=== PATIENT | female | born 1940 | race Hispanic/Latino ===

== ENCOUNTER 2016-05-17 12:03 | Observation (INO) | payer MEDICARE ==
[2016-05-17 12:05] VITALS: BMI 17.9
--- NOTE | 2016-05-17 12:40 | ED PDOC ---
Arrival/HPI - General Chief Complaint: Syncope Time Seen by Provider: 05/17/16 12:05 Historian: Patient - History of Present Illness Narrative History of Present Illness (Text): 05/17/16 12:05 A 75 year old female, whose past medical history includes emphysema, hypertension, hyperlipidemia, hypothyroidism, and atrial fibrillation (on Warfarin), presents to the emergency room, accompanied by , for evaluation after a syncopal episode. 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 She states the lightheadedness is worse when standing up but is still present while sitting. Patient reports her co-workers told her she passed out. Patient does not recall passing out. She says her co-worker was able to catch her fall and therefore did not sustain any injuries. Currently that patient feels lightheaded but denies any fever, pain, or any other complaints at this time. PMD: Dr. Ayon Time/Duration: Prior to Arrival Symptom Onset: Sudden Symptom Course: Other Quality: Other Activities at Onset: Rest Context: Work Past Medical History - Provider Review Nursing Documentation Reviewed: Yes - Infectious Disease Hx of Infectious Diseases: None - Cardiac Hx Cardiac Disorders: Yes Hx Hypertension: Yes - Pulmonary Hx Respiratory Disorders: Yes Hx Asthma: Yes - Neurological Hx Neurological Disorder: Yes HX Cerebrovascular Accident: Yes - HEENT Hx HEENT Disorder: Yes (reading glasses) - Renal Hx Renal Disorder: No - Endocrine/Metabolic Hx Endocrine Disorders: No - Hematological/Oncological Hx Blood Disorders: No - Integumentary Hx Dermatological Disorder: No - Musculoskeletal/Rheumatological Hx Falls: No - Gastrointestinal Hx Gastrointestinal Disorders: Yes - Genitourinary/Gynecological Hx Genitourinary Disorders: No - Psychiatric Hx Psychophysiologic Disorder: No Hx Substance Use: No - Surgical History Hx Musculoskeletal Surgery: Yes (right wrist fracture) - Anesthesia Hx Anesthesia: Yes Hx Anesthesia Reactions: No Hx Malignant Hyperthermia: No Family/Social History - Physician Review Nursing Documentation Reviewed: Yes Family/Social History: Unknown Family HX Smoking Status: Never Smoked Hx Alcohol Use: No Hx Substance Use: No Allergies/Home Meds Allergies/Adverse Reactions: Allergies No Known Allergies Allergy (Verified 05/17/16 12:04) Home Medications: Home Meds Medication Instructions Recorded Confirmed Lisinopril [Zestril] 40 mg PO DAILY 08/18/15 05/17/16 Norvasc 5 mg PO DAILY 08/29/15 05/17/16 Synthroid 50 mcg PO DAILY 08/29/15 05/17/16 Warfarin [Coumadin] 3 mg PO .Saturday02/19/16 05/17/16 Dicyclomine HCl [Dicyclomine HCl] 10 mg PO BID 05/17/16 05/17/16 Omeprazole [Omeprazole] 40 mg PO DAILY 05/17/16 05/17/16 Warfarin [Coumadin] 2 mg PO .DAILY EXCEPT SUN 05/17/16 05/17/16 Review of Systems - Physician Review All systems were reviewed & negative as marked: Yes - Review of Systems Constitutional: absent: Fevers Cardiovascular: Syncope. absent: Chest Pain Gastrointestinal: absent: Abdominal Pain Musculoskeletal: absent: Back Pain, Neck Pain Neurological: Other (lightheaded) Physical Exam Vital Signs Reviewed: Yes Vital Signs Temp Pulse Resp BP Pulse Ox 05/17/16 13:38 87 16 119/54 L 96 05/17/16 12:15 97.9 F 79 18 112/78 97 Temperature: Afebrile Blood Pressure: Normal Pulse: Regular Respiratory Rate: Normal Appearance: Positive for: Well-Appearing, Non-Toxic, Comfortable Pain Distress: None Mental Status: Positive for: Alert and Oriented X 3 Finger Stick Blood Glucose: 103 - Systems Exam Head: Present: Atraumatic, Normocephalic Pupils: Present: PERRL Extroacular Muscles: Present: EOMI Conjunctiva: Present: Normal Mouth: Present: Moist Mucous Membranes Neck: Present: Normal Range of Motion Respiratory/Chest: Present: Clear to Auscultation, Good Air Exchange. No: Respiratory Distress, Accessory Muscle Use Cardiovascular: Present: Regular Rate and Rhythm, Normal S1, S2. No: Murmurs Abdomen: Present: Normal Bowel Sounds. No: Tenderness, Distention, Peritoneal Signs Back: Present: Normal Inspection Upper Extremity: Present: Normal Inspection. No: Cyanosis, Edema Lower Extremity: Present: Edema (trace edema bilaterally), Normal ROM. No: CALF TENDERNESS Neurological: Present: GCS=15, CN II-XII Intact, Speech Normal Skin: Present: Warm, Dry, Normal Color. No: Rashes Psychiatric: Present: Alert, Oriented x 3, Normal Insight, Normal Concentration Medical Decision Making ED Course and Treatment: 05/17/16 12:05 Impression: A 75 year old female after a syncopal episodes. Differential Diagnosis include but are not limited to: vasovagal syncope vs. electrolyte imbalance vs. ACS vs. intracranial abnormalities Plan: -- EKG -- Head CT -- Chest X-ray -- Labs -- Urinalysis -- Reassess and disposition Prior Visits: Notes and results from previous visits were reviewed. The patient last presented to the emergency department on 02/14/16 for evaluation of a near syncopal episode. Progress Notes: EKG: Ordered, reviewed, and independently interpreted the EKG. Rate : 79 BPM Rhythm : NSR Interpretation : T wave inversion in leads V1 and V2 Comparison : No change from previous EKG on 02/16/16, but EKG on 02/14/16 shows atrial fibrillation. 05/17/16 13:[address]: Creator : Dick Johnson MD COMPARISON: None available. FINDINGS: Examination is somewhat limited due to patient motion artifact HEMORRHAGE: No intracranial hemorrhage. BRAIN: No mass effect or edema. Moderate diffuse age-appropriate cerebral atrophy. Moderate chronic periventricular and deep white matter ischemic change. Incidentally noted coarse calcification of the left caudate nucleus head , unchanged compared to prior examinations. No evidence of acute infarct. VENTRICLES: Unremarkable. No hydrocephalus. CALVARIUM: Unremarkable. PARANASAL SINUSES: Unremarkable as visualized. No significant inflammatory changes. MASTOID AIR CELLS: Unremarkable as visualized. No inflammatory changes. OTHER FINDINGS: None. IMPRESSION: No intracranial mass, hemorrhage or evidence of acute infarct. Age- appropriate involutional changes. No interval change from 02/15/2016. 05/17/16 13:39 Chest X-ray: As read by me, no acute findings. 05/17/16 14:55 Case was discussed with Dr. Major who agrees to place patient under her service. She will place consults in. - Lab Interpretations Lab Results: 05/17/16 13:30 05/17/16 13:30 Lab Results 05/17/16 13:30: WBC 6.7 D, RBC 4.63, Hgb 10.4 L, Hct 30.7 L, MCV 66.3 L, MCH 22.5 L, MCHC 33.9, RDW 15.9 H, Plt Count 207, Gran % 78.3 H, Lymph % (Auto) 11.2 L, Graves % (Auto) 8.7 H, Eos % (Auto) 0.9 L, Baso % (Auto) 0.9, Gran # 5.22 , Lymph # 0.8 L, Graves # 0.6, Eos # 0.1, Baso # 0.06, PT 32.0 H*, INR 2.96 H, APTT 34.1 H, Sodium 142, Potassium 3.4 L, Chloride 107, Carbon Dioxide 24, Anion Gap 14, BUN 24 H, Creatinine 0.6, Est GFR ( Amer) > 60, Est GFR ( Non-Af Amer) > 60, Random Glucose 149 H, Calcium 9.1, Magnesium 2.1, Total Bilirubin 1.1, AST 33, ALT 42, Alkaline Phosphatase 63, Lactate Dehydrogenase 533, Total Creatine Kinase 59, Troponin I < 0.01 D, NT-Pro-B Natriuret Pep 270 , Total Protein 6.6, Albumin 3.5, Globulin 3.1, Albumin/Globulin Ratio 1.1 05/17/16 12:06: POC Glucose (mg/dL) 103 I have reviewed the lab results: Yes - RAD Interpretation Radiology Orders: 05/17/16 12:13 HEAD W/O CONTRAST [CT] Stat CHEST PORTABLE [RAD] Stat - Medication Orders Current Medication Orders: Discontinued Medications Potassium Chloride (K-Dur 20 Meq Er Tab) 40 meq PO STAT STA Stop: 05/17/16 14:02 Last Admin: 05/17/16 14:33 Dose: 40 MEQ - Scribe Statement The provider has reviewed the documentation as recorded by the Anne Hoyos Provider Scribe Attestation: All medical record entries made by the Anne were at my direction and personally dictated by me. I have reviewed the chart and agree that the record accurately reflects my personal performance of the history, physical exam, medical decision making, and the department course for this patient. I have also personally directed, reviewed, and agree with the discharge instructions and disposition. Disposition/Present on Arrival - Present on Arrival Any Indicators Present on Arrival: No History of DVT/PE: No History of Uncontrolled Diabetes: No Urinary Catheter: No History of Decub. Ulcer: No History Surgical Site Infection Following: None - Disposition Have Diagnosis and Disposition been Completed?: Yes Diagnosis: Syncope Disposition: HOSPITALIZED Disposition Time: 14:56 Patient Plan: Observation Condition: FAIR
--- NOTE | 2016-05-17 13:16 | CT ---
PROCEDURE: CT HEAD WITHOUT CONTRAST. HISTORY: syncope r/o ICH COMPARISON: None available. TECHNIQUE: Axial computed tomography images were obtained through the head/brain without intravenous contrast. Radiation dose: Total exam DLP = 1258.13 mGy-cm. This CT exam was performed using one or more of the following dose reduction techniques: Automated exposure control, adjustment of the mA and/or kV according to patient size, and/or use of iterative reconstruction technique. FINDINGS: Examination is somewhat limited due to patient motion artifact HEMORRHAGE: No intracranial hemorrhage. BRAIN: No mass effect or edema. Moderate diffuse age-appropriate cerebral atrophy. Moderate chronic periventricular and deep white matter ischemic change. Incidentally noted coarse calcification of the left caudate nucleus head, unchanged compared to prior examinations. No evidence of acute infarct. VENTRICLES: Unremarkable. No hydrocephalus. CALVARIUM: Unremarkable. PARANASAL SINUSES: Unremarkable as visualized. No significant inflammatory changes. MASTOID AIR CELLS: Unremarkable as visualized. No inflammatory changes. OTHER FINDINGS: None. IMPRESSION: No intracranial mass, hemorrhage or evidence of acute infarct. Age-appropriate involutional changes. No interval change from 02/15/2016.
[2016-05-17 13:40] LABS: ADD MANUAL DIFF? NO
[2016-05-17 13:51] LABS: BASO # 0.06 K/mm3 (0.0-2.0); BASO % 0.9 % (0.0-3.0); EOS # 0.1 (0.0-0.7); EOS % 0.9 % (1.5-5.0); GRAN # 5.22 (1.4-6.5); GRAN % 78.3 % (50.0-68.0); HEMATOCRIT 30.7 % (36.0-48.0); LYMPH # 0.8 (1.2-3.4); LYMPH % 11.2 % (22.0-35.0); MEAN CELL VOLUME 66.3 fL (80.0-105.0); MEAN CORPUSCULAR HEMOGLOBIN 22.5 pg (25.0-35.0); MEAN CORPUSCULAR HGB CONC 33.9 g/dl (31.0-37.0); MONO # 0.6 (0.1-0.6); MONO % 8.7 % (1.0-6.0); PLATELET COUNT 207 10^3/uL (120.0-450.0); RED CELL DISTRIBUTION WIDTH 15.9 % (11.5-14.5); WHITE BLOOD COUNT 6.7 10^3/ul (4.5-11.0)
[2016-05-17 13:54] LABS: ALB/GLOB RATIO 1.1 (1.1-1.8); ALKALINE PHOSPHATASE 63 U/L (38-133); ALT/SGPT 42 U/L (7-56); AST/SGOT 33 U/L (15-39); BILIRUBIN,TOTAL 1.1 mg/dL (0.2-1.3); BLOOD UREA NITROGEN 24 mg/dL (7-21); CALCIUM 9.1 mg/dL (8.4-10.5); CARBON DIOXIDE 24 mmol/L (21-33); CHLORIDE 107 mmol/L (98-107); GFR AFRICAN-AMERICAN > 60; GLUCOSE,RANDOM 149 mg/dL (70-110); MAGNESIUM 2.1 mg/dL (1.7-2.2); POTASSIUM 3.4 mmol/L (3.6-5.0); SODIUM 142 mmol/L (132-148); TOTAL PROTEIN 6.6 g/dL (5.8-8.3)
[2016-05-17 14:01] LABS: INR 2.96 (0.93-1.08); PARTIAL THROMBOPLASTIN TIME 34.1 Seconds (23.7-30.8)
[2016-05-17] MEDS ORDERED: Potassium Chloride 20 mEq ER Tab PO STA (14:01)
[2016-05-17 14:07] LABS: TROPONIN I < 0.01 ng/mL
--- NOTE | 2016-05-17 14:17 | RAD ---
HISTORY: syncope COMPARISON: 08/27/2015 FINDINGS: LUNGS: No active pulmonary disease. PLEURA: No significant pleural effusion identified, no pneumothorax apparent. CARDIOVASCULAR: Mild cardiomegaly. OSSEOUS STRUCTURES: No significant abnormalities. VISUALIZED UPPER ABDOMEN: Normal. OTHER FINDINGS: None. IMPRESSION: No active disease.
--- NOTE | 2016-05-17 17:46 | CARD ---
APPROVED REPORT EKG Measurement Heart [id number] <Conclusion> Normal sinus rhythm Possible Left atrial enlargement Septal infarct, age undetermined Abnormal ECG
--- NOTE | 2016-05-17 18:30 | HP ---
HISTORY OF PRESENT ILLNESS: The patient is 75 years old, known to me from previous admission, came t o Emergency Room while at work. 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 She felt very lightheaded, became diaphoretic and she almo st passed out but she was caught. She was made to . was called who brought her to the Emergency Room. Denies any fever or chills. No nausea or vomiting, no diarrhea, no cough, no conges tion. Upon arrival in the Emergency Room, she felt lightheaded. No complaint of nausea. PAST MEDICAL HISTORY: Significant for: 1. Hypertension. 2. COPD. 3. Hyperlipidemia. 4. Hypothyroidism. 5. Atrial fibrillation, currently on anticoagulant. 6. Chronic constipation. ALLERGIES: She is not allergic to any medications. MEDICATIONS AT HOME: 1. She is on Coumadin 2 mg daily. 2. Norvasc 5 mg daily. 3. Lisinopril 40 mg daily. 4. Bentyl as needed. 5. Synthroid 50 mcg daily. 6. Omeprazole 40 mg daily. SOCIAL HISTORY: She used to be a heavy smoker. She is and lives with her . REVIEW OF SYSTEMS: Significant for feeling weak and lightheaded, otherwise doing well. PHYSICAL EXAMINATION: GENERAL: She is awake and alert, communicative. VITAL SIGNS: She is afebrile, pulse 90, respirations 18, blood pressure 151/101. LUNGS: Bilateral fair airflow, no rhonchi or crackle. HEART: S1, S2 audible. Irregular rate control. ABDOMEN: Soft, nontender, no rebound, no guarding. NEUROLOGIC: She is awake, alert, communicative. LABORATORY DATA: WBC 6.7, hemoglobin 10.4, hematocrit 30.7, platelets 207. PT 32.0, INR 2.96. Chem istry: Sodium 142, potassium 3.4, chloride 107, CO2 24, BUN 24, creatinine 0.6, blood sugar 149. LF Ts are within normal limits. Troponin is negative. CT scan of the head is unremarkable. ASSESSMENT AND PLAN: 1. Near syncope, probably secondary to dehydration or rapid atrial fibrillation. 2. Hypertension. 3. Hypothyroidism. 4. Hyperlipidemia. 5. History of chronic obstructive pulmonary disease. An echocardiogram that was done in 02/[address] Nicholson shows left ventricle normal in size, mild to moderate chronic left ventricular hypert rophy, mild mitral regurgitation. IMAGING DATA: CT scan of the chest was done that showed small bilateral pleural effusions, right gre ater than the left. Lungs are clear. PLAN: The patient will be placed in observation for cardiac monitoring. Her carotid Doppler done in 7 seems to be unremarkable. We will monitor cardiac enzymes, start her on aspirin, continue her Cou madin, her potassium will be supplemented. Currently, she is on amlodipine, levothyroxine, and lisin opril, and we will continue that. has been requested for consult and we will observe patient o vernight and if she remains stable, she will be discharged in a.m. Oly Major MD cc: [id number] TT: 05/17/2016 18:29:31 laura
[2016-05-17] MEDS ORDERED: Pneumococcal 23-Valent Vaccine IM ONE (18:48)
[2016-05-17 19:08] LABS: TROPONIN I 0.02 ng/mL
[2016-05-18 06:45] VITALS: RESP 20; O2SAT 95
[2016-05-18] MEDS ORDERED: Levothyroxine 50 MCG TAB PO SCH (07:30)
[2016-05-18 08:18] LABS: ALKALINE PHOSPHATASE 64 U/L (38-133); ALT/SGPT 32 U/L (7-56); AST/SGOT 36 U/L (15-39); BILIRUBIN,TOTAL 0.9 mg/dL (0.2-1.3); BLOOD UREA NITROGEN 19 mg/dL (7-21); CARBON DIOXIDE 28 mmol/L (21-33); CHLORIDE 110 mmol/L (98-107); GFR AFRICAN-AMERICAN > 60; GLUCOSE,RANDOM 82 mg/dL (70-110); MAGNESIUM 1.9 mg/dL (1.7-2.2); PHOSPHOROUS 3.5 mg/dL (2.5-4.5); POTASSIUM 3.9 mmol/L (3.6-5.0); SODIUM 142 mmol/L (132-148); TOTAL PROTEIN 6.2 g/dL (5.8-8.3)
[2016-05-18 08:29] LABS: THYROID STIMULATING HORMONE 2.06 mIU/mL (0.46-4.68)
[2016-05-18 09:47] LABS: FREE T4 1.07 ng/dL (0.78-2.19)
[2016-05-18 10:35] LABS: INR 3.61 (0.93-1.08)
--- NOTE | 2016-05-18 11:31 | CON ---
DATE: 05/18/2016 INDICATIONS: Syncope, paroxysmal atrial fibrillation. 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 Prior to passing out, she felt lightheaded and unwell, but no chest pain, palpitations or shortness of breath was noted. She also denies orthopnea, PND, edema, fever, chills, cough, sputum production, hemoptysis, abdominal pain, nausea, vomiting, diarrhea, constipation, melena. PAST MEDICAL HISTORY: Notable for prior syncope. She was hospitalized in February with a syncopal episode associated with atrial fibrillation and rapid ventricular response. She has had syncopal episodes prior to that as well. Additional past medical history includes hypertension, COPD. She is a former smoker. She has osteoporosis and compression fractures. There is no history of rheumatic fever, myocardial infarction, angina, congestive heart failure, diabetes, stroke, TIA, or gout. MEDICATIONS: At the time of admission include warfarin, dicyclomine, Norvasc, omeprazole, Synthroid, and Zestril. ALLERGIES: There are no known medication allergies. SOCIAL HISTORY: She lives at home. 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 She is a former smoker. She does not drink alcohol. She is ambulatory. FAMILY HISTORY: Notable for heart disease. REVIEW OF SYSTEMS: A 10-point review of systems is otherwise unremarkable except as noted above. PHYSICAL EXAMINATION: GENERAL: She is a well-developed woman lying in bed on telemetry in no acute distress. VITAL SIGNS: Notable for sinus rhythm at 78 beats per minute. She is afebrile. Blood pressure 133/88, respirations 18-20, O2 sat 95-97% on room air. HEENT: Reveals no neck vein distention, thyromegaly, or carotid bruits. Mucous membranes are moist. Conjunctivae are pink. NECK: Supple. CHEST: Lung montano clear. HEART: Revealed a regular rhythm. Normal first and second heart sounds. There is a soft systolic murmur along the left sternal border. The PMI is not displaced. ABDOMEN: Soft. Bowel sounds are present. No mass, organomegaly, tenderness, rebound, or guarding. No CVA tenderness. No palpable abdominal aortic aneurysm. EXTREMITIES: Revealed no cyanosis, clubbing, or edema. NEUROLOGIC: Awake, alert and oriented. PSYCHIATRIC: Normal as to mood and affect. SKIN: Warm and dry. No rash or cellulitis. LABORATORY AND IMAGING: An echocardiogram done in 02/2016 revealed normal left ventricular size and function with mild to moderate concentric LVH. Mitral regurgitation is mild. There was a very small circumferential pericardial effusion noted on that study. Her portable chest x-ray revealed no active disease. A CT scan of the head revealed no intracranial mass, hemorrhage, or evidence of acute infarct. There were age-appropriate involutional changes noted and no change from the prior CT scan. EKG demonstrated regular sinus rhythm, possible septal AL. No change from prior EKG. White count is normal, hemoglobin 10.4, hematocrit 30.7, platelet count 207,000. PT 32, INR 2.96, PTT 34.1. Electrolytes normal except for initial potassium of 3.4, repeat 3.9. BUN , creatinine, blood sugar unremarkable. LFTs unremarkable. Magnesium normal. CK normal. Two troponins normal. Total cholesterol 122, LDL 57, triglycerides 32, HDL 45. TSH is normal. IMPRESSION: The patient is a 75-year-old woman who has had recurrent syncope. She experienced syncope in 02/2016 at which time she was hospitalized with evidence of atrial fibrillation with rapid ventricular response at that time. So far, during this admission, there has been no evidence of atrial fibrillation. The etiology of her recurrent syncope is obscure. She is on telemetry which I would continue. She will get warfarin based on INRs. She is getting Norvasc and lisinopril. I would check postural vital signs. She can be out of bed. Check stool for occult blood, review old records. Consider for tilt table testing and EP evaluation as an outpatient. Consider neurologic evaluation. I will follow along with you. I will make additional recommendations based on her clinical course. Arsalan Nicholson MD cc: [id number] TT: 05/18/2016 11:30:05 Confirmation # [id number] Dictation # [id number] linda MCKNIGHT
[2016-05-18 13:26] VITALS: BP 134/89; PULSE 75; TEMP 97.6
--- NOTE | 2016-05-18 16:16 | DS ---
The patient is a 75-year-old who was admitted after she felt very dizzy, almost passed. She was rece ntly admitted in February and neuro workup was done and was unremarkable. The patient was seen and ex amined today, doing well, wants to go home. PHYSICAL EXAMINATION: VITAL SIGNS: She is afebrile, pulse 75, respirations 20, blood pressure 134/89. LUNGS: Bilateral fair airflow, no rhonchi or crackle. HEART: S1, S2 audible. ABDOMEN: Soft, nontender, no rebound, no guarding. NEUROLOGIC: She is awake and alert, communicative, ambulatory. LABORATORY EXAM: WBC 6.7, hemoglobin 10.4, hematocrit 30.7, platelet 207. PT 39.0, INR 3.61. Chemi stry: Sodium 142, potassium 3.9, chloride 110, CO2 29, BUN 19, creatinine 0.5, blood sugar of 82, tr iglyceride is 32. Total cholesterol is 122. ASSESSMENT: 1. Near syncope, probably slight dehydration. 2. Chronic abdominal pain and bloating, etiology unknown. According to patient's who is by the bedside, she had endoscopy, colonoscopy done by Dr. Tena and was found to be unremarkable. She h ad CT scan done in February. It showed mild right and left pleural effusion, small pericardial effusi on, small ascites and diffuse anasarca. 3. Probably dehydration. 4. Chronic atrial fibrillation. 5. Chronic obstructive pulmonary disease. 6. Hypertension. 7. Hyperlipidemia. 8. Hypothyroidism. 9. Chronic constipation. 10. Significant weight loss. PLAN: I discussed with Dr. Montanez who is going to see the patient for further workup. We will skip h er Coumadin for today and she will be discharged. She will follow up with her PMD, Dr. Ayon, as outp atient. Oly Major MD cc: [id number] TT: 05/18/2016 16:16:04 tn
== END 2016-05-18 16:15 | disposition home or self-care (01) ==
LOC: ED 12:03 → ERH 14:02 → 2RNO 15:42
PROVIDERS: ADMIT Internal Medicine; ATTEND Internal Medicine
DX: R55 Syncope and collapse (principal); I48.2 Chronic atrial fibrillation; Z79.01 Long term (current) use of anticoagulants; E78.5 Hyperlipidemia, unspecified; I10 Essential (primary) hypertension; E03.9 Hypothyroidism, unspecified; J44.9 Chronic obstructive pulmonary disease, unspecified; K59.09 Other constipation; I34.0 Nonrheumatic mitral (valve) insufficiency; M81.0 Age-related osteoporosis without current pathological fracture; G89.29 Other chronic pain; R10.9 Unspecified abdominal pain; R14.0 Abdominal distension (gaseous); R63.4 Abnormal weight loss; Z87.891 Personal history of nicotine dependence
CPT/HCPCS: 36415; 70450; 71010; 80053; 80061; 82550; 82948; 83615; 83735; 83880; 84100; 84439; 84443; 84484; 85025; 85610; 85730; 93005; 99285; G0378

== ENCOUNTER 2016-06-12 12:03 | Inpatient (IN) | payer MEDICARE ==
[2016-06-12 12:04] VITALS: BMI 17.9
[2016-06-12] MEDS ORDERED: Sodium Chloride 0.9% 500 ML IV STA (12:14)
--- NOTE | 2016-06-12 12:18 | ED PDOC ---
Arrival/HPI - General Time Seen by Provider: 06/12/16 12:11 Historian: Patient - History of Present Illness Narrative History of Present Illness (Text): 06/12/16 12:13 A 75 year old female, whose past medical history includes hypertension, COPD, A- fib, hyperlipidemia and hypothyroidism, present to the emergency department complaining of dizziness and feeling very tremulous since this morning. Patient reports feeling off balance and having a sensation she is about to fall but not pass out. She went to see Dr. Montanez who referred her to the emergency room for low blood pressure. Per Dr. Montanez, BP was 80 systolic in her office. Patient also notes abdominal pain which she had had for several months, but no new changes today. Patient denies any fever, chills, nausea, vomiting, diarrhea, urinary symptoms, chest pain, shortness of breath, headache, focal weakness or any other complaints. PMD: Dr. Ayon Mechanical Manufacturing Technician: Dr. Long Time/Duration: Other (This morning) Symptom Course: Unchanged Quality: Other Context: Home Past Medical History - Provider Review Nursing Documentation Reviewed: Yes - Infectious Disease Hx of Infectious Diseases: None - Cardiac Hx Cardiac Disorders: Yes Hx Cardiac Arrhythmia: Yes (AFIB 13-17) Hx Hypertension: Yes - Pulmonary Hx Respiratory Disorders: Yes (SMOKED CIGARETTES 3-5 CIG.QUIT 11 YRS AGO.) Hx Asthma: Yes - Neurological Hx Neurological Disorder: Yes (SYNCOPE 17 NEAR SYNCOPE 16) HX Cerebrovascular Accident: Yes - HEENT Hx HEENT Disorder: Yes (reading glasses) - Renal Hx Renal Disorder: No - Endocrine/Metabolic Hx Endocrine Disorders: No - Hematological/Oncological Hx Blood Disorders: No - Integumentary Hx Dermatological Disorder: Yes (VARICOSE VEINS) - Musculoskeletal/Rheumatological Hx Musculoskeletal Disorders: Yes Hx Back Pain: Yes Hx Falls: No Hx Fractures: Yes (COMPRESSION FX L2,RIGHT WRIST FX) Hx Osteoporosis: Yes - Gastrointestinal Hx Gastrointestinal Disorders: Yes (CONSTIPATION) Hx Gastroesophageal Reflux: Yes - Genitourinary/Gynecological Hx Genitourinary Disorders: No - Psychiatric Hx Psychophysiologic Disorder: No Hx Substance Use: No - Surgical History Hx Musculoskeletal Surgery: Yes (right wrist fracture) - Anesthesia Hx Anesthesia: Yes Hx Anesthesia Reactions: No Hx Malignant Hyperthermia: No Family/Social History - Physician Review Nursing Documentation Reviewed: Yes Family/Social History: No Known Family HX Smoking Status: Former Smoker Hx Alcohol Use: Yes (WINE SOCIALLY) Hx Substance Use: No Allergies/Home Meds Allergies/Adverse Reactions: Allergies No Known Allergies Allergy (Verified 06/12/16 12:22) Home Medications: Home Meds Medication Instructions Recorded Confirmed Lisinopril [Zestril] 40 mg PO DAILY 08/18/15 06/12/16 Warfarin [Coumadin] 3 mg PO .Saturday02/19/16 06/12/16 Dicyclomine HCl 10 mg PO BID 05/17/16 06/12/16 Levothyroxine [Synthroid] 50 mcg PO DAILY 05/17/16 06/12/16 Omeprazole 40 mg PO DAILY 05/17/16 06/12/16 Warfarin [Coumadin] 2 mg PO .DAILY EXCEPT SUN 05/17/16 06/12/16 amLODIPine [Norvasc] 5 mg PO DAILY 05/17/16 06/12/16 Review of Systems - Physician Review All systems were reviewed & negative as marked: Yes - Review of Systems Constitutional: Weight Change (weight loss), Other (Body shakes). absent: Fevers, Night Sweats Eyes: Normal ENT: Normal Respiratory: absent: SOB Cardiovascular: absent: Chest Pain Gastrointestinal: Abdominal Pain, Diarrhea. absent: Nausea, Vomiting Genitourinary Female: absent: Dysuria, Frequency, Hematuria, Urine Output Changes Neurological: Dizziness. absent: Headache, Focal Weakness Endocrine: absent: Polyuria Hemo/Lymphatic: absent: Easy Bleeding Physical Exam Vital Signs Temp Pulse Resp BP Pulse Ox 06/12/16 12:16 98.4 F 82 18 114/80 99 06/12/16 12:04 98.4 F 82 18 114/80 99 Temperature: Afebrile Blood Pressure: Normal Pulse: Regular Respiratory Rate: Normal Appearance: Positive for: Well-Appearing, Non-Toxic, Comfortable Pain Distress: None Mental Status: Positive for: Alert and Oriented X 3 - Systems Exam Head: Present: Atraumatic, Normocephalic Pupils: Present: PERRL Extroacular Muscles: Present: EOMI Conjunctiva: Present: Normal Mouth: Present: Moist Mucous Membranes Pharnyx: Present: Normal. No: ERYTHEMA, EXUDATE Respiratory/Chest: Present: Good Air Exchange, Other (Mild left lower base crackles). No: Respiratory Distress, Accessory Muscle Use Cardiovascular: Present: Regular Rate and Rhythm, Normal S1, S2. No: Murmurs Abdomen: Present: Normal Bowel Sounds. No: Tenderness, Distention, Peritoneal Signs Back: Present: Normal Inspection Upper Extremity: Present: Normal Inspection. No: Cyanosis, Edema Lower Extremity: Present: Normal Inspection. No: Edema Neurological: Present: GCS=15, CN II-XII Intact, Speech Normal, Motor Func Grossly Intact, Other (no dysmetria) Skin: Present: Warm, Dry, Normal Color. No: Rashes Psychiatric: Present: Alert, Oriented x 3, Normal Insight, Normal Concentration Medical Decision Making ED Course and Treatment: 06/12/16 12:13 Impression: A 75 year old female with dizziness and body shakes and hypotension in the field. Patient notes abdominal pain for which she is getting workup. Plan: -- Chest xray -- EKG -- Labs -- Blood culture -- Urinalysis -- IV fluids -- Reassess and disposition Prior Visits: Notes and results from previous visits were reviewed. Patient last seen in the ED on 05/17/16 and hospitalized for syncope. Progress Notes: EKG shows NSR at 85 BPM with normal intervals, normal axis, no ST changes. Interpreted by me. Report Date : 06/12/2016 13:27:18 Procedure: Chest xray Dictator : Estevan Nolasco MD IMPRESSION: No active disease. 06/12/16 14:05 Patient with low BP in the field, feeling generalized weakness and tremulous. Exam is unremarkable here in the ED, but given history - will need inpatient evaluation as she became hypotense and has been having the weight loss and abd pain - will need GI and heme/onc eval, as discussed with Dr. Montanez. Case was discussed with Dr. Major for admission to her service. As discussed with Dr. Montanez, will obtain CT c/a/p with PO and IV contrast. - Lab Interpretations Lab Results: 06/12/16 12:15 06/12/16 12:15 Lab Results 06/12/16 13:00: Urine Color Yellow, Urine Appearance Clear, Urine pH 6.5, Ur Specific [place] 1.010, Urine Protein Trace H, Urine Glucose (UA) Negative, Urine Ketones Negative, Urine Blood Negative, Urine Nitrate Negative, Urine Bilirubin Negative, Urine Urobilinogen 2.0 H, Ur Leukocyte Esterase Negative, Urine RBC Negative, Urine WBC Negative 06/12/16 12:15: Sodium 145, Chloride 109 H, Potassium 3.4 L, Carbon Dioxide 24, Anion Gap 15, BUN 20, Creatinine 0.7, Est GFR ( Amer) > 60, Est GFR (Non- Af Amer) > 60, Random Glucose 116 H, Calcium 9.1, Magnesium 2.1, Total Bilirubin 1.4 H, AST 24, ALT 31, Alkaline Phosphatase 49, Lactate Dehydrogenase 523, Total Creatine Kinase 38, Troponin I < 0.01 D, NT-Pro-B Natriuret Pep 172 , Total Protein 6.7, Albumin 3.4, Globulin 3.3, Albumin/Globulin Ratio 1.0 L, Lipase 60 06/12/16 12:15: pO2 31, VBG pH 7.33, VBG pCO2 50.0, VBG HCO3 26.4, VBG Total CO2 27.9, VBG O2 Sat (Calc) 65.4 H, VBG Base Excess -0.2 L, VBG Potassium 3.5 L , Sodium 145.0, Chloride 117.0 H, Glucose 118 H, Lactate 3.0 H, FiO2 21.0, Venous Blood Potassium 3.5 L 06/12/16 12:15: WBC 5.7, RBC 4.83, Hgb 10.8 L, Hct 32.3 L, MCV 66.9 L, MCH 22.4 L, MCHC 33.4, RDW 16.7 H, Plt Count 238, Gran % 62.2, Lymph % (Auto) 26.4, [place] % (Auto) 8.6 H, Eos % (Auto) 2.1, Baso % (Auto) 0.7, Gran # 3.56, Lymph # 1.5, [place] # 0.5, Eos # 0.1, Baso # 0.04 06/12/16 12:15: PT 27.4 H, INR 2.54 H, APTT 34.1 H - RAD Interpretation Radiology Orders: 06/12/16 12:14 CHEST PORTABLE [RAD] Stat 06/12/16 13:39 Brain [HEAD W/O CONTRAST] [CT] Stat 06/12/16 13:42 CHEST,ABD,PEL W/IV&PO CONTRAST [CT] Stat - Medication Orders Current Medication Orders: Discontinued Medications Sodium Chloride (Sodium Chloride 0.9%) 500 mls @ 999 mls/hr IV .Q31M STA Stop: 06/12/16 12:44 Last Admin: 06/12/16 12:37 Dose: 999 mls/hr Iohexol (Omnipaque 240 (50 Ml)) Confirm Administered Dose 50 ml .ROUTE .STK-MED ONE Stop: 06/12/16 13:49 Potassium Chloride (K-Dur 20 Meq Er Tab) 40 meq PO STAT STA Stop: 06/12/16 13:04 Last Admin: 06/12/16 13:50 Dose: 40 meq - Scribe Statement The provider has reviewed the documentation as recorded by the Anne Werner Provider Scribe Attestation: All medical record entries made by the Scribe were at my direction and personally dictated by me. I have reviewed the chart and agree that the record accurately reflects my personal performance of the history, physical exam, medical decision making, and the department course for this patient. I have also personally directed, reviewed, and agree with the discharge instructions and disposition. Disposition/Present on Arrival - Present on Arrival Any Indicators Present on Arrival: No History of DVT/PE: No History of Uncontrolled Diabetes: No Urinary Catheter: No History Surgical Site Infection Following: None - Disposition Have Diagnosis and Disposition been Completed?: Yes Diagnosis: Hypotension, Generalized weakness Disposition: HOSPITALIZED Disposition Time: 13:42 Patient Plan: Admission Condition: FAIR Discharge Instructions (ExitCare): Weakness (ED) Referrals: Estefani Ayon DO [Primary Care Provider] - Follow up with primary
[2016-06-12 12:39] LABS: ADD MANUAL DIFF? NO
[2016-06-12 12:44] LABS: VENOUS BLOOD GAS BASE EXCESS -0.2 mmol/L (0.0-2.0); VENOUS BLOOD PH 7.33 (7.32-7.43)
[2016-06-12 12:57] LABS: ALKALINE PHOSPHATASE 49 U/L (38-133); ALT/SGPT 31 U/L (7-56); AST/SGOT 24 U/L (15-39); BILIRUBIN,TOTAL 1.4 mg/dL (0.2-1.3); BLOOD UREA NITROGEN 20 mg/dL (7-21); CALCIUM 9.1 mg/dL (8.4-10.5); CARBON DIOXIDE 24 mmol/L (21-33); CHLORIDE 109 mmol/L (98-107); GFR AFRICAN-AMERICAN > 60; GLUCOSE,RANDOM 116 mg/dL (70-110); LIPASE 60 U/L (23-300); MAGNESIUM 2.1 mg/dL (1.7-2.2); POTASSIUM 3.4 mmol/L (3.6-5.0); SODIUM 145 mmol/L (132-148); TOTAL PROTEIN 6.7 g/dL (5.8-8.3)
[2016-06-12] MEDS ORDERED: Potassium Chloride 20 mEq ER Tab PO STA (13:03)
[2016-06-12 13:04] LABS: BASO # 0.04 K/mm3 (0.0-2.0); BASO % 0.7 % (0.0-3.0); EOS # 0.1 (0.0-0.7); EOS % 2.1 % (1.5-5.0); GRAN # 3.56 (1.4-6.5); GRAN % 62.2 % (50.0-68.0); HEMATOCRIT 32.3 % (36.0-48.0); LYMPH # 1.5 (1.2-3.4); LYMPH % 26.4 % (22.0-35.0); MEAN CELL VOLUME 66.9 fL (80.0-105.0); MEAN CORPUSCULAR HEMOGLOBIN 22.4 pg (25.0-35.0); MEAN CORPUSCULAR HGB CONC 33.4 g/dl (31.0-37.0); MONO # 0.5 (0.1-0.6); MONO % 8.6 % (1.0-6.0); PLATELET COUNT 238 10^3/uL (120.0-450.0); RED CELL DISTRIBUTION WIDTH 16.7 % (11.5-14.5); WHITE BLOOD COUNT 5.7 10^3/ul (4.5-11.0)
[2016-06-12 13:05] LABS: PH,URINE 6.5 (4.7-8.0); URINE BILIRUBIN NEGATIVE (NEGATIVE); URINE BLOOD NEGATIVE (NEGATIVE); URINE GLUCOSE (UA) NEGATIVE (NEGATIVE); URINE KETONE NEGATIVE (NEGATIVE); URINE LEUKOCYTE ESTERASE NEGATIVE Leu/uL (NEGATIVE); URINE PROTEIN TRACE mg/dL (<30 mg/dL)
[2016-06-12 13:06] LABS: URINE COLOR YELLOW (YELLOW)
[2016-06-12 13:07] LABS: URINE APPEARANCE CLEAR (CLEAR)
[2016-06-12 13:09] LABS: TROPONIN I < 0.01 ng/mL
[2016-06-12 13:10] LABS: INR 2.54 (0.93-1.08); PARTIAL THROMBOPLASTIN TIME 34.1 Seconds (23.7-30.8)
[2016-06-12 13:18] LABS: URINE RBC NEGATIVE /hpf (0-2); URINE WBC NEGATIVE /hpf (0-6)
--- NOTE | 2016-06-12 13:28 | RAD ---
HISTORY: generalized weakness COMPARISON: 06/16/2016 FINDINGS: LUNGS: No active pulmonary disease. PLEURA: No significant pleural effusion identified, no pneumothorax apparent. CARDIOVASCULAR: Mild cardiomegaly and moderate aortic tortuosity OSSEOUS STRUCTURES: No significant abnormalities. VISUALIZED UPPER ABDOMEN: Normal. OTHER FINDINGS: None. IMPRESSION: No active disease.
[2016-06-12] MEDS ORDERED: Iohexol 240 (50 ml) ONE (13:48)
[2016-06-12] MEDS ORDERED: Iohexol 350 MG/100 ML VIAL ONE (14:03)
[2016-06-12 16:21] LABS: VENOUS BLOOD GAS BASE EXCESS -0.2 mmol/L (0.0-2.0); VENOUS BLOOD PH 7.42 (7.32-7.43)
--- NOTE | 2016-06-12 17:08 | CT ---
PROCEDURE: CT HEAD WITHOUT CONTRAST. HISTORY: unsteadiness COMPARISON: Comparison is made to the previous study dated 05/17/2016 TECHNIQUE: Axial computed tomography images were obtained through the head/brain without intravenous contrast. Radiation dose: Total exam DLP = 774.23 mGy-cm. This CT exam was performed using one or more of the following dose reduction techniques: Automated exposure control, adjustment of the mA and/or kV according to patient size, and/or use of iterative reconstruction technique. FINDINGS: HEMORRHAGE: No intracranial hemorrhage. BRAIN: No mass effect or edema. Moderate atrophy is again noted. Moderate to extensive white matter changes are also again seen is suggestive of chronic microvascular ischemic disease. VENTRICLES: Unremarkable. No hydrocephalus. CALVARIUM: Unremarkable. PARANASAL SINUSES: Unremarkable as visualized. No significant inflammatory changes. MASTOID AIR CELLS: Unremarkable as visualized. No inflammatory changes. OTHER FINDINGS: None. IMPRESSION: No evidence of acute intracranial hemorrhage. No evidence of significant interval change compared to the previous exam.
--- NOTE | 2016-06-12 17:27 | CT ---
PROCEDURE: CT Chest, Abdomen and Pelvis with intravenous contrast HISTORY: weight loss, abd pain COMPARISON: Comparison is made to the previous CT of the abdomen and pelvis dated 02/16/[address] of the chest dated 02/17/2016 TECHNIQUE: Axial and reformatted coronal and sagittal CT images of the abdomen and pelvis were obtained after IV and oral contrast administration. IV dose administered: 100 mL Omnipaque 350 Radiation dose: Total exam DLP = 293.55 mGy-cm. This CT exam was performed using one or more of the following dose reduction techniques: Automated exposure control, adjustment of the mA and/or kV according to patient size, and/or use of iterative reconstruction technique. FINDINGS: CT CHEST WITH CONTRAST: LUNGS: No evidence of acute pathology in the lungs. No evidence of new mass or infiltrate. MEDIASTINUM: The thoracic aorta is ectatic and tortuous. The main pulmonary artery is mildly enlarged. The heart is moderately enlarged. Diffuse thickening of the esophagus is noted. LYMPH NODES: Unremarkable. PLEURA: No evidence of significant pleural effusion or pneumothorax. BONES: Again seen are compression deformity at the mid and lower thoracic spine. OTHER FINDINGS: None. CT ABDOMEN AND PELVIS: LIVER: No significant of interval change in the liver since the previous exam noted. Dilated hepatic veins are again seen. GALLBLADDER AND BILE DUCTS: No evidence of cholecystitis. PANCREAS: Small size pancreas is again noted. The main pancreatic duct is not dilated. SPLEEN: Unremarkable. ADRENALS: Unremarkable. No mass. KIDNEYS AND URETERS: The kidneys enhance symmetrically. Mildly dilated collecting system of both kidneys is noted right slightly more than left. VASCULATURE: Unremarkable. No aortic aneurysm. BOWEL: Unremarkable. No obstruction. No gross mural thickening. Mild constipation is noted. MK moderate constipation in the rectum is also noted. APPENDIX: No evidence of appendicitis. PERITONEUM: Unremarkable. No free fluid. No free air. LYMPH NODES: Unremarkable. No enlarged lymph nodes. BLADDER: Unremarkable. REPRODUCTIVE: The uterus is mildly enlarged for the patient's age. BONES: Diffuse osteopenia is again noted. OTHER FINDINGS: None. IMPRESSION: No evidence of acute pathology or suspicious mass in the lungs. Interval resolving of the previously seen bilateral pleural effusions. Moderate cardiomegaly. No CT evidence of acute pathology in the abdomen and pelvis. No evidence of significant interval change since the previous exam. Diffuse osteopenia. Multiple compression deformities in the spine.
--- NOTE | 2016-06-12 19:49 | HP ---
HISTORY OF PRESENT ILLNESS: The patient is a 75-year-old white female [place] me [place] [facility] [facility] [place], had been complaining of feeling dizzy, shaking, and this morning, she was feeling li ghtheaded, off balance as if she was going to pass out. She went to see Dr. Montanez. Dr. Montanez examin ed the patient. She was found to be hypotensive with blood pressure of 80, so she was brought to [facility] Room for further evaluation, complained of abdominal pain that seems to be chronic. Denies an y fever or chills. No nausea, no vomiting, but does have decreased appetite and significant weight l oss over a couple of months. PAST MEDICAL HISTORY: She has significant past medical history of: 1. Hypertension. 2. Chronic atrial fibrillation. 3. Chronic obstructive pulmonary disease. 4. Hypertension. 5. Hyperlipidemia. 6. History of chronic constipation. ALLERGIES: She is not allergic to any medications. MEDICATIONS AT HOME: She is on omeprazole 40 mg daily, Synthroid 50 mcg daily, Bentyl q. 6 p.r .n., lisinopril 40 mg daily, Norvasc 5 mg daily, Coumadin 2 mg daily except Saturday she takes 3 mg emre ly. SOCIAL HISTORY: She used to be a heavy smoker but does not smoke anymore. She is , lives wit h her . REVIEW OF SYSTEMS: Significant for feeling of generalized weakness and getting dizzy. PHYSICAL EXAMINATION: GENERAL: The patient is awake and alert, communicative. VITAL SIGNS: She is afebrile, pulse 82, respirations 18, blood pressure . LUNGS: Bilateral good airflow, no rhonchi or crackle. HEART: S1, S2 audible. ABDOMEN: Soft, nontender, no rebound, no guarding. NEUROLOGIC: She is awake and alert, communicative. LABORATORY DATA: WBC 5.7, hemoglobin 10.8, hematocrit 32.3, platelets of 238. PT 27.4, INR 2.54. C hemistry: Sodium 145, potassium 3.4, chloride 109, CO2 of 24, BUN 20, creatinine 0.7, blood sugar 11 4. Total bilirubin 1.4. LFTs are within normal limits. CT scan of the abdomen and pelvis done that is pending. CT scan of the head is unremarkable. X-ray of chest is negative. ASSESSMENT: 1. Generalized weakness. 2. Near syncope. 3. History of atrial fibrillation. 4. Hypertension. 5. Hypothyroidism. 6. History of weight loss. 7. Chronic obstructive pulmonary disease. PLAN: We will start her on IV fluids. Consult Dr. Long. We will continue her on Coumadin. Mon itor her blood pressure closely. Follow up CBC, CMP and in a.m. Oly Major MD cc: [phone] TT: 06/12/2016 19:48:54 mn
[2016-06-12 19:59] LABS: CHOLESTEROL 129 mg/dL (130-200)
--- NOTE | 2016-06-12 20:55 | CARD ---
APPROVED REPORT EKG Measurement Heart [id number] <Conclusion> Normal sinus rhythm Possible Left atrial enlargement Cannot rule out Anterior infarct, age undetermined Abnormal ECG
--- NOTE | 2016-06-13 00:46 | CP.PCM.CON ---
History of Present Illness - History of Present Illness History of Present Illness: Pt. is a 75 year old female with history of abnormal weight loss for past 14 months. She had EGD, colonoscopy in Dec 2015, unremarkable. CT chest abdomen done in Feb 2016 was unremarkable. She has no apatite. She continue to loose weight. Tumor markers done in office- CEA, CA125, CA19.9 not increased. She was dizzy and had unsteady gait since morning. BP was low in office 80 systolic. She was referred to ED for further evaluation and treatment. CT chest abdomen, pelvis done today did not show any mass lesion. NO ascites. Review of Systems - Constitutional Constitutional: Anorexia, Fatigue, Malaise, Weakness - EENT Eyes: absent: As Per HPI, Blind Spots, Blurred Vision, Change in Vision, Decreased Night Vision, Diplopia, Discharge, Dry Eye, Exophthalmos, Floaters, Irritation, Itchy Eyes, Loss of Peripheral Vision, Pain, Photophobia, Requires Corrective Lenses, Sees Flashes, Spots in Vision, Tunnel Vision, Other Visual Disturbances, Loss of Vision, Other Ears: absent: As Per HPI, Decreased Hearing, Ear Discharge, Ear Pain, Tinnitus, Abnormal Hearing, Disequilibrium, Dizziness, Other Nose/Mouth/Throat: absent: As Per HPI, Epistaxis, Nasal Congestion, Nasal Discharge, Nasal Obstruction, Nasal Trauma, Nose Pain, Post Nasal Drip, Sinus Pain, Sinus Pressure, Bleeding Gums, Change in Voice, Dental Pain, Dry Mouth, Dysphagia, Halitosis, Hoarsness, Lip Swelling, Mouth Lesions, Mouth Pain, Odynophagia, Sore Throat, Throat Swelling, Tongue Swelling, Facial Pain, Neck Pain, Neck Mass, Other - Cardiovascular Cardiovascular: Irregular Heart Rhythm, Syncope - Respiratory Respiratory: absent: As Per HPI, Cough, Dyspnea, Hemoptysis, Dyspnea on Exertion , Wheezing, Snoring, Stridor, Pain on Inspiration, Chest Congestion, Excessive Mucous Production, Change in Mucous Color, Pain with Coughing, Other - Gastrointestinal Gastrointestinal: absent: As Per HPI, Abdominal Pain, Belching, Bloating, Change in Bowel Habits, Change in Stool Character, Coffee Ground Emesis, Constipation, Cramping, Diarrhea, Dyspepsia, Dysphagia, Early Satiety, Excessive Flatus, Fecal Incontinence, Heartburn, Hematemesis, Hematochezia, Loose Stools, Melena, Nausea, Odynophagia, Temesmus, Vomiting, Other - Genitourinary Genitourinary: absent: As Per HPI, Change in Urinary Stream, Difficulty Urinating, Dysuria, Flank Pain, Hematuria, Pyuria, Nocturia, Urinary Incontinence, Urinary Frequency, Urinary Hesitance, Urinary Urgency, Voiding Freq/Small Amts, Freq UTI, Hx Renal/Bladder Calculi, Hx /Renal Surgery, Bladder Distension, Other - Menstruation Menstruation: absent: As Per HPI, Amenorrhea, Amenorrhea/ Control, Currently Menstual, Cycle <21 Days, Cycle >35 Days, Cycle Variable, Menses 1-7 Days, Menses >/= 8 Days, Menses Variable, Cycle > 4 Weeks Between, No Menses for 6 Months, Heavy Menses, Light Menses, Normal Menses, Spotting Between Cycles , S/P Hysterectomy, Menopausal, Post Menopausal, Premenarche, Abnormal Vaginal Bleeding, Dysmenorrhea, Other - Musculoskeletal Musculoskeletal: Abnormal Gait, Muscle Weakness - Neurological Neurological: Frequent Falls, Syncope, Vertigo, Weakness - Psychiatric Psychiatric: absent: As Per HPI, Abnormal Sleep Pattern, Anhedonia, Anxiety, Auditory Hallucinations, Behavioral Changes, Change in Appetite, Change in Libido, Confusion, Depression, Difficulty Concentrating, Hallucinations, Homicidal Ideation, Hopelessness, Irritability, Memory Loss, Mood Swings, Panic Attacks, Paranoia, Suicidal Ideation, Visual Hallucinations, Tactile Hallucinations, Other - Endocrine Endocrine: absent: As Per HPI, Change in Body Appearance, Change in Libido, Cold Intolorance, Deepening of Voice, Excessive Sweating, Fatigue, Flushing, Heat Intolorance, Increase in Ring/Shoe/Hat Size, Palpitations, Polydipsia, Polyphagia, Polyuria, Other - Hematologic/Lymphatic Hematologic: As Per HPI Past Patient History - Infectious Disease Hx of Infectious Diseases: None - Past Medical History & Family History Past Medical History?: Yes Past Family History: Reviewed and not pertinent - Past Social History Smoking Status: Former Smoker - CARDIAC Hx Cardiac Disorders: Yes Hx Hypertension: Yes Other/Comment: A-Fib - PULMONARY Hx Respiratory Disorders: Yes Hx Asthma: Yes - NEUROLOGICAL Hx Neurological Disorder: Yes HX Cerebrovascular Accident: Yes Hx Dizziness: Yes - HEENT Hx HEENT Problems: No - RENAL Hx Chronic Kidney Disease: No - ENDOCRINE/METABOLIC Hx Endocrine Disorders: No - HEMATOLOGICAL/ONCOLOGICAL Hx Blood Disorders: No - INTEGUMENTARY Hx Dermatological Problems: No - MUSCULOSKELETAL/RHEUMATOLOGICAL Hx Musculoskeletal Disorders: Yes Hx Falls: No Hx Fractures: Yes Hx Unsteady Gait: Yes - GASTROINTESTINAL Hx Gastrointestinal Disorders: Yes Hx Gastroesophageal Reflux: Yes - GENITOURINARY/GYNECOLOGICAL Hx Genitourinary Disorders: No - PSYCHIATRIC Hx Psychophysiologic Disorder: No - SURGICAL HISTORY Hx Surgeries: Yes - ANESTHESIA Hx Anesthesia: Yes Hx Anesthesia Reactions: No Hx Malignant Hyperthermia: No Meds Allergies/Adverse Reactions: Allergies Allergy/AdvReac Type Severity Reaction Status Date / Time No Known Allergies Allergy Verified 06/12/16 12:22 - Medications Medications: Current Medications Amlodipine Besylate (Norvasc) 5 mg PO DAILY SANJANA Levothyroxine Sodium (Synthroid) 50 mcg PO DAILY SANJANA Pantoprazole Sodium (Protonix Inj) 40 mg IVP DAILY SANJANA Warfarin Sodium (Coumadin) 2 mg PO .DAILY EXCEPT SUN SANJANA PRN Reason: Protocol Physical Exam - Constitutional Appears: Cachectic, Chronically Ill - Head Exam Head Exam: ATRAUMATIC, NORMAL INSPECTION, NORMOCEPHALIC - Eye Exam Eye Exam: Normal appearance Pupil Exam: NORMAL ACCOMODATION - ENT Exam ENT Exam: Mucous Membranes Moist, Normal Exam - Neck Exam Neck exam: Negative for: Full Rom, Lymphadenopathy, Meningismus, Normal Inspection, Tenderness, Thyromegaly - Respiratory Exam Respiratory Exam: Clear to Auscultation Bilateral, NORMAL BREATHING PATTERN - Cardiovascular Exam Cardiovascular Exam: Irregular Rhythm, +S1, +S2 - GI/Abdominal Exam GI & Abdominal Exam: Normal Bowel Sounds, Soft - Extremities Exam Extremities exam: Positive for: normal inspection - Back Exam Back exam: NORMAL INSPECTION - Skin Skin Exam: Dry, Intact, Normal Color, Warm Results - Vital Signs Recent Vital Signs: Last Vital Signs Temp 98.4 F 06/12/16 12:16 Pulse 79 06/12/16 19:59 Resp 18 06/12/16 23:06 BP 148/82 06/12/16 19:59 Pulse Ox 99 06/12/16 19:59 - Labs Result Diagrams: 06/12/16 12:15 06/12/16 12:15 Labs: Laboratory Results - last 24 hr 06/12/16 15:55 pO2 70 H VBG pH 7.42 VBG pCO2 37.0 L VBG HCO3 24.0 VBG Total CO2 25.1 VBG O2 Sat (Calc) 96.3 H VBG Base Excess -0.2 L VBG Potassium 3.5 L Sodium 144.0 Chloride 115.0 H Glucose 86 Lactate 1.3 FiO2 21.0 Venous Blood Potassium 3.5 L Assessment & Plan - Assessment and Plan (Free Text) Assessment: 1. cachexia 2. A-Fib 3. Syncope 4. Unsteady gait 5. Multiple compression fracture vertebrae Plan: CT chest abdomen pelvis reviewed, did not show any mass lesion suspicious for malignancy. Diffuse thickening of esophagus. Tumor markers not elevated. GI consult requested. EGD, colonoscopy suggested for further evaluation. Multiple compression fracture - SPEP, IF, light chain assay ordered to rule out multiple myeloma. CBC showed microcytosis. iron level are normal. B12, folate normal. On anticoagualtion for a-fib. INR therapeutic. Thank you Dr. Major for allowing us to participate in her care. - Date & Time Date: 06/13/16 Time: 01:00
[2016-06-13 07:14] LABS: BASO # 0.05 K/mm3 (0.0-2.0); BASO % 0.9 % (0.0-3.0); EOS # 0.2 (0.0-0.7); EOS % 3.6 % (1.5-5.0); GRAN # 3.12 (1.4-6.5); GRAN % 56.8 % (50.0-68.0); HEMATOCRIT 31.6 % (36.0-48.0); INR 2.43 (0.93-1.08); LYMPH # 1.8 (1.2-3.4); LYMPH % 32.5 % (22.0-35.0); MEAN CELL VOLUME 66.4 fL (80.0-105.0); MEAN CORPUSCULAR HEMOGLOBIN 22.1 pg (25.0-35.0); MEAN CORPUSCULAR HGB CONC 33.2 g/dl (31.0-37.0); MONO # 0.3 (0.1-0.6); MONO % 6.2 % (1.0-6.0); PLATELET COUNT 233 10^3/uL (120.0-450.0); RED CELL DISTRIBUTION WIDTH 16.7 % (11.5-14.5); WHITE BLOOD COUNT 5.5 10^3/ul (4.5-11.0)
[2016-06-13 07:19] LABS: RETIC% 2.38 % (0.5-1.5)
[2016-06-13 07:22] LABS: ALKALINE PHOSPHATASE 55 U/L (38-133); ALT/SGPT 37 U/L (7-56); AST/SGOT 27 U/L (15-39); BILIRUBIN,TOTAL 1.3 mg/dL (0.2-1.3); BLOOD UREA NITROGEN 15 mg/dL (7-21); CALCIUM 9.1 mg/dL (8.4-10.5); CARBON DIOXIDE 24 mmol/L (21-33); CHLORIDE 111 mmol/L (98-107); GFR AFRICAN-AMERICAN > 60; GLUCOSE,RANDOM 81 mg/dL (70-110); MAGNESIUM 2.1 mg/dL (1.7-2.2); PHOSPHOROUS 3.6 mg/dL (2.5-4.5); POTASSIUM 3.9 mmol/L (3.6-5.0); SODIUM 143 mmol/L (132-148); TOTAL PROTEIN 6.4 g/dL (5.8-8.3)
[2016-06-13 07:23] LABS: IRON 84 ug/dL (45-180)
[2016-06-13 07:33] LABS: FREE T4 0.95 ng/dL (0.78-2.19)
[2016-06-13 07:43] LABS: ADD MANUAL DIFF? NO
[2016-06-13 07:47] LABS: THYROID STIMULATING HORMONE 2.96 mIU/mL (0.46-4.68)
[2016-06-13] MEDS: Levothyroxine 50 MCG TAB PO SCH (10:40)
--- NOTE | 2016-06-13 19:10 | PN ---
DATE: 06/13/2016 SUBJECTIVE: The patient was seen and examined at the bedside earlier today. The patient complains o f abdominal bloating. No nausea, vomiting. Denies any fever or chills. No reports of any overt GI bleed. VITAL SIGNS: Temperature is 98.8, blood pressure is 150/107, pulse rate 78, respirations 20, 96 on r oom air. LABORATORY DATA: WBC is 5.5, H and H is 10.5 and 31.6, platelets of 233. Retic count is 2.38. PT i s 26.2, INR 2.43. Sodium is 143, K is 3.9, BUN 15, creatinine is 0.5. Magnesium 2.1, iron is 84, TI BC is 257%, saturation is 33. Ferritin, folate and B12 are pending. LFTs are within normal limits. PHYSICAL EXAMINATION: HEENT: Sclerae are anicteric. NECK: Supple. CARDIAC: S1, S2. LUNGS: Sounds are clear. ABDOMEN: With bowel sounds, soft. It is distended. No tenderness appreciated on palpation. No johanna ound, guarding, or organomegaly. EXTREMITIES: No edema noted. NEUROLOGIC: Awake, alert, and oriented. ASSESSMENT: The patient with complaints of abdominal pain and weight loss as well as abdominal bloat ing. The patient is status post CT scan of chest, abdomen and pelvis. Negative for any mass lesions or any acute findings. Shows diffuse thickening of the esophagus. The patient with history of atri al fibrillation on anticoagulation, history of chronic constipation, hypertension, and generalized we akness. PLAN: Request for an MRI of the abdomen, MRI, MRCP with oral and IV contrast. The patient's renal f unctions were reviewed, which are optimal, although patient did have CT scan of abdomen and pelvis wi th IV contrast yesterday. We are concerned with the patient's renal function. We will plan for aubrey rrow. Continue GI prophylaxis. The patient is on Coumadin. Follow up ferritin, folate and B12 stud ies. Discussed with the and the patient at the bedside. Stated they had MRI with Dr. Ayon. They are not sure of the type of MRI, but we will request these records. We will also request stool for fat. The patient also followed by hematology. The patient was seen and case discussed with Dr. Long. Isi GLASS cc: [id number] TT: 06/13/2016 19:10:05 Confirmation # [id number] Dictation # [id number] rn
--- NOTE | 2016-06-13 19:25 | PN ---
DATE: 06/13/2016 The patient is a 75-year-old, seen and examined, lying in bed. She states she feels a lot better. N o more weakness or numbness. No nausea or vomiting. Eating and tolerating. PHYSICAL EXAMINATION: VITAL SIGNS: She is afebrile, pulse 70, respirations 20, blood pressure 150/107. LUNGS: Bilateral good airflow, no rhonchi or crackle. HEART: S1, S2 audible. ABDOMEN: Soft, nontender, no rebound, no guarding. NEUROLOGIC: The patient is awake and alert, communicative, ambulatory. LABORATORY EXAMINATION: WBCs 5.5, hemoglobin 10.5, hematocrit 31.6, platelet of 233. PT 26.2, INR 2 .43. Chemistry: Sodium 143, potassium 3.9, chloride 111, CO2 24, BUN 15, creatinine 0.5, blood suga r of 81. TIBC 257. Her urinalysis is unremarkable. Blood cultures are negative. CT scan of the abdomen and pelvis reviewed with Dr. Dick Chamorro. According to his impression, there is no tappable fluid as pleural effusion or ascites. ASSESSMENT AND PLAN: 1. Weight loss. Differential could be occult malignancy versus pancreatic insufficiency. 2. Chronic atrial fibrillation. I will continue on Coumadin. I tried to give 1 dose of vitamin K 2 .5 early this morning, but Dr. Dick Chamorro does not think patient has any fluid that can be tapped. 3. The patient had extensive workup done as outpatient including CEA, CA-125 and CA 19-9, all is neg ative. 4. Osteoporosis. 5. Unstable gait. 6. Multiple compression fractures of the vertebrae in the past. I also discussed with Dr. Long. He will do workup for pancreatic insufficiency. The patient rec ently had magnetic resonance cholangiopancreatography done. We will retrieve those tests and possibl e discharge in a.m. Oly Major MD cc: [id number] TT: 06/13/2016 19:25:13 Confirmation # [id number] Dictation # [id number] en
[2016-06-13 22:35] LABS: FOLATE 13.8 ng/mL
[2016-06-14 06:10] LABS: TOTAL PROTEIN, SERUM 5.7 g/dL (6.1-8.1)
[2016-06-14] MEDS ORDERED: Pantoprazole 40 mg EC Tab PO SCH (07:30)
[2016-06-14] MEDS: Levothyroxine 50 MCG TAB PO SCH (09:24)
[2016-06-14 10:19] LABS: IGG,SERUM 907 mg/dL (694-1618); IGM,SERUM 147 mg/dL (48-271)
[2016-06-14 11:25] LABS: ADD MANUAL DIFF? NO
[2016-06-14 11:27] LABS: BASO # 0.05 K/mm3 (0.0-2.0); BASO % 0.7 % (0.0-3.0); EOS # 0.2 (0.0-0.7); EOS % 2.8 % (1.5-5.0); GRAN # 4.14 (1.4-6.5); GRAN % 57.1 % (50.0-68.0); HEMATOCRIT 33.6 % (36.0-48.0); LYMPH # 2.2 (1.2-3.4); LYMPH % 30.4 % (22.0-35.0); MEAN CELL VOLUME 67.2 fL (80.0-105.0); MEAN CORPUSCULAR HGB CONC 32.7 g/dl (31.0-37.0); MONO # 0.7 (0.1-0.6); PLATELET COUNT 241 10^3/uL (120.0-450.0); RED CELL DISTRIBUTION WIDTH 16.7 % (11.5-14.5); WHITE BLOOD COUNT 7.2 10^3/ul (4.5-11.0)
[2016-06-14 11:37] LABS: ALB/GLOB RATIO 1.1 (1.1-1.8); ALKALINE PHOSPHATASE 53 U/L (38-133); ALT/SGPT 33 U/L (7-56); AST/SGOT 26 U/L (15-39); BILIRUBIN,TOTAL 1.3 mg/dL (0.2-1.3); BLOOD UREA NITROGEN 16 mg/dL (7-21); CALCIUM 9.5 mg/dL (8.4-10.5); CARBON DIOXIDE 30 mmol/L (21-33); CHLORIDE 107 mmol/L (98-107); GFR AFRICAN-AMERICAN > 60; GLUCOSE,RANDOM 55 mg/dL (70-110); SODIUM 140 mmol/L (132-148); TOTAL PROTEIN 6.8 g/dL (5.8-8.3)
[2016-06-14 11:37] LABS: INR 1.5 (0.93-1.08); PARTIAL THROMBOPLASTIN TIME 28.2 Seconds (23.7-30.8)
[2016-06-14 11:37] LABS: BETA 1 GLOBULIN 0.3 g/dL (0.4-0.6); BETA 2 GLOBULIN 0.3 g/dL (0.2-0.5); GAMMA GLOBULIN 0.9 g/dL (0.8-1.7)
--- NOTE | 2016-06-14 13:33 | DS ---
The patient is a 75-year-old, seen and examined, lying in bed, comfortable, eating and tolerating. O ccasional abdominal pain, but states she has protuberant abdomen that she did not have before. PHYSICAL EXAMINATION: VITAL SIGNS: She is afebrile, pulse 88, respirations 17, blood pressure 150/95. LUNGS: Bilateral good airflow, no rhonchi or crackle. HEART: S1, S2 audible. ABDOMEN: Soft, nontender, no rebound, no guarding. NEUROLOGIC: The patient is awake and alert, communicative. LABORATORY EXAMINATION: WBCs 7.2, hemoglobin 11, hematocrit 33.6, platelet 241. PT 16.2, INR 1.5. Chemistry: Sodium 140, potassium 5.0, chloride 107, CO2 30, BUN 16, creatinine 0.6, blood sugar of 5 5. Blood cultures are negative. CT scan of the abdomen and pelvis is unremarkable. ASSESSMENT: 1. History of significant weight loss, etiology still undetermined. Workup is in progress. 2. Chronic obstructive pulmonary disease. 3. Chronic atrial fibrillation. 4. History of osteoporosis. 5. Multiple compression fractures in the past. PLAN: Discussed with Isi Duque, who is human resources executive assistant of Dr. Long. The patient will get MRCP done today and after that, she can be discharged and she will have push enteroscopy done by Dr. Long a s outpatient. Oly Major MD cc: 413 TT: 06/14/2016 13:32:43 en
--- NOTE | 2016-06-14 16:31 | PN ---
DATE: 06/14/2016 Seen and examined at the bedside earlier today. The patient tolerating oral intake. No reports of acute overnight events. VITAL SIGNS: Temperature 97.8, blood pressure 150/95, pulse 88, respirations 17 , 96 on room air. LABORATORY DATA: WBC 7.2, H and H is 11.0 and 33.6, platelets are 241. PT is 16.2, INR is 1.50, PTT is 28.2. Sodium 140, K of 5.0, BUN is 16, creatinine 0.6. Her LFTs are within normal limits. PHYSICAL EXAMINATION: HEENT: Sclera is anicteric. NECK: Supple. CARDIAC: S1, S2. LUNGS: Sounds are clear. ABDOMEN: With bowel sounds, soft, distended, nontender on palpation. NEUROLOGIC: Awake, alert, and oriented. ASSESSMENT: The patient with weight loss, unknown etiology; history of chronic atrial fibrillation, on Coumadin; chronic obstructive pulmonary disease. The patient did have a CAT scan of the chest, abdomen and pelvis which was negative for any mass lesions or acute findings. It did show some diffuse thickening in the esophagus. PLAN: The patient is going for an MRI of the abdomen with MRCP with oral and IV contrast. Her renal functions were reviewed and this was okay. Spoke with Dr. Major. The patient is scheduled for the MRI to be done today. Dr. Long spoke with Dr. Calderon, the patient's outpatient PCP and apparently the patient did have an MRI back in 12/2015, but it was not a clear study. Discussed with the patient and the at the bedside. The patient agrees to go for the MRCP. We also discussed with Dr. Major and the patient will be discharged home and can have elective outpatient upper endoscopy workup. Stool for fat was sent and the results are pending. The patient can follow up in our outpatient office. The patient was seen and case discussed with Dr. Long. Isi Hanes QUAN cc: 451 TT: 06/14/2016 16:30:52 Confirmation # [id number] Dictation # [id number] [facility]
[2016-06-14] MEDS ORDERED: Gadodiamide 287 MG/ML VIAL (15ML) IV ONE (16:53)
[2016-06-14 17:21] VITALS: BP 153/105; PULSE 92; RESP 18; TEMP 98.2; O2SAT 94
--- NOTE | 2016-06-15 10:41 | CON ---
DATE: 06/14/2016 Addendum to the GI progress note of HELEN Meeks. This patient was seen and evaluated at 9:00 a.m. The patient's was at bedside. I did discuss with Dr. Ayon about the patient's previous workup, the MRI findings and also the previous MRI findings are noted. Procedure is limited also to the motion artifact area. The family is concerned about the significant weight loss. The patient's INR is still elevated. INR is still elevated at 1.5. The procedure could not be done because of the elevated INR. The reasonable thing is to consider push enteroscopy to further evaluate the small bowel. We will also follow up the MRI report. Thank you very much for allowing us to participate in the care of the patient. Wilton Long MD cc: [id number] TT: 06/15/2016 10:40:52 Confirmation # [id number] Dictation # [id number] linda MCKNIGHT
--- NOTE | 2016-06-15 11:15 | MRI ---
PROCEDURE: Magnetic Resonance Cholangiopancreatography abdomen with and without contrast HISTORY: COMPARISON: None available. TECHNIQUE: Multiplanar, multisequence MR images of the abdomen were obtained, including heavily T2 weighted MRCP images of the biliary system. Rotating maximum intensity projection images of the biliary system were generated. 15 cc of Omniscan. FINDINGS: MRCP: The common bile duct is of a normal caliber. No evidence of choledocholithiasis. No intrahepatic biliary ductal dilatation. LIVER: Unremarkable. GALLBLADDER: Unremarkable. SPLEEN: Unremarkable. PANCREAS: No evidence of pancreatic mass. ADRENALS: Unremarkable. KIDNEYS: Multiple cysts are seen in both kidneys AORTA: No aneurysm. ASCITES: None. OTHER FINDINGS: None. IMPRESSION: Negative study
[2016-06-16 05:32] LABS: KAPPA/LAMBDA FREE RATIO 1.95 (0.26-1.65)
== END 2016-06-14 20:16 | disposition home or self-care (01) | DRG 315 ==
LOC: ED 12:03 → ERH 13:43 → 3RSO 19:58
PROVIDERS: ADMIT Internal Medicine; ATTEND Internal Medicine
DX: I95.9 Hypotension, unspecified (principal); R63.4 Abnormal weight loss; R53.1 Weakness; R10.9 Unspecified abdominal pain; R64 Cachexia; I48.2 Chronic atrial fibrillation; J44.9 Chronic obstructive pulmonary disease, unspecified; K59.09 Other constipation; I10 Essential (primary) hypertension; E03.9 Hypothyroidism, unspecified; E78.5 Hyperlipidemia, unspecified; R42 Dizziness and giddiness; R26.81 Unsteadiness on feet; M81.0 Age-related osteoporosis without current pathological fracture; M48.50XD Collapsed vertebra, not elsewhere classified, site unspecified, subsequent encounter for fracture with routine healing; Z79.01 Long term (current) use of anticoagulants; Z87.891 Personal history of nicotine dependence

== ENCOUNTER 2016-06-22 12:17 | Inpatient (IN) | payer MEDICARE ==
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
[2016-06-22 12:32] VITALS: BMI 17.6
--- NOTE | 2016-06-22 13:03 | RAD ---
HISTORY: cough COMPARISON: 06/12/2016 FINDINGS: LUNGS: No active pulmonary disease. PLEURA: No significant pleural effusion identified, no pneumothorax apparent. CARDIOVASCULAR: Normal. OSSEOUS STRUCTURES: No significant abnormalities. VISUALIZED UPPER ABDOMEN: Normal. OTHER FINDINGS: None. IMPRESSION: No active disease.
[2016-06-22 13:05] LABS: ADD MANUAL DIFF? NO
[2016-06-22 13:10] LABS: BASO # 0.08 K/mm3 (0.0-2.0); BASO % 1.4 % (0.0-3.0); EOS # 0.2 (0.0-0.7); EOS % 3.4 % (1.5-5.0); GRAN # 3.92 (1.4-6.5); HEMATOCRIT 29.5 % (36.0-48.0); LYMPH # 1.2 (1.2-3.4); LYMPH % 20.2 % (22.0-35.0); MEAN CELL VOLUME 67.8 fL (80.0-105.0); MEAN CORPUSCULAR HEMOGLOBIN 22.8 pg (25.0-35.0); MEAN CORPUSCULAR HGB CONC 33.6 g/dl (31.0-37.0); MONO # 0.5 (0.1-0.6); PLATELET COUNT 223 10^3/uL (120.0-450.0); WHITE BLOOD COUNT 5.9 10^3/ul (4.5-11.0)
[2016-06-22 13:20] LABS: ALB/GLOB RATIO 1.2 (1.1-1.8); ALKALINE PHOSPHATASE 50 U/L (38-133); ALT/SGPT 33 U/L (7-56); AST/SGOT 31 U/L (15-39); BILIRUBIN,TOTAL 1.4 mg/dL (0.2-1.3); BLOOD UREA NITROGEN 24 mg/dL (7-21); CALCIUM 8.9 mg/dL (8.4-10.5); CARBON DIOXIDE 27 mmol/L (21-33); CHLORIDE 108 mmol/L (98-107); GFR AFRICAN-AMERICAN > 60; GLUCOSE,RANDOM 128 mg/dL (70-110); POTASSIUM 3.7 mmol/L (3.6-5.0); SODIUM 142 mmol/L (132-148); TOTAL PROTEIN 6.2 g/dL (5.8-8.3)
[2016-06-22 13:24] LABS: INR 1.91 (0.93-1.08)
--- NOTE | 2016-06-22 13:29 | CT ---
PROCEDURE: CT HEAD WITHOUT CONTRAST. HISTORY: FELICIANO x2 weeks COMPARISON: 06/12/2016 TECHNIQUE: Axial computed tomography images were obtained through the head/brain without intravenous contrast. Radiation dose: Total exam DLP = 677 mGy-cm. This CT exam was performed using one or more of the following dose reduction techniques: Automated exposure control, adjustment of the mA and/or kV according to patient size, and/or use of iterative reconstruction technique. FINDINGS: HEMORRHAGE: No intracranial hemorrhage. BRAIN: No mass effect or edema. Severe chronic microvascular changes are seen in the periventricular white matter. No change in intracranial calcifications. VENTRICLES: Unremarkable. No hydrocephalus. CALVARIUM: Unremarkable. PARANASAL SINUSES: Unremarkable as visualized. No significant inflammatory changes. MASTOID AIR CELLS: Unremarkable as visualized. No inflammatory changes. OTHER FINDINGS: None. IMPRESSION: No acute findings
[2016-06-22 13:34] LABS: TROPONIN I < 0.01 ng/mL
[2016-06-22] MEDS: Levalbuterol 1.25 MG/3 ML Inhal Soln UD IH SCH (19:37)
[2016-06-22] MEDS ORDERED: Pneumococcal 23-Valent Vaccine IM ONE (21:33)
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
[2016-06-23] MEDS: Levalbuterol 1.25 MG/3 ML Inhal Soln UD IH SCH ×4 (01:02→19:37)
--- NOTE | 2016-06-23 09:12 | CON ---
DATE: 06/22/2016 HISTORY OF PRESENT ILLNESS: This patient was seen and evaluated earlier. This 75-year-old patient w as recently in the hospital, discharged a week ago, was readmitted now after a syncopal episode. The patient was feeling weak. No history of vomiting blood or melena or bright red blood per rectum. N o complaints of any abdominal pain. This patient has a significant history of weight loss. The vince ent also has mild ascites, extensive workup done in the past. The patient was seen by 3 different il stroenterologists before I was involved with this present consultation. The patient has a history of significant weight loss, had an endoscopy and colonoscopy as an outpatient recently and CT was done with p.o. and IV contrast, initially suspected occult malignancy, but no obvious lesions could be trace ntified. Other differential diagnosis considered in her case was malabsorption. The patient did hav e an MRI of the abdomen done to evaluate the pancreas, shows normal, it was okay. The patient was sc heduled to have upper GI endoscopy as an outpatient on Saturday. In the endoscopy unit, the patient was found to have a very high blood pressure of over 200 and diastolic over 120. Prior to that, the patient was feeling weak and low blood pressure. The patient was advised by the primary physician t o hold the blood pressure medication. She was seen in the primary physician's office 2 days before e ndoscopy, pressure was okay at that time and at that time the recommendation was to hold off the bloo d pressure medications. On Saturday the patient's endoscopy was canceled as her INR was also elevat ed to be 2.34 in spite of patient being off the anticoagulation for more than 4 days. The procedure was canceled and recommended at that time to follow up with the primary and optimize the anticoagulat ion status and also control the blood pressure. Rescheduling it. I have discussed with the primary physician, Dr. Duarte, earlier today and recommendation at that time in view of the patient having el evated INR in spite of being off the Coumadin for more than 4 days, will recommend a hematology evalu ation and also follow up with cardiology. The patient has a history of afib and also history of TIA as of the past. Meanwhile the patient was brought to the ER because of syncopal episode. PAST MEDICAL HISTORY: Significant as above, history of chronic atrial fibrillation, hypertension, dy slipidemia, chronic obstructive pulmonary disease, hypertension. The patient has a history of weight loss, ascites. ALLERGIES: Not allergic to any medications. SOCIAL HISTORY: She is an ex-smoker. Drinks alcohol. REVIEW OF SYSTEMS: Positive as above. Other systems reviewed and negative. FAMILY HISTORY: Noncontributory. PHYSICAL EXAMINATION, GENERAL: The patient is comfortable, alert, oriented. Moves all the extremities. VITAL SIGNS: Pulse 92, respirations 18, blood pressure 125/86. HEENT: Atraumatic, anicteric. NECK: Supple. HEART: S1, S2 heard. LUNGS: Bilateral air entry present. ABDOMEN: Soft, no mass, no tenderness. EXTREMITIES: No edema. No cyanosis. NEUROLOGIC: Alert, oriented. Moves all the extremities. LABORATORY DATA: Hemoglobin 9.9, a week ago it was 11, a significant drop. Hematocrit 29.5, WBC 5.9 , platelets 223. Chemistry is essentially unremarkable except for total bilirubin is 1.4. IMPRESSION: This 75-year-old patient admitted following a syncopal episode. The patient has a signi ficant history of weight loss, has mild ascites. The patient was seen by Dr. Dick Chamorro. The ascit es was too small to tap at that time. Coagulopathy, atrial fibrillation with history of cerebrovascu lar accident. The patient on anticoagulation, last dose she took was yesterday, INR was 1.9. The evon quinn has a history of chronic obstructive pulmonary disease. RECOMMENDATIONS: Would hold off the anticoagulation. May consider heparin if needed. The patient w ould benefit from push endoscopy to further evaluate once the patient is optimized. The etiology of syncope is unclear at this time. We will continue to closely follow up her care and suggest further management based on the clinical course. We would also request for stool for fat qualitative assay. Wilton Long MD cc: [id number] TT: 06/23/2016 09:11:48 Confirmation # [id number] Dictation # [id number] kirby
--- NOTE | 2016-06-23 09:42 | CARD ---
APPROVED REPORT EKG Measurement Heart [id number] NH [id number] [id number] <Conclusion> Sinus tachycardia Wandering baseline Probably unchanged c/w ECG 06/12/16
[2016-06-23] MEDS ORDERED: Levothyroxine 50 MCG TAB PO SCH (10:00)
[2016-06-23] MEDS: POLYETHYLENE GLYCOL 3350 17 GM/Dose PACKET PO SCH (10:38)
[2016-06-23] MEDS: Levothyroxine 50 MCG TAB PO SCH (10:43)
--- NOTE | 2016-06-23 12:07 | PN ---
DATE: 06/23/2016 SUBJECTIVE: The patient is a 75-year-old, seen and examined. She was doing shopping in the store, s he passed out, did not hit her head. States she feels better. She wants to go home for Mother's Day . PHYSICAL EXAMINATION: VITAL SIGNS: She is afebrile, pulse 70, respirations 20, blood pressure 158/98. LUNGS: Bilateral good air flow. No rhonchi or crackle. HEART: S1, S2 audible. Irregular rate control. ABDOMEN: Soft, nontender, no rebound, no guarding. NEUROLOGIC: She is awake and alert, communicative. LABORATORY EXAMINATION: WBC is 5.9, hemoglobin 9.9, hematocrit 29.5, platelets of 223. PT is 20.6, INR 1.91. Chemistry: Sodium 142, potassium 3.7, chloride 108, CO2 27, BUN 24, creatinine 0.7, blood sugar 128, total bilirubin was 1.4. Her EKG shows sinus tachycardia, wandering baseline. ASSESSMENT: 1. Syncope, etiology unclear, multifactorial. 2. History of significant weight loss. PLAN: She was in the process of getting push enteroscopy as outpatient, but because of her other mul tiple comorbidities, since she is on Coumadin, she has to be on bridged Lovenox to avoid stroke in th is elderly patient with multiple other comorbidities including COPD, pulmonary hypertension. It was hard to monitor her anticoagulation, so she is going to be kept for enteroscopy for tomorrow. We melba l hold her Coumadin and start her on Lovenox and continue her usual medication. The patient will be evaluated by Dr. Worthington and Dr. Montanez and Dr. Long. She might need one month of Holter monitor to rule out heart block for possible reason of passing out. I will also request Dr. Steinberg for eval uation. Start her on Lovenox. Dr. Montanez will evaluate the patient. Oly Major MD cc: [id number] TT: 06/23/2016 12:06:53 Confirmation # [id number] Dictation # [id number] naseem
--- NOTE | 2016-06-23 13:01 | CON ---
DATE: 06/23/2016 CHIEF COMPLAINT: Syncope. HISTORY OF PRESENT ILLNESS: This is a 75-year-old woman with past medical history of chronic A-fib o n Coumadin, hypertension, dyslipidemia, COPD, history of weight loss and ascites who apparently was d ischarged a week ago, and readmitted for a syncopal episode. The patient was feeling generally weak. No palpitations or shortness of breath. The patient also has mild ascites. Extensive workup was d one in the past. The patient has a history of significant weight loss and now screening colonoscopy as an outpatient, recently CT done with p.o. contrast and ____ occult malignancy, but no obvious lesi on could be found. She comes in with syncopal episode while she was at [place] where suddenly, she had passed out. On her labs, she is slightly dehydrated, but ____, she moving all extremities. No p ronator drift seen. She is following all commands. Hemoglobin is 9.9. She is following all command s without any difficulty. Denies any change in sense of vision, taste or smell. PAST MEDICAL HISTORY: Significant for chronic A-fib, hypertension, dyslipidemia, COPD, has history o f weight loss and ascites. ALLERGIES: No known drug allergies. MEDICATIONS: Reviewed via nurse's reconciliation sheet.. SOCIAL HISTORY: Ex-smoker, drinks alcohol. REVIEW OF SYSTEMS: A 14-point review of systems negative except for the HPI. FAMILY HISTORY: Noncontributory. PHYSICAL EXAMINATION: VITAL SIGNS: Temperature 98.9, pulse rate of 89, blood pressure 123/77, respiratory rate 20, oxygen saturation 97% via room air. GENERAL: The patient is sitting up in bed in no acute distress. HEENT: Atraumatic, normocephalic. PERRLA. Extraocular muscles intact. NECK: Supple, no JVD, no adenopathy noted. LUNGS: Clear to auscultation. No adventitious sounds. HEART: S1, S2, normal rate and rhythm. No murmurs, rubs, or gallops. ABDOMEN: Soft, nontender, nondistended. Bowel sounds are present. EXTREMITIES: No clubbing, no cyanosis. Peripheral pulses 2+ felt bilaterally. NEUROLOGIC: The patient is alert, oriented to person, place, month and year. Speech is fluent witho ut any errors. Attention span and thought process mildly slow. Cranial nerves II-XII are intact. MOTOR: Moves all extremities equally. Toes downgoing bilaterally. SENSORY: Light touch, pinprick, proprioception, vibration is intact. DTRs are 2+ throughout and 1 a t the ankles. COORDINATION: Hjiqrr-ej-fggi intact. GAIT: Deferred for now. LABORATORY DATA: Hemoglobin is 9.9 where it was a week ago 11, significant drop. Hematocrit 29.5. Chemistries are essentially unremarkable except for total bilirubin was 1.4. ASSESSMENT AND PLAN: This is a 75-year-old woman with a history of chronic obstructive pulmonary dis ease, hypertension, chronic atrial fibrillation, dyslipidemia, recent weight loss and ascites and ane ko, with CT head showed no acute intracranial abnormality, who presents with a syncopal episode. Pool boswell has a hemoglobin 9.9. Currently, her Coumadin was put on hold. Likely, her syncopal episode is li yasmeen unclear at this time, but could be possibly secondary to anemia superimposed on underlying possi ble vasovagal episode. At this time, continue with a syncopal workup. We will get carotid Doppler a nd monitor her hemoglobin and hematocrit and get orthostatic vital signs. Once again, get a physical therapy evaluation. Thank you for this consult. Remi Steinberg MD cc: [id number] TT: 06/23/2016 12:59:49 Confirmation # [id number] Dictation # [id number] wy
--- NOTE | 2016-06-24 00:28 | PN ---
DATE: 06/23/2016 SUBJECTIVE: This patient was seen and evaluated earlier today. The patient is comfortable. PHYSICAL EXAMINATION: VITAL SIGNS: Temperature is 98.1, pulse 87, blood pressure 134/82, respirations 18. HEENT: Atraumatic, anicteric. NECK: Supple. HEART: S1, S2 heard. LUNGS: Bilateral air entry present, slightly reduced in the base. ABDOMEN: Soft. There is no mass palpable. No tenderness. EXTREMITIES: No edema, no cyanosis. NEUROLOGIC: Alert, oriented. Moves all the extremities. LABORATORY DATA: Hemoglobin 9.9, hematocrit 29.5, platelets , INR is 1.9. IMPRESSION: 1. History of syncopal episode, etiology is unclear, multifactorial etiology. 2. History of significant weight loss. 3. Paroxysmal atrial fibrillation and a history of cerebrovascular accident. The patient on Coumadi n, which has been on hold. The patient is on Lovenox now. 4. Other comorbidities include chronic obstructive pulmonary disease, pulmonary hypertension. The p atient does have a history of weight loss, had an impressive workup done in the past. PLAN: The plan is to rule out malabsorption etiology. The patient was originally scheduled for push enteroscopy, which was canceled because of the uncontrolled blood pressure and also coagulopathy. T he patient will be scheduled for a push enteroscopy on Saturday provided the INR improves. The patient would also request for stool for fat. If steatorrhea is present, we will consider test. We w ill request for stool for fat. Thank you very much for allowing us to participate in the care of the patient. Wilton Long MD cc: [id number] TT: 06/24/2016 00:28:01 Confirmation # [id number] Dictation # [id number] mn
[2016-06-24] MEDS: Levalbuterol 1.25 MG/3 ML Inhal Soln UD IH SCH ×4 (01:09→20:45)
[2016-06-24 07:46] LABS: BASO # 0.07 K/mm3 (0.0-2.0); BASO % 1.6 % (0.0-3.0); EOS # 0.2 (0.0-0.7); EOS % 4.2 % (1.5-5.0); GRAN # 2.28 (1.4-6.5); GRAN % 53.7 % (50.0-68.0); LYMPH # 1.4 (1.2-3.4); LYMPH % 32.5 % (22.0-35.0); MEAN CELL VOLUME 67.3 fL (80.0-105.0); MEAN CORPUSCULAR HEMOGLOBIN 22.4 pg (25.0-35.0); MEAN CORPUSCULAR HGB CONC 33.3 g/dl (31.0-37.0); MONO # 0.3 (0.1-0.6); PLATELET COUNT 203 10^3/uL (120.0-450.0); RED CELL DISTRIBUTION WIDTH 16.9 % (11.5-14.5); WHITE BLOOD COUNT 4.3 10^3/ul (4.5-11.0)
[2016-06-24 07:55] LABS: INR 1.7 (0.93-1.08)
[2016-06-24] MEDS: Levothyroxine 50 MCG TAB PO SCH (08:02)
[2016-06-24 08:03] LABS: ALB/GLOB RATIO 1.1 (1.1-1.8); ALKALINE PHOSPHATASE 49 U/L (38-133); ALT/SGPT 34 U/L (7-56); AST/SGOT 29 U/L (15-39); BILIRUBIN,TOTAL 1.4 mg/dL (0.2-1.3); BLOOD UREA NITROGEN 11 mg/dL (7-21); CALCIUM 8.9 mg/dL (8.4-10.5); CARBON DIOXIDE 26 mmol/L (21-33); CHLORIDE 110 mmol/L (98-107); GFR AFRICAN-AMERICAN > 60; GLUCOSE,RANDOM 70 mg/dL (70-110); POTASSIUM 3.4 mmol/L (3.6-5.0); SODIUM 143 mmol/L (132-148)
[2016-06-24] MEDS ORDERED: Potassium Chloride 20 mEq ER Tab PO ONE (09:00)
[2016-06-24] MEDS: POLYETHYLENE GLYCOL 3350 17 GM/Dose PACKET PO SCH (09:18)
[2016-06-24] MEDS ORDERED: Phytonadione 5 MG in Sodium Chloride 0.9% 50 ML IV ONE (09:40)
[2016-06-24] MEDS ORDERED: Enoxaparin 60 mg Syringe SC SCH (10:00)
--- NOTE | 2016-06-24 10:21 | CON ---
DATE: 06/23/2016 DATE OF EVALUATION: 06/23/2016 REASON FOR CONSULTATION: Failure to thrive, abnormal weight loss, ascites, anemia HISTORY OF PRESENT ILLNESS: The patient is a 75-year-old female admitted to the hospital when she passed out at a grocery store. She has had recurrent similar episodes in the past. She was evaluated in the office for abnormal weight loss. Her current weight is 95 pounds only. Her appetite is good. It has not changed for the past 1 year, but she keeps losing weight. She is also on Coumadin for atrial fibrillation. She had CAT scan of the chest, abdomen, and pelvis done recently, which did not show any mass lesion, minimal ascites. She had endoscopy and colonoscopy in 12/2015 that were unremarkable. Tumor markers, CEA, CA-125, CA 19.9 done in the office were unremarkable. During this admission in the Emergency Room, her blood pressures were also high at 200/120. She is scheduled for a push enteroscopy on Saturday. Coumadin is on hold now. She is currently on Lovenox 60 mg subQ daily. INR elevated at 1.7 PAST MEDICAL HISTORY: Atrial fibrillation, abnormal weight loss, hypertension, hyperlipidemia, COPD. ALLERGIES: No known drug allergies. HOME MEDICATIONS: Omeprazole 40 daily, Coumadin 2 mg daily, Norvasc 5 mg daily , lisinopril 40 mg daily, Synthroid 50 mcg daily. Xopenex 0.125 mg inhalation t.i.d., MiraLax 17 grams p.o. daily, K-Dur 20 mEq p.o. b.i.d. PERSONAL HISTORY: Ex-smoker. No history of alcohol abuse. SOCIAL HISTORY: Lives with at home. FAMILY HISTORY: No positive history in mother and father. REVIEW OF SYSTEMS: As per HPI. The rest of the 12-point review of systems is reviewed and negative. PHYSICAL EXAMINATION: GENERAL: Comfortable in bed, in no acute distress. VITAL SIGNS: Afebrile, temperature 98.7, heart rate 82 per minute, respiratory rate 18 per minute, blood pressure 125/90. HEENT: Pallor positive. NECK: No lymphadenopathy. CHEST: Air entry present, equal bilaterally. No added sound. CARDIOVASCULAR: S1, S2 normal. No murmur, no gallop. ABDOMEN: Soft, nontender, nondistended. No rebound tenderness. EXTREMITIES: No edema, bilaterally. SKIN: No petechia, no rash. LYMPHADENOPATHY: None. CENTRAL NERVOUS SYSTEM: Alert, oriented x 3. No focal sensory or motor deficit. PSYCH: Mood - affect normal. LABORATORY DATA: White count 5.9, hemoglobin 9.9, hematocrit 29.5, MCV 67.8, platelet count 223, lymphocytes 20%, monocytes 8%, granulocytes 67%. Sodium 142 , potassium 3.7, BUN 11, creatinine 0.7, calcium 8.9, bilirubin 1.4, AST 31, ALT 33, alkaline phosphatase 50. Iron studies have been within normal limits. IMAGING: As per HPI. ASSESSMENT: 1. Abnormal weight loss. 2. Anemia. 3. Atrial fibrillation. 4. Chronic obstructive pulmonary disease. 5. Hypertension. 6. Syncope. PLAN: 1. CAT scan of the head is negative. She had similar episodes of syncope in the past. Neurology consultation with Dr. Steinberg appreciated - note reviewed. 2. She has anemia, normocytic normochromic. Iron studies have been within normal limits. B12, folic acid levels were normal, done recently. She might have myelodysplasia, which does not lead to profound weight loss. There is a possibility of anemia of chronic disease. Her hemoglobin has been around 11, until recently it dropped to 9.9. There is no evidence of bleeding. No evidence of hemolysis. LDH has been normal. Bilirubin is mildly elevated at 1.4. There is a possibility of cirrhosis of liver. She is scheduled for a push enteroscopy on Saturday. 3. We will hold the Coumadin. Change the Lovenox to 30 mg subQ b.i.d. Continue to monitor PT/INR. 4. Hypertension: Blood pressure is better controlled now during this admission. 5. COPD: No issues right now. 6. She is currently on levothyroxine 50 mcg p.o. daily. I would recommend decreasing the dose of levothyroxine because of profound weight loss to 25 mcgm daily. . Thank you, Dr. Major, for allowing us to participate in the patient's care. Betsey Montanez MD cc: [id number] TT: 06/24/2016 10:20:00 Confirmation # [id number] Dictation # [id number] jn JUAN LUIS
[2016-06-24 10:29] LABS: ADD MANUAL DIFF? NO
--- NOTE | 2016-06-24 10:33 | PN ---
DATE: 06/24/2016 SUBJECTIVE: She is currently feeling well. She was admitted with episode of syncope. She is not dizzy. She is able to walk up to the bathroom without being short of breath, no dizziness noted. Appetite is good. She is able to eat everything. No difficulty in swallowing. She has atrial fibrillation, currently on Lovenox. Coumadin is on hold. INR is still elevated at 1.7. She is scheduled for push enteroscopy tomorrow. Denies any headache. No abdominal pain, no diarrhea, no nausea, vomiting. Stools have been normal. Denies any shortness of breath, no chest pain. ALLERGIES: No known drug allergies. MEDICATIONS: Norvasc 5 mg daily, Xopenex 1.25 mg daily, Synthroid 50 mcg daily , lisinopril 40 mg daily, MiraLax 17 grams daily, potassium 20 mEq p.o. b.i.d. REVIEW OF SYSTEMS: As per HPI. PHYSICAL EXAMINATION: GENERAL: Comfortable in bed, in no acute distress, cachexia present. VITAL SIGNS: Stable. Temperature 98.2, heart rate 91 per minute, blood pressure 143/92, respiratory rate 20 per minute, oxygen saturation 96% room air. HEENT: Normal. Pallor positive. NECK: Supple. CHEST: Air entry present, equal bilateral. No added sound. CARDIOVASCULAR: S1, S2 normal. No murmur, no gallop. ABDOMEN: Soft, nontender, no hepatosplenomegaly. EXTREMITIES: No edema. NEUROLOGIC: Alert, oriented x 3. No focal, sensory or motor deficit. SKIN: No petechia, no rash. LYMPHADENOPATHY: None. SPINE: Nontender. GAIT: Normal. LABORATORIES: White count 4.3, hemoglobin 9, hematocrit 27, MCV 67, platelet count 203. Sodium 143, potassium 3.4, chloride 110, creatinine 0.5, bilirubin 1.4, AST 29, ALT 34, alkaline phosphatase 45, glucose 133. PT is 18.4, INR 1.7. ASSESSMENT: 1. Syncope. 2. Abnormal weight loss. 3. Failure to thrive. 4. Atrial fibrillation. 5. Hypertension, uncontrolled. PLAN: She is currently off Coumadin. INR is still elevated at 1.7. I will give vitamin K 5 mg subQ today. She will undergo gastrointestinal biopsies. INR needs to be less than 1. I will hold Lovenox today. She got 60 mg subQ Lovenox yesterday. Hemoglobin has declined to 9. It is microcytic anemia. Iron studies are within normal limits. Thalassemia trait needs to be ruled out. She has [place] ancestry, thalasemia is common in [place]. Will send hemoglobin electrophoresis as outpatient. She also has leukopenia now. White count is 4.3. We will continue to monitor hemoglobin and hematocrit. She has low potassium of 3.4, currently being replaced. Bilirubin is elevated at 1.4, likely due to cirrhosis. She is undergoing workup for that. There is minimal ascites. Fluid cannot be tapped because of small amount of fluid. Tumor markers have been negative, no evidence of malignancy. Discussed all of the above with the patient, with the staff nurse. I will also decrease the dose of Synthroid to 25 mcg daily, which might help with the weight loss also. Thank you, Dr. Major, for allowing us to participate in the patient's care. Betsey Montanez MD cc: [id number] TT: 06/24/2016 10:33:20 Confirmation # [id number] Dictation # [id number] en MTDD
--- NOTE | 2016-06-24 13:24 | CON ---
DATE: 06/24/2016 INDICATIONS: Syncope. This is a 75-year-old woman who is admitted on the with a syncopal episode , which was witnessed. She felt briefly short of breath and passed out. She was helped to the floor and did not suffer injury or trauma. She was brought to the Emergency Room. She is admitted to telemetry. She has had no further syncope. She has a long history of syncope including recent syncopes which have been so far unexplained. She is also in the midst of a GI evaluation for underlying occult GI malignancy or malabsorption given weight loss and ascites. There is no chest pain, orthopnea, PND, palpitation, edema, claudication, fever , chills, cough, sputum production, hemoptysis, abdominal pain, nausea, vomiting , diarrhea, constipation, melena. PAST MEDICAL HISTORY: Notable for atrial fibrillation. She is on Coumadin. There is a history of hypertension, hyperlipidemia, COPD. She is a former smoker. There is weight loss, which is unexplained, osteoporosis, compression fracture, hypothyroidism. She was hospitalized in May. At that time, an echocardiogram demonstrated normal LV function and mild mitral regurgitation. At that time, she was considered for an outpatient EP evaluation given recurrent syncope. There is no history of rheumatic fever, myocardial infarction, angina, congestive heart failure, stroke, TIA, diabetes or gout. MEDICATIONS: At the time of admission include omeprazole, Synthroid, lisinopril , Norvasc, Coumadin. ALLERGIES: There are no medication allergies reported. She is a former smoker. She does not drink alcohol. She lives at home. She works for Dr. [employer]. FAMILY HISTORY: Notable for heart disease. REVIEW OF SYSTEMS: A 10-point is otherwise unremarkable except as noted above. PHYSICAL EXAMINATION: GENERAL: She is a well-developed woman, lying in bed on telemetry, no acute distress. VITAL SIGNS: Unremarkable. She is in sinus rhythm at 87 beats per minute, she is afebrile, blood pressure 151/96, respirations 20, O2 sat 96%-97% on room air. HEENT: Reveals no neck vein distention, thyromegaly, or carotid bruits. Mucous membranes moist. Conjunctivae pink. NECK: Supple. LUNG GONZALEZ: Clear. HEART: Revealed normal first and second heart sounds. No murmur, gallop, rub or click. PMI not palpable. ABDOMEN: Soft, bowel sounds present. No mass, organomegaly, tenderness, rebound, guarding, CVA tenderness or palpable abdominal aortic aneurysm. EXTREMITIES: Revealed no cyanosis, clubbing, or edema. NEUROLOGIC: She was awake, alert and oriented. SKIN: Warm and dry. No rash or cellulitis. PSYCHIATRIC: Normal as to mood and affect. LABORATORY AND IMAGING: A CT scan of the head revealed no acute findings. A portable chest x-ray revealed no active disease. EKG demonstrates regular sinus rhythm, probably unchanged from a previous EKG. Hemoglobin 9, hematocrit 27, white count 4300, platelet count normal. PT 18.4, INR 1.7, PTT 31. Electrolytes unremarkable. Potassium this morning 3.4. Liver function tests unremarkable except for total bilirubin of 1.4. CK 46, troponin less than 0.01. IMPRESSION: The patient is a 75-year-old woman with recurrent syncope, also weight loss, undergoing an active gastrointestinal evaluation for possible malabsorption, possible occult gastrointestinal malignancy. At this time, she is admitted to telemetry. Warfarin is being held. She is being bridged with Lovenox. There is a plan for a push enteroscopy tomorrow. Her stool will be checked for fat. I suggest vitamin levels as well. We will check postural vital signs. We will replace potassium. I will review her old records and echocardiogram. She should be considered for a formal EP evaluation including tilt table study and implantable loop recorder given her history of recurrent unexplained syncope. She is undergoing a neurologic evaluation. She is being seen by Dr. Long. She is on amlodipine, Synthroid , lisinopril. I will follow along with you. I will make additional recommendations based on her clinical course. Arsalan Nicholson MD cc: [id number] TT: 06/24/2016 13:24:11 Confirmation # [id number] Dictation # [id number] en MTDD
[2016-06-24] MEDS: Potassium Chloride 20 mEq ER Tab PO SCH (17:37)
--- NOTE | 2016-06-24 19:08 | PN ---
DATE: 06/24/2016 SUBJECTIVE: This patient was seen and evaluated earlier today. The patient's was at bedside. The patient was comfortable. PHYSICAL EXAMINATION: VITAL SIGNS: Her temperature 97.6, pulse 101, blood pressure is 131/83. HEENT: Atraumatic, anicteric. NECK: Supple. HEART: S1, S2 heard. LUNGS: Bilateral air entry present, slightly reduced at the base. ABDOMEN: Soft. There is no tenderness. EXTREMITIES: No edema. No cyanosis. LABORATORY DATA: Hemoglobin 9.0, hematocrit 27, WBC 4.3, platelets 203, BUN 11 , creatinine 0.5, potassium 3.4. Her INR is 1.70. IMPRESSION: This 75-year-old patient is now admitted for syncopal episode. The patient has a history of significant weight loss. Workup for the was negative. The patient had a small amount of ascites. The patient with a CT, rule out CT was reviewed by Dr. Dick Chamorro; it was too small to do an aspiration. The patient had an MRI which was negative and a plan to have the small bowel biopsies, push enteroscopy. This could not be done earlier, because of the coagulopathy and also uncontrolled blood pressure. INR today is 1.7. The patient is scheduled for push enteroscopy tomorrow. We will keep the patient on clear liquids for breakfast then the patient will be scheduled for the procedure tomorrow based on her INR status. History of atrial fibrillation on warfarin. Presently on Lovenox, hypothyroidism, hypertension. The patient also requested for stool for fat qualitative assay. We will consider test if there is steatorrhea. Thank you very much for allowing us to participate in the care of the patient. We will continue to closely follow up her care and suggest further management based on the clinical course. Wilton Long MD cc: [phone] TT: 06/24/2016 19:07:36 Confirmation # [id number] Dictation # [id number] melisa MCKNIGHT
[2016-06-25] MEDS: Levalbuterol 1.25 MG/3 ML Inhal Soln UD IH SCH ×4 (02:10→19:48)
[2016-06-25 06:55] LABS: INR 1.24 (0.93-1.08)
[2016-06-25] MEDS ORDERED: Levothyroxine 25 MCG TAB PO SCH (07:30)
[2016-06-25] MEDS: Potassium Chloride 20 mEq ER Tab PO SCH ×2 (08:18→18:00)
--- NOTE | 2016-06-25 10:17 | CP.PCM.PN ---
Subjective - Date & Time of Evaluation Date of Evaluation: 06/25/16 Time of Evaluation: 07:00 - Subjective Subjective: Stable on 2R. No syncope, CP or SOB. V/S noted. RSR PE: Lungs: clear Cor.: S1S2 Abd.: soft Ext.: no edema Neuro.: alert I/O= 1800/800 Labs noted: INR= 1.24, K+= 3.4 Stool neg for OB Objective - Vital Signs/Intake and Output Vital Signs (last 24 hours): Temp Pulse Resp BP Pulse Ox 98.7 F 83 18 150/89 95 06/25/16 05:11 06/25/16 09:41 06/25/16 08:51 06/25/16 08:51 06/25/16 08:51 Intake and Output: 06/25/16 06/25/16 06:59 18:59 Intake Total 480 Balance 480 - Medications Medications: Current Medications Amlodipine Besylate (Norvasc) 5 mg PO DAILY [facility] Last Admin: 06/25/16 08:18 Dose: 5 mg Levalbuterol HCl (Xopenex) 1.25 mg IH [id number] [facility] Last Admin: 06/25/16 08:05 Dose: 1.25 mg Lisinopril (Zestril) 40 mg PO DAILY [facility] Last Admin: 06/25/16 08:19 Dose: 40 mg Polyethylene Glycol (Miralax) 17 gm PO DAILY [facility] Last Admin: 06/24/16 09:18 Dose: 17 gm Potassium Chloride (K-Dur 20 Meq Er Tab) 20 meq PO BID [facility] Last Admin: 06/25/16 08:18 Dose: 20 meq - Labs Labs: 06/24/16 07:00 06/24/16 07:00 PT 13.4 Seconds (9.9-11.8) H 06/25/16 06:30 INR 1.24 (0.93-1.08) H 06/25/16 06:30 APTT 31.0 Seconds (23.7-30.8) H 06/22/16 12:50 Assessment and Plan - Assessment and Plan (Free Text) Plan: Assessment: Recur. Syncope PAF Weight loss HBP HLD COPD Osteoporosis Compression fx. Hypothyroidism Former Smoker Plan: GI eval: push enteroscpoy today Check postural V/S Replace K+ Check Mg.++ level EP Eval. to be arranged.
[2016-06-25] MEDS ORDERED: Enoxaparin 60 mg Syringe SC SCH (12:30)
[2016-06-25] MEDS ORDERED: Lactated Ringer's 1,000 ML IV SCH (14:13)
[2016-06-25] MEDS ORDERED: Propofol 10 mg/ml Inj (20 ML) ONE (14:36)
[2016-06-25] MEDS ORDERED: Midazolam 2 MG/2 ML VIAL ONE (14:38)
--- NOTE | 2016-06-25 17:56 | PN ---
DATE: 06/25/2016 SUBJECTIVE: She is comfortably sitting in bed, in no acute distress. Denies any shortness of breath, no dizziness. Her blood pressures are better controlled now. She underwent push enteroscopy today and biopsies were taken as per patient. Appetite is good. She is able to ambulate without any difficulty. Started on lovenox today and coumadin. ALLERGIES: No known drug allergies. REVIEW OF SYSTEMS: As per HPI. Rest of 12-point review of systems reviewed and negative. CURRENT MEDICATIONS: Norvasc 5 mg daily, Lovenox 60 subQ daily, Xopenex 1.25 inhalation q. 6 hours, lisinopril 40 mg daily, K-Dur 20 mg p.o. b.i.d., Coumadin 10 mg daily. GENERAL: Comfortable in bed, in no acute distress. VITAL SIGNS: Temperature 98, heart rate is 74 per minute, blood pressure 139/87 , respiratory rate 15 per minute, oxygen saturation 99% on room air. HEENT: Normal. Pallor positive. NECK: No lymphadenopathy. CHEST: Air entry present, equal bilateral. No added sound. CARDIOVASCULAR: S1, S2 normal. No murmur, no gallop. ABDOMEN: Soft, nontender, no hepatosplenomegaly. EXTREMITIES: No edema. Gait normal. LABORATORY DATA: White count 4.3, hemoglobin 9, hematocrit 27, platelet count 203. Sodium 143, potassium 3.4, chloride 110, total bilirubin 1.4, AST 29, ALT 34. ASSESSMENT: 1. Abnormal weight loss. 2. Syncope. 3. Failure to thrive. 4. Uncontrolled hypertension. 5. Atrial fibrillation. 6. Hypothyroidism. PLAN: Currently, she is on Lovenox. Coumadin was restarted at 10 mg daily. She will need monitoring of PT/INR as an outpatient. She has anemia, microcytic. Thalassemia needs to be ruled out. Hb/ Hct stable. Synthroid was stopped. might help in regaining weight. Discussed stopping of thyroxine with the patient. She agreed with the plan. We will discuss with Dr. Long about EGD results. We will await biopsies. Discussed with the patient's daughter at bedside. Thank you, Dr. Major, for allowing us to participate in the patient's care. Betsey Montanez MD cc: [id number] TT: 06/25/2016 17:55:53 Confirmation # [id number] Dictation # [id number] mn MTDD
--- NOTE | 2016-06-25 18:38 | DS ---
The patient is a 75-year-old, seen and examined, ambulatory. No chest pain, no shortness of breath, no nausea or vomiting, no dizziness. No weakness. PHYSICAL EXAMINATION: VITAL SIGNS: She is afebrile, pulse 83, respirations 18, blood pressure 150/89. LUNGS: Bilateral fair airflow, no rhonchi or crackle. HEART: S1, S2 audible, irregular rate control. ABDOMEN: Soft, nontender, no rebound, no guarding. NEUROLOGIC: She is awake and alert, communicative, ambulatory. LABORATORY EXAM: PT 13.4, INR 1.24. Her chemistry: There is no new lab available today. ASSESSMENT: 1. Status post syncope. 2. Chronic atrial fibrillation. 3. Chronic obstructive pulmonary disease. 4. Hypertension. 5. Hyperlipidemia. 6. Significant weight loss and chronic anemia. PLAN: The patient is going for push enteroscopy today. If that is unremarkable we will put her back on bridged Lovenox and Coumadin and once she is therapeutic will make a discharge plan if her endosc opy is unremarkable. She might need a Holter for a long time to rule out cardiac causes that if she does not get intermittent heart block when she passes out. I will discuss with the associate professor of art and make plan. Oly Major MD cc: [phone] TT: 06/25/2016 18:37:39 ms
--- NOTE | 2016-06-25 20:15 | US ---
PROCEDURE: Bilateral carotid artery duplex ultrasound HISTORY: Carotid stenosis syncope. PHYSICIAN(S): Dick Chamorro MD. TECHNIQUE: Duplex sonography and color-flow Doppler were used to evaluate the carotid bifurcations and limited segments of the vertebral arteries bilaterally. FINDINGS: There is mild smooth heterogeneous plaque noted at the carotid bifurcations bilaterally. The peak systolic velocity in the proximal right internal carotid artery is 54 cm/sec. This corresponds to a 20 to 39% proximal right ICA stenosis. Normal systolic velocities are noted in the proximal right external carotid artery. There is antegrade flow in the right vertebral artery. The peak systolic velocity in the proximal left internal carotid artery is 54 cm/sec. This corresponds to a 20 to 39% proximal left ICA stenosis. Normal systolic velocities are noted in the proximal left external carotid artery. There is antegrade flow in the left vertebral artery. IMPRESSION: 1. Bilateral 20-39% proximal ICA stenoses. 2. Antegrade flow in both vertebral arteries.
[2016-06-26] MEDS: Levalbuterol 1.25 MG/3 ML Inhal Soln UD IH SCH ×3 (08:01→19:44)
--- NOTE | 2016-06-26 08:36 | CP.PCM.PN ---
Subjective - Date & Time of Evaluation Date of Evaluation: 06/26/16 Time of Evaluation: 07:00 - Subjective Subjective: Stable on 2R. No syncope, CP or SOB. S/P EGD yesterday-await report V/S noted. RSR PE: Lungs: clear Cor.: S1S2 Abd.: soft Ext.: no edema Neuro.: alert Labs 06/25 noted: INR= 1.24, K+= 3.4. Await todays's labs Stool neg for OB Objective - Vital Signs/Intake and Output Vital Signs (last 24 hours): Temp Pulse Resp BP Pulse Ox 98.8 F 83 18 142/94 H 94 L 06/26/16 06:00 06/26/16 06:00 06/26/16 06:00 06/26/16 06:00 06/26/16 06:00 Intake and Output: 06/26/16 06/26/16 06:59 18:59 Intake Total 120 Balance 120 - Medications Medications: Current Medications Amlodipine Besylate (Norvasc) 5 mg PO DAILY [facility] Last Admin: 06/25/16 08:18 Dose: 5 mg Enoxaparin Sodium (Lovenox) 50 mg SC Q12H [facility] PRN Reason: Protocol Levalbuterol HCl (Xopenex) 1.25 mg IH [id number] [facility] Last Admin: 06/26/16 08:01 Dose: 1.25 mg Lisinopril (Zestril) 40 mg PO DAILY [facility] Last Admin: 06/25/16 08:19 Dose: 40 mg Polyethylene Glycol (Miralax) 17 gm PO DAILY [facility] Last Admin: 06/24/16 09:18 Dose: 17 gm Potassium Chloride (K-Dur 20 Meq Er Tab) 20 meq PO BID [facility] Last Admin: 06/25/16 18:00 Dose: 20 meq Warfarin Sodium (Coumadin) 10 mg PO 1800 [facility] PRN Reason: Protocol Last Admin: 06/25/16 18:00 Dose: 10 mg - Labs Labs: 06/24/16 07:00 06/24/16 07:00 PT 13.4 Seconds (9.9-11.8) H 06/25/16 06:30 INR 1.24 (0.93-1.08) H 06/25/16 06:30 APTT 31.0 Seconds (23.7-30.8) H 06/22/16 12:50 Assessment and Plan - Assessment and Plan (Free Text) Plan: Assessment: Recur. Syncope PAF Weight loss HBP HLD COPD Osteoporosis Compression fx. Hypothyroidism Former Smoker Plan: Get results EGD yesterday Check postural V/S Await AM labs Resume warfarin if OK with GI. Lovenox 50 mg. Q 12 Hrs until therapeutic. EP Eval. to be arranged as out-pt.
[2016-06-26] MEDS: Enoxaparin 60 mg Syringe SC SCH ×2 (10:38→21:36)
[2016-06-26] MEDS: POLYETHYLENE GLYCOL 3350 17 GM/Dose PACKET PO SCH (10:41)
[2016-06-26] MEDS: Potassium Chloride 20 mEq ER Tab PO SCH ×2 (10:42→17:31)
[2016-06-26 12:06] LABS: BLOOD UREA NITROGEN 14 mg/dL (7-21); CALCIUM 9.8 mg/dL (8.4-10.5); CARBON DIOXIDE 27 mmol/L (21-33); CHLORIDE 103 mmol/L (98-107); GFR AFRICAN-AMERICAN > 60; GLUCOSE,RANDOM 73 mg/dL (70-110); POTASSIUM 4.4 mmol/L (3.6-5.0); SODIUM 139 mmol/L (132-148)
[2016-06-26 12:15] LABS: INR 1.44 (0.93-1.08)
--- NOTE | 2016-06-26 12:31 | PN ---
DATE: 06/26/2016 SUBJECTIVE: The patient is a 75-year-old, seen and examined, ambulating. Has a little tremor. Eati ng and tolerating. No nausea, vomiting, no diarrhea, anxious to go home. No further episode of dizz iness, no more abdominal pain. No hemoptysis or hematemesis. PHYSICAL EXAMINATION: VITAL SIGNS: She is afebrile, pulse 81, respirations 20, blood pressure 137/89. LUNGS: Bilateral fair airflow, no rhonchi or crackle. HEART: S1, S2 audible. ABDOMEN: Soft, nontender, no rebound, no guarding. NEUROLOGIC: The patient is awake and alert, communicative, ambulatory. EXTREMITIES: Bilateral leg, no edema. LABORATORY: Her PT 13.4, INR 1.24. Chemistry: Sodium 143, potassium 3.4, chloride 110, CO2 26, BUN 11, creatinine 0.5, blood sugar of 70. Stool for Hemoccult is negative. She has push enteroscopy t hat is unremarkable. ASSESSMENT: 1. Status post syncope, etiology unknown yet. 2. History of significant weight loss. 3. Hypertension. 4. Chronic atrial fibrillation. 5. Hypothyroidism. PLAN: The patient has been restarted on Coumadin. We will give her a double dose of Coumadin today. She is on Lovenox until she is therapeutic. Her levothyroxine has been discontinued for now. We w ill reevaluate her liver and thyroid levels, T3 and T4 levels. Hopefully, she will be therapeutic by tomorrow and we will make discharge plan. Dr. Nicholson's input noted and appreciated. We will have E PS study done as outpatient. Oly Major MD cc: [phone] TT: 06/26/2016 12:30:39 Confirmation # [id number] Dictation # [id number] tn
--- NOTE | 2016-06-26 13:04 | PN ---
DATE: 06/26/2016 Seen and examined at the bedside earlier today. She had a push enteroscopy yesterday, found to have gastritis, rule out celiac disease. Biopsies were obtained. No new complaints this morning. Her hu uzma is at the bedside. She tolerated the liquid diet and wants to eat. Had a bowel movement that was formed. No reports of any blood per rectum. VITAL SIGNS: Temperature is 98.8, blood pressure 142/94, pulse rate 83, respirations 18, 94% room ai r. No new labs are noted for today. PHYSICAL EXAMINATION: HEENT: Sclera is anicteric. NECK: Supple. CARDIAC: S1, S2. LUNG SOUNDS: With decreased breath sounds, good air entry, no rales or wheeze. ABDOMEN: With bowel sounds, soft. It is distended, but it is nontender. ASSESSMENT: The patient with syncope, weight loss, chronic obstructive pulmonary disease, hypothyroi dism. PLAN: Follow up endoscopy biopsies. Will advance diet to a soft, heart healthy, low residual diet. The patient has been started back on the Coumadin. Will bridge with Lovenox. Monitor for gastroint estinal bleed. She is on MiraLax. Monitor stools. Follow up fecal fat. The patient was seen and case discussed with Dr. Long. Isi GLASS cc: [id number] TT: 06/26/2016 13:03:44 Confirmation # [id number] Dictation # [id number] en
--- NOTE | 2016-06-26 22:30 | CP.PCM.PN ---
Subjective - Date & Time of Evaluation Date of Evaluation: 06/26/16 Time of Evaluation: 18:00 - Subjective Subjective: She is feeling better. denies diziness. She has abnormal weight loss. Recurrent episodes of syncope. On admission she had uncontrolled hypertension. No bleed from any site. Hypothyroidism, synthyroid on hold. She underwent EGD, biopsies pending. On coumadin and lovenox for A-Fib. Still subtherapeutic INR. Objective - Vital Signs/Intake and Output Vital Signs (last 24 hours): Temp Pulse Resp BP Pulse Ox 98 F 83 16 138/91 H 94 L 06/26/16 17:50 06/26/16 18:00 06/26/16 17:50 06/26/16 17:50 06/26/16 06:00 Intake and Output: 06/26/16 06/27/16 18:59 06:59 Intake Total 900 Output Total 800 Balance 100 - Medications Medications: Current Medications Amlodipine Besylate (Norvasc) 5 mg PO DAILY [facility] Last Admin: 06/26/16 10:41 Dose: 5 mg Enoxaparin Sodium (Lovenox) 50 mg SC Q12H [facility] PRN Reason: Protocol Last Admin: 06/26/16 21:36 Dose: 50 mg Levalbuterol HCl (Xopenex) 1.25 mg IH [id number] [facility] Last Admin: 06/26/16 19:44 Dose: 1.25 mg Lisinopril (Zestril) 40 mg PO DAILY [facility] Last Admin: 06/26/16 10:40 Dose: 40 mg Polyethylene Glycol (Miralax) 17 gm PO DAILY [facility] Last Admin: 06/26/16 10:41 Dose: 17 gm Potassium Chloride (K-Dur 20 Meq Er Tab) 20 meq PO BID [facility] Last Admin: 06/26/16 17:31 Dose: 20 meq Warfarin Sodium (Coumadin) 10 mg PO 1800 [facility] PRN Reason: Protocol Last Admin: 06/26/16 17:29 Dose: 10 mg - Labs Labs: 06/24/16 07:00 06/26/16 11:45 PT 15.5 Seconds (9.9-11.8) H 06/26/16 11:00 INR 1.44 (0.93-1.08) H 06/26/16 11:00 APTT 31.0 Seconds (23.7-30.8) H 06/22/16 12:50 - Constitutional Appears: Well, Non-toxic - Head Exam Head Exam: ATRAUMATIC, NORMAL INSPECTION, NORMOCEPHALIC - Eye Exam Eye Exam: Normal appearance - ENT Exam ENT Exam: Mucous Membranes Moist, Normal Exam - Neck Exam Neck Exam: Full ROM, Normal Inspection - Respiratory Exam Respiratory Exam: Clear to Ausculation Bilateral, NORMAL BREATHING PATTERN - Cardiovascular Exam Cardiovascular Exam: REGULAR RHYTHM, +S1, +S2 - GI/Abdominal Exam GI & Abdominal Exam: Soft, Normal Bowel Sounds - Extremities Exam Extremities Exam: Full ROM, Normal Inspection - Back Exam Back Exam: NORMAL INSPECTION - Neurological Exam Neurological Exam: Alert, Awake, CN II-XII Intact, Normal Gait, Oriented x3 - Psychiatric Exam Psychiatric exam: Normal Affect - Skin Skin Exam: Dry, Intact, Normal Color, Warm Assessment and Plan - Assessment and Plan (Free Text) Assessment: 1. Abnormal weight loss : CT scans negative for mass lesion. Tumor markers negative. No evidence of malignancy. Synthyroid discontinued. May help with weight gain. will closely monitor Thyroid functions. 2. EGD : biopsies pathology pending. 3. Anemia : microcytic. Normal iron studies, normal work up. possibility of Myelodysplasia . 4. renal : normal renal functions. 5. HTN : BP controlled with current meds.
[2016-06-27] MEDS: Levalbuterol 1.25 MG/3 ML Inhal Soln UD IH SCH ×3 (02:00→13:55)
--- NOTE | 2016-06-27 02:04 | PN ---
DATE: 06/26/2016 ADDENDUM: This is an addendum to the GI progress report dictated by Isi Duque APN. The patient a push enteroscopy yesterday. Endoscopic appearance was unremarkable, but a biopsy is pending. The evon quinn has been restarted on Coumadin. Awaiting a therapeutic level of INR. The patient has a histor y of atrial fibrillation and history of status post cerebrovascular accident. The reason for her riley ght loss is unclear at the present time. We will repeat the stool for fat again as an outpatient whe n the patient is eating regular food. Rule out. I will follow up the duodenal biopsies. The kodi benson has been restarted on Coumadin. Thank you very much for allowing us to participate in the care of the patient. I have discussed with Dr. Major. Wilton Long MD cc: [id number] TT: 06/27/2016 02:01:38 Confirmation # [id number] Dictation # [id number] vn
[2016-06-27 06:42] VITALS: O2SAT 95
--- NOTE | 2016-06-27 08:19 | PN ---
DATE: 06/27/2016 SUBJECTIVE: The patient is seen lying in bed on telemetry. She states she feels comfortable. She h as had no further lightheadedness. She denies any abdominal discomfort. She is anxious to go home. CURRENT MEDICATIONS: Include Coumadin, Zestril 40 mg daily, Xopenex, Norvasc 5 mg daily, MiraLax, Lo venox, and K-Dur. PHYSICAL EXAMINATION: GENERAL: She is an elderly woman who appears comfortable at the present time. VITAL SIGNS: Blood pressure is 128/80 with a pulse of 86 in sinus, respirations are 16. She is afeb rile. HEENT: No JVD. CHEST: A few scattered rhonchi. HEART: PMI displaced laterally with a systolic murmur at the left sternal border. ABDOMEN: Soft, nontender, normoactive bowel sounds. EXTREMITIES: No edema. DIAGNOSTIC DATA: Morning blood work is pending. INR from yesterday was 1.44. IMPRESSION: 1. Recurrent syncope, etiology uncertain. 2. History of paroxysmal atrial fibrillation. 3. Hypertension, hyperlipidemia. 4. History of chronic obstructive pulmonary disease. RECOMMENDATIONS: Her current medications should be continued. Coumadin loading continues as well. Electrophysiology evaluation for possible etiology of syncope will be arranged as an outpatient. Fro m a cardiac standpoint, she appears stable for discharge at this time with close monitoring of her IN R as an outpatient. Beni Worthington MD cc: [id number] TT: 06/27/2016 08:18:16 Confirmation # [id number] Dictation # [id number] tn
[2016-06-27] MEDS: Enoxaparin 60 mg Syringe SC SCH (10:04)
[2016-06-27] MEDS: Potassium Chloride 20 mEq ER Tab PO SCH (10:04)
[2016-06-27] MEDS: POLYETHYLENE GLYCOL 3350 17 GM/Dose PACKET PO SCH (10:04)
[2016-06-27 11:25] LABS: INR 2.67 (0.93-1.08)
--- NOTE | 2016-06-27 11:32 | PN ---
DATE: 06/27/2016 Seen and examined at the bedside earlier this morning. She is moving her bowels and report that they are formed. No diarrhea or no bleeding. Denies any nausea, vomiting, or abdominal pain. Toleratin g oral intake. VITAL SIGNS: Temperature is 98.8, blood pressure is 130/82, pulse 85, respirations 18, 95 on room ai r. LABORATORY DATA: No new labs are noted for today. PHYSICAL EXAMINATION: HEENT: Sclerae are anicteric. NECK: Supple. CARDIAC: S1, S2. LUNG SOUNDS: With decreased breath sounds but good air entry, no rales or wheeze. ABDOMEN: With bowel sounds. Softly distended, but nontender on palpation. No rebound or guarding. EXTREMITIES: No edema. NEUROLOGIC: Awake, alert and oriented. ASSESSMENT: Status post syncope. The patient also with weight loss, chronic obstructive pulmonary d isease and hypothyroidism. She is status post endoscopy; found to have gastritis, rule out celiac di sease; history of chronic atrial fibrillation. PLAN: Follow up endoscopy biopsies. Continue her diet as tolerated. The patient is on Coumadin and being bridged with Lovenox. Will continue her bowel regimen; she is on MiraLax daily. Monitor for any loose stools. Upon discharge, the patient can follow up in our outpatient office. The patient w as seen and case discussed with Dr. Long. Isi GLASS cc: [phone] TT: 06/27/2016 11:31:53 Confirmation # [id number] Dictation # [id number] mn
[2016-06-27 12:25] VITALS: BP 118/71; PULSE 93; RESP 16; TEMP 98
--- NOTE | 2016-06-27 21:10 | DS ---
HISTORY OF PRESENT ILLNESS: The patient is a 75-year-old female seen and examined, lying in bed, seem s to be comfortable, ambulating, no nausea or vomiting. No episodes of dizziness, shortness of breath . PHYSICAL EXAMINATION: VITAL SIGNS: The patient is afebrile, pulse 85, respirations 18, blood pressure 130/82. LUNGS: Bilateral fair airflow, no rhonchi or crackle. HEART: S1, S2 audible. ABDOMEN: Soft, nontender, no rebound, no guarding. NEUROLOGIC: She is awake and alert, communicative, ambulatory. LABORATORY EXAMINATION: WBC is 4.3, hemoglobin 9, hematocrit 27, platelet 203. PT 28.8, INR 2.67. C hemistry: Sodium 139, potassium 4.4, chloride 103, CO2 27, BUN 14, creatinine 0.5, blood sugar of 73 . ASSESSMENT: 1. Status post syncope. 2. Paroxysmal atrial fibrillation, on anticoagulation. 3. Weight loss. Status post gastrointestinal workup, including endoscopy and colonoscopy, unremarka ble. 4. Chronic obstructive pulmonary disease. 5. History of hypothyroidism. PLAN: We are going to discontinue her thyroid medication. We can skip today's Coumadin. She can re start her regular scheduled, including 2 mg daily. She should be followed up with PMD to check PT/IN R and she will follow with Dr. Worthington for Holter monitor for prolonged period to find out if she is developing heart block that is causing syncope or to rule out any underlying arrhythmia. Oly Major MD cc: [phone] TT: 06/27/2016 21:09:47 ln
--- NOTE | 2016-06-27 22:55 | PN ---
DATE: 06/27/2016 This patient was seen and evaluated earlier today. This is an addendum to the GI progress report dic tated by Isi Duque NP. The patient is status post small bowel biopsy done, results still pending. History of weight loss, etiology is unclear, extensive workup done in the past. The patient has a history of AFib and CVA. The patient is back on Coumadin. Followup of the hemoglobin and hematocrit . PHSYCIAL EXAMINATION: ABDOMEN: Soft. There is no mass or tenderness. PLAN: The patient was advised to call for the biopsy report and also advised to follow up in our off ice. Thank you very much for allowing us to participate in the care of the patient. Wilton Long MD cc: [id number] TT: 06/27/2016 22:55:17 Confirmation # [id number] Dictation # [id number] mn
== END 2016-06-27 15:59 | disposition home or self-care (01) | DRG 312 ==
LOC: ED 12:17 → ERH 17:13 → 2RNO 18:46 → OBSVTOIN 06-23 11:44 → UNDODISIN 06-24 14:43
PROVIDERS: ADMIT Internal Medicine; ATTEND Internal Medicine
PROC: 0DB68ZX Excision of Stomach, Via Natural or Artificial Opening Endoscopic, Diagnostic (ICD-10-PCS; 2016-06-25)
PROC: 0DBA8ZX Excision of Jejunum, Via Natural or Artificial Opening Endoscopic, Diagnostic (ICD-10-PCS; 2016-06-25)
PROC: 0DB98ZX Excision of Duodenum, Via Natural or Artificial Opening Endoscopic, Diagnostic (ICD-10-PCS; principal; 2016-06-25 16:45)
DX: R55 Syncope and collapse (principal); R18.8 Other ascites; I27.2 Other secondary pulmonary hypertension; J44.9 Chronic obstructive pulmonary disease, unspecified; M48.50XA Collapsed vertebra, not elsewhere classified, site unspecified, initial encounter for fracture; R63.4 Abnormal weight loss; I48.2 Chronic atrial fibrillation; I10 Essential (primary) hypertension; E78.5 Hyperlipidemia, unspecified; E03.9 Hypothyroidism, unspecified; I48.0 Paroxysmal atrial fibrillation; R62.7 Adult failure to thrive; M81.0 Age-related osteoporosis without current pathological fracture; D50.9 Iron deficiency anemia, unspecified; K29.50 Unspecified chronic gastritis without bleeding; I34.0 Nonrheumatic mitral (valve) insufficiency; Z79.01 Long term (current) use of anticoagulants; Z86.73 Personal history of transient ischemic attack (TIA), and cerebral infarction without residual deficits; Z87.891 Personal history of nicotine dependence

== ENCOUNTER 2016-11-12 11:41 | Observation (INO) | payer MEDICARE ==
--- NOTE | 2016-11-12 11:56 | ED PDOC ---
Arrival/HPI - General Chief Complaint: Chest Pain Time Seen by Provider: 11/12/16 11:48 Historian: Patient - History of Present Illness Narrative History of Present Illness (Text): 11/12/16 11:56 A 76 year old female presents to the emergency department complaining of three days duration of retrosternal chest discomfort. Patient states it feels like pressure. No relieving or exacerbating factors. Patient denies any shortness of breath, dyspnea on exertion or any other complaints at this time. PMD: Dr. Estefani Ayon Time/Duration: Other (3 days) Symptom Onset: Sudden Symptom Course: Unchanged Quality: Pressure Activities at Onset: Rest Modifying Factors (Text): none Context: Home Past Medical History - Provider Review Nursing Documentation Reviewed: Yes - Infectious Disease Hx of Infectious Diseases: None - Reproductive Menopause: No - Cardiac Hx Cardiac Disorders: Yes Hx Hypertension: Yes Other/Comment: A-Fib - Pulmonary Hx Respiratory Disorders: Yes (SMOKED CIGARETTES PACK LASTS FOR A MONTH. QUIT) Hx Asthma: Yes - Neurological Hx Neurological Disorder: Yes (SYNCOPE) HX Cerebrovascular Accident: Yes Hx Dizziness: Yes - HEENT Hx HEENT Disorder: No - Renal Hx Renal Disorder: No - Endocrine/Metabolic Hx Endocrine Disorders: No - Hematological/Oncological Hx Blood Transfusions: No - Integumentary Hx Dermatological Disorder: No - Musculoskeletal/Rheumatological Hx Musculoskeletal Disorders: Yes Hx Falls: No Hx Fractures: Yes (COMPRESSION FX,RIGHT WRIST FX,) Hx Osteoporosis: Yes Hx Unsteady Gait: Yes - Gastrointestinal Hx Gastrointestinal Disorders: Yes (CONSTIPATION) Hx Gastroesophageal Reflux: Yes - Genitourinary/Gynecological Hx Genitourinary Disorders: No - Psychiatric Hx Psychophysiologic Disorder: No Hx Substance Use: No - Surgical History Hx Musculoskeletal Surgery: Yes (right wrist fracture) - Anesthesia Hx Anesthesia Reactions: No Hx Malignant Hyperthermia: No Family/Social History - Physician Review Nursing Documentation Reviewed: Yes Family/Social History: No Known Family HX Smoking Status: Former Smoker Hx Alcohol Use: Yes (WINE SOCIALLY) Hx Substance Use: No Allergies/Home Meds Allergies/Adverse Reactions: Allergies No Known Allergies Allergy (Verified 06/22/16 19:40) Home Medications: Home Meds Medication Instructions Recorded Confirmed Lisinopril [Zestril] 40 mg PO DAILY 08/18/15 11/12/16 Warfarin [Coumadin] 0 mg PO DAILY 02/19/16 11/12/16 amLODIPine [Norvasc] 2.5 mg PO DAILY 05/17/16 11/12/16 Breo [place] Dose 1 inh INH HS 11/12/16 11/12/16 Fluticasone/Vilanterol [Breo 0 mg IH HS 11/12/16 11/12/16 Ellipta] Tiotropium [place] Inhaler 1 inhaler INH DAILY 11/12/16 11/12/16 [Spiriva Inhalation Handihaler Device] Review of Systems - Physician Review All systems were reviewed & negative as marked: Yes Physical Exam - Physical Exam Narrative Physical Exam (Text): 11/12/16 11:55 - Review of Systems Constitutional: Normal. absent: Fatigue, Weight Change, Fevers Eyes: Normal ENT: denies sore throat, denies tristhmus Respiratory: Normal. absent: SOB, Cough, Sputum Cardiovascular: retrosternal chest discomfort absent: dyspnea on exertion, Palpitations, Syncope Gastrointestinal: Normal. absent: Abdominal Pain, Diarrhea, Nausea, Vomiting Genitourinary: Normal. absent: Dysuria, Frequency, Hematuria Musculoskeletal: Normal. absent: Arthralgias, Back Pain, Neck Pain Skin: no rashes, no erythema Neurological: absent: Focal Weakness Endocrine: Normal Hemo/Lymphatic: Normal Psychiatric: No suicidal or homicidal ideations Physical exam Patient appears age appropriate in no distress, speaking full sentences without difficulty - Systems Exam Head: Present: Atraumatic, Normocephalic Pupils: Present: PERRL Extroacular Muscles: Present: EOMI Conjunctiva: Present: Normal Mouth: Present: Moist Mucous Membranes Neck: Present: Normal Range of Motion. No: MIDLINE TENDERNESS, Paraspinal Tenderness Respiratory/Chest: Present: Clear to Auscultation, Good Air Exchange. No: Respiratory Distress, Accessory Muscle Use, Tachypneic Cardiovascular: Present: Regular Rate and Rhythm, Normal S1, S2, Peripheal Pulses Present. No: Murmurs Abdomen: Present: Normal Bowel Sounds. No: Tenderness, Distention, Peritoneal Signs, Rebound, Guarding Back: Present: Normal Inspection. No: Midline Tenderness, Paraspinal Tenderness Upper Extremity: Present: Normal Inspection. No: Cyanosis, Edema Lower Extremity: Present: Normal Inspection. No: Edema Neurological: Present: GCS=15, Speech Normal, cranial nerves II through XII fully intact with no cerebellar abnormality, neurosensory fully intact. No focal neurological deficits. Skin: Present: Warm, Dry, Normal Color. No: Rashes Lymphatic: Present: OX3, NI, NC Psychiatric: Present: Alert, Oriented x 3, Normal Insight, Normal Concentration Vital Signs Reviewed: Yes Vital Signs Temp Pulse Resp BP Pulse Ox 11/12/16 13:12 98.1 F 76 17 113/72 98 11/12/16 12:24 98.2 F 93 H 124/80 98 11/12/16 11:50 98.1 F 76 16 135/93 H 98 Appearance: Positive for: Well-Appearing, Non-Toxic, Comfortable Pain Distress: None Mental Status: Positive for: Alert and Oriented X 3 Medical Decision Making ED Course and Treatment: 11/12/16 11:53 Impression: A 76 year old female with retrosternal chest discomfort. No acute findings on physical exam. Plan: -- EKG -- chest xray -- labs -- Aspirin, Nitroglycerin -- Reassess and disposition Prior Visits: Notes and results from previous visits were reviewed. Patient was last seen in the emergency department on 06/23/16 for evaluation of syncopal episode. Progress Notes: EKG: Ordered, reviewed, and independently interpreted the EKG. Rate : 84 BPM Rhythm : NSR Interpretation : No ST segment elevations, ST depressions and lateral leads, normal intervals 11/12/16 12:50 chest xray Creator : Estevan Nolasco MD FINDINGS: LUNGS: No active pulmonary disease. PLEURA: No significant pleural effusion identified, no pneumothorax apparent. CARDIOVASCULAR: Mild cardiomegaly OSSEOUS STRUCTURES: No significant abnormalities. VISUALIZED UPPER ABDOMEN: Normal. IMPRESSION: Mild cardiomegaly. 11/12/16 13:20 pt in no distress, states she feels better and cp resolved dw Dr. Major, accepted tele/obs to her service pt aware of and agrees with plan - Lab Interpretations Lab Results: 11/12/16 12:04 11/12/16 12:04 Lab Results 11/12/16 12:43: PT 19.4 H, INR 1.80 H, APTT 35.7 H 11/12/16 12:04: Sodium 144, Potassium 3.8, Chloride 104, Carbon Dioxide 31, Anion Gap 13, BUN 18, Creatinine 0.6, Est GFR ( Amer) > 60, Est GFR (Non- Af Amer) > 60, Random Glucose 135 H, Calcium 9.4, Total Bilirubin 1.2, AST 31, ALT 25, Alkaline Phosphatase 67, Lactate Dehydrogenase 533, Total Creatine Kinase 48, Troponin I < 0.01, NT-Pro-B Natriuret Pep 169, Total Protein 6.3, Albumin 3.5, Globulin 2.8, Albumin/Globulin Ratio 1.3 11/12/16 12:04: WBC 4.3 L, RBC 4.95, Hgb 10.6 L, Hct 32.5 L, MCV 65.7 L, MCH 21.4 L, MCHC 32.6, RDW 16.2 H, Plt Count 197, Gran % 55.4, Lymph % (Auto) 29.7, [place] % (Auto) 8.5 H, Eos % (Auto) 4.6, Baso % (Auto) 1.8, Gran # 2.40, Lymph # 1.3, [place] # 0.4, Eos # 0.2, Baso # 0.08 I have reviewed the lab results: Yes - RAD Interpretation Radiology Orders: 11/12/16 11:51 CHEST PORTABLE [RAD] Stat - EKG Interpretation Interpreted by ED Physician: Yes Type: 12 lead EKG - Medication Orders Current Medication Orders: Discontinued Medications Aspirin (Aspirin Chewable) 324 mg PO STAT STA Stop: 11/12/16 11:51 Last Admin: 11/12/16 12:16 Dose: 324 mg Nitroglycerin (Nitrostat Sl Tab) 0.3 mg SL STAT STA Stop: 11/12/16 11:51 Last Admin: 11/12/16 12:16 Dose: 0.3 mg - Scribe Statement The provider has reviewed the documentation as recorded by the Anne Bran Provider Scribe Attestation: All medical record entries made by the Anne were at my direction and personally dictated by me. I have reviewed the chart and agree that the record accurately reflects my personal performance of the history, physical exam, medical decision making, and the department course for this patient. I have also personally directed, reviewed, and agree with the discharge instructions and disposition. Disposition/Present on Arrival - Present on Arrival Any Indicators Present on Arrival: No History of DVT/PE: No History of Uncontrolled Diabetes: No Urinary Catheter: No History of Decub. Ulcer: No History Surgical Site Infection Following: None - Disposition Have Diagnosis and Disposition been Completed?: Yes Diagnosis: Chest pain Disposition: HOSPITALIZED Disposition Time: 13:27 Patient Plan: Observation Condition: FAIR Discharge Instructions (ExitCare): Chest Pain (ED) Referrals: PCP,NO [Primary Care Provider] - Follow up with primary Forms: [employer] (Romansh)
[2016-11-12 12:28] LABS: ALB/GLOB RATIO 1.3 (1.1-1.8); ALKALINE PHOSPHATASE 67 U/L (38-126); ALT/SGPT 25 U/L (7-56); AST/SGOT 31 U/L (14-36); BILIRUBIN,TOTAL 1.2 mg/dL (0.2-1.3); BLOOD UREA NITROGEN 18 mg/dL (7-21); CALCIUM 9.4 mg/dL (8.4-10.5); CARBON DIOXIDE 31 mmol/L (21-33); CHLORIDE 104 mmol/L (98-107); GFR AFRICAN-AMERICAN > 60; GLUCOSE,RANDOM 135 mg/dL (70-110); POTASSIUM 3.8 mmol/L (3.6-5.0); SODIUM 144 mmol/L (132-148); TOTAL PROTEIN 6.3 g/dL (5.8-8.3)
[2016-11-12 12:29] LABS: BASO # 0.08 K/mm3 (0.0-2.0); BASO % 1.8 % (0.0-3.0); EOS # 0.2 (0.0-0.7); EOS % 4.6 % (1.5-5.0); GRAN % 55.4 % (50.0-68.0); HEMATOCRIT 32.5 % (36.0-48.0); LYMPH # 1.3 (1.2-3.4); LYMPH % 29.7 % (22.0-35.0); MEAN CELL VOLUME 65.7 fl (80.0-105.0); MEAN CORPUSCULAR HEMOGLOBIN 21.4 pg (25.0-35.0); MEAN CORPUSCULAR HGB CONC 32.6 g/dl (31.0-37.0); MONO # 0.4 (0.1-0.6); MONO % 8.5 % (1.0-6.0); PLATELET COUNT 197 10^3/uL (120.0-450.0); RED CELL DISTRIBUTION WIDTH 16.2 % (11.5-14.5); WHITE BLOOD COUNT 4.3 10^3/ul (4.5-11.0)
[2016-11-12 12:41] LABS: TROPONIN I < 0.01 ng/mL
--- NOTE | 2016-11-12 12:48 | RAD ---
HISTORY: cough COMPARISON: 06/22/2016 FINDINGS: LUNGS: No active pulmonary disease. PLEURA: No significant pleural effusion identified, no pneumothorax apparent. CARDIOVASCULAR: Mild cardiomegaly OSSEOUS STRUCTURES: No significant abnormalities. VISUALIZED UPPER ABDOMEN: Normal. OTHER FINDINGS: None. IMPRESSION: Mild cardiomegaly.
[2016-11-12 13:03] LABS: INR 1.8 (0.93-1.08); PARTIAL THROMBOPLASTIN TIME 35.7 Seconds (23.7-30.8)
[2016-11-12] MEDS ORDERED: Tiotropium 18 mcg Cap For Inhalation INH SCH (15:15)
[2016-11-12] MEDS: Levalbuterol 1.25 MG/3 ML Inhal Soln UD IH SCH ×2 (16:05→20:12)
[2016-11-12 16:08] VITALS: BMI 19.2
[2016-11-12] MEDS ORDERED: Pneumococcal 23-Valent Vaccine IM ONE (16:08)
[2016-11-12 16:45] LABS: CHOLESTEROL 124 mg/dL (130-200)
[2016-11-12 17:05] LABS: TROPONIN I < 0.01 ng/mL
--- NOTE | 2016-11-12 23:58 | HP ---
HISTORY OF PRESENT ILLNESS: The patient is a 76 years old, known to me from multiple previous admissions that was significant for her weight loss and some abdominal discomfort, but patient states that then for the last three days, she is having retrosternal discomfort, off and on, it is not really a heartburn, but feels like pressure. No relationship with food or intake. Denies any fever or chills. No history of nausea or vomiting. No hemoptysis. No hematemesis. PAST MEDICAL HISTORY: Significant for COPD, chronic AFib, hypertension, hyperlipidemia, and history of weight loss. ALLERGIES: NOT ALLERGIC TO ANY MEDICATION. MEDICATIONS AT HOME: She is on omeprazole 40 mg daily, Synthroid 50 mcg daily, Coumadin 2 mg daily, Norvasc 5 mg daily, lisinopril 40 mg daily. SOCIAL HISTORY: She is , lives with her . She used to be a very heavy smoker, but quit smoking few years ago. REVIEW OF SYSTEMS: Significant for some retrosternal discomfort; otherwise, she states she feels better. PHYSICAL EXAMINATION VITAL SIGNS: She is afebrile. Pulse 83, respirations are 17, and blood pressure is 113/72. LUNGS: Bilateral fair airflow. No rhonchi or crackle. She has diffusely decreased breath sound. HEART: S1 and S2, audible. ABDOMEN: Soft and nontender. No rebound and no guarding. NEUROLOGIC: She is awake, alert, and able to communicate. Able to move all extremities. LABORATORY DATA: X-ray shows mild cardiomegaly. EKG is pending. ASSESSMENT: 1. Chest pain, rule out coronary ischemia. 2. History of chronic obstructive pulmonary disease. 3. Gastroesophageal reflux disease. 4. Chronic atrial fibrillation. PLAN: We will place the patient on observation. We will start her on metoprolol, start her on PPI. We will resume her medication. She will receive her Coumadin. We will follow up her electrolyte, PT/INR in a.m. Cardiology evaluation by has been requested. If the patient remains stable, we will follow up her troponin. If the patient remains stable, we will possible discharge in a.m. Oly Major MD
[2016-11-13 05:54] VITALS: O2SAT 95
[2016-11-13 05:59] LABS: INR 1.69 (0.93-1.08)
[2016-11-13] MEDS ORDERED: Pantoprazole 40 mg EC Tab PO SCH (06:30)
[2016-11-13] MEDS: Levalbuterol 1.25 MG/3 ML Inhal Soln UD IH SCH ×2 (07:25→13:11)
[2016-11-13 07:40] LABS: ALB/GLOB RATIO 1.1 (1.1-1.8); ALKALINE PHOSPHATASE 63 U/L (38-126); ALT/SGPT 24 U/L (7-56); AST/SGOT 34 U/L (14-36); BILIRUBIN,TOTAL 0.9 mg/dL (0.2-1.3); BLOOD UREA NITROGEN 15 mg/dL (7-21); CALCIUM 8.9 mg/dL (8.4-10.5); CARBON DIOXIDE 31 mmol/L (21-33); CHLORIDE 109 mmol/L (98-107); GFR AFRICAN-AMERICAN > 60; GLUCOSE,RANDOM 88 mg/dL (70-110); POTASSIUM 3.6 mmol/L (3.6-5.0); SODIUM 146 mmol/L (132-148); TOTAL PROTEIN 5.9 g/dL (5.8-8.3)
[2016-11-13] MEDS ORDERED: Metoprolol Succinate 25 mg XL Tab PO SCH (08:00)
[2016-11-13 08:19] LABS: FREE T4 1.05 ng/dL (0.78-2.19)
[2016-11-13 08:32] LABS: THYROID STIMULATING HORMONE 3.14 mIU/mL (0.46-4.68)
--- NOTE | 2016-11-13 09:44 | CARD ---
APPROVED REPORT EKG Measurement Heart [id number] <Conclusion> Normal sinus rhythm Possible Left atrial enlargement Septal infarct, age undetermined Abnormal ECG
--- NOTE | 2016-11-13 11:50 | CON ---
DATE: 11/13/2016 CONSULTATION INDICATION: Chest pain. HISTORY OF PRESENT ILLNESS: This is a 76-year-old woman known to me, admitted to the emergency room yesterday with several days of mid chest discomfort, which pressure like and not associated with diaphoresis or shortness of breath, it came and went, it was not exertional in nature. There was no orthopnea, PND, syncope, presyncope, dizziness, lightheadedness, vertigo, palpitation, edema, claudication, fever, chills, cough, sputum production or hemoptysis, abdominal pain, nausea, vomiting, diarrhea, constipation, or melena. PAST MEDICAL HISTORY: The patient has a history of paroxysmal atrial fibrillation. She has had SVT with recent ablation of an atrial tachycardia. She has had recurrent syncope. She is a former smoker with COPD. There is a history of hypertension and hyperlipidemia. She has had extensive GI evaluation for weight loss without exact diagnosis being made. There is no history of rheumatic fever, myocardial infarction, congestive heart failure, arrhythmia, stroke, TIA, diabetes, or gout. MEDICATIONS: At the time of admission include lisinopril, warfarin, Norvasc, Breo Ellipta, and Spiriva. ALLERGIES: THERE ARE NO KNOWN MEDICATION ALLERGIES. SOCIAL HISTORY: She lives at home with her . She is ambulatory. She is a former smoker. She does not drink alcohol significantly. FAMILY HISTORY: Noncontributory. REVIEW OF SYSTEMS: A 10-point review of systems otherwise unremarkable except as noted above. PHYSICAL EXAMINATION: GENERAL: She is a well developed woman, lying in bed on telemetry, in no acute distress. VITAL SIGNS: Notable for sinus rhythm at 71 beats per minute. She is afebrile. Blood pressure 141/83, respirations 17 to 20, O2 saturation 95-98% on room air. HEENT: Reveals no neck vein distention, thyromegaly, or carotid bruits. Mucous membranes are moist. Conjunctivae pink. NECK: Supple. LUNGS: Lung montano clear. HEART: Revealed normal first and second heart sounds. There is a soft systolic murmur along the left sternal border. The PMI is not palpable. ABDOMEN: Soft. Bowel sounds present. No mass, organomegaly, tenderness, rebound, or guarding. No CVA tenderness. No palpable abdominal aortic aneurysm. EXTREMITIES: Revealed no cyanosis, clubbing, or edema. NEUROLOGIC: She is awake, alert, and oriented. SKIN: Warm and dry. No rash or cellulitis. PSYCHIATRIC: Normal as to mood and affect. LABORATORY AND IMAGING: The chest x-ray reveals mild cardiomegaly. EKG demonstrates regular sinus rhythm, septal infarct, age undetermined, nonspecific ST wave changes. No acute changes as compared to a prior EKG. White count 4300, hemoglobin 10.6, hematocrit 32.5, platelet count 197,000. PT 19.4. INR 1.8, repeat 1.69. PTT 35.7. Electrolytes, BUN and creatinine unremarkable. Blood sugar 135, repeat 88. LFTs unremarkable. CK is 48. Two troponins are negative. BNP 169, total cholesterol 124, triglycerides at 70, LDL 74, HDL 40. T4 and TSH unremarkable. IMPRESSION: Krys Arreola is a 76-year-old woman, former smoker with severe chronic obstructive pulmonary disease, history of supraventricular tachycardia status ablation of atrial tachycardia with paroxysmal atrial fibrillation, on warfarin; history of hypertension, admitted with chest pain, which atypical. At this time, I would check her EKG and troponin level this morning. She can be out of bed and ambulate. I will continue her usual cardiac meds. I will review her old records and echocardiogram from February has been reviewed, it showed normal left ventricular function. She should be considered for outpatient nuclear stress testing, which can be arranged upon discharge. If there is no further chest pain, I will anticipate being discharged later today with outpatient followup. She also has ongoing GI issues, which are being followed by Dr. Long. She can get an extra dose of warfarin today. We will monitor her INRs on an outpatient basis. I will follow along with you. I will make additional recommendations based on her clinical course. Arsalan Nicholson MD
[2016-11-13 12:33] VITALS: BP 157/96; PULSE 70; RESP 19; TEMP 98
--- NOTE | 2016-11-13 16:38 | CP.PCM.PN ---
Subjective - Date & Time of Evaluation Date of Evaluation: 11/13/16 Time of Evaluation: 11:00 - Subjective Subjective: Seen and examined at the bedside earlier today, was visiting, chart reviewed. No acute overnight events reported. Patient denies nausea, vomiting or abdominal pain no acute overnight events reported. Patient denies any recent BM, last BM was prior to admission. Denies SOB or chest pain. Objective - Vital Signs/Intake and Output Vital Signs (last 24 hours): Temp Pulse Resp BP Pulse Ox 98 F 70 19 157/96 H 95 11/13/16 12:00 11/13/16 12:00 11/13/16 12:00 11/13/16 12:00 11/13/16 05:53 Intake and Output: 11/13/16 11/13/16 06:59 18:59 Intake Total 100 Output Total 0 Balance 100 - Labs Labs: 11/13/16 05:40 PT 18.2 Seconds (9.9-11.8) H 11/13/16 05:10 INR 1.69 (0.93-1.08) H 11/13/16 05:10 APTT 35.7 Seconds (23.7-30.8) H 11/12/16 12:43 - Constitutional Appears: No Acute Distress - Head Exam Head Exam: NORMOCEPHALIC - Eye Exam Eye Exam: absent: Scleral icterus - ENT Exam ENT Exam: Mucous Membranes Moist - Neck Exam Neck Exam: Normal Inspection - Respiratory Exam Respiratory Exam: NORMAL BREATHING PATTERN. absent: Respiratory Distress - Cardiovascular Exam Cardiovascular Exam: +S1, +S2 - GI/Abdominal Exam GI & Abdominal Exam: Distended, Soft, Normal Bowel Sounds. absent: Guarding, Tenderness, Organomegaly, Rebound - Extremities Exam Extremities Exam: Normal Capillary Refill. absent: Calf Tenderness, Pedal Edema - Neurological Exam Neurological Exam: Alert, Awake, Oriented x3 - Skin Skin Exam: Dry, Warm Assessment and Plan - Assessment and Plan (Free Text) Assessment: Assessment: Chest pain, recent egd 06/2016: gastritis GERD Chronic atrial fibrillation COPD Hypertension Plan: Diet as tolerated Continue PPI On Coumadin Cardiology following Seen and discussed with Dr. Long.
--- NOTE | 2016-11-14 01:01 | CARD ---
APPROVED REPORT EKG Measurement Heart [id number] <Conclusion> Normal sinus rhythm Possible Left atrial enlargement Septal infarct, age undetermined Abnormal ECG
--- NOTE | 2016-11-14 08:17 | DS ---
HISTORY OF PRESENT ILLNESS: The patient is 76-year-old, seen and examined, still has some chest discomfort more so on deep palpation. No shortness of breath. The patient was evaluated by Dr. Nicholson earlier and his input noted and appreciated. We plan to have a nuclear stress test done as outpatient. Currently, the patient seems to be hemodynamically stable. She does not complain of any nausea, vomiting, or diarrhea. No hemoptysis. No hematemesis. Does get short of breath when she walks because of her advanced COPD. She also has concern about weight loss, but that she has all the GI workup done so far and everything has been negative. PHYSICAL EXAMINATION: GENERAL: She is fully awake, alert, oriented, and anxious to go home. VITAL SIGNS: She is afebrile, pulse 71, respirations 20, and blood pressure 141/83. LUNGS: Bilateral fair airflow. Diffusely decreased breath sounds. HEART: S1 and S2 audible. ABDOMEN: Soft and nontender. No rebound. No guarding. NEUROLOGIC: The patient is awake and alert, able to communicate and ambulatory. LABORATORY DATA: Her 3 sets of troponin are negative. Sodium 146, potassium 3.6, chloride 109, CO2 of 31, BUN 15, creatinine 0.6, and blood sugar of 88. Her PT is 18.2 and INR 1.69. EKG shows normal sinus rhythm, left atrial enlargement and septal infarct, age undetermined. ASSESSMENT: 1. Noncardiac chest pain. No evidence of acute coronary syndrome. 2. Chronic atrial fibrillation, status post ablation, but still has paroxysmal atrial fibrillation, so she is being maintained on Coumadin as per cardiology recommendation. 3. Advanced chronic obstructive pulmonary disease. 4. Hypertension. 5. History of weight loss, but gastrointestinal workup in the past has been negative. 6. Intermittent constipation. PLAN: The patient is hemodynamically stable. No evidence of coronary syndrome. She will be discharged home. She will follow up with Dr. Nicholson as outpatient and will have a nuclear stress test arranged as outpatient. Oly Major MD
== END 2016-11-13 15:09 | disposition home or self-care (01) ==
LOC: ED 11:41 → ERH 13:33 → CCU 13:47 → 2RNO 21:27
PROVIDERS: ADMIT Internal Medicine; ATTEND Internal Medicine
DX: R07.89 Other chest pain (principal); I48.2 Chronic atrial fibrillation; I48.0 Paroxysmal atrial fibrillation; J44.9 Chronic obstructive pulmonary disease, unspecified; I11.9 Hypertensive heart disease without heart failure; K59.00 Constipation, unspecified; E78.5 Hyperlipidemia, unspecified; I51.7 Cardiomegaly; K21.9 Gastro-esophageal reflux disease without esophagitis; M81.0 Age-related osteoporosis without current pathological fracture; Z79.01 Long term (current) use of anticoagulants; Z79.899 Other long term (current) drug therapy; Z86.73 Personal history of transient ischemic attack (TIA), and cerebral infarction without residual deficits; Z87.891 Personal history of nicotine dependence; R55 Syncope and collapse; R42 Dizziness and giddiness; Z87.81 Personal history of (healed) traumatic fracture; R40.2412 Glasgow coma scale score 13-15, at arrival to emergency department; R63.4 Abnormal weight loss; K29.70 Gastritis, unspecified, without bleeding
CPT/HCPCS: 36415; 71010; 80053; 80061; 82550; 83615; 83880; 84439; 84443; 84484; 85025; 85610; 85730; 87070; 93005; 94640; 94760; 97116; 97161; 99285; G0378; G8978; G8979; G8980

== ENCOUNTER 2017-03-17 10:07 | Inpatient (IN) | payer MEDICARE ==
[2017-03-17] MEDS ORDERED: Sodium Chloride 0.9% 1,000 ML IV SCH ×2 (10:30→10:45)
--- NOTE | 2017-03-17 10:32 | EDPD ---
HPI Stroke - General Time Seen by Provider: 03/17/17 10:13 Chief Complaint: Altered Mental Status Historian: Spouse - History of Present Illness Narrative History of Present Illness (Free Text): 03/17/17 10:15 76 year old female, whose medical history includes atrial fibrillation and asthma, presents to the Emergency department due to left sided facial droop, slurred speech, and right arm weakness/numbness ~ 30-40min prior to ED arrival. As per , patient's symptoms were noticed when she experienced a near syncope event while getting dressed for muslim approximately 30-40 minutes ago. caught the patient and sat her down; there was no fall or trauma. Prior to that, patient woke up at 06:00 at baseline mental status with no acute symptoms; she could speak and ambulate normally at that time. NO recent oliveros, no vision changes, no cp/sob/abd pain, no n/v, no other complaints earlier pt is here for further eval. notes patient experienced a prior brain bleed approximately 8 years ago. PMD: Dr. Ayon PT is right hand dominate pt lives with spouse Onset:: Just prior to presenting (30 minutes ago) Timing: Worsening Context: Standing, Home Associated Symptoms: Anticoagulant use Exacerbated by: Nothing Relieved by: Nothing - Location Location: Mental Status, Speech Locate Right: Upper extremity (right arm weakness/numbness) Locate Left: Face (left facial droop) - Pain Assessment/Levels Maximum Severity: Mild rTPA Inclusion/Exclusion - Refusal of Treatment Patient Refused Treatment: No - Inclusion Criteria for Altepase Patient is 18 years or Older: Yes The Clinical Diagnosis of Ischemic Stroke That is Causing a Potentially Disabling Neurological Deficit: Yes Time of Onset is Well Established to be Less Than 270 Minute Before Treatment Would Begin: Yes Risk/Benefit Discussed With Patient/Family Member Present: Yes - Exclusion Criteria for Altepase Uncontrolled Hypertension at Time of Treatment (Systolic BP above 185 or Diastolic BP above 110 mmHg): Yes History of: Intracranial hemorrhage Active Internal Bleeding: No Known Bleeding Diathesis Including but Not Limited to: Platelets Below 100,000/ mm,PTT Above 40 sec After Heparin Use, Current Use of Oral Anitcoagulant With INR Greater Than 1.7 or PT Greater Than 15 secs: No Evidence of an Intracranial Hemorrhage: Yes Evidence of Major Acute Infarct With Signs Greater Than 1/3 MCA Territory: Yes Suspicion of Subarachnoid Hemorrhage on Pretreatment Evaluation Even if CT Head Negative For Hemorrhage: No - Warning to TPA With Conditions Following Conditions Weighed Against Anticipated Benefit: Yes Condition: Increase Risk of Bleed Due to Comorbid Condition Past Medical History - Provider Review Nursing Documentation Reviewed: Yes - Travel History Have you recently traveled outside [place] w/in the past 3 mons?: No - Past History Past History: No Previous - Infectious Disease Hx of Infectious Diseases: None - Cardiac Hx Cardiac Disorders: Yes Hx Cardiac Arrhythmia: Yes Hx Hypertension: Yes Other/Comment: A-Fib - Pulmonary Hx Respiratory Disorders: Yes (2ND HAND SMOKE SHE STATED) Hx Asthma: Yes - Neurological Hx Neurological Disorder: Yes (SYNCOPE) HX Cerebrovascular Accident: Yes Hx Dizziness: Yes - HEENT Hx HEENT Disorder: Yes (WEARS RX GLASSES) - Renal Hx Renal Disorder: No - Endocrine/Metabolic Hx Endocrine Disorders: No - Hematological/Oncological Hx Blood Disorders: No - Integumentary Hx Dermatological Disorder: No - Musculoskeletal/Rheumatological Hx Musculoskeletal Disorders: Yes Hx Falls: Yes (SYNCOPAL EPISODES 06-23-16,11-03-16) Hx Fractures: Yes (COMPRESSION FX L2,RIGHT WRIST FX,) Hx Osteoporosis: Yes Hx Unsteady Gait: Yes - Gastrointestinal Hx Gastrointestinal Disorders: Yes (CONSTIPATION) Hx Gastroesophageal Reflux: Yes - Genitourinary/Gynecological Hx Genitourinary Disorders: No - Psychiatric Hx Psychophysiologic Disorder: No Hx Substance Use: No - Surgical History Hx Cardiac Catheterization: Yes (?) Hx Musculoskeletal Surgery: Yes (right wrist fracture) - Anesthesia Hx Anesthesia Reactions: No Hx Malignant Hyperthermia: No Family/Social History - Family/Social History Family History: Non-Contributory Tobacco: Other Alcohol: None Drugs: Denies Route: Oral (xeralto) - Review Nursing documentation reviewed.: Yes Allergies/Home Meds Allergies/Adverse Reactions: Allergies No Known Allergies Allergy (Verified 03/17/17 10:33) Home Medications: Home Meds Medication Instructions Recorded Confirmed Lisinopril [Zestril] 40 mg PO DAILY 08/18/15 03/17/17 amLODIPine [Norvasc] 10 mg PO DAILY 05/17/16 03/17/17 Fluticasone/Vilanterol [Breo 1 inh PO HS 11/12/16 03/17/17 Ellipta] Tiotropium [place] Inhaler 1 inhaler INH DAILY 11/12/16 03/17/17 [Spiriva Inhalation Handihaler Device] Rivaroxaban [Xarelto] 20 mg PO DAILY 03/17/17 03/17/17 Review of Systems - Physician Review All systems were reviewed & negative as marked: Yes - Review of Systems Constitutional: Normal Eyes: Normal ENT: Normal Respiratory: Normal Cardiovascular: Normal Gastrointestinal: Normal Genitourinary Female: Normal Musculoskeletal: Normal Skin: Normal Neurological: Focal Weakness (right arm weak/numb), Speech Changes (slurred speech), Facial Droop (left sided) Endocrine: Normal Hemo/Lymphatic: Normal Psychiatric: Normal ED Stroke Physical Exam - Physical Exam Physical Exam Limitations: Altered Mental Status Vital Signs Reviewed: Yes Temperature: Afebrile Blood Pressure: Hypertensive Pulse: Regular Respiratory Rate: Normal Appearance: Positive for: Well-Appearing, Non-Toxic, Uncomfortable, Other ( arousable to voice, follows simple commands on initial eval; NAD, uncomfortable , resting in bed) Pain Distress: None Mental Status: Positive for: other (+ garbble speech is noted) - Systems Exam Head: Present: Atraumatic, Normocephalic Pupils: Present: PERRL, Other (no photophobia, sclera anicteric, no nystagmus) Extroacular Muscles: Present: EOMI Conjunctiva: Present: Normal Ears: Present: Normal Mouth: Present: Moist Mucous Membranes, Normal Teeth, Other (no drooling/stridor , no exudate/lesions) Pharnyx: Present: Normal Nose (External): Present: Atraumatic Nose (Internal): Present: Normal Inspection Neck: Present: Normal Range of Motion, Trachea Midline. No: MIDLINE TENDERNESS Respiratory/Chest: Present: Clear to Auscultation, Good Air Exchange, Other ( CTA b/l, no w/r/r, no accessory muscle use noted, no tachypenia). No: Respiratory Distress, Accessory Muscle Use, Wheezes Cardiovascular: Present: Regular Rate and Rhythm, Normal S1, S2. No: Murmurs Abdomen: Present: Normal Bowel Sounds, Other (well nourished female, no focal tenderness, no russell's sign, no mcburney's point tenderness, no masses/rebound/ guarding/rigidity). No: Tenderness, Distention, Peritoneal Signs Genitourinary/Pelvic Exam: Present: NI. No: C, E Back: Present: Normal Inspection Upper Extremity: Present: Normal Inspection, NORMAL PULSES, Capillary Refill < 2s, Other (no strength noted to right arm; intact ROM to left arm, strength 5/5 to left arm). No: Cyanosis, Edema Lower Extremity: Present: Normal Inspection, Other (decr ROM to b/l lower ext; strength 3/5 b/l). No: Edema Neurologic: Present: Other (GCS ~ 13; + left facial droop noted; + slurr speech , incomprehensible speech noted) Skin: Present: Warm, Dry, Normal Color. No: Rashes Lymphatic: Present: OX3, NI, NC Psychiatric: Present: Alert Medical Decision Making ED Course and Treatment: 03/17/17 10:14 Impression: 76 year old female presents to the Emergency department with left sided facial droop, slurred speech, and right arm weakness/numbness. I have considered all differential diagnoses regarding patients chief medical complaints/clinical findings which include but are not limited to: stroke evaluation Plan: -- Code stroke CT, CTA head and neck -- EKG -- Chest xray -- Urinalysis -- Labs -- Trandate, IV hydration -- Reassess and disposition Prior Visits: Notes and results from previous visits were reviewed. Patient last seen in the ED on 11/216 for chest pain and was hospitalized. Progress Notes: 03/17/17 10:14 Code stroke activated immediately upon patient arrival. 03/17/17 10:15 Dr. Miles contacted and made aware of patient presentation. Due to the patient being on Xarelto for atrial fibrillation, patient does not seem to be a candidate for tPA but Dr. Miles does want CTA of head and neck for possible embolus that might require embolectomy which potentially may require transfer to a different facility for further treatment 03/17/17 10:25 Patient reevaluated. patient continues to have difficulty with speech, now mumbling. Patient is able to open eyes on command. vital signs indicates elevated BP 03/17/17 10:37 Case discussed in detail with Dr. Cosby, neurosurgeon underground distribution engineer, who was made aware of the patient's presentation and CT findings. Due to extensive bleeding and the patient being on Xarelto, no surgical intervention is recommended currently. Dr. Cosby does not recommend anticonvulsant prophylaxis. Will continue to monitor the patient. 03/17/17 10:43 Case discussed in detail with Dr. Iglesias, harbor police lieutenant underground distribution engineer. made aware of patient's presentation. Will come down to see the patient. Agrees with ICU placement. 03/17/17 11:03 Dr. Iglesias at bedside. Agrees with medical treatment provided. Suggests intubation. 03/17/17 11:06 Dr. Miles updated on patient's current medical symptoms and CT results. Recommends to give the patient PCC if we have it in the pharmacy. Otherwise, agrees with Emergency department management. 03/17/17 11:19 Spoke to the pharmacy. Made aware of order for Kcentra/PCC; is now looking to see if the hospital carries the medication. 03/17/17 11:[address] Major for the last 35 minutes. Will continue to try to reach her to discuss admission of the patient. 03/17/17 11:41 Pharmacy states they do not have Kcentra/PCC. Will see if it can be sent over from [facility]. 03/17/17 11:51 César from pharmacy will obtain Kcentra/PCC from [facility]. Suggested dosing is as follows: if INR is 2-3.5, then dose 25 units per kg. Maximum dose is 2500 units. post intubation, vital signs indicated labile BP; HR stable/saturation stable family has been made aware of pt's medical results and severeity of her condition states pt is currently Full Code, agrees with admission 03/17/[address] Montanez, underground distribution engineer for Dr Major, made aware of pt's medical complaints, agrees with admission Re-evaluation Time: 11:30 Reassessment Condition: Unchanged, Worse - Critical Care Critical Care Minutes: 60 minutes Critical Care Time: Excluding Proc Time Narrative Critical Care (Text): 03/17/17 12:32 critical care time: 60min, excluding procedure time, excluding time teaching residents/students/mid-level providers; including initial eval/diagnosis, diagnostic interpretation, re-eval, consultations, final disposition - Lab Interpretations I have reviewed the lab results: Yes Interpretation: All labs normal - RAD Interpretation Narrative RAD Interpretations (Text): 03/17/2017 10:49:47 CT HEAD WITHOUT CONTRAST FINDINGS: HEMORRHAGE: There is a large acute hemorrhage in the left thalamus which extends into the adjacent 3rd ventricle. Blood extends throughout the ventricular system. The hemorrhage also extends into the septum pellucidum along the edge of the left lateral ventricle. The hemorrhage measures 2.6 x 4 cm BRAIN: There is 3 mm of midline shift to the right VENTRICLES: Intraventricular hemorrhage CALVARIUM: Unremarkable. PARANASAL SINUSES: Unremarkable as visualized. No significant inflammatory changes. MASTOID AIR CELLS: Unremarkable as visualized. No inflammatory changes. OTHER FINDINGS: The findings were discussed with Dr. Brito at 10:40 a.m. IMPRESSION: Large acute left thalamic bleed with intraventricular extension 03/17/2017 11:35:51 Chest Portable FINDINGS: LUNGS: No active pulmonary disease. PLEURA: No significant pleural effusion identified, no pneumothorax apparent. CARDIOVASCULAR: Mild cardiomegaly and aortic tortuosity OSSEOUS STRUCTURES: No significant abnormalities. VISUALIZED UPPER ABDOMEN: Normal. OTHER FINDINGS: None. IMPRESSION: No active disease. 03/17/2017 11:36:42 Chest Portable FINDINGS: LUNGS: The endotracheal tube is in satisfactory position PLEURA: No significant pleural effusion identified, no pneumothorax apparent. CARDIOVASCULAR: Cardiomegaly OSSEOUS STRUCTURES: No significant abnormalities. VISUALIZED UPPER ABDOMEN: Normal. OTHER FINDINGS: None. IMPRESSION: Endotracheal tube in satisfactory position Radiology Orders: 03/17/17 10:15 CHEST PORTABLE [RAD] Stat 03/17/17 10:16 CTA HEAD & NECK BUNDLE [CT] Stat HEAD W/O (CODE STROKE) [CT] Stat Vice President & General Manager [employer]: Radiologist - EKG Interpretation EKG Interpretation (Text): 03/17/17 1033 Sinus rhythm at 85 bpm with 1st degree av block with + PVCs, normal axis, inverted T in leads V1-2, no st changes, qs in leads V1-2, ABNL EKG; unchanged compare with old ekg 11/2016 Interpreted by ED Physician: Yes Type: 12 lead EKG Comparison: Similar to previous EKG - Medication Orders Current Medication Orders: Sodium Chloride (Sodium Chloride 0.9%) 1,000 mls @ 100 mls/hr IV .Q10H SANJANA - Procedure PROCEDURE NOTE (Text): PROCEDURE: INTUBATION Performed by the emergency provider Time: 03/17/17 11:08 Consent: Discussion of the risks, benefits, and alternatives to the procedure, along with informed consent was precluded by the urgency of the procedure and the patient condition. Timeout: A timeout to verify the correct patient, procedure, and site was performed. Indication: Pre-oxygenation: [id number] Medications: . See MAR for details. ETT Size: 7.5 Et tube with a curved blade Confirmation: Cords directly visualized as tube passed, good bilateral breath sounds confirmed with auscultation, positive CO2 detector color change, tube fogging, adequate chest rise, improving pulse oximetry reading, improved skin color, and absence of gastric sounds,. ETT Secured: The cuff was inflated and the tube was secured appropriately at a distance of 23cm at the lip. Post-Procedure: Procedure was successful. There were no immediate complications. Minimum bleeding. CXR Confirmation: Yes 03/17/17 13:32 NIHSS Scale([place])3 Time Performed: 10:15 - How Severe is the Stoke Baseline Level of Consciousness: 1=Drowsy LOC to Questions: 2=Neither correct LOC to commands: 0=Obeys both correctly Best Gaze: 0=Normal Visual: 0=No visual loss Facial: 1=Minor asymmetry Motor Arm - Left: 0=No drift Motor Arm - Right: 4=No movement Motor Leg - Left: 2=Falls before 5 sec Motor Leg - Right: 2=Falls before 5 sec Limb Ataxia: 1=Present Upper or Lower Sensory: 0=Normal Best Language: 2=Severe aphasia Dysarthia: 1=Mild to moderate slurring Extinction & Inattention (Neglect): 1=Partial neglect (mild kevin-attention) Score: 17 Risk Level: Mod/Sev Stroke Risk - Scribe Statement The provider has reviewed the documentation as recorded by the Scribe Terrence Rome Provider Scribe Attestation: All medical record entries made by the Scribe were at my direction and personally dictated by me. I have reviewed the chart and agree that the record accurately reflects my personal performance of the history, physical exam, medical decision making, and the department course for this patient. I have also personally directed, reviewed, and agree with the discharge instructions and disposition. Disposition/Present on Arrival - Present on Arrival Any Indicators Present on Arrival: No History of DVT/PE: No History of Uncontrolled Diabetes: No Urinary Catheter: No History of Decub. Ulcer: No History Surgical Site Infection Following: None - Disposition Have Diagnosis and Disposition been Completed?: Yes Diagnosis: Intracerebral hemorrhage, intraventricular, Hypertensive emergency Disposition: HOSPITALIZED Disposition Time: 12:00 Patient Plan: Admission, ICU Patient Problems: Current Active Problems Problem Status Onset Hypertensive emergency Acute Intracerebral hemorrhage, intraventricular Acute Condition: FAIR
[2017-03-17] MEDS ORDERED: Labetalol 5 mg/ml Inj 20ML IV STA ×2 (10:37→11:15)
[2017-03-17 10:43] LABS: BASO # 0.12 K/mm3 (0.0-2.0); BASO % 1.4 % (0.0-3.0); EOS # 0.4 (0.0-0.7); EOS % 4.3 % (1.5-5.0); GRAN # 3.42 (1.4-6.5); GRAN % 41.1 % (50.0-68.0); HEMOGLOBIN 11.1 g/dL (12.0-16.0); LYMPH # 3.9 (1.2-3.4); LYMPH % 47.2 % (22.0-35.0); MEAN CELL VOLUME 67.5 fl (80.0-105.0); MEAN CORPUSCULAR HEMOGLOBIN 22.3 pg (25.0-35.0); MONO # 0.5 (0.1-0.6); PLATELET COUNT 180 10^3/uL (120.0-450.0); RBC 4.98 10^6/uL (3.5-6.1); RED CELL DISTRIBUTION WIDTH 16.4 % (11.5-14.5); WHITE BLOOD COUNT 8.3 10^3/ul (4.5-11.0)
[2017-03-17 10:47] LABS: ALB/GLOB RATIO 1.1 (1.1-1.8); ALBUMIN 3.6 g/dL (3.0-4.8); ALT/SGPT 31 U/L (7-56); AST/SGOT 34 U/L (14-36); BLOOD UREA NITROGEN 16 mg/dL (7-21); CALCIUM 9.1 mg/dL (8.4-10.5); GFR AFRICAN-AMERICAN > 60; GFR NON-AFRICAN AMERICAN > 60
--- NOTE | 2017-03-17 10:51 | CT ---
PROCEDURE: CT HEAD WITHOUT CONTRAST. HISTORY: CVA COMPARISON: 06/22/2016 TECHNIQUE: Axial computed tomography images were obtained through the head/brain without intravenous contrast. Radiation dose: Total exam DLP = 723 mGy-cm. This CT exam was performed using one or more of the following dose reduction techniques: Automated exposure control, adjustment of the mA and/or kV according to patient size, and/or use of iterative reconstruction technique. FINDINGS: HEMORRHAGE: There is a large acute hemorrhage in the left thalamus which extends into the adjacent 3rd ventricle. Blood extends throughout the ventricular system. The hemorrhage also extends into the septum pellucidum along the edge of the left lateral ventricle. The hemorrhage measures 2.6 x 4 cm BRAIN: There is 3 mm of midline shift to the right VENTRICLES: Intraventricular hemorrhage CALVARIUM: Unremarkable. PARANASAL SINUSES: Unremarkable as visualized. No significant inflammatory changes. MASTOID AIR CELLS: Unremarkable as visualized. No inflammatory changes. OTHER FINDINGS: The findings were discussed with Dr. Brito at 10:40 a.m. IMPRESSION: Large acute left thalamic bleed with intraventricular extension
[2017-03-17] MEDS ORDERED: Succinylcholine 200 mg/10 ml Inj IV ONE (10:52)
[2017-03-17] MEDS ORDERED: Etomidate 20 mg/10ml Inj IV ONE (10:52)
[2017-03-17 10:59] LABS: TROPONIN I < 0.01 ng/mL
[2017-03-17] MEDS ORDERED: Etomidate 20 mg/10ml Inj IV STA (10:59)
[2017-03-17] MEDS ORDERED: Succinylcholine 200 mg/10 ml Inj IV STA (10:59)
[2017-03-17 11:05] LABS: INR 1.88 (0.93-1.08); PARTIAL THROMBOPLASTIN TIME 31.8 Seconds (25.1-36.5); PROTHROMBIN TIME 21.9 SECONDS (9.4-12.5)
[2017-03-17] MEDS ORDERED: Hum Prothrombin CPLX(PCC)4FACT 1 Unit Inj IV ONE ×3 (11:23→13:30)
[2017-03-17 11:24] LABS: URINE BILIRUBIN NEGATIVE (NEGATIVE); URINE BLOOD NEGATIVE (NEGATIVE); URINE GLUCOSE (UA) NEGATIVE (NEGATIVE); URINE LEUKOCYTE ESTERASE NEGATIVE Leu/uL (NEGATIVE); URINE NITRATE NEGATIVE (NEGATIVE); URINE PROTEIN NEGATIVE mg/dL (<30 mg/dL); URINE UROBILINOGEN 0.2 E.U./dL (<1 E.U./dL)
[2017-03-17 11:26] LABS: URINE APPEARANCE CLEAR (CLEAR); URINE COLOR YELLOW (YELLOW)
--- NOTE | 2017-03-17 11:37 | RAD ---
HISTORY: code stroke COMPARISON: 11/12/2016 FINDINGS: LUNGS: No active pulmonary disease. PLEURA: No significant pleural effusion identified, no pneumothorax apparent. CARDIOVASCULAR: Mild cardiomegaly and aortic tortuosity OSSEOUS STRUCTURES: No significant abnormalities. VISUALIZED UPPER ABDOMEN: Normal. OTHER FINDINGS: None. IMPRESSION: No active disease.
--- NOTE | 2017-03-17 11:38 | RAD ---
HISTORY: post intubation COMPARISON: Earlier same day FINDINGS: LUNGS: The endotracheal tube is in satisfactory position PLEURA: No significant pleural effusion identified, no pneumothorax apparent. CARDIOVASCULAR: Cardiomegaly OSSEOUS STRUCTURES: No significant abnormalities. VISUALIZED UPPER ABDOMEN: Normal. OTHER FINDINGS: None. IMPRESSION: Endotracheal tube in satisfactory position
[2017-03-17] MEDS: Nicardipine 20 MG/200 ML 20 MG/200 ML BAG IV PRN (11:41)
[2017-03-17 11:48] LABS: VENOUS BLOOD GAS BASE EXCESS 4.5 mmol/L (0.0-2.0); VENOUS BLOOD GAS PO2 130 mm/Hg (30-55); VENOUS BLOOD PH 7.42 (7.32-7.43)
[2017-03-17 11:50] LABS: ARTERIAL BLOOD GAS HCO3 24.7 mmol/L (21-28); ARTERIAL BLOOD GAS O2 SAT 100.3 % (95-98); ARTERIAL BLOOD GAS PCO2 27 mm/Hg (35-45); ARTERIAL BLOOD GAS PH 7.57 (7.35-7.45); ARTERIAL BLOOD GAS TCO2 25.5 mmol.L (22-28)
[2017-03-17 12:42] VITALS: BMI 19.3
[2017-03-17] MEDS: Dextrose 5%/0.45% NS 1,000 ML IV SCH (14:09)
[2017-03-17] MEDS: levETIRAcetam 500mg IVPB 500 MG/100 ML BAG IV SCH (21:45)
--- NOTE | 2017-03-18 01:13 | CON ---
DATE: 03/17/2017 REQUESTING PHYSICIAN: Oly Major MD CHIEF COMPLAINT: The patient presented with altered mental status to the emergency room. HISTORY OF PRESENT ILLNESS: Ms. Arreola, she is a 76-year-old female with a history of atrial fibrillation, asthma/COPD that presented to the emergency room with a left facial droop as well as slurred speech and weakness in her right upper extremity. The patient's family stated or as per stated that she had a near-syncopal episode at home, but he caught her before she fell. The patient came straight to the emergency room. At this time, her neurological symptoms have progressed. She is more lethargic, still has the facial droop and weakness in the right upper extremity. The patient's respiratory status has deteriorated, and for airway safety, the patient was intubated in the emergency room, and at this point she is hemodynamically stable.. Neurosurgery as well as Neurology have been contacted, and CT scan shows a significant intracerebral hemorrhage. Note that the patient is on Xarelto for atrial fibrillation. At this time, Neurosurgery feels that surgical intervention is not indicated. In discussing with Neurosurgery and Dr. Miles of Neurology has recommended Concerta for the patient to try and counteract the effects of the Xarelto. Note, also in the past medical history, the patient had a brain hemorrhage approximately 8 years ago. PAST MEDICAL HISTORY: As above. ALLERGIES: SHE HAS NO KNOWN ALLERGIES. MEDICATIONS: Her current medications can be evaluated as per the nurse's intake form. SOCIAL HISTORY: No history of smoking, alcohol or drug abuse. FAMILY HISTORY: Noncontributory. REVIEW OF SYSTEMS: Constitutional: All negative. HEENT: Note that prior to admission the patient had no problems. Cardiovascular: All negative. Gastrointestinal: All negative. : All negative. Musculoskeletal: Prior to admission, no no problems. Skin and Integrity: All negative. Neurologically: The patient does have focal weakness in the right upper extremity. Speech is slurred and there is a facial droop. Endocrine: All negative. Hematologic: All negative. Immunologic: All negative. Psychiatric: All negative. PHYSICAL EXAMINATION: VITAL SIGNS: Note that her temperature is 97.5, her pulse is 75, respirations are 40 and BP is 140/91. SKIN: Warm and dry. HEENT: Head is atraumatic, normocephalic. Eyes, very minimal reaction to light. Right pupil is smaller than left pupil. Ear, nose, and throat seem to be within normal limits. NECK: Supple. No JVD. No thyroid enlargement. No lymph nodes. HEART: Has regular rate and rhythm. Normal S1, S2. LUNGS: Reveal good breath sounds bilaterally. ABDOMEN: Soft, nontender. Normal bowel sounds. No organomegaly noted. GENITALIA: Deferred. RECTAL: Deferred. MUSCULOSKELETAL: No joint deformities. EXTREMITIES: Reveal no edema. NEUROLOGICALLY: The patient has a left-sided facial droop, when presented with slurred speech, incomprehensible and right upper extremity weakness. REASSESSMENT: At this time while the patient is on the ventilator, there is posturing once the patient was received in the ICU. As far as her laboratories are concerned, her white count is 8.3, hemoglobin is 11.1, hematocrit 33.6 with platelets of 180,000. Her PT is 21.9, INR is 1.88, and PTT is 31.8. Arterial blood gas reveals a pH of 7.57, pCO2 of 27, pO2 of 390. This is on 100% FiO2. Her sodium is 145, potassium 3.2, chloride 106, CO2 of 28 with a BUN of 16, creatinine of 0.5, and a random glucose of 128. As far as the patient's chest x-ray, it reveals endotracheal tube in satisfactory position and no infiltrates. CT of her head reveals a large acute left thalamic bleed with intraventricular extension. IMPRESSION: As far as my impression, the patient has a large intracerebral bleed and respiratory failure requiring ventilator support. 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 The patient has a history of intracerebral hemorrhage approximately 8 years ago. She also carries a diagnosis of atrial fibrillation for which in the past she had an ablation and she has a history of hypertension as well as asthma/chronic obstructive pulmonary disease. PLAN: As far as our plan, we will ventilator support and decrease the FiO2 as tolerated. The patient is on Cardene IV drip for blood pressure control. Neurosurgery as well as Neurology has been consulted. The patient is on IV fluids, and for the hypokalemia, we will replace the potassium. The patient will be evaluated by Dr. Miles as well as Dr. Steinberg, and Neurology has recommended Concerta as therapy to try and reverse the effects of the Xarelto. We will follow her closely hemodynamically. The patient's family is at bedside, and they have been informed of the critical nature of their family member and they state that they understand. At this time, the patient is a full code. We will continue to treat aggressively along with the other consultants and the primary care doctor. Rich Igleisas MD
[2017-03-18] MEDS: Dextrose 5%/0.45% NS 1,000 ML IV SCH ×3 (01:30→21:00)
--- NOTE | 2017-03-18 03:02 | CON ---
DATE: HISTORY OF PRESENT ILLNESS: This is a 76-year-old white female with a past medical history of atrial fibrillation, asthma, who came to the emergency room with slurred speech, right arm weakness and noted that she had a syncopal type of event while getting ready to go to [place] and caught her,made her sit down, so called the ambulance and brought her here. CAT scan of the head was done, which showed large left thalamic bleed and patient transferred to ICU and patient remains unresponsive. PAST MEDICAL HISTORY: Atrial fibrillation and asthma. PHYSICAL EXAMINATION: HEENT: Normocephalic, atraumatic. NECK: Supple. NEUROLOGIC: Patient is unresponsive, on ventilator, but was breathing, and does not follow simple commands, does not open eyes, and pupils sluggishly reactive. Corneal reflex was present. No spontaneous movement of the extremities noted. Deep tendon reflexes 1+. Both plantars are downgoing. Sensory appears decreased and cerebellar gait deferred. IMPRESSION: Code stroke was called and Dr. Miles was made aware. CAT scan of the head was done, which showed large left thalamic bleed and Neurosurgery consult was ordered and family at bedside, spoke to the family in detail, and prognosis guarded and continue present medication. We will follow up. Augustus Steinberg MD
[2017-03-18] MEDS: Nicardipine 20 MG/200 ML 20 MG/200 ML BAG IV PRN (03:30)
[2017-03-18 07:17] LABS: ALB/GLOB RATIO 1.1 (1.1-1.8); ALBUMIN 3.3 g/dL (3.0-4.8); ALT/SGPT 25 U/L (7-56); AST/SGOT 36 U/L (14-36); BLOOD UREA NITROGEN 14 mg/dL (7-21); CALCIUM 8.9 mg/dL (8.4-10.5); GFR AFRICAN-AMERICAN > 60; GFR NON-AFRICAN AMERICAN > 60; MAGNESIUM 1.5 mg/dL (1.7-2.2)
[2017-03-18] MEDS ORDERED: Potassium Chloride 40 mEq/30 ml LIQ UD PO ONE (07:35)
[2017-03-18] MEDS ORDERED: Magnesium Sulfate 2 GM in Sodium Chloride 0.9% 100 ML IVPB ONE (07:36)
--- NOTE | 2017-03-18 07:38 | CP.CCUPN ---
<Payton Lima - Last Filed: 03/18/17 11:18> CCU Subjective - Physician Review Subjective (Free Text): 03/18/17 11:30 Patient seen and examined at bedside. Intubated on vent (40, 5, 12, 400). Patient is not on any sedation- does not respond to name or open eyes spontaneously. Patient is making good UO and had 2BM overnight. ROS unobtainble. Critical Care Time Spent (in minutes): 45 CCU Objective - Vital Signs / Intake & Output Vital Signs (Last 4 hours): Vital Signs Temp Pulse BP Pulse Ox 03/18/17 07:00 134/81 03/18/17 06:59 93 H 96 03/18/17 06:45 91 H 97 03/18/17 06:30 93 H 136/89 99 03/18/17 06:15 92 H 95 03/18/17 06:00 91 H 111/63 96 03/18/17 05:45 99 H 95 03/18/17 05:30 94 H 160/93 H 97 03/18/17 05:24 94 H 162/93 H 97 03/18/17 05:15 94 H 97 03/18/17 05:00 95 H 153/94 H 97 03/18/17 04:45 95 H 96 03/18/17 04:30 93 H 138/78 95 03/18/17 04:15 97 H 94 L 03/18/17 04:00 98.8 F 96 H 129/76 94 L 03/18/17 03:45 96 H 95 03/18/17 03:41 96 H 167/104 H 95 03/18/17 03:40 97 H 163/93 H 95 Intake and Output (Last 8hrs): Intake & Output 03/17/17 03/18/17 03/18/17 22:59 06:59 14:59 Intake Total 0198 548 3538 Output Total 1500 650 Balance -375 100 625 Weight 45.541 kg Intake: IV 8430 196 4366 Left Forearm 1025 1275 Oral 0 Output: Urine 1500 650 Urethral (Perez) 1500 650 Other: # Bowel Movements 0 2 - Physical Exam Head: Positive for: Atraumatic, Normocephalic Pupils: Positive for: Sluggish Extroacular Muscles: Positive for: Other (unable to assess) Conjunctiva: Positive for: Normal Ears: Positive for: Normal Mouth: Positive for: Moist Mucous Membranes, Normal Teeth, Other (ET tube in place) Pharnyx: Positive for: Normal Nose (External): Positive for: Atraumatic Nose (Internal): Positive for: Normal Inspection Neck: Positive for: Trachea Midline. Negative for: MIDLINE TENDERNESS Respiratory/Chest: Positive for: Clear to Auscultation, Good Air Exchange, Other (intubated on vent (40, 5, 12, 400)). Negative for: Respiratory Distress , Accessory Muscle Use, Wheezes Cardiovascular: Positive for: Regular Rate and Rhythm, Normal S1, S2. Negative for: Murmurs Abdomen: Positive for: Normal Bowel Sounds. Negative for: Tenderness, Distention, Peritoneal Signs Genitourinary/Pelvic Exam: Positive for: NI. Negative for: C, E Back: Positive for: Normal Inspection Upper Extremity: Positive for: Normal Inspection, NORMAL PULSES, Capillary Refill < 2s. Negative for: Cyanosis, Edema Lower Extremity: Positive for: Normal Inspection, Other (SCDs in place). Negative for: Edema Neurological: Positive for: Other (GCS5t [id number]). Negative for: GCS=15 Skin: Positive for: Warm, Dry, Normal Color. Negative for: Rashes Lymphatic: Positive for: OX3, NI, NC Psychiatric: Positive for: Other (altered- not on any sedation) - Medications Active Medications: Active Medications Generic Name Dose Route Start Last Admin Trade Name Freq PRN Reason Stop Dose Admin Nicardipine HCl 20 mg in 200 mls @ 50 mls/hr 03/17/17 11:27 03/18/17 06:00 Cardene Iv Premix IV 0 mg/hr .Q4H PRN 0 mls/hr TITRATE PER MD ORDER Titration Protocol 5 MG/HR Dextrose/Sodium Chloride 1,000 mls @ 100 mls/hr 03/17/17 14:00 03/18/17 01:30 Dextrose 5%/0.45% Ns 1000 Ml IV 100 mls/hr .Q10H SANJANA Administration Levetiracetam 500 mg in 100 mls @ 400 mls/hr 03/17/17 22:00 03/17/17 21:45 Keppra 500mg Ivpb IV 400 mls/hr Q12 SANJANA Administration Potassium Chloride 10 meq in 100 mls @ 50 mls/hr 03/18/17 07:35 Potassium Chloride 10 Meq/100 Ml IVPB 03/18/17 09:34 ONCE ONE Magnesium Sulfate 2 gm/ Sodium 104 mls @ 102 mls/hr 03/18/17 07:36 Chloride IVPB 03/18/17 08:37 ONCE ONE Pantoprazole Sodium 40 mg 03/18/17 10:00 Protonix Inj IVP DAILY SANJANA Potassium Chloride 40 meq 03/18/17 07:35 Potassium Chloride Oral Soln PO 03/18/17 07:36 ONCE ONE - Patient Studies Lab Studies: Lab Studies 03/18/17 03/17/17 03/17/17 Range/Units 06:45 22:42 16:00 Sodium 139 (132-148) mmol/L Potassium 3.1 L (3.6-5.0) mmol/L Chloride 103 (98-107) mmol/L Carbon Dioxide 24 (21-33) mmol/L Anion Gap 15 (10-20) BUN 14 (7-21) mg/dL Creatinine 0.5 L (0.7-1.2) mg/dl Est GFR ( Amer) > 60 Est GFR (Non-Af Amer) > 60 POC Glucose (mg/dL) 132 H 167 H (65-110) mg/dL Random Glucose 202 H (70-110) mg/dL Calcium 8.9 (8.4-10.5) mg/dL Phosphorus 2.5 (2.5-4.5) mg/dL Magnesium 1.5 L (1.7-2.2) mg/dL Total Bilirubin 1.7 H (0.2-1.3) mg/dL AST 36 (14-36) U/L ALT 25 (7-56) U/L Alkaline Phosphatase 57 (38-126) U/L Total Protein 6.2 (5.8-8.3) g/dL Albumin 3.3 (3.0-4.8) g/dL Globulin 2.9 gm/dL Albumin/Globulin Ratio 1.1 (1.1-1.8) Blood Type Confirm 03/17/17 Range/Units 12:01 Sodium (132-148) mmol/L Potassium (3.6-5.0) mmol/L Chloride (98-107) mmol/L Carbon Dioxide (21-33) mmol/L Anion Gap (10-20) BUN (7-21) mg/dL Creatinine (0.7-1.2) mg/dl Est GFR ( Amer) Est GFR (Non-Af Amer) POC Glucose (mg/dL) (65-110) mg/dL Random Glucose (70-110) mg/dL Calcium (8.4-10.5) mg/dL Phosphorus (2.5-4.5) mg/dL Magnesium (1.7-2.2) mg/dL Total Bilirubin (0.2-1.3) mg/dL AST (14-36) U/L ALT (7-56) U/L Alkaline Phosphatase (38-126) U/L Total Protein (5.8-8.3) g/dL Albumin (3.0-4.8) g/dL Globulin gm/dL Albumin/Globulin Ratio (1.1-1.8) Blood Type Confirm A POSITIVE Laboratory Results - last 24 hr 03/17/17 03/17/17 03/17/17 12:01 16:00 22:42 Sodium Potassium Chloride Carbon Dioxide Anion Gap BUN Creatinine Est GFR ( Amer) Est GFR (Non-Af Amer) POC Glucose (mg/dL) 167 H 132 H Random Glucose Calcium Phosphorus Magnesium Total Bilirubin AST ALT Alkaline Phosphatase Total Protein Albumin Globulin Albumin/Globulin Ratio Blood Type Confirm A POSITIVE 03/18/17 06:45 Sodium 139 Potassium 3.1 L Chloride 103 Carbon Dioxide 24 Anion Gap 15 BUN 14 Creatinine 0.5 L Est GFR ( Amer) > 60 Est GFR (Non-Af Amer) > 60 POC Glucose (mg/dL) Random Glucose 202 H Calcium 8.9 Phosphorus 2.5 Magnesium 1.5 L Total Bilirubin 1.7 H AST 36 ALT 25 Alkaline Phosphatase 57 Total Protein 6.2 Albumin 3.3 Globulin 2.9 Albumin/Globulin Ratio 1.1 Blood Type Confirm Fingerstick Blood Sugar Results: 132 Review of Systems - Review of Systems Systems not reviewed;Unavailable: Intubated Critical Care Progress Note - Ventilator Checklist Head of Bed 30 Degrees: Yes Daily Assessment of Readiness to Wean: Yes PUD Prophalyxis: Yes DVT Prophylaxis: Yes Oral Care with Chlorhexidine Gluconate {CHG}: Yes - Vent Settings MODE:: PRVC TIDAL VOLUME:: 400 RESP RATE:: 12 FIO2:: 40 PEEP:: 5 - Extremities/Vascular Does the Patient have a Central Venous Catheter?: No - Prophylaxis GI Prophylaxis GI: PPI - Prophylaxis DVT Prophylaxis DVT: SCDs Assessment/Plan - Assessment and Plan (Free Text) Assessment: 76yo female PMHx Afib on Xarelto, Asthma and COPD, Intracranial bleed 8 years ago presented with left facial droop, slurred speech and RUE weakness. Found to have a L thalamic bleed with intraventricular extension on head CT and transferred to ICU for further monitoring. Plan: Neuro: -AO X 0 -Patient not on any sedation- pt is somnolent and does not respond to verbal commands. Mildly responsive to painful stimuli -Head CT on admission: -Head Ct this AM: no change in size or shape of thalamic hemorrhage. Intraventricular bleed with increasing hydrocephalus. -Anticonvulsant prophylaxis with Keppra -Ensure patient is euthermic -HoB elevated 30degrees -Aspiration and Seizure precautions -As per neurosurgery no acute intervention -Neuro is following- f/u reccs Cardio: -Pt hemodynamically stable -Cardene gtt was stopped 6am this morning but had to be restarted due to elevated SBP -Patient has hx of Afib- currently NSR -Xarelto on hold -Maintain MAP > 65mmHg Pulm: -Intubated on vent (40, 5, 12, 400) -ABG: pH 7.54, pCO2 is low at 27, pO2 is high at 192, Bicarb is WNL at 23.1. Pt has mild respiratory alkalosis -Not on any sedation -CXR: ETT in satisfactory position; cardiomegaly, aortic tortuosity -Maintain SpO2 90-92% -Duoneb 3ml inh q6 prn GI: -OGT in place -NPO -Protonix 40mg ivp GI ppx Renal: -BUN/Cr is stable; 14/0.5 -D51/2NS @ 100cc/hr -Strict I and Os -Perez in place Heme/Onc: -no overt bleed and patient is hemodynamically stable -On admission: PT 21.9, PTT 31.8, INR 1.88 on 03/17/17 -Pt received Kcentra at 3 pm on 03/17/17 for Xarelto reversal -SCDs -VTE ppx c/i secondary to bleed Endo: -maintain euglycemia as per NICE sugar trial MSK: -No acute issues Diet: NPO GI ppx: Protonix 40mg ivp qd DVT ppx: SCDs Dispo: Palliative care will be consulted in AM Discussed with Dr. Lilli Lima PGY2 <Paul Reeder - Last Filed: 03/18/17 12:10> CCU Objective - Vital Signs / Intake & Output Vital Signs (Last 4 hours): Vital Signs Pulse Resp BP Pulse Ox 03/18/17 11:45 92 H 98 03/18/17 11:30 86 131/80 98 03/18/17 11:15 89 99 03/18/17 11:00 90 147/98 H 99 03/18/17 10:45 81 99 03/18/17 10:44 83 132/80 99 03/18/17 10:30 89 169/106 H 100 03/18/17 10:15 86 99 03/18/17 10:00 86 154/89 H 99 03/18/17 09:45 84 99 03/18/17 09:30 83 142/85 99 03/18/17 09:15 78 98 03/18/17 09:00 84 132/73 98 03/18/17 08:45 99 H 98 03/18/17 08:30 94 H 152/99 H 99 03/18/17 08:29 94 H 146/94 H 99 03/18/17 08:27 94 H 20 Intake and Output (Last 8hrs): Intake & Output 03/17/17 03/18/17 03/18/17 22:59 06:59 14:59 Intake Total 9022 492 2621 Output Total 1500 650 Balance -375 100 625 Weight 100 lb 6.4 oz Intake: IV 3883 080 9472 Left Forearm 1025 1275 Oral 0 Output: Urine 1500 650 Urethral (Perez) 1500 650 Other: # Bowel Movements 0 2 - Medications Active Medications: Active Medications Generic Name Dose Route Start Last Admin Trade Name Freq PRN Reason Stop Dose Admin Nicardipine HCl 20 mg in 200 mls @ 50 mls/hr 03/17/17 11:27 03/18/17 06:00 Cardene Iv Premix IV 0 mg/hr .Q4H PRN 0 mls/hr TITRATE PER MD ORDER Titration Protocol 5 MG/HR Dextrose/Sodium Chloride 1,000 mls @ 100 mls/hr 03/17/17 14:00 03/18/17 01:30 Dextrose 5%/0.45% Ns 1000 Ml IV 100 mls/hr .Q10H SANJANA Administration Levetiracetam 500 mg in 100 mls @ 400 mls/hr 03/17/17 22:00 03/18/17 10:18 Keppra 500mg Ivpb IV 400 mls/hr Q12 SANJANA Administration Pantoprazole Sodium 40 mg 03/18/17 10:00 03/18/17 10:18 Protonix Inj IVP 40 mg DAILY SANJANA Administration - Patient Studies Lab Studies: Lab Studies 03/18/17 03/18/17 03/18/17 Range/Units 08:46 06:45 06:45 WBC 10.5 D (4.5-11.0) 10^3/ul RBC 4.85 (3.5-6.1) 10^6/uL Hgb 10.7 L (12.0-16.0) g/dL Hct 32.2 L (36.0-48.0) % MCV 66.4 L (80.0-105.0) fl MCH 22.1 L (25.0-35.0) pg MCHC 33.2 (31.0-37.0) g/dl RDW 16.1 H (11.5-14.5) % Plt Count 207 (120.0-450.0) 10^3/uL pCO2 27 L (35-45) mm/Hg pO2 192.0 H (80-100) mm/Hg HCO3 23.1 (21-28) mmol/L ABG pH 7.54 H (7.35-7.45) ABG Total CO2 23.9 (22-28) mmol.L ABG O2 Saturation 99.8 H (95-98) % ABG O2 Content 13.5 L (15-23) ML/dl ABG Base Excess 1.1 (-2.0-3.0) mmol/L ABG Hemoglobin 9.6 L (11.7-17.4) g/dL ABG Carboxyhemoglobin 1.9 H (0.5-1.5) % POC ABG HHb (Measured) 0.2 (0-5) % ABG Methemoglobin 1.0 (0.0-3.0) % ABG O2 Capacity 13.5 L (16-24) mL/dl Hgb O2 Saturation 96.9 (95.0-98.0) % FiO2 40.0 % Sodium 139 (132-148) mmol/L Potassium 3.1 L (3.6-5.0) mmol/L Chloride 103 (98-107) mmol/L Carbon Dioxide 24 (21-33) mmol/L Anion Gap 15 (10-20) BUN 14 (7-21) mg/dL Creatinine 0.5 L (0.7-1.2) mg/dl Est GFR ( Amer) > 60 Est GFR (Non-Af Amer) > 60 POC Glucose (mg/dL) (65-110) mg/dL Random Glucose 202 H (70-110) mg/dL Calcium 8.9 (8.4-10.5) mg/dL Phosphorus 2.5 (2.5-4.5) mg/dL Magnesium 1.5 L (1.7-2.2) mg/dL Total Bilirubin 1.7 H (0.2-1.3) mg/dL AST 36 (14-36) U/L ALT 25 (7-56) U/L Alkaline Phosphatase 57 (38-126) U/L Total Protein 6.2 (5.8-8.3) g/dL Albumin 3.3 (3.0-4.8) g/dL Globulin 2.9 gm/dL Albumin/Globulin Ratio 1.1 (1.1-1.8) Blood Type Confirm 03/17/17 03/17/17 03/17/17 Range/Units 22:42 16:00 12:01 WBC (4.5-11.0) 10^3/ul RBC (3.5-6.1) 10^6/uL Hgb (12.0-16.0) g/dL Hct (36.0-48.0) % MCV (80.0-105.0) fl MCH (25.0-35.0) pg MCHC (31.0-37.0) g/dl RDW (11.5-14.5) % Plt Count (120.0-450.0) 10^3/uL pCO2 (35-45) mm/Hg pO2 (80-100) mm/Hg HCO3 (21-28) mmol/L ABG pH (7.35-7.45) ABG Total CO2 (22-28) mmol.L ABG O2 Saturation (95-98) % ABG O2 Content (15-23) ML/dl ABG Base Excess (-2.0-3.0) mmol/L ABG Hemoglobin (11.7-17.4) g/dL ABG Carboxyhemoglobin (0.5-1.5) % POC ABG HHb (Measured) (0-5) % ABG Methemoglobin (0.0-3.0) % ABG O2 Capacity (16-24) mL/dl Hgb O2 Saturation (95.0-98.0) % FiO2 % Sodium (132-148) mmol/L Potassium (3.6-5.0) mmol/L Chloride (98-107) mmol/L Carbon Dioxide (21-33) mmol/L Anion Gap (10-20) BUN (7-21) mg/dL Creatinine (0.7-1.2) mg/dl Est GFR ( Amer) Est GFR (Non-Af Amer) POC Glucose (mg/dL) 132 H 167 H (65-110) mg/dL Random Glucose (70-110) mg/dL Calcium (8.4-10.5) mg/dL Phosphorus (2.5-4.5) mg/dL Magnesium (1.7-2.2) mg/dL Total Bilirubin (0.2-1.3) mg/dL AST (14-36) U/L ALT (7-56) U/L Alkaline Phosphatase (38-126) U/L Total Protein (5.8-8.3) g/dL Albumin (3.0-4.8) g/dL Globulin gm/dL Albumin/Globulin Ratio (1.1-1.8) Blood Type Confirm A POSITIVE Laboratory Results - last 24 hr 03/17/17 03/17/17 03/17/17 12:01 16:00 22:42 WBC RBC Hgb Hct MCV MCH MCHC RDW Plt Count pCO2 pO2 HCO3 ABG pH ABG Total CO2 ABG O2 Saturation ABG O2 Content ABG Base Excess ABG Hemoglobin ABG Carboxyhemoglobin POC ABG HHb (Measured) ABG Methemoglobin ABG O2 Capacity Hgb O2 Saturation FiO2 Sodium Potassium Chloride Carbon Dioxide Anion Gap BUN Creatinine Est GFR ( Amer) Est GFR (Non-Af Amer) POC Glucose (mg/dL) 167 H 132 H Random Glucose Calcium Phosphorus Magnesium Total Bilirubin AST ALT Alkaline Phosphatase Total Protein Albumin Globulin Albumin/Globulin Ratio Blood Type Confirm A POSITIVE 03/18/17 03/18/17 03/18/17 06:45 06:45 08:46 WBC 10.5 D RBC 4.85 Hgb 10.7 L Hct 32.2 L MCV 66.4 L MCH 22.1 L MCHC 33.2 RDW 16.1 H Plt Count 207 pCO2 27 L pO2 192.0 H HCO3 23.1 ABG pH 7.54 H ABG Total CO2 23.9 ABG O2 Saturation 99.8 H ABG O2 Content 13.5 L ABG Base Excess 1.1 ABG Hemoglobin 9.6 L ABG Carboxyhemoglobin 1.9 H POC ABG HHb (Measured) 0.2 ABG Methemoglobin 1.0 ABG O2 Capacity 13.5 L Hgb O2 Saturation 96.9 FiO2 40.0 Sodium 139 Potassium 3.1 L Chloride 103 Carbon Dioxide 24 Anion Gap 15 BUN 14 Creatinine 0.5 L Est GFR ( Amer) > 60 Est GFR (Non-Af Amer) > 60 POC Glucose (mg/dL) Random Glucose 202 H Calcium 8.9 Phosphorus 2.5 Magnesium 1.5 L Total Bilirubin 1.7 H AST 36 ALT 25 Alkaline Phosphatase 57 Total Protein 6.2 Albumin 3.3 Globulin 2.9 Albumin/Globulin Ratio 1.1 Blood Type Confirm Assessment/Plan - Assessment and Plan (Free Text) Plan: Patient seen and examined with resident on rounds, agree with note, with following additions/exceptions: 76yo female PMHx Afib on Xarelto, Asthma and COPD, Intracranial bleed, presented with L thalamic ICH, intubated off sedation, with minimal response to verbal/noxious stimuli, seen by neurosurgery Dr Melo, no acute neurosurgical intervention. Pt received Kcentra at 3 pm on 03/17/[address] reversal[address] Repeat CT head done this morning, no change in size or shape of thalamic hemorrhage. Intraventricular bleed with increasing hydrocephalus. Hx Afib on A/C HTN ICH, L thalamic Recommend: - cont with ventilaotry support, ABG acceptable - follow up cultures, procal - BP control goal SBP <140, currently off Cardene drip - Keppra for seizure ppx - follow up neurology, neurosurgery - monitor electrolytes - neuro checks - FS control - maintain euthermia - hold A/C - Hold HSQ - GI ppx - DVT ppx - poor prognosis critical care time 40 minutes
[2017-03-18 08:04] LABS: HEMOGLOBIN 10.7 g/dL (12.0-16.0); MEAN CELL VOLUME 66.4 fl (80.0-105.0); MEAN CORPUSCULAR HEMOGLOBIN 22.1 pg (25.0-35.0); MEAN CORPUSCULAR HGB CONC 33.2 g/dl (31.0-37.0); PLATELET COUNT 207 10^3/uL (120.0-450.0); RBC 4.85 10^6/uL (3.5-6.1); RED CELL DISTRIBUTION WIDTH 16.1 % (11.5-14.5); WHITE BLOOD COUNT 10.5 10^3/ul (4.5-11.0)
[2017-03-18 08:51] LABS: ARTERIAL BLOOD GAS HCO3 23.1 mmol/L (21-28); ARTERIAL BLOOD GAS HEMOGLOBIN 9.6 g/dL (11.7-17.4); ARTERIAL BLOOD GAS O2 CAPACITY 13.5 mL/dl (16-24); ARTERIAL BLOOD GAS O2 CONTENT 13.5 ML/dl (15-23); ARTERIAL BLOOD GAS O2 SAT 99.8 % (95-98); ARTERIAL BLOOD GAS PCO2 27 mm/Hg (35-45); ARTERIAL BLOOD GAS PH 7.54 (7.35-7.45); ARTERIAL BLOOD GAS TCO2 23.9 mmol.L (22-28)
--- NOTE | 2017-03-18 09:25 | CT ---
PROCEDURE: CT HEAD WITHOUT CONTRAST. HISTORY: icb COMPARISON: 03/17/2017 CT TECHNIQUE: Axial computed tomography images were obtained through the head/brain without intravenous contrast. Radiation dose: Total exam DLP = 857 mGy-cm. This CT exam was performed using one or more of the following dose reduction techniques: Automated exposure control, adjustment of the mA and/or kV according to patient size, and/or use of iterative reconstruction technique. FINDINGS: HEMORRHAGE: There is no change in the size of the left thalamic hemorrhage. There is a slight decrease in the amount of intraventricular blood. BRAIN: There is minimal midline shift to the right measuring 3 mm. VENTRICLES: There is increasing hydrocephalus. CALVARIUM: Unremarkable. PARANASAL SINUSES: Unremarkable as visualized. No significant inflammatory changes. MASTOID AIR CELLS: Unremarkable as visualized. No inflammatory changes. OTHER FINDINGS: None. IMPRESSION: No change in size or appearance of thalamic hemorrhage. Intraventricular blood with increasing hydrocephalus
[2017-03-18] MEDS: levETIRAcetam 500mg IVPB 500 MG/100 ML BAG IV SCH ×2 (10:18→22:32)
--- NOTE | 2017-03-18 10:25 | RAD ---
HISTORY: intubated on vent COMPARISON: 03/17/2017 FINDINGS: LUNGS: No active pulmonary disease. PLEURA: No significant pleural effusion identified, no pneumothorax apparent. CARDIOVASCULAR: Mild cardiomegaly. Aortic tortuosity OSSEOUS STRUCTURES: No significant abnormalities. VISUALIZED UPPER ABDOMEN: Normal. OTHER FINDINGS: None. IMPRESSION: Endotracheal tube in satisfactory position
--- NOTE | 2017-03-18 10:47 | RAD ---
PROCEDURE: Portable chest HISTORY: OGT placement COMPARISON: TECHNIQUE: Single-view FINDINGS: IMPRESSION: The nasogastric tube is in satisfactory position in the gastric fundus. Endotracheal tube unchanged
--- NOTE | 2017-03-18 11:56 | CON ---
DATE: 03/17/2017 HISTORY OF PRESENT ILLNESS: This is a very unfortunate 76-year-old lady with a history of neurovascular disease who presented with a marked change in medical status, becoming obtunded with a left hemiparesis and was found to have a thalamic hemorrhage. Neurosurgical evaluation was requested. Unfortunately, the patient is on irreversible anticoagulant, Xarelto and therefore in any case, no intervention is possible. The hemorrhage obliterates the entire left thalamus and the midbrain. There is intraventricular extension. There is only mild hydrocephalus, there is considerable atrophy. IMPRESSION AND PLAN: The prognosis here is dismal with this type of midbrain involvement. The family may want to consider not pursuing any aggressive care if not and if she stabilizes once the period of anticoagulation clears in 24 hours to 48 hours salvageable and medically stable, thought can be given to placement of a ventriculostomy. Otherwise, blood pressure control, head of bed elevation would be indicated again. The family certainly may not want to pursue aggressive care in this type of a devastating hemorrhage. Edwardo Cosby MD
[2017-03-18] MEDS: MANNITOL 25% IV SCH ×2 (13:38→19:00)
--- NOTE | 2017-03-18 14:45 | CARD ---
APPROVED REPORT EKG Measurement Heart [id number] <Conclusion> Sinus rhythm with 1st degree AV block with occasional premature ventricular complexes Possible Left atrial enlargement Septal infarct, age undetermined Abnormal ECG
--- NOTE | 2017-03-18 16:25 | CP.PCM.PN ---
<Allyn Lees - Last Filed: 03/18/17 16:20> Subjective - Date & Time of Evaluation Date of Evaluation: 03/18/17 Time of Evaluation: 09:00 - Subjective Subjective: Neurology PGY-[address] Steinberg Met with ICU team and pt's . Then Dr Steinberg met with pt's daughter and son. Discussion > 1 hr combined re: course of treatment, alternatives, prognosis , risk and benefits. Objective - Vital Signs/Intake and Output Vital Signs (last 24 hours): Temp Pulse Resp BP Pulse Ox 98.8 F 92 H 20 131/80 98 03/18/17 04:00 03/18/17 11:45 03/18/17 08:27 03/18/17 11:30 03/18/17 11:45 Intake and Output: 03/18/17 03/18/17 06:59 18:59 Intake Total 125 1275 Output Total 650 Balance 125 625 - Medications Medications: Current Medications Nicardipine HCl (Cardene Iv Premix) 20 mg in 200 mls @ 50 mls/hr IV .Q4H PRN; Protocol; 5 MG/HR PRN Reason: TITRATE PER MD ORDER Last Titration: 03/18/17 06:00 Dose: 0 mg/hr, 0 mls/hr Dextrose/Sodium Chloride (Dextrose 5%/0.45% Ns 1000 Ml) 1,000 mls @ 100 mls/hr IV .Q10H [facility] Last Admin: 03/18/17 01:30 Dose: 100 mls/hr Levetiracetam (Keppra 500mg Ivpb) 500 mg in 100 mls @ 400 mls/hr IV Q12 [facility] Last Admin: 03/18/17 10:18 Dose: 400 mls/hr Mannitol (Mannitol) 36 mls @ 72 mls/hr IV Q6H [facility] Stop: 03/19/17 07:29 Last Admin: 03/18/17 13:38 Dose: 72 mls/hr Pantoprazole Sodium (Protonix Inj) 40 mg IVP DAILY [facility] Last Admin: 03/18/17 10:18 Dose: 40 mg - Labs Labs: 03/18/17 06:45 03/18/17 06:45 PT 21.9 SECONDS (9.4-12.5) H 03/17/17 10:35 INR 1.88 (0.93-1.08) H 03/17/17 10:35 APTT 31.8 Seconds (25.1-36.5) 03/17/17 10:35 - Constitutional Appears: Other (intubated off sedation) - Head Exam Head Exam: ATRAUMATIC, NORMAL INSPECTION, NORMOCEPHALIC - Eye Exam Eye Exam: Periorbital swelling Pupil Exam: PERRL - Neck Exam Additional comments: supple - Respiratory Exam Respiratory Exam: Clear to Ausculation Bilateral, NORMAL BREATHING PATTERN - Cardiovascular Exam Cardiovascular Exam: REGULAR RHYTHM, +S1, +S2. absent: Murmur - Extremities Exam Extremities Exam: Normal Capillary Refill - Neurological Exam Additional comments: Mentation: GCS 6: Open eyes to pain (2), no verbal (0), move away from pain (4) Off sedation Intubated - Skin Skin Exam: Dry, Warm Assessment and Plan - Assessment and Plan (Free Text) Plan: Ms Krys Arreola, 76F, with prior Hx of hemorrhagic stroke treated at [facility], atrial fibrillation on xarelto, asthma, came to the hospital with slurred speech right arm and face numbness, and R arm weakness. Her BP was around 187/116 upon ED arrival. Per pt's , pt later became unresponsive. CT showed a large acute thalamic bleed (2.6 x 4 cm) with intraventricular extension, with 3mm midline shift to R. Pt received Kcentra and transferred to ICU for management. repeat head CT in next day showed no change in size or appearance of thalamic hemorrhage but (+) intraventricular blood with increasing hydrocephalus. Mannitol was started to decrease intracerebral pressure likely from increasing acquired hydrocephalus due to intraventricular blood stasis at the 4th ventricle. Pt is currently off sedation, currently intubated, GCS is 2+0+4. Family wants to explore option to seek 2nd opionion from neurosurgery. Dr Steinberg has met with pt's family to discuss options, risk, benefit, and risks of transfer. Acute hemorrhagic stroke, likely from hypertensive episode in the setting of coagulopathy from Xarelto use for atrial fibrillation Increaseing hydrocephalus possibly Non-communicating in nature due to increase in intracerebral pressure from intraventricular blood stasis at the 4th ventricle - status post Kcentra - continue frequent neuro check and vs check per ICU protocol - Keppra 500mg Q12 - Mannitol 25% 36ml IV q6 - Aspiration and Seizure precautions - As per neurosurgery no acute intervention - maintain SBP 130-140, DBP 70-80 - maintain normothermia - maintain blood glucose 140-180 - monitor electrolytes closely and correct accordingly - pending CT head tomorrow - Hold all anticoagulant and antiplatelets - Hold all statin for 72 hrs after hemorrhagic stroke Prognosis: poor s/r/d/w Dr. Steinberg <Remi Steinberg - Last Filed: 03/19/17 10:31> Objective - Vital Signs/Intake and Output Vital Signs (last 24 hours): Temp Pulse Resp BP Pulse Ox 100.4 F H 88 21 119/65 40 L 03/19/17 08:00 03/19/17 07:45 03/19/17 10:26 03/19/17 07:45 03/19/17 10:26 Intake and Output: 03/19/17 03/19/17 06:59 18:59 Intake Total 1670.0 52 Output Total 1000 Balance 670.0 52 - Medications Medications: Current Medications Acetaminophen (Tylenol 325mg Tab) 650 mg PO Q4H PRN PRN Reason: Fever >100.4 F Nicardipine HCl (Cardene Iv Premix) 20 mg in 200 mls @ 50 mls/hr IV .Q4H PRN; Protocol; 5 MG/HR PRN Reason: TITRATE PER MD ORDER Last Titration: 03/19/17 08:30 Dose: 2.5 mg/hr, 25 mls/hr Levetiracetam (Keppra 500mg Ivpb) 500 mg in 100 mls @ 400 mls/hr IV Q12 [facility] Last Admin: 03/19/17 09:22 Dose: 400 mls/hr Cefepime HCl (Maxipime 1gm) 1 gm in 100 mls @ 100 mls/hr IVPB Q12 [facility] PRN Reason: Protocol Last Admin: 03/19/17 09:56 Dose: 100 mls/hr Vancomycin HCl (Vancomycin 750 Mg In Ns) 750 mg in 250 mls @ 167 mls/hr IVPB DAILY [facility] PRN Reason: Protocol Last Admin: 03/19/17 09:54 Dose: 167 mls/hr Mannitol (Mannitol) 36 mls @ 72 mls/hr IV Q6H [facility] Stop: 03/20/17 04:44 Pantoprazole Sodium (Protonix Inj) 40 mg IVP DAILY [facility] Last Admin: 03/19/17 09:20 Dose: 40 mg - Labs Labs: 03/19/17 05:30 03/19/17 05:30 PT 21.9 SECONDS (9.4-12.5) H 03/17/17 10:35 INR 1.88 (0.93-1.08) H 03/17/17 10:35 APTT 31.8 Seconds (25.1-36.5) 03/17/17 10:35 Attending/Attestation - Attestation I have personally seen and examined this patient.: Yes I have fully participated in the care of the patient.: Yes I have reviewed all pertinent clinical information, including history, physical exam and plan: Yes
--- NOTE | 2017-03-18 22:32 | CON ---
DATE: HISTORY OF PRESENT ILLNESS: A 76-year-old woman admitted last night with history of AFib, on Xarelto, came in with slurred speech, right arm weakness, had a syncopal episode. CT scan of the head was done, it demonstrated a left thalamic hemorrhage with hemorrhage into the mid brain and blood in the ventricles. The patient apparently on arrival to the hospital was unresponsive and intubated, placed on a ventilator. When she was last night by the neurologist, she was unresponsive. She had corneal reflexes. There was no noted spontaneous movement of the extremities and her reflexes were 1/4, toes going down. At that point, my partner was contacted, he reviewed the CT scan and noted that there was no indication for surgical intervention based up on the location of the hemorrhage and the clinical condition. This morning, she remains on the ventilator support. She does overbreath the ventilator. She has roving eye movements. She does have her eyes open. She is decerebrate with the right, decorticate with the left. Her pupils are small and nonresponsive. She does continue to have corneals. Repeat CT scan was done this morning, essentially unchanged. There is a fairly large hemorrhage in the mid brain. The CT finding is really not comparable with any surgical intervention that would improve her neurologic function. It is unlikely that an injury such as this will result in her recovering any significant neurologic function given the fact that the mid brain has been so severely injured. I believe that further management should be as per the neurologist. Would suggest supportive care only at this point. If you have any questions, please re-contact. Reji Peterson MD
[2017-03-19] MEDS: MANNITOL 25% IV SCH ×4 (01:44→23:26)
[2017-03-19] MEDS: Nicardipine 20 MG/200 ML 20 MG/200 ML BAG IV PRN ×3 (06:50→21:42)
[2017-03-19 06:59] LABS: HEMOGLOBIN 10.4 g/dL (12.0-16.0); MEAN CELL VOLUME 65.8 fl (80.0-105.0); MEAN CORPUSCULAR HEMOGLOBIN 21.7 pg (25.0-35.0); PLATELET COUNT 188 10^3/uL (120.0-450.0); RBC 4.79 10^6/uL (3.5-6.1); RED CELL DISTRIBUTION WIDTH 16.3 % (11.5-14.5); WHITE BLOOD COUNT 13.9 10^3/ul (4.5-11.0)
[2017-03-19 07:34] LABS: LDL CHOLESTEROL 59 mg/dL (0-129)
[2017-03-19 07:48] LABS: ALBUMIN 3.1 g/dL (3.0-4.8); ALT/SGPT 29 U/L (7-56); AST/SGOT 40 U/L (14-36); BLOOD UREA NITROGEN 12 mg/dL (7-21); GFR AFRICAN-AMERICAN > 60; GFR NON-AFRICAN AMERICAN > 60; HDL CHOLESTEROL 34 mg/dL (29-60)
[2017-03-19] MEDS ORDERED: Potassium Phosphate 15 MMOLE in Sodium Chloride 0.9% 250 ML IVPB ONE (08:21)
--- NOTE | 2017-03-19 08:47 | RAD ---
HISTORY: intubated COMPARISON: 03/18/2017 FINDINGS: LUNGS: No active pulmonary disease. PLEURA: No significant pleural effusion identified, no pneumothorax apparent. CARDIOVASCULAR: Mild cardiomegaly OSSEOUS STRUCTURES: No significant abnormalities. VISUALIZED UPPER ABDOMEN: Normal. OTHER FINDINGS: Nasogastric and endotracheal tube unchanged IMPRESSION: No active disease.
[2017-03-19] MEDS ORDERED: Potassium & Sodium Phosphate PO ONE (09:14)
--- NOTE | 2017-03-19 09:19 | CT ---
PROCEDURE: CT HEAD WITHOUT CONTRAST. HISTORY: intracranial bleed COMPARISON: None available. TECHNIQUE: Axial computed tomography images were obtained through the head/brain without intravenous contrast. Radiation dose: Total exam DLP = 844 mGy-cm. This CT exam was performed using one or more of the following dose reduction techniques: Automated exposure control, adjustment of the mA and/or kV according to patient size, and/or use of iterative reconstruction technique. FINDINGS: HEMORRHAGE: There is no change in the size or appearance of the left thalamic bleed. There is a decreased amount of blood in the ventricles BRAIN: Minimal mass effect unchanged. VENTRICLES: The amount of blood has decreased in the ventricles. There is persistent hydrocephalus CALVARIUM: Unremarkable. PARANASAL SINUSES: Unremarkable as visualized. No significant inflammatory changes. MASTOID AIR CELLS: Unremarkable as visualized. No inflammatory changes. OTHER FINDINGS: None. IMPRESSION: No change in appearance of left thalamic bleed. Decreased blood in the ventricular system. No change in hydrocephalus
[2017-03-19] MEDS: levETIRAcetam 500mg IVPB 500 MG/100 ML BAG IV SCH ×2 (09:22→21:38)
[2017-03-19] MEDS: Vancomycin 750mg 750 MG/250 ML BAG IVPB SCH (09:54)
[2017-03-19] MEDS: Cefepime 1gm in NS 100ml 1 GM/100 ML BAG IVPB SCH ×2 (09:56→21:39)
--- NOTE | 2017-03-19 10:09 | CP.PCM.PN ---
<Allyn Lees - Last Filed: 03/19/17 10:04> Subjective - Date & Time of Evaluation Date of Evaluation: 03/19/17 Time of Evaluation: 09:00 - Subjective Subjective: Neurology PGY-[address] Steinberg Pt is intubated, off sedation. On cardene gtt Objective - Vital Signs/Intake and Output Vital Signs (last 24 hours): Temp Pulse Resp BP Pulse Ox 100.4 F H 88 20 119/65 94 L 03/19/17 08:00 03/19/17 07:45 03/18/17 08:27 03/19/17 07:45 03/19/17 07:45 Intake and Output: 03/19/17 03/19/17 06:59 18:59 Intake Total 1670.0 52 Output Total 1000 Balance 670.0 52 - Medications Medications: Current Medications Acetaminophen (Tylenol 325mg Tab) 650 mg PO Q4H PRN PRN Reason: Fever >100.4 F Nicardipine HCl (Cardene Iv Premix) 20 mg in 200 mls @ 50 mls/hr IV .Q4H PRN; Protocol; 5 MG/HR PRN Reason: TITRATE PER MD ORDER Last Titration: 03/19/17 08:30 Dose: 2.5 mg/hr, 25 mls/hr Levetiracetam (Keppra 500mg Ivpb) 500 mg in 100 mls @ 400 mls/hr IV Q12 [facility] Last Admin: 03/19/17 09:22 Dose: 400 mls/hr Cefepime HCl (Maxipime 1gm) 1 gm in 100 mls @ 100 mls/hr IVPB Q12 [facility] PRN Reason: Protocol Last Admin: 03/19/17 09:56 Dose: 100 mls/hr Vancomycin HCl (Vancomycin 750 Mg In Ns) 750 mg in 250 mls @ 167 mls/hr IVPB DAILY [facility] PRN Reason: Protocol Last Admin: 03/19/17 09:54 Dose: 167 mls/hr Mannitol (Mannitol) 36 mls @ 72 mls/hr IV Q6H [facility] Stop: 03/20/17 04:44 Pantoprazole Sodium (Protonix Inj) 40 mg IVP DAILY [facility] Last Admin: 03/19/17 09:20 Dose: 40 mg - Labs Labs: 03/19/17 05:30 03/19/17 05:30 PT 21.9 SECONDS (9.4-12.5) H 03/17/17 10:35 INR 1.88 (0.93-1.08) H 03/17/17 10:35 APTT 31.8 Seconds (25.1-36.5) 03/17/17 10:35 - Constitutional Appears: Other (intubated) - Respiratory Exam Respiratory Exam: Clear to Ausculation Bilateral, Rhonchi, NORMAL BREATHING PATTERN - Cardiovascular Exam Cardiovascular Exam: Tachycardia, +S1, +S2 - GI/Abdominal Exam GI & Abdominal Exam: Soft - Neurological Exam Additional comments: GCS 4: close eyes to pain (0), no verbal (0), move away from pain (4) Off sedation Intubated light reflex: sluggish reactive to light b/l oculocephalic reflex: intact gag reflex: intact Assessment and Plan - Assessment and Plan (Free Text) Plan: Ms Krys Arreola, 76F, with prior Hx of hemorrhagic stroke treated at [facility], atrial fibrillation on xarelto, asthma, came to the hospital with slurred speech right arm and face numbness, and R arm weakness. Her BP was around 187/116 upon ED arrival. Per pt's , pt later became unresponsive. CT showed a large acute thalamic bleed (2.6 x 4 cm) with intraventricular extension, with 3mm midline shift to R. Pt received Kcentra and transferred to ICU for management. repeat head CT in next day showed no change in size or appearance of thalamic hemorrhage but (+) intraventricular blood with increasing hydrocephalus. Mannitol was started to decrease intracerebral pressure likely from increasing acquired hydrocephalus due to intraventricular blood stasis at the 4th ventricle. Pt is currently off sedation, currently intubated, GCS is 0+0+4. Pt has new fever of 100.6 with WBC 13.9. Started cefepime and vancomycin today. Acute hemorrhagic stroke, likely from hypertensive episode in the setting of coagulopathy from Xarelto use for atrial fibrillation Increaseing hydrocephalus possibly Non-communicating in nature due to increase in intracerebral pressure from intraventricular blood stasis at the 4th ventricle - status post Kcentra - continue frequent neuro check and vs check per ICU protocol - Keppra 500mg Q12 - Mannitol 25% 36ml (9g) IV q6 x day #2. - HOB 45 degrees - Aspiration and Seizure precautions - As per neurosurgery no acute intervention - maintain SBP 130-140, DBP 70-80 - maintain normothermia - maintain blood glucose 140-180 - monitor electrolytes closely and correct accordingly - pending CT head tomorrow - Hold all anticoagulant and antiplatelets - Hold all statin for 72 hrs after hemorrhagic stroke Prognosis: poor Imaging: CT head (03/19): No change in hydrocephalus, decrease blood in ventricular system, no change in thalamic bleed s/r/d/w Dr. Steinberg <Remi Steinberg - Last Filed: 03/19/17 10:34> Objective - Vital Signs/Intake and Output Vital Signs (last 24 hours): Temp Pulse Resp BP Pulse Ox 100.4 F H 88 21 119/65 40 L 03/19/17 08:00 03/19/17 07:45 03/19/17 10:26 03/19/17 07:45 03/19/17 10:26 Intake and Output: 03/19/17 03/19/17 06:59 18:59 Intake Total 1670.0 52 Output Total 1000 Balance 670.0 52 - Medications Medications: Current Medications Acetaminophen (Tylenol 325mg Tab) 650 mg PO Q4H PRN PRN Reason: Fever >100.4 F Nicardipine HCl (Cardene Iv Premix) 20 mg in 200 mls @ 50 mls/hr IV .Q4H PRN; Protocol; 5 MG/HR PRN Reason: TITRATE PER MD ORDER Last Titration: 03/19/17 08:30 Dose: 2.5 mg/hr, 25 mls/hr Levetiracetam (Keppra 500mg Ivpb) 500 mg in 100 mls @ 400 mls/hr IV Q12 [facility] Last Admin: 03/19/17 09:22 Dose: 400 mls/hr Cefepime HCl (Maxipime 1gm) 1 gm in 100 mls @ 100 mls/hr IVPB Q12 [facility] PRN Reason: Protocol Last Admin: 03/19/17 09:56 Dose: 100 mls/hr Vancomycin HCl (Vancomycin 750 Mg In Ns) 750 mg in 250 mls @ 167 mls/hr IVPB DAILY [facility] PRN Reason: Protocol Last Admin: 03/19/17 09:54 Dose: 167 mls/hr Mannitol (Mannitol) 36 mls @ 72 mls/hr IV Q6H [facility] Stop: 03/20/17 04:44 Pantoprazole Sodium (Protonix Inj) 40 mg IVP DAILY [facility] Last Admin: 03/19/17 09:20 Dose: 40 mg - Labs Labs: 03/19/17 05:30 03/19/17 05:30 PT 21.9 SECONDS (9.4-12.5) H 03/17/17 10:35 INR 1.88 (0.93-1.08) H 03/17/17 10:35 APTT 31.8 Seconds (25.1-36.5) 03/17/17 10:35 Attending/Attestation - Attestation I have personally seen and examined this patient.: Yes I have fully participated in the care of the patient.: Yes I have reviewed all pertinent clinical information, including history, physical exam and plan: Yes
[2017-03-19 10:10] LABS: URINE APPEARANCE CLEAR (CLEAR); URINE BILIRUBIN NEGATIVE (NEGATIVE); URINE BLOOD NEGATIVE (NEGATIVE); URINE COLOR YELLOW (YELLOW); URINE GLUCOSE (UA) NEGATIVE (NEGATIVE); URINE LEUKOCYTE ESTERASE TRACE Leu/uL (NEGATIVE); URINE NITRATE NEGATIVE (NEGATIVE); URINE PROTEIN TRACE mg/dL (<30 mg/dL)
[2017-03-19 10:18] LABS: URINE RBC NEGATIVE /hpf (0-2)
[2017-03-19 10:19] LABS: URINE BACTERIA TRACE (NEG)
--- NOTE | 2017-03-19 11:01 | CP.PCM.PN ---
<Reema Liu - Last Filed: 03/19/17 10:56> Subjective - Date & Time of Evaluation Date of Evaluation: 03/19/17 Time of Evaluation: 10:56 - Subjective Subjective: ICU Progress Note for Min Franklin PGY2 Patient seen and examined at bedside. Overnight patient was febrile with Tmax of 100.8. She is intubated and not on sedation. GCS=6. ROS could not be obtained. Objective - Vital Signs/Intake and Output Vital Signs (last 24 hours): Temp Pulse Resp BP Pulse Ox 100.4 F H 88 21 119/65 40 L 03/19/17 08:00 03/19/17 07:45 03/19/17 10:26 03/19/17 07:45 03/19/17 10:26 Intake and Output: 03/19/17 03/19/17 06:59 18:59 Intake Total 1670.0 52 Output Total 1000 Balance 670.0 52 - Medications Medications: Current Medications Acetaminophen (Tylenol 325mg Tab) 650 mg PO Q4H PRN PRN Reason: Fever >100.4 F Albuterol/Ipratropium (Duoneb 3 Mg/0.5 Mg (3 Ml) Ud) 3 ml IH Q2H PRN PRN Reason: Shortness of Breath Nicardipine HCl (Cardene Iv Premix) 20 mg in 200 mls @ 50 mls/hr IV .Q4H PRN; Protocol; 5 MG/HR PRN Reason: TITRATE PER MD ORDER Last Titration: 03/19/17 08:30 Dose: 2.5 mg/hr, 25 mls/hr Levetiracetam (Keppra 500mg Ivpb) 500 mg in 100 mls @ 400 mls/hr IV Q12 [facility] Last Admin: 03/19/17 09:22 Dose: 400 mls/hr Cefepime HCl (Maxipime 1gm) 1 gm in 100 mls @ 100 mls/hr IVPB Q12 [facility] PRN Reason: Protocol Last Admin: 03/19/17 09:56 Dose: 100 mls/hr Vancomycin HCl (Vancomycin 750 Mg In Ns) 750 mg in 250 mls @ 167 mls/hr IVPB DAILY [facility] PRN Reason: Protocol Last Admin: 03/19/17 09:54 Dose: 167 mls/hr Mannitol (Mannitol) 36 mls @ 72 mls/hr IV Q6H [facility] Stop: 03/20/17 04:44 Pantoprazole Sodium (Protonix Inj) 40 mg IVP DAILY [facility] Last Admin: 03/19/17 09:20 Dose: 40 mg - Labs Labs: 03/19/17 05:30 03/19/17 05:30 PT 21.9 SECONDS (9.4-12.5) H 03/17/17 10:35 INR 1.88 (0.93-1.08) H 03/17/17 10:35 APTT 31.8 Seconds (25.1-36.5) 03/17/17 10:35 - Constitutional Appears: No Acute Distress, Chronically Ill - Head Exam Head Exam: NORMOCEPHALIC - Eye Exam Eye Exam: PERRL (sluggish bilaterally ) Pupil Exam: Miosis - ENT Exam ENT Exam: Mucous Membranes Moist - Respiratory Exam Respiratory Exam: Clear to Ausculation Bilateral, NORMAL BREATHING PATTERN. absent: Rales, Rhonchi, Wheezes - Cardiovascular Exam Cardiovascular Exam: REGULAR RHYTHM, +S1, +S2. absent: Gallop, Rubs, Murmur - GI/Abdominal Exam GI & Abdominal Exam: Soft, Normal Bowel Sounds. absent: Tenderness, Mass, Rebound - Extremities Exam Extremities Exam: Normal Inspection. absent: Pedal Edema - Neurological Exam Neurological Exam: absent: Awake Additional comments: Patient has weak gag reflex, but positive dolls eye reflex, sluggish pupillary. She withdraws to pain in all 4 extremities. + babinski bilaterally GCS: 8. - Skin Skin Exam: Dry, Warm Assessment and Plan - Assessment and Plan (Free Text) Assessment: This is a 76 y/o F PMHx Afib on xarelto, syncope, asthma/COPD, intracranial bleed 8 years ago presented left facial droop, slurred speech and RUE weakness. Patient was found to have L thalamic bleed with intraventricular extension secondary to hypertensive emergency. Plan: Neuro: Intracerebral hemorrhage Intubated- not on sedation, GCS: 6T Repeat CT (03/19/17): no change in appearance of the left thalamic bleed. Decreased blood in the ventricular system. No change in hydrocephalus As per Neuro--keeping head at 45 degrees, repeat round of mannitol (25% 36 L Q6h)- will monitor BMP and serum osm Maintain normothermia Keppra IV Aspiration and seizure precautions As per neurosurgery no acute intervention ICU spoke with [facility] who does not recommend transfer for surgical intervention at this time Neuro consulted-recs appreciated Cardio: Hx of Tony (pt now in NSR) Pt is hemodynamically stable Cardene drip for ICH- recommend to maintain SBP 130-140s, DBP 70-80s Hold anticoagulants for ICH Maintain MAP> 65 Pulm: Intubated on vent (40, 5, 12, 400) CXR no active disease HOB elevated, aspiration precaution, protective lung ventilation strategy Maintain SpO2 90-92% Duoneb prn GI: Tube feeds - monitor for residual Protonix 40 mg ivp GI ppx Nephro: BUN/Cr stable Strict I and Os Will monitor serum osm and BMP on Mannitol Will continue to monitor electrolytes and replace as needed Heme/onc: Intracerebral hemorrhage (Hgb stable) Pt s/p Kcentra for reversal of Xeralto Hold anticoagulants Will continue to monitor H/H ID: Febrile overnight, leukocytosis Started pt on empiric Cefepime and Vanc Septic work up ordered: U/A, urine/blood cultures, procal CXR showed no evidence of pneumonia Endo: Maintain euglycemia (140-180s) Diet: OG tube feedings (Jevity 1.2) GI ppx: protonix DVT ppx: SCDs Dispo: Prognosis guarded. Case seen, discussed and reviewed with attending. Min Liu PGY2 <Paul Reeder - Last Filed: 03/19/17 11:39> Objective - Vital Signs/Intake and Output Vital Signs (last 24 hours): Temp Pulse Resp BP Pulse Ox 100.4 F H 88 21 119/65 40 L 03/19/17 08:00 03/19/17 07:45 03/19/17 10:26 03/19/17 07:45 03/19/17 10:26 Intake and Output: 03/19/17 03/19/17 06:59 18:59 Intake Total 1670.0 52 Output Total 1000 Balance 670.0 52 - Medications Medications: Current Medications Acetaminophen (Tylenol 325mg Tab) 650 mg PO Q4H PRN PRN Reason: Fever >100.4 F Albuterol/Ipratropium (Duoneb 3 Mg/0.5 Mg (3 Ml) Ud) 3 ml IH Q2H PRN PRN Reason: Shortness of Breath Nicardipine HCl (Cardene Iv Premix) 20 mg in 200 mls @ 50 mls/hr IV .Q4H PRN; Protocol; 5 MG/HR PRN Reason: TITRATE PER MD ORDER Last Titration: 03/19/17 08:30 Dose: 2.5 mg/hr, 25 mls/hr Levetiracetam (Keppra 500mg Ivpb) 500 mg in 100 mls @ 400 mls/hr IV Q12 [facility] Last Admin: 03/19/17 09:22 Dose: 400 mls/hr Cefepime HCl (Maxipime 1gm) 1 gm in 100 mls @ 100 mls/hr IVPB Q12 [facility] PRN Reason: Protocol Last Admin: 03/19/17 09:56 Dose: 100 mls/hr Vancomycin HCl (Vancomycin 750 Mg In Ns) 750 mg in 250 mls @ 167 mls/hr IVPB DAILY [facility] PRN Reason: Protocol Last Admin: 03/19/17 09:54 Dose: 167 mls/hr Mannitol (Mannitol) 36 mls @ 72 mls/hr IV Q6H [facility] Stop: 03/20/17 04:44 Last Admin: 03/19/17 10:45 Dose: 72 mls/hr Pantoprazole Sodium (Protonix Inj) 40 mg IVP DAILY [facility] Last Admin: 03/19/17 09:20 Dose: 40 mg - Labs Labs: 03/19/17 05:30 03/19/17 05:30 PT 21.9 SECONDS (9.4-12.5) H 03/17/17 10:35 INR 1.88 (0.93-1.08) H 03/17/17 10:35 APTT 31.8 Seconds (25.1-36.5) 03/17/17 10:35 Assessment and Plan - Assessment and Plan (Free Text) Plan: Patient seen and examined with resident on rounds, agree with note, with following additions/exceptions: 76yo female PMHx Afib on Xarelto, Asthma and COPD, Intracranial bleed, presented with L thalamic ICH, intubated off sedation, with minimal response to verbal/noxious stimuli, seen by neurosurgery Dr Melo, no acute neurosurgical intervention. Pt received Kcentra on 2/4/[address] Repeat CT head done this morning, no change in size or shape of thalamic hemorrhage, IVH stable Neurology following, received Mannitol yesterday. Started spiking fevers, ?central fevers, will panculture, start on broad spectrum abx. Hx Afib on A/C HTN ICH, L thalamic Recommend: - cont with ventilaotry support, ABG acceptable - panculture, check procal, start broad spectrum anitbiotics, ID consult - BP control goal SBP <140, Fifi Segal for seizure ppx - follow up neurology, neurosurgery - monitor electrolytes - neuro checks - FS control - maintain euthermia - hold A/C - Hold HSQ - GI ppx - DVT ppx - poor prognosis critical care time 40 minutes
[2017-03-19 16:02] LABS: BLOOD UREA NITROGEN 12 mg/dL (7-21); CALCIUM 8.8 mg/dL (8.4-10.5); GFR AFRICAN-AMERICAN > 60; GFR NON-AFRICAN AMERICAN > 60
[2017-03-19] MEDS ORDERED: Potassium Chloride 40 mEq/30 ml LIQ UD PO ONE (16:05)
--- NOTE | 2017-03-19 16:36 | PN ---
DATE: SUBJECTIVE: The patient is 76-year-old, seen and examined while in ICU. She is intubated, getting pulse doses of mannitol. Unresponsive. PHYSICAL EXAMINATION: VITAL SIGNS: Temperature 99.5, pulse 98, respirations 20, blood pressure 115/73. LUNGS: Bilateral fair airflow. HEART: S1 and S2 audible. ABDOMEN: Soft, nontender. No rebound, no guarding. NEUROLOGIC: She is unresponsive. LABORATORY DATA: WBC is 13.9, hemoglobin 10.4, hematocrit 31.5, platelets of 188. Chemistry: Sodium 139, potassium 3.4, chloride 107, CO2 of 24, BUN 12, creatinine 0.5, blood sugar of 142. CT scan of the head was done today that shows no change in left thalamic bleed, decreased blood in the ventricular system. X-ray of chest, no active disease. ASSESSMENT: 1. Intracranial thalamic bleed. 2. Respiratory failure, on ventilator. 3. Chronic atrial fibrillation. 4. Hydrocephaly due to increased intracranial pressure. PLAN: Currently, patient is on mannitol and Keppra. Continue vent support. Neurosurgical input noted and appreciated. There is no plan for any intervention for now. We will discuss with Neurology. Oly Major MD
[2017-03-20] MEDS: Nicardipine 20 MG/200 ML 20 MG/200 ML BAG IV PRN ×3 (01:39→09:46)
[2017-03-20 05:29] LABS: ARTERIAL BLOOD GAS HCO3 24.5 mmol/L (21-28); ARTERIAL BLOOD GAS O2 CAPACITY 15.4 mL/dl (16-24); ARTERIAL BLOOD GAS O2 CONTENT 15.3 ML/dl (15-23); ARTERIAL BLOOD GAS O2 SAT 99.6 % (95-98); ARTERIAL BLOOD GAS PCO2 28 mm/Hg (35-45); ARTERIAL BLOOD GAS PH 7.55 (7.35-7.45); ARTERIAL BLOOD GAS TCO2 25.4 mmol.L (22-28)
[2017-03-20] MEDS: MANNITOL 25% IV SCH (05:44)
[2017-03-20 06:22] LABS: HEMOGLOBIN 10.4 g/dL (12.0-16.0); MEAN CELL VOLUME 66.5 fl (80.0-105.0); MEAN CORPUSCULAR HEMOGLOBIN 22.1 pg (25.0-35.0); MEAN CORPUSCULAR HGB CONC 33.2 g/dl (31.0-37.0); PLATELET COUNT 208 10^3/uL (120.0-450.0); RBC 4.71 10^6/uL (3.5-6.1); RED CELL DISTRIBUTION WIDTH 16.1 % (11.5-14.5)
--- NOTE | 2017-03-20 07:24 | CP.CCUPN ---
<ClarencePayton - Last Filed: 03/20/17 13:38> CCU Subjective - Physician Review Subjective (Free Text): 03/20/17 13:38 Patient seen and examined at bedside. Intubated on vent (40, 5, 12, 400)- not on any sedation. As per nursing patient had temp overnight. Does not respond to name or open eyes spontaneously. GCS4T. Making good urine and tolerating feeds with no residual. Patient was on cardene gtt @ 2.5cc- blood pressure labile. Complete ROS unobtainable. Critical Care Time Spent (in minutes): 45 CCU Objective - Vital Signs / Intake & Output Vital Signs (Last 4 hours): Vital Signs Temp Pulse Resp BP Pulse Ox 03/20/17 04:15 100.8 F H 103 H 19 100 03/20/17 04:00 149/85 03/20/17 03:59 100.8 F H 102 H 23 100 03/20/17 03:45 100.6 F H 98 H 20 100 03/20/17 03:30 146/83 03/20/17 03:29 100.6 F H 99 H 18 100 Intake and Output (Last 8hrs): Intake & Output 03/19/17 03/20/17 03/20/17 22:59 06:59 14:59 Intake Total 2011 40 Output Total 700 Balance 1312 40 Intake: IV 872 40 Left Forearm 350 Right Antecubital 522 Tube Feeding 640 Other 500 Output: Urine 650 Urethral (Perez) 650 Other 50 Other: # Bowel Movements 1 - Physical Exam Head: Positive for: Atraumatic, Normocephalic Pupils: Positive for: Sluggish Extroacular Muscles: Positive for: Other (unable to assess) Conjunctiva: Positive for: Normal Ears: Positive for: Normal Mouth: Positive for: Moist Mucous Membranes, Normal Teeth, Other (ET tube in place) Pharnyx: Positive for: Normal Nose (External): Positive for: Atraumatic Nose (Internal): Positive for: Normal Inspection Neck: Positive for: Trachea Midline. Negative for: MIDLINE TENDERNESS Respiratory/Chest: Positive for: Clear to Auscultation, Good Air Exchange, Other (intubated on vent (40, 5, 12, 400)). Negative for: Respiratory Distress , Accessory Muscle Use, Wheezes Cardiovascular: Positive for: Regular Rate and Rhythm, Normal S1, S2. Negative for: Murmurs Abdomen: Positive for: Normal Bowel Sounds, Other (OGT in place). Negative for : Tenderness, Distention, Peritoneal Signs Genitourinary/Pelvic Exam: Positive for: NI. Negative for: C, E Back: Positive for: Normal Inspection Upper Extremity: Positive for: Normal Inspection, NORMAL PULSES, Capillary Refill < 2s. Negative for: Cyanosis, Edema Lower Extremity: Positive for: Normal Inspection, Other (SCDs in place). Negative for: Edema Neurological: Positive for: Other (GCS4t - pupils are sluggisg at 2mm b/l; L eye down and out - indicative of CN 3 palse ,+ babinski b/l, decerebrate posturing to pain). Negative for: GCS=15, CN II-XII Intact, Speech Normal Skin: Positive for: Warm, Dry, Normal Color. Negative for: Rashes Lymphatic: Positive for: OX3, NI, NC Psychiatric: Positive for: Other (altered- not on any sedation). Negative for: Alert, Oriented x 3, Normal Insight, Normal Concentration - Medications Active Medications: Active Medications Generic Name Dose Route Start Last Admin Trade Name Freq PRN Reason Stop Dose Admin Acetaminophen 650 mg 03/19/17 09:29 03/19/17 16:16 Tylenol 325mg Tab PO 650 mg Q4H PRN Administration Fever >100.4 F Albuterol/Ipratropium 3 ml 03/19/17 10:40 Duoneb 3 Mg/0.5 Mg (3 Ml) Ud IH Q2H PRN Shortness of Breath Levetiracetam 500 mg in 100 mls @ 400 mls/hr 03/17/17 22:00 03/19/17 21:38 Keppra 500mg Ivpb IV 400 mls/hr Q12 SANJANA Administration Cefepime HCl 1 gm in 100 mls @ 100 mls/hr 03/19/17 10:00 03/19/17 21:39 Maxipime 1gm IVPB 100 mls/hr Q12 SANJANA Administration Protocol Vancomycin HCl 750 mg in 250 mls @ 167 mls/hr 03/19/17 10:00 03/19/17 09:54 Vancomycin 750 Mg In Ns IVPB 167 mls/hr DAILY SANJANA Administration Protocol Nicardipine HCl 20 mg in 200 mls @ 50 mls/hr 03/19/17 15:00 03/20/17 05:41 Cardene Iv Premix IV 2.5 mg/hr .Q4H PRN 25 mls/hr TITRATE PER MD ORDER Titration Protocol 5 MG/HR Pantoprazole Sodium 40 mg 03/18/17 10:00 03/19/17 09:20 Protonix Inj IVP 40 mg DAILY SANJANA Administration - Patient Studies Lab Studies: Microbiology Studies 03/17/17 21:15 MRSA Culture (Admit) - Final Naris MRSA NOT DETECTED Lab Studies 03/20/17 03/20/17 03/19/17 Range/Units 05:30 05:25 22:25 WBC 16.0 H (4.5-11.0) 10^3/ul RBC 4.71 (3.5-6.1) 10^6/uL Hgb 10.4 L (12.0-16.0) g/dL Hct 31.3 L (36.0-48.0) % MCV 66.5 L (80.0-105.0) fl MCH 22.1 L (25.0-35.0) pg MCHC 33.2 (31.0-37.0) g/dl RDW 16.1 H (11.5-14.5) % Plt Count 208 (120.0-450.0) 10^3/uL pCO2 28 L (35-45) mm/Hg pO2 178.0 H (80-100) mm/Hg HCO3 24.5 (21-28) mmol/L ABG pH 7.55 H (7.35-7.45) ABG Total CO2 25.4 (22-28) mmol.L ABG O2 Saturation 99.6 H (95-98) % ABG O2 Content 15.3 (15-23) ML/dl ABG Base Excess 2.7 (-2.0-3.0) mmol/L ABG Hemoglobin 11.0 L (11.7-17.4) g/dL ABG Carboxyhemoglobin 1.7 H (0.5-1.5) % POC ABG HHb (Measured) 0.4 (0-5) % ABG Methemoglobin 1.7 (0.0-3.0) % ABG O2 Capacity 15.4 L (16-24) mL/dl Hgb O2 Saturation 96.2 (95.0-98.0) % FiO2 40.0 % Sodium (132-148) mmol/L Potassium (3.6-5.0) mmol/L Chloride (98-107) mmol/L Carbon Dioxide (21-33) mmol/L Anion Gap (10-20) BUN (7-21) mg/dL Creatinine (0.7-1.2) mg/dl Est GFR ( Amer) Est GFR (Non-Af Amer) POC Glucose (mg/dL) 147 H (65-110) mg/dL Random Glucose (70-110) mg/dL Calcium (8.4-10.5) mg/dL Phosphorus (2.5-4.5) mg/dL Magnesium (1.7-2.2) mg/dL Total Bilirubin (0.2-1.3) mg/dL AST (14-36) U/L ALT (7-56) U/L Alkaline Phosphatase (38-126) U/L Total Protein (5.8-8.3) g/dL Albumin (3.0-4.8) g/dL Globulin gm/dL Albumin/Globulin Ratio (1.1-1.8) Triglycerides (35-160) mg/dL Cholesterol (130-200) mg/dL LDL Cholesterol Direct (0-129) mg/dL HDL Cholesterol (29-60) mg/dL Procalcitonin (0.19-0.49) NG/ML Urine Color (YELLOW) Urine Appearance (CLEAR) Urine pH (4.7-8.0) Ur Specific [place] (1.005-1.035) Urine Protein (<30 mg/dL) mg/dL Urine Glucose (UA) (NEGATIVE) mg/dL Urine Ketones (NEGATIVE) mg/dL Urine Blood (NEGATIVE) Urine Nitrate (NEGATIVE) Urine Bilirubin (NEGATIVE) Urine Urobilinogen (<1 E.U./dL) E.U./dL Ur Leukocyte Esterase (NEGATIVE) Yasmin/uL Urine RBC (0-2) /hpf Urine WBC (0-6) /hpf Urine Bacteria (NEG) 03/19/17 03/19/17 03/19/17 Range/Units 16:06 15:43 11:35 WBC (4.5-11.0) 10^3/ul RBC (3.5-6.1) 10^6/uL Hgb (12.0-16.0) g/dL Hct (36.0-48.0) % MCV (80.0-105.0) fl MCH (25.0-35.0) pg MCHC (31.0-37.0) g/dl RDW (11.5-14.5) % Plt Count (120.0-450.0) 10^3/uL pCO2 (35-45) mm/Hg pO2 (80-100) mm/Hg HCO3 (21-28) mmol/L ABG pH (7.35-7.45) ABG Total CO2 (22-28) mmol.L ABG O2 Saturation (95-98) % ABG O2 Content (15-23) ML/dl ABG Base Excess (-2.0-3.0) mmol/L ABG Hemoglobin (11.7-17.4) g/dL ABG Carboxyhemoglobin (0.5-1.5) % POC ABG HHb (Measured) (0-5) % ABG Methemoglobin (0.0-3.0) % ABG O2 Capacity (16-24) mL/dl Hgb O2 Saturation (95.0-98.0) % FiO2 % Sodium 140 (132-148) mmol/L Potassium 3.3 L (3.6-5.0) mmol/L Chloride 108 H (98-107) mmol/L Carbon Dioxide 23 (21-33) mmol/L Anion Gap 12 (10-20) BUN 12 (7-21) mg/dL Creatinine 0.4 L (0.7-1.2) mg/dl Est GFR ( Amer) > 60 Est GFR (Non-Af Amer) > 60 POC Glucose (mg/dL) 108 174 H (65-110) mg/dL Random Glucose 129 H (70-110) mg/dL Calcium 8.8 (8.4-10.5) mg/dL Phosphorus (2.5-4.5) mg/dL Magnesium (1.7-2.2) mg/dL Total Bilirubin (0.2-1.3) mg/dL AST (14-36) U/L ALT (7-56) U/L Alkaline Phosphatase (38-126) U/L Total Protein (5.8-8.3) g/dL Albumin (3.0-4.8) g/dL Globulin gm/dL Albumin/Globulin Ratio (1.1-1.8) Triglycerides (35-160) mg/dL Cholesterol (130-200) mg/dL LDL Cholesterol Direct (0-129) mg/dL HDL Cholesterol (29-60) mg/dL Procalcitonin (0.19-0.49) NG/ML Urine Color (YELLOW) Urine Appearance (CLEAR) Urine pH (4.7-8.0) Ur Specific [place] (1.005-1.035) Urine Protein (<30 mg/dL) mg/dL Urine Glucose (UA) (NEGATIVE) mg/dL Urine Ketones (NEGATIVE) mg/dL Urine Blood (NEGATIVE) Urine Nitrate (NEGATIVE) Urine Bilirubin (NEGATIVE) Urine Urobilinogen (<1 E.U./dL) E.U./dL Ur Leukocyte Esterase (NEGATIVE) Yasmin/uL Urine RBC (0-2) /hpf Urine WBC (0-6) /hpf Urine Bacteria (NEG) 03/19/17 03/19/17 03/19/17 Range/Units 09:50 09:40 07:44 WBC (4.5-11.0) 10^3/ul RBC (3.5-6.1) 10^6/uL Hgb (12.0-16.0) g/dL Hct (36.0-48.0) % MCV (80.0-105.0) fl MCH (25.0-35.0) pg MCHC (31.0-37.0) g/dl RDW (11.5-14.5) % Plt Count (120.0-450.0) 10^3/uL pCO2 (35-45) mm/Hg pO2 (80-100) mm/Hg HCO3 (21-28) mmol/L ABG pH (7.35-7.45) ABG Total CO2 (22-28) mmol.L ABG O2 Saturation (95-98) % ABG O2 Content (15-23) ML/dl ABG Base Excess (-2.0-3.0) mmol/L ABG Hemoglobin (11.7-17.4) g/dL ABG Carboxyhemoglobin (0.5-1.5) % POC ABG HHb (Measured) (0-5) % ABG Methemoglobin (0.0-3.0) % ABG O2 Capacity (16-24) mL/dl Hgb O2 Saturation (95.0-98.0) % FiO2 % Sodium (132-148) mmol/L Potassium (3.6-5.0) mmol/L Chloride (98-107) mmol/L Carbon Dioxide (21-33) mmol/L Anion Gap (10-20) BUN (7-21) mg/dL Creatinine (0.7-1.2) mg/dl Est GFR ( Amer) Est GFR (Non-Af Amer) POC Glucose (mg/dL) 142 H (65-110) mg/dL Random Glucose (70-110) mg/dL Calcium (8.4-10.5) mg/dL Phosphorus (2.5-4.5) mg/dL Magnesium (1.7-2.2) mg/dL Total Bilirubin (0.2-1.3) mg/dL AST (14-36) U/L ALT (7-56) U/L Alkaline Phosphatase (38-126) U/L Total Protein (5.8-8.3) g/dL Albumin (3.0-4.8) g/dL Globulin gm/dL Albumin/Globulin Ratio (1.1-1.8) Triglycerides (35-160) mg/dL Cholesterol (130-200) mg/dL LDL Cholesterol Direct (0-129) mg/dL HDL Cholesterol (29-60) mg/dL Procalcitonin 0.13 L (0.19-0.49) NG/ML Urine Color Yellow (YELLOW) Urine Appearance Clear (CLEAR) Urine pH 7.0 (4.7-8.0) Ur Specific [place] 1.010 (1.005-1.035) Urine Protein Trace H (<30 mg/dL) mg/dL Urine Glucose (UA) Negative (NEGATIVE) mg/dL Urine Ketones Negative (NEGATIVE) mg/dL Urine Blood Negative (NEGATIVE) Urine Nitrate Negative (NEGATIVE) Urine Bilirubin Negative (NEGATIVE) Urine Urobilinogen 1.0 H (<1 E.U./dL) E.U./dL Ur Leukocyte Esterase Trace H (NEGATIVE) Yasmin/uL Urine RBC Negative (0-2) /hpf Urine WBC 2 - 5 (0-6) /hpf Urine Bacteria Trace (NEG) 03/19/17 03/19/17 Range/Units 05:30 05:30 WBC 13.9 H D (4.5-11.0) 10^3/ul RBC 4.79 (3.5-6.1) 10^6/uL Hgb 10.4 L (12.0-16.0) g/dL Hct 31.5 L (36.0-48.0) % MCV 65.8 L (80.0-105.0) fl MCH 21.7 L (25.0-35.0) pg MCHC 33.0 (31.0-37.0) g/dl RDW 16.3 H (11.5-14.5) % Plt Count 188 (120.0-450.0) 10^3/uL pCO2 (35-45) mm/Hg pO2 (80-100) mm/Hg HCO3 (21-28) mmol/L ABG pH (7.35-7.45) ABG Total CO2 (22-28) mmol.L ABG O2 Saturation (95-98) % ABG O2 Content (15-23) ML/dl ABG Base Excess (-2.0-3.0) mmol/L ABG Hemoglobin (11.7-17.4) g/dL ABG Carboxyhemoglobin (0.5-1.5) % POC ABG HHb (Measured) (0-5) % ABG Methemoglobin (0.0-3.0) % ABG O2 Capacity (16-24) mL/dl Hgb O2 Saturation (95.0-98.0) % FiO2 % Sodium 139 (132-148) mmol/L Potassium 3.4 L (3.6-5.0) mmol/L Chloride 107 (98-107) mmol/L Carbon Dioxide 24 (21-33) mmol/L Anion Gap 12 (10-20) BUN 12 (7-21) mg/dL Creatinine 0.5 L (0.7-1.2) mg/dl Est GFR ( Amer) > 60 Est GFR (Non-Af Amer) > 60 POC Glucose (mg/dL) (65-110) mg/dL Random Glucose 155 H (70-110) mg/dL Calcium 9.0 (8.4-10.5) mg/dL Phosphorus 2.2 L (2.5-4.5) mg/dL Magnesium 2.0 (1.7-2.2) mg/dL Total Bilirubin 1.6 H (0.2-1.3) mg/dL AST 40 H (14-36) U/L ALT 29 (7-56) U/L Alkaline Phosphatase 64 (38-126) U/L Total Protein 6.2 (5.8-8.3) g/dL Albumin 3.1 (3.0-4.8) g/dL Globulin 3.2 gm/dL Albumin/Globulin Ratio 1.0 L (1.1-1.8) Triglycerides 58 (35-160) mg/dL Cholesterol 109 L (130-200) mg/dL LDL Cholesterol Direct 59 (0-129) mg/dL HDL Cholesterol 34 (29-60) mg/dL Procalcitonin (0.19-0.49) NG/ML Urine Color (YELLOW) Urine Appearance (CLEAR) Urine pH (4.7-8.0) Ur Specific [place] (1.005-1.035) Urine Protein (<30 mg/dL) mg/dL Urine Glucose (UA) (NEGATIVE) mg/dL Urine Ketones (NEGATIVE) mg/dL Urine Blood (NEGATIVE) Urine Nitrate (NEGATIVE) Urine Bilirubin (NEGATIVE) Urine Urobilinogen (<1 E.U./dL) E.U./dL Ur Leukocyte Esterase (NEGATIVE) Yasmin/uL Urine RBC (0-2) /hpf Urine WBC (0-6) /hpf Urine Bacteria (NEG) Laboratory Results - last 24 hr 03/19/17 03/19/17 03/19/17 05:30 05:30 07:44 WBC 13.9 H D RBC 4.79 Hgb 10.4 L Hct 31.5 L MCV 65.8 L MCH 21.7 L MCHC 33.0 RDW 16.3 H Plt Count 188 pCO2 pO2 HCO3 ABG pH ABG Total CO2 ABG O2 Saturation ABG O2 Content ABG Base Excess ABG Hemoglobin ABG Carboxyhemoglobin POC ABG HHb (Measured) ABG Methemoglobin ABG O2 Capacity Hgb O2 Saturation FiO2 Sodium 139 Potassium 3.4 L Chloride 107 Carbon Dioxide 24 Anion Gap 12 BUN 12 Creatinine 0.5 L Est GFR ( Amer) > 60 Est GFR (Non-Af Amer) > 60 POC Glucose (mg/dL) 142 H Random Glucose 155 H Calcium 9.0 Phosphorus 2.2 L Magnesium 2.0 Total Bilirubin 1.6 H AST 40 H ALT 29 Alkaline Phosphatase 64 Total Protein 6.2 Albumin 3.1 Globulin 3.2 Albumin/Globulin Ratio 1.0 L Triglycerides 58 Cholesterol 109 L LDL Cholesterol Direct 59 HDL Cholesterol 34 Procalcitonin Urine Color Urine Appearance Urine pH Ur Specific [place] Urine Protein Urine Glucose (UA) Urine Ketones Urine Blood Urine Nitrate Urine Bilirubin Urine Urobilinogen Ur Leukocyte Esterase Urine RBC Urine WBC Urine Bacteria 03/19/17 03/19/17 03/19/17 09:40 09:50 11:35 WBC RBC Hgb Hct MCV MCH MCHC RDW Plt Count pCO2 pO2 HCO3 ABG pH ABG Total CO2 ABG O2 Saturation ABG O2 Content ABG Base Excess ABG Hemoglobin ABG Carboxyhemoglobin POC ABG HHb (Measured) ABG Methemoglobin ABG O2 Capacity Hgb O2 Saturation FiO2 Sodium Potassium Chloride Carbon Dioxide Anion Gap BUN Creatinine Est GFR ( Amer) Est GFR (Non-Af Amer) POC Glucose (mg/dL) 174 H Random Glucose Calcium Phosphorus Magnesium Total Bilirubin AST ALT Alkaline Phosphatase Total Protein Albumin Globulin Albumin/Globulin Ratio Triglycerides Cholesterol LDL Cholesterol Direct HDL Cholesterol Procalcitonin 0.13 L Urine Color Yellow Urine Appearance Clear Urine pH 7.0 Ur Specific [place] 1.010 Urine Protein Trace H Urine Glucose (UA) Negative Urine Ketones Negative Urine Blood Negative Urine Nitrate Negative Urine Bilirubin Negative Urine Urobilinogen 1.0 H Ur Leukocyte Esterase Trace H Urine RBC Negative Urine WBC 2 - 5 Urine Bacteria Trace 03/19/17 03/19/17 03/19/17 15:43 16:06 22:25 WBC RBC Hgb Hct MCV MCH MCHC RDW Plt Count pCO2 pO2 HCO3 ABG pH ABG Total CO2 ABG O2 Saturation ABG O2 Content ABG Base Excess ABG Hemoglobin ABG Carboxyhemoglobin POC ABG HHb (Measured) ABG Methemoglobin ABG O2 Capacity Hgb O2 Saturation FiO2 Sodium 140 Potassium 3.3 L Chloride 108 H Carbon Dioxide 23 Anion Gap 12 BUN 12 Creatinine 0.4 L Est GFR ( Amer) > 60 Est GFR (Non-Af Amer) > 60 POC Glucose (mg/dL) 108 147 H Random Glucose 129 H Calcium 8.8 Phosphorus Magnesium Total Bilirubin AST ALT Alkaline Phosphatase Total Protein Albumin Globulin Albumin/Globulin Ratio Triglycerides Cholesterol LDL Cholesterol Direct HDL Cholesterol Procalcitonin Urine Color Urine Appearance Urine pH Ur Specific [place] Urine Protein Urine Glucose (UA) Urine Ketones Urine Blood Urine Nitrate Urine Bilirubin Urine Urobilinogen Ur Leukocyte Esterase Urine RBC Urine WBC Urine Bacteria 03/20/17 03/20/17 05:25 05:30 WBC 16.0 H RBC 4.71 Hgb 10.4 L Hct 31.3 L MCV 66.5 L MCH 22.1 L MCHC 33.2 RDW 16.1 H Plt Count 208 pCO2 28 L pO2 178.0 H HCO3 24.5 ABG pH 7.55 H ABG Total CO2 25.4 ABG O2 Saturation 99.6 H ABG O2 Content 15.3 ABG Base Excess 2.7 ABG Hemoglobin 11.0 L ABG Carboxyhemoglobin 1.7 H POC ABG HHb (Measured) 0.4 ABG Methemoglobin 1.7 ABG O2 Capacity 15.4 L Hgb O2 Saturation 96.2 FiO2 40.0 Sodium Potassium Chloride Carbon Dioxide Anion Gap BUN Creatinine Est GFR ( Amer) Est GFR (Non-Af Amer) POC Glucose (mg/dL) Random Glucose Calcium Phosphorus Magnesium Total Bilirubin AST ALT Alkaline Phosphatase Total Protein Albumin Globulin Albumin/Globulin Ratio Triglycerides Cholesterol LDL Cholesterol Direct HDL Cholesterol Procalcitonin Urine Color Urine Appearance Urine pH Ur Specific [place] Urine Protein Urine Glucose (UA) Urine Ketones Urine Blood Urine Nitrate Urine Bilirubin Urine Urobilinogen Ur Leukocyte Esterase Urine RBC Urine WBC Urine Bacteria Fingerstick Blood Sugar Results: 108 Review of Systems - Review of Systems Systems not reviewed;Unavailable: Intubated Assessment/Plan - Assessment and Plan (Free Text) Assessment: 76 y/o F PMHx Afib on xarelto, asthma and COPD, intracranial bleed 8 years ago presented left facial droop, slurred speech and RUE weakness. Found to have L thalamic bleed with intraventricular extension on head CT and transferred to ICU for further monitoring. Plan: Neuro: -intracranial hemorrhage- stable on repeat head CT done on 03/19/17 -f/u repeat head CT this AM -AO x 0 -Pt is not on any sedation- does not respond to verbal stimuli. She does not open her eyes at all. She is responsive to painful stimuli-decerebrate posturing bilaterally. GCS 4T -Head CT on admission (03/17/17): Large acute left thalamic bleed with intraventricular extension -Repeat CT (03/19/17): no change in appearance of the left thalamic bleed. Decreased blood in the ventricular system. No change in hydrocephalus -As per Neuro--keeping head at 45 degrees. Pt received 2nd round of mannitol (25 % 36 mL at 72 mL/hr L Q6h, has completed bags 3 of 4.) -Ensure pt is euthermic -Aspiration and seizure precautions -As per neurosurgery no acute intervention -ICU spoke with [facility] who does not recommend transfer for surgical intervention at this time -Neuro consulted-recs appreciated Cardio: -Hx of Tony (pt now in NSR) -Pt is hemodynamically stable -Cardene gtt -Maintain SBP 130-140s, DBP 70-80s. -Hold anticoagulants for ICH -Maintain MAP> 65 mmHg Pulm: -Intubated on vent (40, 5, 12, 400) -ABG (03/20/17): pH 7.55, pO2 178, pCO2 28, HCO3 25.4. Pt has mild respiratory alkalosis, unchanged from yesterday -CXR (03/19): ETT and OG tube in satisfactory position; cardiomegaly, aortic tortuosity -Pulm toilet -Repeat CXR pending -Maintain SpO2 90-92% -Duoneb 3 mL inh q6 prn GI: -Tube feeds - monitor for residual -Protonix 40 mg ivp GI ppx Renal: -BUN/Cr is stable; 11/0.4 -Strict I and Os -Will monitor serum osm and BMP on Mannitol -Will continue to monitor electrolytes and replace as needed Heme/onc: -No overt bleeding and pt is hemodynamically stable -On admission( 03/17/17) : PT 21.9, PTT 31.8, INR 1.88 -f/u repeat Coags -Pt received Kcentra at 3pm on 03/17/17 for xarelto reversal -SCDs -VTE ppx is c/i secondary to intracranial bleed ID: -Pt noted to have elevated WBC count (16.0) up from 13.9. And fever overnight Tmax 100.8 -Septic work up pending; UCx pending -BCx2 prelim neg -Ofirmev for temp -Procalcitonin is 0.13 -UA shows trace LE, trace protein, 2.5 WBC, 1.0 urobilinogen -Pt started on cefepime 1gm q12, vancomycin 750 mg ivpb qd ; cefepime cleared by neuro due to no seizure activity, Endo: -Maintain euglycemia (140-180s) Diet: OG tube feedings (Jevity 1.2) GI ppx: protonix 40 mg ivp qd DVT ppx: SCDs Dispo: Prognosis guarded. Discussed with Dr. Brenda Lima PGY2 <Rafael Gutierrez - Last Filed: 03/20/17 16:44> CCU Objective - Vital Signs / Intake & Output Vital Signs (Last 4 hours): Vital Signs Temp Pulse BP Pulse Ox 03/20/17 15:05 100.0 F H 03/20/17 15:00 100.0 F H 94 H 128/75 98 03/20/17 14:45 100.0 F H 93 H 98 03/20/17 14:30 100.2 F H 89 115/67 98 03/20/17 14:15 100.2 F H 102 H 98 03/20/17 14:00 100.2 F H 97 H 122/94 H 98 03/20/17 13:45 100.2 F H 106 H 98 03/20/17 13:30 100.4 F H 93 H 123/73 98 03/20/17 13:15 100.4 F H 81 98 03/20/17 13:00 100.4 F H 83 104/64 97 03/20/17 12:45 100.4 F H 89 98 Intake and Output (Last 8hrs): Intake & Output 03/20/17 03/20/17 03/20/17 06:59 14:59 22:59 Intake Total 1290 360 Output Total 1600 Balance -310 360 Weight 107 lb Intake: IV 430 360 Left Forearm 200 Right Antecubital 190 Oral 0 Tube Feeding 860 Output: Urine 1600 Urethral (Perez) 1600 Other: # Bowel Movements 0 - Medications Active Medications: Active Medications Generic Name Dose Route Start Last Admin Trade Name Freq PRN Reason Stop Dose Admin Albuterol/Ipratropium 3 ml 03/19/17 10:40 Duoneb 3 Mg/0.5 Mg (3 Ml) Ud IH Q2H PRN Shortness of Breath Levetiracetam 500 mg in 100 mls @ 400 mls/hr 03/17/17 22:00 03/20/17 09:47 Keppra 500mg Ivpb IV 400 mls/hr Q12 SANJANA Administration Nicardipine HCl 20 mg in 200 mls @ 50 mls/hr 03/19/17 15:00 03/20/17 09:46 Cardene Iv Premix IV 3 mg/hr .Q4H PRN 30 mls/hr TITRATE PER MD ORDER Administration Protocol 5 MG/HR Acetaminophen 1,000 mg in 100 mls @ 400 mls/hr 03/20/17 10:55 Ofirmev IVPB 03/22/17 10:56 Q6H PRN Temperature Cefepime HCl 1 gm in 100 mls @ 100 mls/hr 03/20/17 14:00 03/20/17 15:06 Maxipime 1gm IVPB 100 mls/hr Q8 SANJANA Administration Protocol Vancomycin HCl 750 mg in 250 mls @ 167 mls/hr 03/20/17 18:00 Vancomycin 750 Mg In Ns IVPB BID SANJANA Protocol Pantoprazole Sodium 40 mg 03/18/17 10:00 03/20/17 09:48 Protonix Inj IVP 40 mg DAILY SANJANA Administration - Patient Studies Lab Studies: Microbiology Studies 03/19/17 09:40 Blood Culture - Preliminary Blood NO GROWTH AFTER 24 HOURS 03/19/17 09:30 Blood Culture - Preliminary Blood NO GROWTH AFTER 24 HOURS 03/17/17 21:15 MRSA Culture (Admit) - Final Naris MRSA NOT DETECTED Lab Studies 03/20/17 03/20/17 03/20/17 Range/Units 13:50 13:50 11:33 WBC 14.8 H (4.5-11.0) 10^3/ul RBC 4.60 (3.5-6.1) 10^6/uL Hgb 10.2 L (12.0-16.0) g/dL Hct 30.8 L (36.0-48.0) % MCV 67.0 L (80.0-105.0) fl MCH 22.2 L (25.0-35.0) pg MCHC 33.1 (31.0-37.0) g/dl RDW 16.1 H (11.5-14.5) % Plt Count 206 (120.0-450.0) 10^3/uL Gran % 85.1 H (50.0-68.0) % Lymph % (Auto) 6.9 L (22.0-35.0) % [place] % (Auto) 7.6 H (1.0-6.0) % Eos % (Auto) 0.3 L (1.5-5.0) % Baso % (Auto) 0.1 (0.0-3.0) % Gran # 12.58 H (1.4-6.5) Lymph # (Auto) 1.0 L (1.2-3.4) [place] # (Auto) 1.1 H (0.1-0.6) Eos # (Auto) 0.1 (0.0-0.7) Baso # (Auto) 0.02 (0.0-2.0) K/mm3 PT 14.0 H (9.4-12.5) SECONDS INR 1.21 H (0.93-1.08) APTT 27.1 (25.1-36.5) Seconds pCO2 (35-45) mm/Hg pO2 (80-100) mm/Hg HCO3 (21-28) mmol/L ABG pH (7.35-7.45) ABG Total CO2 (22-28) mmol.L ABG O2 Saturation (95-98) % ABG O2 Content (15-23) ML/dl ABG Base Excess (-2.0-3.0) mmol/L ABG Hemoglobin (11.7-17.4) g/dL ABG Carboxyhemoglobin (0.5-1.5) % POC ABG HHb (Measured) (0-5) % ABG Methemoglobin (0.0-3.0) % ABG O2 Capacity (16-24) mL/dl Hgb O2 Saturation (95.0-98.0) % FiO2 % Sodium (132-148) mmol/L Potassium (3.6-5.0) mmol/L Chloride (98-107) mmol/L Carbon Dioxide (21-33) mmol/L Anion Gap (10-20) BUN (7-21) mg/dL Creatinine (0.7-1.2) mg/dl Est GFR ( Amer) Est GFR (Non-Af Amer) POC Glucose (mg/dL) 151 H (65-110) mg/dL Random Glucose (70-110) mg/dL Serum Osmolality (272-300) mosm/kg Calcium (8.4-10.5) mg/dL Phosphorus (2.5-4.5) mg/dL Magnesium (1.7-2.2) mg/dL Total Bilirubin (0.2-1.3) mg/dL AST (14-36) U/L ALT (7-56) U/L Alkaline Phosphatase (38-126) U/L Total Protein (5.8-8.3) g/dL Albumin (3.0-4.8) g/dL Globulin gm/dL Albumin/Globulin Ratio (1.1-1.8) Procalcitonin (0.19-0.49) NG/ML 03/20/17 03/20/17 03/20/17 Range/Units 07:48 05:30 05:30 WBC (4.5-11.0) 10^3/ul RBC (3.5-6.1) 10^6/uL Hgb (12.0-16.0) g/dL Hct (36.0-48.0) % MCV (80.0-105.0) fl MCH (25.0-35.0) pg MCHC (31.0-37.0) g/dl RDW (11.5-14.5) % Plt Count (120.0-450.0) 10^3/uL Gran % (50.0-68.0) % Lymph % (Auto) (22.0-35.0) % [place] % (Auto) (1.0-6.0) % Eos % (Auto) (1.5-5.0) % Baso % (Auto) (0.0-3.0) % Gran # (1.4-6.5) Lymph # (Auto) (1.2-3.4) [place] # (Auto) (0.1-0.6) Eos # (Auto) (0.0-0.7) Baso # (Auto) (0.0-2.0) K/mm3 PT (9.4-12.5) SECONDS INR (0.93-1.08) APTT (25.1-36.5) Seconds pCO2 (35-45) mm/Hg pO2 (80-100) mm/Hg HCO3 (21-28) mmol/L ABG pH (7.35-7.45) ABG Total CO2 (22-28) mmol.L ABG O2 Saturation (95-98) % ABG O2 Content (15-23) ML/dl ABG Base Excess (-2.0-3.0) mmol/L ABG Hemoglobin (11.7-17.4) g/dL ABG Carboxyhemoglobin (0.5-1.5) % POC ABG HHb (Measured) (0-5) % ABG Methemoglobin (0.0-3.0) % ABG O2 Capacity (16-24) mL/dl Hgb O2 Saturation (95.0-98.0) % FiO2 % Sodium 140 (132-148) mmol/L Potassium 3.2 L (3.6-5.0) mmol/L Chloride 109 H (98-107) mmol/L Carbon Dioxide 24 (21-33) mmol/L Anion Gap 11 (10-20) BUN 11 (7-21) mg/dL Creatinine 0.4 L (0.7-1.2) mg/dl Est GFR ( Amer) > 60 Est GFR (Non-Af Amer) > 60 POC Glucose (mg/dL) 124 H (65-110) mg/dL Random Glucose 138 H (70-110) mg/dL Serum Osmolality 296 (272-300) mosm/kg Calcium 8.6 (8.4-10.5) mg/dL Phosphorus 2.2 L (2.5-4.5) mg/dL Magnesium 1.9 (1.7-2.2) mg/dL Total Bilirubin 1.8 H (0.2-1.3) mg/dL AST 43 H (14-36) U/L ALT 35 (7-56) U/L Alkaline Phosphatase 65 (38-126) U/L Total Protein 5.9 (5.8-8.3) g/dL Albumin 2.9 L (3.0-4.8) g/dL Globulin 3.0 gm/dL Albumin/Globulin Ratio 1.0 L (1.1-1.8) Procalcitonin (0.19-0.49) NG/ML 03/20/17 03/20/17 03/19/17 Range/Units 05:30 05:25 22:25 WBC 16.0 H (4.5-11.0) 10^3/ul RBC 4.71 (3.5-6.1) 10^6/uL Hgb 10.4 L (12.0-16.0) g/dL Hct 31.3 L (36.0-48.0) % MCV 66.5 L (80.0-105.0) fl MCH 22.1 L (25.0-35.0) pg MCHC 33.2 (31.0-37.0) g/dl RDW 16.1 H (11.5-14.5) % Plt Count 208 (120.0-450.0) 10^3/uL Gran % (50.0-68.0) % Lymph % (Auto) (22.0-35.0) % [place] % (Auto) (1.0-6.0) % Eos % (Auto) (1.5-5.0) % Baso % (Auto) (0.0-3.0) % Gran # (1.4-6.5) Lymph # (Auto) (1.2-3.4) Lancaster # (Auto) (0.1-0.6) Eos # (Auto) (0.0-0.7) Baso # (Auto) (0.0-2.0) K/mm3 PT (9.4-12.5) SECONDS INR (0.93-1.08) APTT (25.1-36.5) Seconds pCO2 28 L (35-45) mm/Hg pO2 178.0 H (80-100) mm/Hg HCO3 24.5 (21-28) mmol/L ABG pH 7.55 H (7.35-7.45) ABG Total CO2 25.4 (22-28) mmol.L ABG O2 Saturation 99.6 H (95-98) % ABG O2 Content 15.3 (15-23) ML/dl ABG Base Excess 2.7 (-2.0-3.0) mmol/L ABG Hemoglobin 11.0 L (11.7-17.4) g/dL ABG Carboxyhemoglobin 1.7 H (0.5-1.5) % POC ABG HHb (Measured) 0.4 (0-5) % ABG Methemoglobin 1.7 (0.0-3.0) % ABG O2 Capacity 15.4 L (16-24) mL/dl Hgb O2 Saturation 96.2 (95.0-98.0) % FiO2 40.0 % Sodium (132-148) mmol/L Potassium (3.6-5.0) mmol/L Chloride (98-107) mmol/L Carbon Dioxide (21-33) mmol/L Anion Gap (10-20) BUN (7-21) mg/dL Creatinine (0.7-1.2) mg/dl Est GFR ( Amer) Est GFR (Non-Af Amer) POC Glucose (mg/dL) 147 H (65-110) mg/dL Random Glucose (70-110) mg/dL Serum Osmolality (272-300) mosm/kg Calcium (8.4-10.5) mg/dL Phosphorus (2.5-4.5) mg/dL Magnesium (1.7-2.2) mg/dL Total Bilirubin (0.2-1.3) mg/dL AST (14-36) U/L ALT (7-56) U/L Alkaline Phosphatase (38-126) U/L Total Protein (5.8-8.3) g/dL Albumin (3.0-4.8) g/dL Globulin gm/dL Albumin/Globulin Ratio (1.1-1.8) Procalcitonin (0.19-0.49) NG/ML 03/19/17 03/19/17 03/19/17 Range/Units 16:06 15:43 09:40 WBC (4.5-11.0) 10^3/ul RBC (3.5-6.1) 10^6/uL Hgb (12.0-16.0) g/dL Hct (36.0-48.0) % MCV (80.0-105.0) fl MCH (25.0-35.0) pg MCHC (31.0-37.0) g/dl RDW (11.5-14.5) % Plt Count (120.0-450.0) 10^3/uL Gran % (50.0-68.0) % Lymph % (Auto) (22.0-35.0) % Lancaster % (Auto) (1.0-6.0) % Eos % (Auto) (1.5-5.0) % Baso % (Auto) (0.0-3.0) % Gran # (1.4-6.5) Lymph # (Auto) (1.2-3.4) Lancaster # (Auto) (0.1-0.6) Eos # (Auto) (0.0-0.7) Baso # (Auto) (0.0-2.0) K/mm3 PT (9.4-12.5) SECONDS INR (0.93-1.08) APTT (25.1-36.5) Seconds pCO2 (35-45) mm/Hg pO2 (80-100) mm/Hg HCO3 (21-28) mmol/L ABG pH (7.35-7.45) ABG Total CO2 (22-28) mmol.L ABG O2 Saturation (95-98) % ABG O2 Content (15-23) ML/dl ABG Base Excess (-2.0-3.0) mmol/L ABG Hemoglobin (11.7-17.4) g/dL ABG Carboxyhemoglobin (0.5-1.5) % POC ABG HHb (Measured) (0-5) % ABG Methemoglobin (0.0-3.0) % ABG O2 Capacity (16-24) mL/dl Hgb O2 Saturation (95.0-98.0) % FiO2 % Sodium (132-148) mmol/L Potassium (3.6-5.0) mmol/L Chloride (98-107) mmol/L Carbon Dioxide (21-33) mmol/L Anion Gap (10-20) BUN (7-21) mg/dL Creatinine (0.7-1.2) mg/dl Est GFR ( Amer) Est GFR (Non-Af Amer) POC Glucose (mg/dL) 108 (65-110) mg/dL Random Glucose (70-110) mg/dL Serum Osmolality 291 (272-300) mosm/kg Calcium (8.4-10.5) mg/dL Phosphorus (2.5-4.5) mg/dL Magnesium (1.7-2.2) mg/dL Total Bilirubin (0.2-1.3) mg/dL AST (14-36) U/L ALT (7-56) U/L Alkaline Phosphatase (38-126) U/L Total Protein (5.8-8.3) g/dL Albumin (3.0-4.8) g/dL Globulin gm/dL Albumin/Globulin Ratio (1.1-1.8) Procalcitonin 0.13 L (0.19-0.49) NG/ML Laboratory Results - last 24 hr 03/19/17 03/19/17 03/19/17 09:40 15:43 16:06 WBC RBC Hgb Hct MCV MCH MCHC RDW Plt Count Gran % Lymph % (Auto) Lancaster % (Auto) Eos % (Auto) Baso % (Auto) Gran # Lymph # (Auto) [place] # (Auto) Eos # (Auto) Baso # (Auto) PT INR APTT pCO2 pO2 HCO3 ABG pH ABG Total CO2 ABG O2 Saturation ABG O2 Content ABG Base Excess ABG Hemoglobin ABG Carboxyhemoglobin POC ABG HHb (Measured) ABG Methemoglobin ABG O2 Capacity Hgb O2 Saturation FiO2 Sodium Potassium Chloride Carbon Dioxide Anion Gap BUN Creatinine Est GFR ( Amer) Est GFR (Non-Af Amer) POC Glucose (mg/dL) 108 Random Glucose Serum Osmolality 291 Calcium Phosphorus Magnesium Total Bilirubin AST ALT Alkaline Phosphatase Total Protein Albumin Globulin Albumin/Globulin Ratio Procalcitonin 0.13 L 03/19/17 03/20/17 03/20/17 22:25 05:25 05:30 WBC 16.0 H RBC 4.71 Hgb 10.4 L Hct 31.3 L MCV 66.5 L MCH 22.1 L MCHC 33.2 RDW 16.1 H Plt Count 208 Gran % Lymph % (Auto) Lancaster % (Auto) Eos % (Auto) Baso % (Auto) Gran # Lymph # (Auto) [place] # (Auto) Eos # (Auto) Baso # (Auto) PT INR APTT pCO2 28 L pO2 178.0 H HCO3 24.5 ABG pH 7.55 H ABG Total CO2 25.4 ABG O2 Saturation 99.6 H ABG O2 Content 15.3 ABG Base Excess 2.7 ABG Hemoglobin 11.0 L ABG Carboxyhemoglobin 1.7 H POC ABG HHb (Measured) 0.4 ABG Methemoglobin 1.7 ABG O2 Capacity 15.4 L Hgb O2 Saturation 96.2 FiO2 40.0 Sodium Potassium Chloride Carbon Dioxide Anion Gap BUN Creatinine Est GFR ( Amer) Est GFR (Non-Af Amer) POC Glucose (mg/dL) 147 H Random Glucose Serum Osmolality Calcium Phosphorus Magnesium Total Bilirubin AST ALT Alkaline Phosphatase Total Protein Albumin Globulin Albumin/Globulin Ratio Procalcitonin 03/20/17 03/20/17 03/20/17 05:30 05:30 07:48 WBC RBC Hgb Hct MCV MCH MCHC RDW Plt Count Gran % Lymph % (Auto) Lancaster % (Auto) Eos % (Auto) Baso % (Auto) Gran # Lymph # (Auto) [place] # (Auto) Eos # (Auto) Baso # (Auto) PT INR APTT pCO2 pO2 HCO3 ABG pH ABG Total CO2 ABG O2 Saturation ABG O2 Content ABG Base Excess ABG Hemoglobin ABG Carboxyhemoglobin POC ABG HHb (Measured) ABG Methemoglobin ABG O2 Capacity Hgb O2 Saturation FiO2 Sodium 140 Potassium 3.2 L Chloride 109 H Carbon Dioxide 24 Anion Gap 11 BUN 11 Creatinine 0.4 L Est GFR ( Amer) > 60 Est GFR (Non-Af Amer) > 60 POC Glucose (mg/dL) 124 H Random Glucose 138 H Serum Osmolality 296 Calcium 8.6 Phosphorus 2.2 L Magnesium 1.9 Total Bilirubin 1.8 H AST 43 H ALT 35 Alkaline Phosphatase 65 Total Protein 5.9 Albumin 2.9 L Globulin 3.0 Albumin/Globulin Ratio 1.0 L Procalcitonin 03/20/17 03/20/17 03/20/17 11:33 13:50 13:50 WBC 14.8 H RBC 4.60 Hgb 10.2 L Hct 30.8 L MCV 67.0 L MCH 22.2 L MCHC 33.1 RDW 16.1 H Plt Count 206 Gran % 85.1 H Lymph % (Auto) 6.9 L Lancaster % (Auto) 7.6 H Eos % (Auto) 0.3 L Baso % (Auto) 0.1 Gran # 12.58 H Lymph # (Auto) 1.0 L [place] # (Auto) 1.1 H Eos # (Auto) 0.1 Baso # (Auto) 0.02 PT 14.0 H INR 1.21 H APTT 27.1 pCO2 pO2 HCO3 ABG pH ABG Total CO2 ABG O2 Saturation ABG O2 Content ABG Base Excess ABG Hemoglobin ABG Carboxyhemoglobin POC ABG HHb (Measured) ABG Methemoglobin ABG O2 Capacity Hgb O2 Saturation FiO2 Sodium Potassium Chloride Carbon Dioxide Anion Gap BUN Creatinine Est GFR ( Amer) Est GFR (Non-Af Amer) POC Glucose (mg/dL) 151 H Random Glucose Serum Osmolality Calcium Phosphorus Magnesium Total Bilirubin AST ALT Alkaline Phosphatase Total Protein Albumin Globulin Albumin/Globulin Ratio Procalcitonin Attending/Attestation - Attestation I have personally seen and examined this patient.: Yes I have fully participated in the care of the patient.: Yes I have reviewed all pertinent clinical information: Yes Notes (Text): 03/20/17 16:41 76 yo with left thalamic bleed c/by SUELLEN and hydrocephalus, intubated for airways protection, even though tolerating PS well. For EVD tomorrow in am. Maintain euvolemia, euglycemia, normothermia and 02sat>90%. INR 1.21, plat 206. DVT/GI prophylaxis ccm time 40 min
[2017-03-20 07:57] LABS: ALBUMIN 2.9 g/dL (3.0-4.8); ALT/SGPT 35 U/L (7-56); AST/SGOT 43 U/L (14-36); BLOOD UREA NITROGEN 11 mg/dL (7-21); CALCIUM 8.6 mg/dL (8.4-10.5); GFR AFRICAN-AMERICAN > 60; GFR NON-AFRICAN AMERICAN > 60; MAGNESIUM 1.9 mg/dL (1.7-2.2)
[2017-03-20] MEDS ORDERED: Potassium Phosphate 15 MMOLE in Sodium Chloride 0.9% 250 ML IVPB ONE (09:36)
[2017-03-20] MEDS ORDERED: Potassium Chloride 40 mEq/30 ml LIQ UD PO ONE (09:36)
--- NOTE | 2017-03-20 09:39 | RAD ---
HISTORY: intubated on vent COMPARISON: 03/19/2017 FINDINGS: LUNGS: No active pulmonary disease. Endotracheal and nasogastric tubes in satisfactory position PLEURA: No significant pleural effusion identified, no pneumothorax apparent. CARDIOVASCULAR: Normal. OSSEOUS STRUCTURES: No significant abnormalities. VISUALIZED UPPER ABDOMEN: Normal. OTHER FINDINGS: None. IMPRESSION: No active disease.
[2017-03-20] MEDS ORDERED: Acetaminophen 650mg/20.3ml solution UD PO PRN (09:45)
[2017-03-20] MEDS: levETIRAcetam 500mg IVPB 500 MG/100 ML BAG IV SCH ×2 (09:47→22:30)
[2017-03-20] MEDS: Vancomycin 750mg 750 MG/250 ML BAG IVPB SCH ×2 (09:48→17:00)
[2017-03-20] MEDS: Cefepime 1gm in NS 100ml 1 GM/100 ML BAG IVPB SCH ×3 (11:02→22:30)
--- NOTE | 2017-03-20 11:21 | CT ---
PROCEDURE: CT HEAD WITHOUT CONTRAST. HISTORY: monitor brain bleed COMPARISON: 03/19/2017 TECHNIQUE: Axial computed tomography images were obtained through the head/brain without intravenous contrast. Radiation dose: Total exam DLP = 954 mGy-cm. This CT exam was performed using one or more of the following dose reduction techniques: Automated exposure control, adjustment of the mA and/or kV according to patient size, and/or use of iterative reconstruction technique. FINDINGS: HEMORRHAGE: There is no change in the appearance of the left thalamic bleed which extends into the 3rd ventricle. There is decreased blood in the ventricular system. There is persistent hydrocephalus BRAIN: As above VENTRICLES: Unremarkable. No hydrocephalus. CALVARIUM: Unremarkable. PARANASAL SINUSES: Unremarkable as visualized. No significant inflammatory changes. MASTOID AIR CELLS: Unremarkable as visualized. No inflammatory changes. OTHER FINDINGS: None. IMPRESSION: There is no change in the appearance of the left thalamic bleed which extends into the 3rd ventricle. There is decreased blood in the ventricular system. There is persistent hydrocephalus
--- NOTE | 2017-03-20 13:23 | CP.PCM.PN ---
<Allyn Lees - Last Filed: 03/20/17 13:23> Subjective - Date & Time of Evaluation Date of Evaluation: 03/20/17 Time of Evaluation: 10:00 - Subjective Subjective: Neurology PGY-[address] Steinberg Met with family and discussed CT scan today, explained that pt is not in locked- in. Objective - Vital Signs/Intake and Output Vital Signs (last 24 hours): Temp Pulse Resp BP Pulse Ox 100.6 F H 84 21 103/62 97 03/20/17 12:15 03/20/17 12:15 03/20/17 10:44 03/20/17 12:00 03/20/17 12:15 Intake and Output: 03/20/17 03/20/17 06:59 18:59 Intake Total 1290 360 Output Total 1600 Balance -310 360 - Medications Medications: Current Medications Albuterol/Ipratropium (Duoneb 3 Mg/0.5 Mg (3 Ml) Ud) 3 ml IH Q2H PRN PRN Reason: Shortness of Breath Levetiracetam (Keppra 500mg Ivpb) 500 mg in 100 mls @ 400 mls/hr IV Q12 SANJANA Last Admin: 03/20/17 09:47 Dose: 400 mls/hr Nicardipine HCl (Cardene Iv Premix) 20 mg in 200 mls @ 50 mls/hr IV .Q4H PRN; Protocol; 5 MG/HR PRN Reason: TITRATE PER MD ORDER Last Admin: 03/20/17 09:46 Dose: 3 mg/hr, 30 mls/hr Potassium Phosphate 15 mmole/ (Sodium Chloride) 255 mls @ 42.5 mls/hr IVPB ONCE ONE Stop: 03/20/17 15:35 Last Admin: 03/20/17 11:02 Dose: 42.5 mls/hr Acetaminophen (Ofirmev) 1,000 mg in 100 mls @ 400 mls/hr IVPB Q6H PRN PRN Reason: Temperature Stop: 03/22/17 10:56 Cefepime HCl (Maxipime 1gm) 1 gm in 100 mls @ 100 mls/hr IVPB Q8 SANJANA PRN Reason: Protocol Vancomycin HCl (Vancomycin 750 Mg In Ns) 750 mg in 250 mls @ 167 mls/hr IVPB BID SANJANA PRN Reason: Protocol Pantoprazole Sodium (Protonix Inj) 40 mg IVP DAILY SANJANA Last Admin: 03/20/17 09:48 Dose: 40 mg - Labs Labs: 03/20/17 05:30 03/20/17 05:30 PT 21.9 SECONDS (9.4-12.5) H 03/17/17 10:35 INR 1.88 (0.93-1.08) H 03/17/17 10:35 APTT 31.8 Seconds (25.1-36.5) 03/17/17 10:35 - Constitutional Appears: Other (intubated) - Head Exam Head Exam: ATRAUMATIC, NORMAL INSPECTION, NORMOCEPHALIC - Respiratory Exam Respiratory Exam: Clear to Ausculation Bilateral, NORMAL BREATHING PATTERN - Cardiovascular Exam Cardiovascular Exam: REGULAR RHYTHM, +S1, +S2. absent: Murmur - GI/Abdominal Exam GI & Abdominal Exam: Distended, Soft - Neurological Exam Additional comments: GCS 4: close eyes to pain (0), no verbal (0), move away from pain (4) Off sedation Intubated light reflex: sluggish reactive to light b/l Vestibuloocular reflex: intact gag reflex: intact Assessment and Plan - Assessment and Plan (Free Text) Plan: Ms Krys Arreola, 76F, with prior Hx of hemorrhagic stroke treated at [facility], atrial fibrillation on xarelto, asthma, came to the hospital with slurred speech right arm and face numbness, and R arm weakness. Her BP was around 187/116 upon ED arrival. Per pt's , pt later became unresponsive. CT showed a large acute thalamic bleed (2.6 x 4 cm) with intraventricular extension, with 3mm midline shift to R. Pt received Kcentra and transferred to ICU for management. repeat head CT in next day showed no change in size or appearance of thalamic hemorrhage but (+) intraventricular blood with increasing hydrocephalus. Mannitol was started to decrease intracerebral pressure likely from increasing acquired hydrocephalus due to intraventricular blood stasis at the 4th ventricle. Pt is currently off sedation, currently intubated, GCS is 0+0+4. Pt has new fever with leukocytosis. Started cefepime and vancomycin. Acute hemorrhagic stroke, likely from hypertensive episode in the setting of coagulopathy from Xarelto use for atrial fibrillation Increaseing hydrocephalus possibly Non-communicating in nature due to increase in intracerebral pressure from intraventricular blood stasis at the 4th ventricle - status post Kcentra - Status post Mannitol 25% 36ml (9g) IV q6 x day #2. - continue frequent neuro check and vs check per ICU protocol - Keppra 500mg Q12 - HOB 45 degrees - hypertonic saline as needed - Aspiration and Seizure precautions - Neurology recommended ventriculo-shunt to drain fluid from brain - As per neurosurgery no acute intervention - maintain SBP 130-140, DBP 70-80 - maintain normothermia - maintain blood glucose 140-180 - monitor electrolytes closely and correct accordingly - pending CT head tomorrow - Hold all anticoagulant and antiplatelets - Hold all statin for 72 hrs after hemorrhagic stroke Prognosis: poor Imaging: CT head (Tues 03/19): No change in hydrocephalus, decrease blood in ventricular system, no change in thalamic bleed CT head (Aaron 03/20): No change in L thalamic bleed which extends to 3rd ventrible. decrease blood in ventricular system. Persistant hydrocephalus s/r/d/w Dr. Steinberg <Remi Steinberg - Last Filed: 03/20/17 13:43> Objective - Vital Signs/Intake and Output Vital Signs (last 24 hours): Temp Pulse Resp BP Pulse Ox 100.6 F H 84 21 103/62 97 03/20/17 12:15 03/20/17 12:15 03/20/17 10:44 03/20/17 12:00 03/20/17 12:15 Intake and Output: 03/20/17 03/20/17 06:59 18:59 Intake Total 1290 360 Output Total 1600 Balance -310 360 - Medications Medications: Current Medications Albuterol/Ipratropium (Duoneb 3 Mg/0.5 Mg (3 Ml) Ud) 3 ml IH Q2H PRN PRN Reason: Shortness of Breath Levetiracetam (Keppra 500mg Ivpb) 500 mg in 100 mls @ 400 mls/hr IV Q12 SANJANA Last Admin: 03/20/17 09:47 Dose: 400 mls/hr Nicardipine HCl (Cardene Iv Premix) 20 mg in 200 mls @ 50 mls/hr IV .Q4H PRN; Protocol; 5 MG/HR PRN Reason: TITRATE PER MD ORDER Last Admin: 03/20/17 09:46 Dose: 3 mg/hr, 30 mls/hr Potassium Phosphate 15 mmole/ (Sodium Chloride) 255 mls @ 42.5 mls/hr IVPB ONCE ONE Stop: 03/20/17 15:35 Last Admin: 03/20/17 11:02 Dose: 42.5 mls/hr Acetaminophen (Ofirmev) 1,000 mg in 100 mls @ 400 mls/hr IVPB Q6H PRN PRN Reason: Temperature Stop: 03/22/17 10:56 Cefepime HCl (Maxipime 1gm) 1 gm in 100 mls @ 100 mls/hr IVPB Q8 SANJANA PRN Reason: Protocol Vancomycin HCl (Vancomycin 750 Mg In Ns) 750 mg in 250 mls @ 167 mls/hr IVPB BID SANJANA PRN Reason: Protocol Pantoprazole Sodium (Protonix Inj) 40 mg IVP DAILY SANJANA Last Admin: 03/20/17 09:48 Dose: 40 mg - Labs Labs: 03/20/17 05:30 03/20/17 05:30 PT 21.9 SECONDS (9.4-12.5) H 03/17/17 10:35 INR 1.88 (0.93-1.08) H 03/17/17 10:35 APTT 31.8 Seconds (25.1-36.5) 03/17/17 10:35 Attending/Attestation - Attestation I have personally seen and examined this patient.: Yes I have fully participated in the care of the patient.: Yes I have reviewed all pertinent clinical information, including history, physical exam and plan: Yes
[2017-03-20 13:58] LABS: BASO # 0.02 K/mm3 (0.0-2.0); BASO % 0.1 % (0.0-3.0); EOS # 0.1 (0.0-0.7); EOS % 0.3 % (1.5-5.0); GRAN # 12.58 (1.4-6.5); GRAN % 85.1 % (50.0-68.0); HEMOGLOBIN 10.2 g/dL (12.0-16.0); LYMPH % 6.9 % (22.0-35.0); MEAN CORPUSCULAR HEMOGLOBIN 22.2 pg (25.0-35.0); MEAN CORPUSCULAR HGB CONC 33.1 g/dl (31.0-37.0); MONO # 1.1 (0.1-0.6); MONO % 7.6 % (1.0-6.0); PLATELET COUNT 206 10^3/uL (120.0-450.0); RED CELL DISTRIBUTION WIDTH 16.1 % (11.5-14.5); WHITE BLOOD COUNT 14.8 10^3/ul (4.5-11.0)
[2017-03-20 14:05] LABS: INR 1.21 (0.93-1.08); PARTIAL THROMBOPLASTIN TIME 27.1 Seconds (25.1-36.5)
--- NOTE | 2017-03-20 18:20 | PN ---
DATE: SUBJECTIVE: The patient is 76 years old, seen and examined, remained intubated, minimally response, only withdraw her toes upon irritating her foot with some withdrawal reflex. PHYSICAL EXAMINATION: VITAL SIGNS: The patient has a temperature of 100.6, pulse 84, respiration 18, blood pressure 103/62. LUNGS: Bilateral good airflow. No rhonchi or crackle. HEART: S1 and S2 audible. Regular rate and rhythm. ABDOMEN: Soft. Nontender. No rebound. No guarding. NEUROLOGIC: The patient is minimally responsive. EXTREMITIES: Bilateral leg, no edema. LABORATORY EXAM: WBC 16, hemoglobin 10.4, hematocrit 31.3, platelet 208. Chemistry: Sodium 140, potassium 3.2, chloride 109, CO2 of 24, BUN 11, creatinine 0.4, blood sugar of 124, total bili 1.8. Blood culture, urine cultures are negative. She had CT scan of the brain done today that shows no change in appearance of left thalamic bleed, which extends into third ventricle. There is decreased blood in the ventricular system. There is persistent hydrocephalus. ASSESSMENT: 1. Status post intracranial bleed in the thalamic area. 2. Respiratory failure. 3. . 4. History of chronic atrial fibrillation. 5. Hydrocephalus. PLAN: I spoke to the family at length. I spoke to Dr. Steinberg, who is a neurologist. We will continue vent support. We will continue her on tube feeding. She is on Protonix. She is getting IV antibiotic. The patient spiked fever. I will request for ID evaluation. Family has a lot of questions about transfer. Dr. Steinberg spoke to the neurosurgical team in [facility]. According to their input, there is no indication for shunt at this point. It was explained to the family at length also. Oly Major MD
--- NOTE | 2017-03-20 23:00 | CON ---
DATE: 03/20/2017 REQUESTING PHYSICIAN: Oly Major MD. REASON FOR CONSULTATION: Paroxysmal atrial fibrillation, recent intracerebral bleed. HISTORY OF PRESENT ILLNESS: This is a 76-year-old woman, known to us with a history of paroxysmal atrial fibrillation and prior atrial tachycardia ablations, who presented with arm weakness and slurred speech. She was brought to the emergency room by her . She was felt to have an acute stroke. She has been on Xarelto for paroxysmal atrial fibrillation and thromboembolic prophylaxis. She apparently had rapid deterioration in the emergency room and a CT scan showed evidence of a large thalamic bleed. She was admitted to the CCU. She currently remains there and is intubated. She remains comatose. She had been on Coumadin in the past but chose to switch to Xarelto due to labile INR readings and ease of use. MEDICATIONS: Her current medications include Keppra, Protonix, mannitol, DuoNeb inhaler, intravenous Cardene as needed, Maxipime and vancomycin. ALLERGIES: NONE. SOCIAL HISTORY: She is a former smoker. She is . Lives with the . FAMILY HISTORY: Unobtainable. REVIEW OF SYSTEMS: Also unobtainable. PHYSICAL EXAMINATION: GENERAL: She is a middle-aged woman, who is currently in the CCU and orally intubated. She does not respond to voice or commands. VITAL SIGNS: Her blood pressure is 102/60 with a pulse of 84 and sinus, respirations are 16. Current temperature is 100.6. HEENT: She is orally intubated. NECK: No JVD. CHEST: Few scattered rhonchi. HEART: PMI displaced laterally with no pathological gallops or rub. ABDOMEN: Soft, nontender, normoactive bowel sounds. EXTREMITIES: No edema. SKIN: Warm and dry. PSYCHIATRIC: Unable to assess. NEUROLOGIC: Responds to painful stimuli with decorticate posturing. Pupils nonreactive. She does have spontaneous respirations above the ventilator rate. LABORATORY DATA: Electrocardiogram reveals sinus rhythm with nonspecific ST-T abnormalities. Chest x-ray reveals normal cardiac silhouette with clear lung montano. CT of the head has been repeated and continues to show a left thalamic hemorrhage extending into the third ventricle as well as hydrocephalus. IMPRESSION: 1. Acute intracerebral bleed with severe neurologic consequence. 2. History of paroxysmal atrial fibrillation, maintained on Xarelto for thromboembolic prophylaxis. 3. Rest of problems as noted. RECOMMENDATIONS: Her overall prognosis appears to be extremely poor at this time. Supportive care is advised. If she develops recurrence of atrial fibrillation, intravenous beta ashlee therapy for rate control would be appropriate. All the above was discussed with Dr. Major as well as her and son near the CCU this morning. We will continue to follow and make further recommendations as appropriate. Beni Worthington MD
[2017-03-21] MEDS: Nicardipine 20 MG/200 ML 20 MG/200 ML BAG IV PRN ×2 (01:30→21:34)
[2017-03-21] MEDS: Cefepime 1gm in NS 100ml 1 GM/100 ML BAG IVPB SCH ×3 (05:36→21:37)
[2017-03-21 05:50] LABS: ARTERIAL BLOOD GAS HCO3 21.8 mmol/L (21-28); ARTERIAL BLOOD GAS HEMOGLOBIN 9.5 g/dL (11.7-17.4); ARTERIAL BLOOD GAS O2 CAPACITY 13.2 mL/dl (16-24); ARTERIAL BLOOD GAS O2 CONTENT 13.2 ML/dl (15-23); ARTERIAL BLOOD GAS PCO2 28 mm/Hg (35-45); ARTERIAL BLOOD GAS TCO2 22.7 mmol.L (22-28)
[2017-03-21 06:02] LABS: HEMOGLOBIN 9.8 g/dL (12.0-16.0); MEAN CORPUSCULAR HEMOGLOBIN 21.5 pg (25.0-35.0); MEAN CORPUSCULAR HGB CONC 32.1 g/dl (31.0-37.0); PLATELET COUNT 201 10^3/uL (120.0-450.0); RBC 4.55 10^6/uL (3.5-6.1); WHITE BLOOD COUNT 13.1 10^3/ul (4.5-11.0)
[2017-03-21] MEDS: Albuterol-Ipratrop 3 mg / 0.5 (3 ml) UD IH PRN ×2 (07:08→13:22)
[2017-03-21 07:10] LABS: ALB/GLOB RATIO 0.9 (1.1-1.8); ALT/SGPT 40 U/L (7-56); AST/SGOT 44 U/L (14-36); BLOOD UREA NITROGEN 20 mg/dL (7-21); CALCIUM 8.9 mg/dL (8.4-10.5); GFR AFRICAN-AMERICAN > 60; GFR NON-AFRICAN AMERICAN > 60; MAGNESIUM 1.9 mg/dL (1.7-2.2)
[2017-03-21] MEDS ORDERED: Morphine 2 mg/ml ISec IVP STA ×2 (08:33→09:22)
--- NOTE | 2017-03-21 08:42 | PN ---
DATE: 03/20/2017 SUBJECTIVE: I was contacted by Dr. Gutierrez about patient's new CAT scan, which showed no change in the hemorrhage, but persistent hydrocephalus and the question was raised about utility or indication for placing a ventriculostomy. OBJECTIVE: I examined the patient in detail. She is basically unresponsive. There is no eye opening. Unfortunately she is not sedated and is completely tolerating the endotracheal tube. She is initiating some breathing on her own. Pupils are 2 mm. There is a corneal on the left, not on the right. There is no Doll's eye phenomenon. There is no gag reflex. She is intermittently decerebrating of her own accord and intermittently decerebrate bilaterally to noxious stimuli. In the lower extremity, she has a triple flexion spinal cord response. The CT does show the persistent hemorrhage as it has been indicated previously. She has essentially blown out her thalamus and mid-brain. There is persistent hydrocephalus. However, it has not also been florid and they are still some very wide sulci seen over both convexities. ASSESSMENT AND PLAN: I had an extremely extensive discussion with the family, which included , son and daughter along with Dr. Gutierrez. I demonstrated the CAT scan to them and I explained to them the nature of the irreversible brain stem damage. I indicated to them that if they were interested, I would be ready to immediately place a ventricular drain. However, I questioned that this would only address the extremely minor and secondary problem of the resultant hydrocephalus, but unfortunately nothing can be done to reverse the hemorrhagic disruption of the mid-brain. I discussed in length in terms of all the above, and indicated that if they are not ready to make a decision now, which they are not, they could make it guarded, and a ventriculostomy could be performed at a later time. However, I have explained to them, with this degree of brain stem destruction and very rudimentary residual neurological status, I believe the chance of any meaningful recovery is very close to nil. I indicated that they should feel free to contact me at anytime for any further questions. I will follow up. Edwardo Cosby MD [facility] # [phone]
[2017-03-21] MEDS ORDERED: Potassium Chloride 40 mEq/30 ml LIQ UD PO ONE (09:42)
--- NOTE | 2017-03-21 10:01 | CP.PCM.CON ---
History of Present Illness - History of Present Illness History of Present Illness: 76 year old female with PMH of atrial fibrillation on anticoagulation, asthma, was initially seen in [facility] after suddenly presenting with right arm weakness and slurred speech. She was found to be hypertensive emergency and CT head showed a large acute thalamic bleed. The patient's mental status deteriorated and the patient had to be intubated and placed on the ventilator. She is now in the ICU and they are also managing her hydrocephalus. She has developed fevers over the past 2 days and Infectious diseases consult is requested to further evaluate and manage. Currently the patient is intubated and ROS is unobtainable. There has been no note of convulsions, no diarrhea, no vomiting. Review of Systems - Review of Systems Systems not reviewed;Unavailable: Intubated Past Patient History - Infectious Disease Hx of Infectious Diseases: None - Past Medical History & Family History Past Medical History?: Yes - Past Social History Alcohol: None Drugs: Denies - CARDIAC Hx Cardiac Disorders: Yes Hx Cardia Arrhythmia: Yes Hx Hypertension: Yes Other/Comment: A-Fib - PULMONARY Hx Respiratory Disorders: Yes (2ND HAND SMOKE SHE STATED) Hx Asthma: Yes - NEUROLOGICAL Hx Neurological Disorder: Yes (SYNCOPE) HX Cerebrovascular Accident: Yes Hx Dizziness: Yes - HEENT Hx HEENT Problems: Yes (WEARS RX GLASSES) - RENAL Hx Chronic Kidney Disease: No - ENDOCRINE/METABOLIC Hx Endocrine Disorders: No - HEMATOLOGICAL/ONCOLOGICAL Hx Blood Disorders: No - INTEGUMENTARY Hx Dermatological Problems: No - MUSCULOSKELETAL/RHEUMATOLOGICAL Hx Musculoskeletal Disorders: Yes Hx Falls: Yes (SYNCOPAL EPISODES 06-23-17,11-03-16) Hx Fractures: Yes (COMPRESSION FX L2,RIGHT WRIST FX,) Hx Osteoporosis: Yes Hx Unsteady Gait: Yes - GASTROINTESTINAL Hx Gastrointestinal Disorders: Yes (CONSTIPATION) Hx Gastroesophageal Reflux: Yes - GENITOURINARY/GYNECOLOGICAL Hx Genitourinary Disorders: No - PSYCHIATRIC Hx Psychophysiologic Disorder: No Hx Substance Use: No - SURGICAL HISTORY Hx Cardiac Catheterization: Yes (?) Hx Musculoskeletal Surgery: Yes (right wrist fracture) - ANESTHESIA Hx Anesthesia Reactions: No Hx Malignant Hyperthermia: No Meds Allergies/Adverse Reactions: Allergies Allergy/AdvReac Type Severity Reaction Status Date / Time No Known Allergies Allergy Verified 03/17/17 10:33 - Medications Medications: Current Medications Albuterol/Ipratropium (Duoneb 3 Mg/0.5 Mg (3 Ml) Ud) 3 ml IH Q2H PRN PRN Reason: Shortness of Breath Levetiracetam (Keppra 500mg Ivpb) 500 mg in 100 mls @ 400 mls/hr IV Q12 SANJANA Last Admin: 03/20/17 09:47 Dose: 400 mls/hr Nicardipine HCl (Cardene Iv Premix) 20 mg in 200 mls @ 50 mls/hr IV .Q4H PRN; Protocol; 5 MG/HR PRN Reason: TITRATE PER MD ORDER Last Admin: 03/20/17 09:46 Dose: 3 mg/hr, 30 mls/hr Potassium Phosphate 15 mmole/ (Sodium Chloride) 255 mls @ 42.5 mls/hr IVPB ONCE ONE Stop: 03/20/17 15:35 Last Admin: 03/20/17 11:02 Dose: 42.5 mls/hr Acetaminophen (Ofirmev) 1,000 mg in 100 mls @ 400 mls/hr IVPB Q6H PRN PRN Reason: Temperature Stop: 03/22/17 10:56 Cefepime HCl (Maxipime 1gm) 1 gm in 100 mls @ 100 mls/hr IVPB Q8 SANJANA PRN Reason: Protocol Vancomycin HCl (Vancomycin 750 Mg In Ns) 750 mg in 250 mls @ 167 mls/hr IVPB BID SANJANA PRN Reason: Protocol Pantoprazole Sodium (Protonix Inj) 40 mg IVP DAILY [facility] Last Admin: 03/20/17 09:48 Dose: 40 mg Physical Exam - Constitutional Appears: Other (intubated, not responsive) - ENT Exam Additional comments: ET tube in place - Respiratory Exam Respiratory Exam: Decreased Breath Sounds - Cardiovascular Exam Cardiovascular Exam: +S1, +S2 - GI/Abdominal Exam GI & Abdominal Exam: Soft. absent: Tenderness Results - Vital Signs Recent Vital Signs: Last Vital Signs Temp 100.6 F H 03/20/17 12:15 Pulse 84 03/20/17 12:15 Resp 21 03/20/17 10:44 BP 103/62 03/20/17 12:00 Pulse Ox 97 03/20/17 12:15 - Labs Result Diagrams: 03/21/17 05:30 03/21/17 05:30 Labs: Laboratory Results - last 24 hr 03/19/17 03/19/1718 09:40 11:35 15:43 WBC RBC Hgb Hct MCV MCH MCHC RDW Plt Count Gran % Lymph % (Auto) Bracken % (Auto) Eos % (Auto) Baso % (Auto) Gran # Lymph # (Auto) Bracken # (Auto) Eos # (Auto) Baso # (Auto) PT INR APTT pCO2 pO2 HCO3 ABG pH ABG Total CO2 ABG O2 Saturation ABG O2 Content ABG Base Excess ABG Hemoglobin ABG Carboxyhemoglobin POC ABG HHb (Measured) ABG Methemoglobin ABG O2 Capacity Hgb O2 Saturation FiO2 Sodium 140 Potassium 3.3 L Chloride 108 H Carbon Dioxide 23 Anion Gap 12 BUN 12 Creatinine 0.4 L Est GFR ( Amer) > 60 Est GFR (Non-Af Amer) > 60 POC Glucose (mg/dL) 174 H Random Glucose 129 H Serum Osmolality Calcium 8.8 Phosphorus Magnesium Total Bilirubin AST ALT Alkaline Phosphatase Total Protein Albumin Globulin Albumin/Globulin Ratio Procalcitonin 0.13 L 03/19/17 03/19/17 03/19/17 15:43 16:06 22:25 WBC RBC Hgb Hct MCV MCH MCHC RDW Plt Count Gran % Lymph % (Auto) Bracken % (Auto) Eos % (Auto) Baso % (Auto) Gran # Lymph # (Auto) Bracken # (Auto) Eos # (Auto) Baso # (Auto) PT INR APTT pCO2 pO2 HCO3 ABG pH ABG Total CO2 ABG O2 Saturation ABG O2 Content ABG Base Excess ABG Hemoglobin ABG Carboxyhemoglobin POC ABG HHb (Measured) ABG Methemoglobin ABG O2 Capacity Hgb O2 Saturation FiO2 Sodium Potassium Chloride Carbon Dioxide Anion Gap BUN Creatinine Est GFR ( Amer) Est GFR (Non-Af Amer) POC Glucose (mg/dL) 108 147 H Random Glucose Serum Osmolality 291 Calcium Phosphorus Magnesium Total Bilirubin AST ALT Alkaline Phosphatase Total Protein Albumin Globulin Albumin/Globulin Ratio Procalcitonin 03/20/17 03/20/17 03/20/17 05:25 05:30 05:30 WBC 16.0 H RBC 4.71 Hgb 10.4 L Hct 31.3 L MCV 66.5 L MCH 22.1 L MCHC 33.2 RDW 16.1 H Plt Count 208 Gran % Lymph % (Auto) Bracken % (Auto) Eos % (Auto) Baso % (Auto) Gran # Lymph # (Auto) Bracken # (Auto) Eos # (Auto) Baso # (Auto) PT INR APTT pCO2 28 L pO2 178.0 H HCO3 24.5 ABG pH 7.55 H ABG Total CO2 25.4 ABG O2 Saturation 99.6 H ABG O2 Content 15.3 ABG Base Excess 2.7 ABG Hemoglobin 11.0 L ABG Carboxyhemoglobin 1.7 H POC ABG HHb (Measured) 0.4 ABG Methemoglobin 1.7 ABG O2 Capacity 15.4 L Hgb O2 Saturation 96.2 FiO2 40.0 Sodium 140 Potassium 3.2 L Chloride 109 H Carbon Dioxide 24 Anion Gap 11 BUN 11 Creatinine 0.4 L Est GFR ( Amer) > 60 Est GFR (Non-Af Amer) > 60 POC Glucose (mg/dL) Random Glucose 138 H Serum Osmolality Calcium 8.6 Phosphorus 2.2 L Magnesium 1.9 Total Bilirubin 1.8 H AST 43 H ALT 35 Alkaline Phosphatase 65 Total Protein 5.9 Albumin 2.9 L Globulin 3.0 Albumin/Globulin Ratio 1.0 L Procalcitonin 03/20/17 03/20/17 03/20/17 05:30 07:48 13:50 WBC 14.8 H RBC 4.60 Hgb 10.2 L Hct 30.8 L MCV 67.0 L MCH 22.2 L MCHC 33.1 RDW 16.1 H Plt Count 206 Gran % 85.1 H Lymph % (Auto) 6.9 L Bracken % (Auto) 7.6 H Eos % (Auto) 0.3 L Baso % (Auto) 0.1 Gran # 12.58 H Lymph # (Auto) 1.0 L Bracken # (Auto) 1.1 H Eos # (Auto) 0.1 Baso # (Auto) 0.02 PT INR APTT pCO2 pO2 HCO3 ABG pH ABG Total CO2 ABG O2 Saturation ABG O2 Content ABG Base Excess ABG Hemoglobin ABG Carboxyhemoglobin POC ABG HHb (Measured) ABG Methemoglobin ABG O2 Capacity Hgb O2 Saturation FiO2 Sodium Potassium Chloride Carbon Dioxide Anion Gap BUN Creatinine Est GFR ( Amer) Est GFR (Non-Af Amer) POC Glucose (mg/dL) 124 H Random Glucose Serum Osmolality 296 Calcium Phosphorus Magnesium Total Bilirubin AST ALT Alkaline Phosphatase Total Protein Albumin Globulin Albumin/Globulin Ratio Procalcitonin 03/20/17 13:50 WBC RBC Hgb Hct MCV MCH MCHC RDW Plt Count Gran % Lymph % (Auto) Bracken % (Auto) Eos % (Auto) Baso % (Auto) Gran # Lymph # (Auto) Bracken # (Auto) Eos # (Auto) Baso # (Auto) PT 14.0 H INR 1.21 H APTT 27.1 pCO2 pO2 HCO3 ABG pH ABG Total CO2 ABG O2 Saturation ABG O2 Content ABG Base Excess ABG Hemoglobin ABG Carboxyhemoglobin POC ABG HHb (Measured) ABG Methemoglobin ABG O2 Capacity Hgb O2 Saturation FiO2 Sodium Potassium Chloride Carbon Dioxide Anion Gap BUN Creatinine Est GFR ( Amer) Est GFR (Non-Af Amer) POC Glucose (mg/dL) Random Glucose Serum Osmolality Calcium Phosphorus Magnesium Total Bilirubin AST ALT Alkaline Phosphatase Total Protein Albumin Globulin Albumin/Globulin Ratio Procalcitonin Assessment & Plan - Assessment and Plan (Free Text) Plan: Assessment Systemic Inflammatory response syndrome with fevers, 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
--- NOTE | 2017-03-21 10:13 | CP.PCM.PN ---
Subjective - Date & Time of Evaluation Date of Evaluation: 03/21/17 Time of Evaluation: 10:12 - Subjective Subjective: R frontal ventriculostomy placed only min elevated ICP no complications Objective - Vital Signs/Intake and Output Vital Signs (last 24 hours): Temp Pulse Resp BP Pulse Ox 101.3 F H 111 H 25 H 149/96 H 97 03/21/17 08:15 03/21/17 08:15 03/21/17 07:15 03/21/17 08:00 03/21/17 08:15 Intake and Output: 03/21/17 03/21/17 06:59 18:59 Intake Total 203 Balance 203 - Medications Medications: Current Medications Albuterol/Ipratropium (Duoneb 3 Mg/0.5 Mg (3 Ml) Ud) 3 ml IH Q2H PRN PRN Reason: Shortness of Breath Last Admin: 03/21/17 07:08 Dose: 3 ml Levetiracetam (Keppra 500mg Ivpb) 500 mg in 100 mls @ 400 mls/hr IV Q12 SANJANA Last Admin: 03/20/17 22:30 Dose: 400 mls/hr Nicardipine HCl (Cardene Iv Premix) 20 mg in 200 mls @ 50 mls/hr IV .Q4H PRN; Protocol; 5 MG/HR PRN Reason: TITRATE PER MD ORDER Last Titration: 03/21/17 02:30 Dose: 0 mg/hr, 0 mls/hr Acetaminophen (Ofirmev) 1,000 mg in 100 mls @ 400 mls/hr IVPB Q6H PRN PRN Reason: Temperature Stop: 03/22/17 10:56 Last Admin: 03/21/17 05:41 Dose: 400 mls/hr Cefepime HCl (Maxipime 1gm) 1 gm in 100 mls @ 100 mls/hr IVPB Q8 SANJANA PRN Reason: Protocol Last Admin: 03/21/17 05:36 Dose: 100 mls/hr Vancomycin HCl (Vancomycin 750 Mg In Ns) 750 mg in 250 mls @ 167 mls/hr IVPB BID SANJANA PRN Reason: Protocol Last Admin: 03/20/17 17:00 Dose: 167 mls/hr Potassium Chloride (Potassium Chloride 10 Meq/100 Ml) 10 meq in 100 mls @ 50 mls/hr IVPB ONCE ONE Stop: 03/21/17 11:41 Pantoprazole Sodium (Protonix Inj) 40 mg IVP DAILY [facility]JANA Last Admin: 03/20/17 09:48 Dose: 40 mg - Labs Labs: 03/21/17 05:30 03/21/17 05:30 PT 14.0 SECONDS (9.4-12.5) H 03/20/17 13:50 INR 1.21 (0.93-1.08) H 03/20/17 13:50 APTT 27.1 Seconds (25.1-36.5) 03/20/17 13:50
[2017-03-21] MEDS: levETIRAcetam 500mg IVPB 500 MG/100 ML BAG IV SCH ×2 (10:42→21:37)
[2017-03-21] MEDS: Vancomycin 750mg 750 MG/250 ML BAG IVPB SCH ×2 (10:44→18:16)
--- NOTE | 2017-03-21 10:52 | CP.PCM.PN ---
<Allyn Lees - Last Filed: 03/21/17 12:29> Subjective - Date & Time of Evaluation Date of Evaluation: 03/21/17 Time of Evaluation: 09:00 - Subjective Subjective: PGY-[address] Steinberg Neurology Pt continues to be intubated. Fever persists. Objective - Vital Signs/Intake and Output Vital Signs (last 24 hours): Temp Pulse Resp BP Pulse Ox 101.3 F H 111 H 25 H 149/96 H 97 03/21/17 08:15 03/21/17 08:15 03/21/17 07:15 03/21/17 08:00 03/21/17 08:15 Intake and Output: 03/21/17 03/21/17 06:59 18:59 Intake Total 203 Balance 203 - Medications Medications: Current Medications Albuterol/Ipratropium (Duoneb 3 Mg/0.5 Mg (3 Ml) Ud) 3 ml IH Q2H PRN PRN Reason: Shortness of Breath Last Admin: 03/21/17 07:08 Dose: 3 ml Levetiracetam (Keppra 500mg Ivpb) 500 mg in 100 mls @ 400 mls/hr IV Q12 [facility]JANA Last Admin: 03/21/17 10:42 Dose: 400 mls/hr Nicardipine HCl (Cardene Iv Premix) 20 mg in 200 mls @ 50 mls/hr IV .Q4H PRN; Protocol; 5 MG/HR PRN Reason: TITRATE PER MD ORDER Last Titration: 03/21/17 02:30 Dose: 0 mg/hr, 0 mls/hr Acetaminophen (Ofirmev) 1,000 mg in 100 mls @ 400 mls/hr IVPB Q6H PRN PRN Reason: Temperature Stop: 03/22/17 10:56 Last Admin: 03/21/17 05:41 Dose: 400 mls/hr Cefepime HCl (Maxipime 1gm) 1 gm in 100 mls @ 100 mls/hr IVPB Q8 [facility]JANA PRN Reason: Protocol Last Admin: 03/21/17 05:36 Dose: 100 mls/hr Vancomycin HCl (Vancomycin 750 Mg In Ns) 750 mg in 250 mls @ 167 mls/hr IVPB BID SANJANA PRN Reason: Protocol Last Admin: 03/21/17 10:44 Dose: 167 mls/hr Potassium Chloride (Potassium Chloride 10 Meq/100 Ml) 10 meq in 100 mls @ 50 mls/hr IVPB ONCE ONE Stop: 03/21/17 11:41 Last Admin: 03/21/17 10:46 Dose: 50 mls/hr Pantoprazole Sodium (Protonix Inj) 40 mg IVP DAILY [facility] Last Admin: 03/21/17 10:43 Dose: 40 mg - Labs Labs: 03/21/17 05:30 03/21/17 05:30 PT 14.0 SECONDS (9.4-12.5) H 03/20/17 13:50 INR 1.21 (0.93-1.08) H 03/20/17 13:50 APTT 27.1 Seconds (25.1-36.5) 03/20/17 13:50 - Constitutional Appears: Other (intubated) - ENT Exam ENT Exam: Mucous Membranes Moist - Respiratory Exam Respiratory Exam: Clear to Ausculation Bilateral, NORMAL BREATHING PATTERN. absent: Rales, Rhonchi, Wheezes - Cardiovascular Exam Cardiovascular Exam: REGULAR RHYTHM, +S1, +S2. absent: Murmur - GI/Abdominal Exam GI & Abdominal Exam: Distended, Soft - Neurological Exam Additional comments: GCS 4: close eyes to pain (0), no verbal (0), move away from pain (4) Off sedation Intubated light reflex: VERY sluggish reactive to light b/l Doll's eye reflex: VERY SLUGGISH gag reflex: intact Assessment and Plan - Assessment and Plan (Free Text) Plan: Ms Krys Arreola, 76F, with prior Hx of hemorrhagic stroke treated at [facility], atrial fibrillation on xarelto, asthma, came to the hospital with slurred speech right arm and face numbness, and R arm weakness. Her BP was around 187/116 upon ED arrival. Per pt's , pt later became unresponsive. CT showed a large acute thalamic bleed (2.6 x 4 cm) with intraventricular extension, with 3mm midline shift to R. Pt received Kcentra and transferred to ICU for management. repeat head CT in next day showed no change in size or appearance of thalamic hemorrhage but (+) intraventricular blood with increasing hydrocephalus. Mannitol was started to decrease intracerebral pressure likely from increasing acquired hydrocephalus due to intraventricular blood stasis at the 4th ventricle. Pt is currently off sedation, currently intubated, GCS is 0+0+4. Pt has new fever with leukocytosis. Started cefepime and vancomycin. Acute hemorrhagic stroke, likely from hypertensive emergency in the setting of coagulopathy from Xarelto use for atrial fibrillation Increaseing hydrocephalus possibly Non-communicating in nature due to increase in intracerebral pressure from intraventricular blood stasis at the 4th ventricle - status post Kcentra - Status post Mannitol 25% 36ml (9g) IV q6 x 2 days - Status post R frontal ventriculostomy placement. Day #0. Minimally elevated ICP noted. - continue frequent neuro and vitals check per ICU protocol - Keppra 500mg Q12 - HOB 45 degrees - hypertonic saline as needed - Aspiration and Seizure precautions - As per neurosurgery no acute intervention - maintain SBP 130-140, DBP 70-80 - maintain normothermia - maintain blood glucose 140-180 - monitor electrolytes closely and correct accordingly - Hold all anticoagulant and antiplatelets x 3 weeks - Pending CSF for glucose, protein, cell count, and culture Prognosis: poor Imaging: CT head (Tues 03/19): No change in hydrocephalus, decrease blood in ventricular system, no change in thalamic bleed CT head (Aaron 03/20): No change in L thalamic bleed which extends to 3rd ventrible. decrease blood in ventricular system. Persistant hydrocephalus s/r/d/w Dr. Steinberg <Remi Steinberg - Last Filed: 03/21/17 12:30> Objective - Vital Signs/Intake and Output Vital Signs (last 24 hours): Temp Pulse Resp BP Pulse Ox 101.3 F H 111 H 25 H 149/96 H 97 03/21/17 08:15 03/21/17 08:15 03/21/17 07:15 03/21/17 08:00 03/21/17 08:15 Intake and Output: 03/21/17 03/21/17 06:59 18:59 Intake Total 203 Balance 203 - Medications Medications: Current Medications Albuterol/Ipratropium (Duoneb 3 Mg/0.5 Mg (3 Ml) Ud) 3 ml IH Q2H PRN PRN Reason: Shortness of Breath Last Admin: 03/21/17 07:08 Dose: 3 ml Levetiracetam (Keppra 500mg Ivpb) 500 mg in 100 mls @ 400 mls/hr IV Q12 [facility]JANA Last Admin: 03/21/17 10:42 Dose: 400 mls/hr Nicardipine HCl (Cardene Iv Premix) 20 mg in 200 mls @ 50 mls/hr IV .Q4H PRN; Protocol; 5 MG/HR PRN Reason: TITRATE PER MD ORDER Last Titration: 03/21/17 02:30 Dose: 0 mg/hr, 0 mls/hr Acetaminophen (Ofirmev) 1,000 mg in 100 mls @ 400 mls/hr IVPB Q6H PRN PRN Reason: Temperature Stop: 03/22/17 10:56 Last Admin: 03/21/17 05:41 Dose: 400 mls/hr Cefepime HCl (Maxipime 1gm) 1 gm in 100 mls @ 100 mls/hr IVPB Q8 [facility]JANA PRN Reason: Protocol Last Admin: 03/21/17 05:36 Dose: 100 mls/hr Vancomycin HCl (Vancomycin 750 Mg In Ns) 750 mg in 250 mls @ 167 mls/hr IVPB BID SANJANA PRN Reason: Protocol Last Admin: 03/21/17 10:44 Dose: 167 mls/hr Pantoprazole Sodium (Protonix Inj) 40 mg IVP DAILY [facility]JANA Last Admin: 03/21/17 10:43 Dose: 40 mg - Labs Labs: 03/21/17 05:30 03/21/17 05:30 PT 14.0 SECONDS (9.4-12.5) H 03/20/17 13:50 INR 1.21 (0.93-1.08) H 03/20/17 13:50 APTT 27.1 Seconds (25.1-36.5) 03/20/17 13:50 Attending/Attestation - Attestation I have personally seen and examined this patient.: Yes I have fully participated in the care of the patient.: Yes I have reviewed all pertinent clinical information, including history, physical exam and plan: Yes
--- NOTE | 2017-03-21 14:01 | CP.PCM.PN ---
<Reema Liu - Last Filed: 03/21/17 13:58> Subjective - Date & Time of Evaluation Date of Evaluation: 03/21/17 Time of Evaluation: 13:58 - Subjective Subjective: ICU Progress Note for Min Nicolas PGY2 Patient seen and examined at bedside. Overnight patient had fever with Tmax 102.6. She was temporarily placed on Cardene drip for HTN which was off this am. Patient does not respond to name or open eyes spontaneously. GCS 4T. She is intubated and not on sedation. ROS is unobtainable. Objective - Vital Signs/Intake and Output Vital Signs (last 24 hours): Temp Pulse Resp BP Pulse Ox 101.3 F H 111 H 25 H 149/96 H 97 03/21/17 08:15 03/21/17 08:15 03/21/17 07:15 03/21/17 08:00 03/21/17 08:15 Intake and Output: 03/21/17 03/21/17 06:59 18:59 Intake Total 203 Balance 203 - Medications Medications: Current Medications Albuterol/Ipratropium (Duoneb 3 Mg/0.5 Mg (3 Ml) Ud) 3 ml IH Q2H PRN PRN Reason: Shortness of Breath Last Admin: 03/21/17 13:22 Dose: 3 ml Levetiracetam (Keppra 500mg Ivpb) 500 mg in 100 mls @ 400 mls/hr IV Q12 [facility] Last Admin: 03/21/17 10:42 Dose: 400 mls/hr Nicardipine HCl (Cardene Iv Premix) 20 mg in 200 mls @ 50 mls/hr IV .Q4H PRN; Protocol; 5 MG/HR PRN Reason: TITRATE PER MD ORDER Last Titration: 03/21/17 02:30 Dose: 0 mg/hr, 0 mls/hr Acetaminophen (Ofirmev) 1,000 mg in 100 mls @ 400 mls/hr IVPB Q6H PRN PRN Reason: Temperature Stop: 03/22/17 10:56 Last Admin: 03/21/17 05:41 Dose: 400 mls/hr Cefepime HCl (Maxipime 1gm) 1 gm in 100 mls @ 100 mls/hr IVPB Q8 [facility] PRN Reason: Protocol Last Admin: 03/21/17 05:36 Dose: 100 mls/hr Vancomycin HCl (Vancomycin 750 Mg In Ns) 750 mg in 250 mls @ 167 mls/hr IVPB BID [facility] PRN Reason: Protocol Last Admin: 03/21/17 10:44 Dose: 167 mls/hr Pantoprazole Sodium (Protonix Inj) 40 mg IVP DAILY [facility] Last Admin: 03/21/17 10:43 Dose: 40 mg - Labs Labs: 03/21/17 05:30 03/21/17 05:30 PT 14.0 SECONDS (9.4-12.5) H 03/20/17 13:50 INR 1.21 (0.93-1.08) H 03/20/17 13:50 APTT 27.1 Seconds (25.1-36.5) 03/20/17 13:50 - Constitutional Appears: Chronically Ill - Head Exam Head Exam: ATRAUMATIC, NORMAL INSPECTION, NORMOCEPHALIC - Eye Exam Pupil Exam: Miosis (sluggish) - ENT Exam ENT Exam: Mucous Membranes Moist - Respiratory Exam Respiratory Exam: Rhonchi (bilaterally throughout ), NORMAL BREATHING PATTERN. absent: Rales, Wheezes - Cardiovascular Exam Cardiovascular Exam: REGULAR RHYTHM, +S1, +S2. absent: Gallop, Rubs - GI/Abdominal Exam GI & Abdominal Exam: Soft, Normal Bowel Sounds. absent: Rigid, Tenderness, Mass , Rebound - Extremities Exam Extremities Exam: Normal Inspection. absent: Calf Tenderness, Pedal Edema - Neurological Exam Additional comments: + dolls eye, corneal and weak gag reflex. GCS: 4T, + babinski bilaterally - Skin Skin Exam: Dry, Warm Assessment and Plan - Assessment and Plan (Free Text) Assessment: This is a 76yo past medical history of intracerebral hemorrhage (8yrs ago), a.fib (was on Xeralto), asthma and COPD admitted for L thalamic bleed with intraventricular extension seen on head CT. Plan: Neuro: Intubated, not on sedation ICH w/ L thalamic bleed with intraventricular extension s/p Kcentra and mannitol ICH stable on repeat Head CT on 03/20/17 Dr. Cosby (neurosurg) performed right frontal ventriculostomy at bedside; well tolerated. Minimally elevated ICP. No complications; CSF sent for culture. Keppra IV, seizure precaution Repeat Head CT planned for tomorrow morning Maintain normothermia with cooling blanket and IV tylenol Aspiration and seizure precautions Neuro recs appreciated- pt does not need more mannitol since pt had ventriculostomy Cardio: Hx of Afib, pt has been NSR throughout Cardio consulted As per cardio, start BB therapy for rate control if pt converts to afib Pt is hemodynamically stable Cardene gtt as needed Maintain SBP 130-140s, DBP 70-80s Hold anticoagulants for ICH Maintain MAP> 65 mmHg Pulm: Intubated PRVC, daily PS as tolerated Pt has mild respiratory alkalosis, unchanged from yesterday. Continue lung protective ventilation strategy, HOB elevate 45 degrees Continue Duoneb, aspiration precaution GI: Tube feeds (Jevity 1.2). Rate slowed to 30 mL/hrs-monitor residual Protonix 40 mg ivp GI ppx Renal: BUN/Cr is stable- continue to monitor Strict I and Os Will continue to monitor electrolytes and replace as needed Heme/Onc Hgb stable- No overt bleeding, Head CT showed stable bleed VTE ppx is c/i secondary to intracranial bleed ID: Fever tmax 102.6; on Ofirmev IV and cooling blanket WBC 13.1, down from 16.0. Procalcitonin 0.08 down from 0.13 CSF culture pending, Glucose decreased at 30, Protein elevated at 408 BCx2 prelim negative over past 48 hours UCx: neg Pt on cefepime and vanc ID recs appreciated Endo: Maintain euglycemia (140s-180s) Diet: OG tube feedings (Jevity 1.2) GI ppx: protonix 40 mg ivp qd DVT ppx: SCDs Dispo: prognosis guarded. Palliative care consulted. Case seen, discussed and reviewed with attending. Min Liu PGY2 <Rafael Gutierrez - Last Filed: 03/21/17 17:06> Objective - Vital Signs/Intake and Output Vital Signs (last 24 hours): Temp Pulse Resp BP Pulse Ox 100.2 F H 84 22 155/87 H 100 03/21/17 12:45 03/21/17 14:23 03/21/17 13:00 03/21/17 14:23 03/21/17 14:23 Intake and Output: 03/21/17 03/21/17 06:59 18:59 Intake Total 203 Balance 203 - Medications Medications: Current Medications Albuterol/Ipratropium (Duoneb 3 Mg/0.5 Mg (3 Ml) Ud) 3 ml IH Q2H PRN PRN Reason: Shortness of Breath Last Admin: 03/21/17 13:22 Dose: 3 ml Levetiracetam (Keppra 500mg Ivpb) 500 mg in 100 mls @ 400 mls/hr IV Q12 [facility] Last Admin: 03/21/17 10:42 Dose: 400 mls/hr Nicardipine HCl (Cardene Iv Premix) 20 mg in 200 mls @ 50 mls/hr IV .Q4H PRN; Protocol; 5 MG/HR PRN Reason: TITRATE PER MD ORDER Last Titration: 03/21/17 02:30 Dose: 0 mg/hr, 0 mls/hr Acetaminophen (Ofirmev) 1,000 mg in 100 mls @ 400 mls/hr IVPB Q6H PRN PRN Reason: Temperature Stop: 03/22/17 10:56 Last Admin: 03/21/17 05:41 Dose: 400 mls/hr Cefepime HCl (Maxipime 1gm) 1 gm in 100 mls @ 100 mls/hr IVPB Q8 [facility] PRN Reason: Protocol Last Admin: 03/21/17 05:36 Dose: 100 mls/hr Vancomycin HCl (Vancomycin 750 Mg In Ns) 750 mg in 250 mls @ 167 mls/hr IVPB BID [facility] PRN Reason: Protocol Last Admin: 03/21/17 10:44 Dose: 167 mls/hr Pantoprazole Sodium (Protonix Inj) 40 mg IVP DAILY [facility] Last Admin: 03/21/17 10:43 Dose: 40 mg - Labs Labs: 03/21/17 05:30 03/21/17 05:30 PT 14.0 SECONDS (9.4-12.5) H 03/20/17 13:50 INR 1.21 (0.93-1.08) H 03/20/17 13:50 APTT 27.1 Seconds (25.1-36.5) 03/20/17 13:50 Attending/Attestation - Attestation I have personally seen and examined this patient.: Yes I have fully participated in the care of the patient.: Yes I have reviewed all pertinent clinical information, including history, physical exam and plan: Yes Notes (Text): 03/21/17 17:03 76 yo female with large ICH into left thalamus and SUELLEN, s/p EVD. Maintian BPs 140-160, strict normothermia, euglycemia, euvolemia and 02sat>93. Tolerates PS. Neuro and Nsx follow up. mechanical DVT prophyalxis, GI prophylaxis ccm time 40 min
--- NOTE | 2017-03-21 14:29 | CP.PCM.CON ---
History of Present Illness - History of Present Illness History of Present Illness: Palliative consult requested by Dr. Leonor Major Reason: Goals of care 76 year old female with history of atrial fibrillation, asthma, hemorrhagic stroke who initially presented with slurred speech and right sided weakness. CT of head showed large left thalamic hemorrhage, intraventircular extension right midline shift. Patient became unresponsive and was intubated. Subsequent CT scan showing no change in hemorrhage but intraventricular blood with increasing hydrocephalus. GCS 4. S/p right ventriculostomy. She is febrile with leukocytosis. PMHx: Hemorrhagic stroke, HTN, atrial fibrillation on Xarelto, asthma. Social History:Former smoker, social alcohol use, no drug use. lives with spouse. Family History: Non Contributory. Advance Care Planning: The patient does not have an advanced Directive. Review of Systems: As per HPI, patient is intubated/unresponsive. Past Patient History - Infectious Disease Hx of Infectious Diseases: None - Past Medical History & Family History Past Medical History?: Yes - Past Social History Alcohol: None Drugs: Denies - CARDIAC Hx Cardiac Disorders: Yes Hx Cardia Arrhythmia: Yes Hx Hypertension: Yes Other/Comment: A-Fib - PULMONARY Hx Respiratory Disorders: Yes (2ND HAND SMOKE SHE STATED) Hx Asthma: Yes - NEUROLOGICAL Hx Neurological Disorder: Yes (SYNCOPE) HX Cerebrovascular Accident: Yes Hx Dizziness: Yes - HEENT Hx HEENT Problems: Yes (WEARS RX GLASSES) - RENAL Hx Chronic Kidney Disease: No - ENDOCRINE/METABOLIC Hx Endocrine Disorders: No - HEMATOLOGICAL/ONCOLOGICAL Hx Blood Disorders: No - INTEGUMENTARY Hx Dermatological Problems: No - MUSCULOSKELETAL/RHEUMATOLOGICAL Hx Musculoskeletal Disorders: Yes Hx Falls: Yes (SYNCOPAL EPISODES 06-23-16,11-03-16) Hx Fractures: Yes (COMPRESSION FX L2,RIGHT WRIST FX,) Hx Osteoporosis: Yes Hx Unsteady Gait: Yes - GASTROINTESTINAL Hx Gastrointestinal Disorders: Yes (CONSTIPATION) Hx Gastroesophageal Reflux: Yes - GENITOURINARY/GYNECOLOGICAL Hx Genitourinary Disorders: No - PSYCHIATRIC Hx Psychophysiologic Disorder: No Hx Substance Use: No - SURGICAL HISTORY Hx Cardiac Catheterization: Yes (?) Hx Musculoskeletal Surgery: Yes (right wrist fracture) - ANESTHESIA Hx Anesthesia Reactions: No Hx Malignant Hyperthermia: No Meds Allergies/Adverse Reactions: Allergies Allergy/AdvReac Type Severity Reaction Status Date / Time No Known Allergies Allergy Verified 03/17/17 10:33 - Medications Medications: Current Medications Albuterol/Ipratropium (Duoneb 3 Mg/0.5 Mg (3 Ml) Ud) 3 ml IH Q2H PRN PRN Reason: Shortness of Breath Last Admin: 03/21/17 13:22 Dose: 3 ml Levetiracetam (Keppra 500mg Ivpb) 500 mg in 100 mls @ 400 mls/hr IV Q12 [facility] Last Admin: 03/21/17 10:42 Dose: 400 mls/hr Nicardipine HCl (Cardene Iv Premix) 20 mg in 200 mls @ 50 mls/hr IV .Q4H PRN; Protocol; 5 MG/HR PRN Reason: TITRATE PER MD ORDER Last Titration: 03/21/17 02:30 Dose: 0 mg/hr, 0 mls/hr Acetaminophen (Ofirmev) 1,000 mg in 100 mls @ 400 mls/hr IVPB Q6H PRN PRN Reason: Temperature Stop: 03/22/17 10:56 Last Admin: 03/21/17 05:41 Dose: 400 mls/hr Cefepime HCl (Maxipime 1gm) 1 gm in 100 mls @ 100 mls/hr IVPB Q8 [facility] PRN Reason: Protocol Last Admin: 03/21/17 05:36 Dose: 100 mls/hr Vancomycin HCl (Vancomycin 750 Mg In Ns) 750 mg in 250 mls @ 167 mls/hr IVPB BID [facility] PRN Reason: Protocol Last Admin: 03/21/17 10:44 Dose: 167 mls/hr Pantoprazole Sodium (Protonix Inj) 40 mg IVP DAILY [facility] Last Admin: 03/21/17 10:43 Dose: 40 mg Physical Exam - Constitutional Appears: Chronically Ill - Eye Exam Additional comments: dolls eyes,sluggish - ENT Exam ENT Exam: Mucous Membranes Moist Additional comments: + gag refelx - Respiratory Exam Respiratory Exam: Clear to Auscultation Bilateral, NORMAL BREATHING PATTERN - Cardiovascular Exam Cardiovascular Exam: Irregular Rhythm, +S1 - GI/Abdominal Exam GI & Abdominal Exam: Normal Bowel Sounds, Soft - Extremities Exam Extremities exam: Positive for: normal capillary refill, normal inspection - Neurological Exam Additional comments: vegetative - Skin Skin Exam: Dry, Warm - Additional Findings Additional findings: Palliative performance scale rating 20% Results - Vital Signs Recent Vital Signs: Last Vital Signs Temp 100.2 F H 03/21/17 12:45 Pulse 84 03/21/17 14:00 Resp 22 03/21/17 13:00 BP 156/102 H 03/21/17 14:00 Pulse Ox 100 03/21/17 14:00 - Labs Result Diagrams: 03/21/17 05:30 03/21/17 05:30 Labs: Laboratory Results - last 24 hr 03/20/17 03/20/17 03/20/17 11:33 13:00 16:40 WBC RBC Hgb Hct MCV MCH MCHC RDW Plt Count pCO2 pO2 HCO3 ABG pH ABG Total CO2 ABG O2 Saturation ABG O2 Content ABG Base Excess ABG Hemoglobin ABG Carboxyhemoglobin POC ABG HHb (Measured) ABG Methemoglobin ABG O2 Capacity Hgb O2 Saturation FiO2 Sodium Potassium Chloride Carbon Dioxide Anion Gap BUN Creatinine Est GFR ( Amer) Est GFR (Non-Af Amer) POC Glucose (mg/dL) 151 H 130 H Random Glucose Calcium Phosphorus Magnesium Total Bilirubin AST ALT Alkaline Phosphatase Total Protein Albumin Globulin Albumin/Globulin Ratio Procalcitonin 0.08 L CSF Glucose CSF Total Protein 03/20/17 03/21/17 03/21/17 22:22 05:15 05:30 WBC 13.1 H RBC 4.55 Hgb 9.8 L Hct 30.5 L MCV 67.0 L MCH 21.5 L MCHC 32.1 RDW 16.0 H Plt Count 201 pCO2 28 L pO2 144.0 H HCO3 21.8 ABG pH 7.50 H ABG Total CO2 22.7 ABG O2 Saturation 100.0 H ABG O2 Content 13.2 L ABG Base Excess -0.8 ABG Hemoglobin 9.5 L ABG Carboxyhemoglobin 2.1 H POC ABG HHb (Measured) 0 ABG Methemoglobin 1.0 ABG O2 Capacity 13.2 L Hgb O2 Saturation 96.9 FiO2 40.0 Sodium Potassium Chloride Carbon Dioxide Anion Gap BUN Creatinine Est GFR ( Amer) Est GFR (Non-Af Amer) POC Glucose (mg/dL) 161 H Random Glucose Calcium Phosphorus Magnesium Total Bilirubin AST ALT Alkaline Phosphatase Total Protein Albumin Globulin Albumin/Globulin Ratio Procalcitonin CSF Glucose CSF Total Protein 03/21/17 03/21/17 03/21/17 05:30 08:12 10:00 WBC RBC Hgb Hct MCV MCH MCHC RDW Plt Count pCO2 pO2 HCO3 ABG pH ABG Total CO2 ABG O2 Saturation ABG O2 Content ABG Base Excess ABG Hemoglobin ABG Carboxyhemoglobin POC ABG HHb (Measured) ABG Methemoglobin ABG O2 Capacity Hgb O2 Saturation FiO2 Sodium 144 Potassium 3.7 Chloride 113 H Carbon Dioxide 23 Anion Gap 12 BUN 20 Creatinine 0.5 L Est GFR ( Amer) > 60 Est GFR (Non-Af Amer) > 60 POC Glucose (mg/dL) 134 H Random Glucose 126 H Calcium 8.9 Phosphorus 2.3 L Magnesium 1.9 Total Bilirubin 1.4 H AST 44 H ALT 40 Alkaline Phosphatase 73 Total Protein 6.2 Albumin 3.0 Globulin 3.3 Albumin/Globulin Ratio 0.9 L Procalcitonin CSF Glucose 30 L CSF Total Protein 408.0 H* 03/21/17 11:38 WBC RBC Hgb Hct MCV MCH MCHC RDW Plt Count pCO2 pO2 HCO3 ABG pH ABG Total CO2 ABG O2 Saturation ABG O2 Content ABG Base Excess ABG Hemoglobin ABG Carboxyhemoglobin POC ABG HHb (Measured) ABG Methemoglobin ABG O2 Capacity Hgb O2 Saturation FiO2 Sodium Potassium Chloride Carbon Dioxide Anion Gap BUN Creatinine Est GFR ( Amer) Est GFR (Non-Af Amer) POC Glucose (mg/dL) 122 H Random Glucose Calcium Phosphorus Magnesium Total Bilirubin AST ALT Alkaline Phosphatase Total Protein Albumin Globulin Albumin/Globulin Ratio Procalcitonin CSF Glucose CSF Total Protein Assessment & Plan - Assessment and Plan (Free Text) Assessment: 76 year old female with history of hemorrhagic stroke, A Fib on Xarelto, HTN and asthma who is admitted with a large left thalamic hemorrhage which extends to 3rd ventricle,right midline shift and persistent hydrocephalus. She is s/p ventriculostomy, GCS 4, + dolls eyes, + gag reflex. Intubated.She is febrile with leukocytosis. and son at bedside. Palliative services introduced as support mechanism for family with assistance in establishing goals of care. Family is aware of patients medical status and poor prognosis. Initiated conversation regarding future goals of care. Explained that patient was in a vegetative state and that eventually decision would need to be made PEG/Trach/ LTAC vs withdrawal of support and comfort care. expressed that his would not want to live in vegetative state. understands that decision regarding future goals will need to be made but he is not ready at this time. States he needs to discuss further with his family. Psychosocial support given Time spent with family in goals of care discussion, 30 minutes Plan: Palliative support in establishing goals of care. Psychosocial support
--- NOTE | 2017-03-21 22:00 | PN ---
DATE: SUBJECTIVE: The patient is 76 years old, remain intubated, had ventriculostomy done today. Patient is unresponsive, not sedated. PHYSICAL EXAMINATION: VITAL SIGNS: The patient is afebrile, pulse 84, respirations 18, blood pressure 155/87. LUNGS: Bilateral good airflow. No rhonchi or crackle. HEART: S1 and S2 audible. Regular rate and rhythm. ABDOMEN: Soft. Nontender. No rebound. No guarding. NEUROLOGIC: She is on the vent and unresponsive. LABORATORY DATA: WBC is 13.1, hemoglobin 9.8, hematocrit 30, platelet of 201. Chemistry: Sodium 144, potassium 3.7, chloride 113, CO2 of 23, BUN 20, creatinine 0.5, blood sugar of 153. Total bili 1.4. Blood culture, urine cultures are negative. ASSESSMENT: 1. Intracranial thalamic bleed with hydrocephalus. 2. Chronic atrial fibrillation, off of anticoagulant. 3. Former smoker. 4. Anemia. 5. History of hypertension. Currently she is on nasogastric tube feeding. PLAN: Continue vent support, status post frontal ventriculostomy; chronic AFib, anticoagulation is on hold. Give Tylenol as needed. She is on anti-seizure medication. Antibiotic has been started by Dr. Hodges on cefepime and vancomycin. We will continue to monitor patient closely . Oly Major MD
[2017-03-22 03:50] LABS: ARTERIAL BLOOD GAS HCO3 26.1 mmol/L (21-28); ARTERIAL BLOOD GAS HEMOGLOBIN 9.9 g/dL (11.7-17.4); ARTERIAL BLOOD GAS O2 CAPACITY 13.8 mL/dl (16-24); ARTERIAL BLOOD GAS O2 CONTENT 13.7 ML/dl (15-23); ARTERIAL BLOOD GAS O2 SAT 99.4 % (95-98); ARTERIAL BLOOD GAS PCO2 26 mm/Hg (35-45); ARTERIAL BLOOD GAS TCO2 26.9 mmol.L (22-28)
[2017-03-22 03:53] LABS: ARTERIAL BLOOD GAS PH 7.61 (7.35-7.45)
[2017-03-22 06:21] LABS: HEMOGLOBIN 11.5 g/dL (12.0-16.0); MEAN CELL VOLUME 66.6 fl (80.0-105.0); MEAN CORPUSCULAR HEMOGLOBIN 21.9 pg (25.0-35.0); PLATELET COUNT 263 10^3/uL (120.0-450.0); RBC 5.24 10^6/uL (3.5-6.1); RED CELL DISTRIBUTION WIDTH 15.9 % (11.5-14.5); WHITE BLOOD COUNT 14.2 10^3/ul (4.5-11.0)
[2017-03-22] MEDS: Cefepime 1gm in NS 100ml 1 GM/100 ML BAG IVPB SCH (06:31)
[2017-03-22] MEDS: Nicardipine 20 MG/200 ML 20 MG/200 ML BAG IV PRN (06:37)
[2017-03-22] MEDS: Albuterol-Ipratrop 3 mg / 0.5 (3 ml) UD IH PRN ×2 (07:10→13:30)
[2017-03-22 07:13] LABS: ALBUMIN 3.8 g/dL (3.0-4.8); ALT/SGPT 38 U/L (7-56); AST/SGOT 65 U/L (14-36); BLOOD UREA NITROGEN 17 mg/dL (7-21); CALCIUM 9.6 mg/dL (8.4-10.5); GFR AFRICAN-AMERICAN > 60; GFR NON-AFRICAN AMERICAN > 60
[2017-03-22 08:25] LABS: ARTERIAL BLOOD GAS HCO3 27.1 mmol/L (21-28); ARTERIAL BLOOD GAS HEMOGLOBIN 10.6 g/dL (11.7-17.4); ARTERIAL BLOOD GAS O2 CAPACITY 14.7 mL/dl (16-24); ARTERIAL BLOOD GAS O2 CONTENT 14.7 ML/dl (15-23); ARTERIAL BLOOD GAS O2 SAT 99.8 % (95-98); ARTERIAL BLOOD GAS PCO2 31 mm/Hg (35-45); ARTERIAL BLOOD GAS PH 7.55 (7.35-7.45); ARTERIAL BLOOD GAS TCO2 28.1 mmol.L (22-28)
--- NOTE | 2017-03-22 08:46 | OP ---
PROCEDURE DATE: 03/21/2017 PROCEDURE: Right frontal ventriculostomy. PREOPERATIVE DIAGNOSES: Hydrocephalus. POSTOPERATIVE DIAGNOSES: Hydrocephalus. ESTIMATED BLOOD LOSS: 5 mL. COMPLICATIONS: None. JUSTIFICATION: The patient presented with a brainstem hemorrhage with hydrocephalus. After much discussion with the family, they decided they wanted everything done even with the understanding that the prognosis is absolutely dismal. Therefore, acceding to their wishes, the ventriculostomy is placed. DESCRIPTION OF PROCEDURE: The right frontal region was shaved, prepped, and draped in the usual sterile fashion. The standard landmark of 10 cm up and 3 cm over from the nasion was marked. This was infiltrated with lidocaine. Incision made with a 11 blade knife approximately 1 cm. A standard drill was used to drill through the skull. The dura was pierced with an 18-gauge needle. Ventricular catheter was passed using the standard landmarks into the right lateral ventricle. Blood-tinged CSF, only very moderate pressure, perhaps 15 and certainly no more than 20, was recovered. Several milliliters were taken as specimen. The catheter was then tunneled out of separate stab incision 5 cm laterally. The original wound was closed with a running Ethilon stitch. The catheter was tacked to the skin in 3 different [address]. It was then hooked up to the catheter drainage system with a shoulder height of 10 cm. Betadine ointment was applied to all the wounds and large OpSite used to cover all the wounds. The patient tolerated the procedure well. There were no complications. Edwardo Cosby MD
--- NOTE | 2017-03-22 10:13 | CP.PCM.PN ---
Subjective - Date & Time of Evaluation Date of Evaluation: 03/22/17 Time of Evaluation: 09:10 - Subjective Subjective: Patient continues to be on the ventilator, still in decerebrate position, still with low grade fevers. Objective - Vital Signs/Intake and Output Vital Signs (last 24 hours): Temp Pulse Resp BP Pulse Ox 100.2 F H 94 H 17 144/83 100 03/21/17 12:45 03/22/17 08:30 03/22/17 07:43 03/22/17 08:30 03/22/17 08:30 Intake and Output: 03/22/17 03/22/17 06:59 18:59 Intake Total 1487 Output Total 2950 Balance -1463 - Medications Medications: Current Medications Albuterol/Ipratropium (Duoneb 3 Mg/0.5 Mg (3 Ml) Ud) 3 ml IH Q2H PRN PRN Reason: Shortness of Breath Last Admin: 03/22/17 07:10 Dose: 3 ml Levetiracetam (Keppra 500mg Ivpb) 500 mg in 100 mls @ 400 mls/hr IV Q12 [facility] Last Admin: 03/21/17 21:37 Dose: 400 mls/hr Nicardipine HCl (Cardene Iv Premix) 20 mg in 200 mls @ 50 mls/hr IV .Q4H PRN; Protocol; 5 MG/HR PRN Reason: TITRATE PER MD ORDER Last Admin: 03/22/17 06:37 Dose: 1 mg/hr, 10 mls/hr Acetaminophen (Ofirmev) 1,000 mg in 100 mls @ 400 mls/hr IVPB Q6H PRN PRN Reason: Temperature Stop: 03/22/17 10:56 Last Admin: 03/21/17 21:39 Dose: 400 mls/hr Cefepime HCl (Maxipime 1gm) 1 gm in 100 mls @ 100 mls/hr IVPB Q8 [facility] PRN Reason: Protocol Last Admin: 03/22/17 06:31 Dose: 100 mls/hr Vancomycin HCl (Vancomycin 750 Mg In Ns) 750 mg in 250 mls @ 167 mls/hr IVPB BID [facility] PRN Reason: Protocol Last Admin: 03/21/17 18:16 Dose: 167 mls/hr Pantoprazole Sodium (Protonix Inj) 40 mg IVP DAILY [facility] Last Admin: 03/21/17 10:43 Dose: 40 mg - Labs Labs: 03/22/17 05:30 03/22/17 05:30 PT 14.0 SECONDS (9.4-12.5) H 03/20/17 13:50 INR 1.21 (0.93-1.08) H 03/20/17 13:50 APTT 27.1 Seconds (25.1-36.5) 03/20/17 13:50 - Constitutional Appears: Other (on the ventilator, not responsive) - Head Exam Head Exam: NORMAL INSPECTION - ENT Exam Additional comments: ET tube in place - Respiratory Exam Respiratory Exam: Decreased Breath Sounds - Cardiovascular Exam Cardiovascular Exam: +S1, +S2 - GI/Abdominal Exam GI & Abdominal Exam: Soft. absent: Tenderness Assessment and Plan - Assessment and Plan (Free Text) Plan: Assessment Systemic Inflammatory response syndrome with fevers, probably from acute hemorrhagic thalamic CVA, patient with ventilator-dependent respiratory failure from the CVA and hydrocephalus, no evidence of sepsis identified atrial fibrillation on anticoagulation asthma Plan will d/c Vancomycin and Cefepime - cultures have been negative for more than 48 hours, PCT is only 0.08, CXR does not show pneumonia, rapid flu test is negative overall prognosis is poor
[2017-03-22] MEDS: levETIRAcetam 500mg IVPB 500 MG/100 ML BAG IV SCH ×2 (10:38→22:30)
--- NOTE | 2017-03-22 10:49 | CP.PCM.PN ---
<Reema Liu - Last Filed: 03/22/17 12:19> Subjective - Date & Time of Evaluation Date of Evaluation: 03/22/17 Time of Evaluation: 10:46 - Subjective Subjective: ICU Progress Note for Min Nicolas PGY2 Patient seen and examined at beside. There were no acute events as per nursing staff. Patient is intubated and not on sedation. She remained on cooling blanket with Tmax of 100.2. ROS could not be obtained. Objective - Vital Signs/Intake and Output Vital Signs (last 24 hours): Temp Pulse Resp BP Pulse Ox 100.2 F H 94 H 17 144/83 100 03/21/17 12:45 03/22/17 08:30 03/22/17 07:43 03/22/17 08:30 03/22/17 08:30 Intake and Output: 03/22/17 03/22/17 06:59 18:59 Intake Total 1487 7 Output Total 2950 Balance -1463 7 - Medications Medications: Current Medications Albuterol/Ipratropium (Duoneb 3 Mg/0.5 Mg (3 Ml) Ud) 3 ml IH Q2H PRN PRN Reason: Shortness of Breath Last Admin: 03/22/17 07:10 Dose: 3 ml Levetiracetam (Keppra 500mg Ivpb) 500 mg in 100 mls @ 400 mls/hr IV Q12 [facility] Last Admin: 03/22/17 10:38 Dose: 400 mls/hr Nicardipine HCl (Cardene Iv Premix) 20 mg in 200 mls @ 50 mls/hr IV .Q4H PRN; Protocol; 5 MG/HR PRN Reason: TITRATE PER MD ORDER Last Titration: 03/22/17 10:22 Dose: 0.5 mg/hr, 5 mls/hr Acetaminophen (Ofirmev) 1,000 mg in 100 mls @ 400 mls/hr IVPB Q6H PRN PRN Reason: Temperature Stop: 03/22/17 10:56 Last Admin: 03/21/17 21:39 Dose: 400 mls/hr Pantoprazole Sodium (Protonix Inj) 40 mg IVP DAILY [facility] Last Admin: 03/22/17 10:38 Dose: 40 mg - Labs Labs: 03/22/17 05:30 03/22/17 05:30 PT 14.0 SECONDS (9.4-12.5) H 03/20/17 13:50 INR 1.21 (0.93-1.08) H 03/20/17 13:50 APTT 27.1 Seconds (25.1-36.5) 03/20/17 13:50 - Constitutional Appears: Chronically Ill - Head Exam Additional comments: Vestriculostomy drain in place - Eye Exam Pupil Exam: Fixed - ENT Exam ENT Exam: Mucous Membranes Moist - Respiratory Exam Respiratory Exam: Rhonchi, NORMAL BREATHING PATTERN. absent: Rales, Wheezes - Cardiovascular Exam Cardiovascular Exam: REGULAR RHYTHM, +S1, +S2. absent: Gallop, Rubs, Murmur - GI/Abdominal Exam GI & Abdominal Exam: Soft, Normal Bowel Sounds. absent: Tenderness, Mass, Rebound - Extremities Exam Extremities Exam: absent: Calf Tenderness, Pedal Edema - Neurological Exam Neurological Exam: absent: Alert, Awake Additional comments: decerebrate posturing. + dolls eye, but slugging, no corneal or pupillary reflex. + gag reflex. + babinski bilaterally. - Skin Skin Exam: Dry, Warm Assessment and Plan - Assessment and Plan (Free Text) Assessment: This is a 76yo past medical history of intracerebral hemorrhage (8yrs ago), a.fib (was on Xeralto), asthma and COPD admitted for L thalamic bleed with intraventricular extension seen on head CT s/p ventriculostomy POD #1 Plan: Neuro: Intubated, not on sedation ICH w/ L thalamic bleed with intraventricular extension s/p Kcentra and mannitol and ventriculostomy POD #1 Neurosurgery consulted-recs appreciated Neuro consulted- recs appreciated CSF culture pending Continue Keppra IV, seizure precaution Maintain normothermia with cooling blanket and IV tylenol - will do NGT lavage with cold water to lower temp (goal <99F) Aspiration and seizure precautions Cardio: Hx of Afib, but in NSR Placed back on Cardene drip to Maintain SBP 130-140s, DBP 70-80s Cardio consulted- recs appreciated Hold anticoagulants for ICH Maintain MAP> 65 mmHg Pulm: Intubated PRVC, daily PS as tolerated Maintain SpO2>90% Continue lung protective ventilation strategy, HOB elevate 45 degrees GI: Continue tube feeds Nephro: Hypokalemia Will continue to monitor electrolytes and replace as needed Heme/Onc: Hgb stable- No overt bleeding, Head CT showed stable bleed No anticoagulation ID: Leukocytosis increased to 14. Tmax 100.2 on Ofirmev IV and cooling blanket Goal temp <99.0 Procalcitonin 0.08 down from 0.13 CSF culture pending, Glucose decreased at 30, Protein elevated at 408 Septic work up negative thus far ID consulted As per ID, patient's leukocytosis and fever and be secondary to ICH Abx will be D/c Endo: Maintain euglycemia (140s-180s) Diet: OG tube feedings (Jevity 1.2) GI ppx: protonix DVT ppx: SCDs Dispo: prognosis guarded. Palliative care consulted. Case seen, discussed and reviewed with attending. Min Liu PGY2 <Rafael Gutierrez B - Last Filed: 03/22/17 17:00> Objective - Vital Signs/Intake and Output Vital Signs (last 24 hours): Temp Pulse Resp BP Pulse Ox 100.2 F H 95 H 17 151/93 H 100 03/21/17 12:45 03/22/17 16:16 03/22/17 07:43 03/22/17 14:30 03/22/17 14:30 Intake and Output: 03/22/17 03/22/17 06:59 18:59 Intake Total 1487 30 Output Total 2950 Balance -1463 30 - Medications Medications: Current Medications Albuterol/Ipratropium (Duoneb 3 Mg/0.5 Mg (3 Ml) Ud) 3 ml IH Q2H PRN PRN Reason: Shortness of Breath Last Admin: 03/22/17 13:30 Dose: 3 ml Levetiracetam (Keppra 500mg Ivpb) 500 mg in 100 mls @ 400 mls/hr IV Q12 [facility] Last Admin: 03/22/17 10:38 Dose: 400 mls/hr Nicardipine HCl (Cardene Iv Premix) 20 mg in 200 mls @ 50 mls/hr IV .Q4H PRN; Protocol; 5 MG/HR PRN Reason: TITRATE PER MD ORDER Last Titration: 03/22/17 14:37 Dose: 1 mg/hr, 10 mls/hr Acetaminophen (Ofirmev) 1,000 mg in 100 mls @ 400 mls/hr IVPB Q6H PRN PRN Reason: T>99 Stop: 03/24/17 13:13 Last Admin: 03/22/17 13:23 Dose: 400 mls/hr Pantoprazole Sodium (Protonix Inj) 40 mg IVP DAILY [facility] Last Admin: 03/22/17 10:38 Dose: 40 mg - Labs Labs: 03/22/17 05:30 03/22/17 05:30 PT 14.0 SECONDS (9.4-12.5) H 03/20/17 13:50 INR 1.21 (0.93-1.08) H 03/20/17 13:50 APTT 27.1 Seconds (25.1-36.5) 03/20/17 13:50 Attending/Attestation - Attestation I have personally seen and examined this patient.: Yes I have fully participated in the care of the patient.: Yes I have reviewed all pertinent clinical information, including history, physical exam and plan: Yes Notes (Text): 03/22/17 17:[address] Gutierrez's note
--- NOTE | 2017-03-22 11:38 | CP.PCM.PN ---
<Allyn Lees - Last Filed: 03/22/17 11:35> Subjective - Date & Time of Evaluation Date of Evaluation: 03/22/17 Time of Evaluation: 09:00 - Subjective Subjective: Neurology PGY-[address] Steinberg Pt intubated, on cooling blankets Objective - Vital Signs/Intake and Output Vital Signs (last 24 hours): Temp Pulse Resp BP Pulse Ox 100.2 F H 94 H 17 144/83 100 03/21/17 12:45 03/22/17 08:30 03/22/17 07:43 03/22/17 08:30 03/22/17 08:30 Intake and Output: 03/22/17 03/22/17 06:59 18:59 Intake Total 1487 7 Output Total 2950 Balance -1463 7 - Medications Medications: Current Medications Albuterol/Ipratropium (Duoneb 3 Mg/0.5 Mg (3 Ml) Ud) 3 ml IH Q2H PRN PRN Reason: Shortness of Breath Last Admin: 03/22/17 07:10 Dose: 3 ml Levetiracetam (Keppra 500mg Ivpb) 500 mg in 100 mls @ 400 mls/hr IV Q12 [facility] Last Admin: 03/22/17 10:38 Dose: 400 mls/hr Nicardipine HCl (Cardene Iv Premix) 20 mg in 200 mls @ 50 mls/hr IV .Q4H PRN; Protocol; 5 MG/HR PRN Reason: TITRATE PER MD ORDER Last Titration: 03/22/17 10:22 Dose: 0.5 mg/hr, 5 mls/hr Pantoprazole Sodium (Protonix Inj) 40 mg IVP DAILY [facility] Last Admin: 03/22/17 10:38 Dose: 40 mg - Labs Labs: 03/22/17 05:30 03/22/17 05:30 PT 14.0 SECONDS (9.4-12.5) H 03/20/17 13:50 INR 1.21 (0.93-1.08) H 03/20/17 13:50 APTT 27.1 Seconds (25.1-36.5) 03/20/17 13:50 - Constitutional Appears: Other (intubated) - Head Exam Additional comments: ventriculo-shunts intact - Respiratory Exam Respiratory Exam: Clear to Ausculation Bilateral, NORMAL BREATHING PATTERN - Cardiovascular Exam Cardiovascular Exam: REGULAR RHYTHM, +S1, +S2. absent: Murmur - GI/Abdominal Exam GI & Abdominal Exam: Distended, Soft - Neurological Exam Additional comments: GCS 4: close eyes to pain (0), no verbal (0), move away from pain (4) Off sedation Intubated light reflex: VERY sluggish reactive to light b/l Doll's eye reflex: VERY SLUGGISH gag reflex: intact Assessment and Plan - Assessment and Plan (Free Text) Plan: Ms Krys Arreola, 76F, with prior Hx of hemorrhagic stroke treated at [facility], atrial fibrillation on xarelto, asthma, came to the hospital with slurred speech right arm and face numbness, and R arm weakness. Her BP was around 187/116 upon ED arrival. Per pt's , pt later became unresponsive. CT showed a large acute thalamic bleed (2.6 x 4 cm) with intraventricular extension, with 3mm midline shift to R. Pt received Kcentra and transferred to ICU for management. repeat head CT in next day showed no change in size or appearance of thalamic hemorrhage but (+) intraventricular blood with increasing hydrocephalus. Mannitol was started to decrease intracerebral pressure likely from increasing acquired hydrocephalus due to intraventricular blood stasis at the 4th ventricle. Pt is currently off sedation, currently intubated, GCS is 0+0+4. Pt has new fever with leukocytosis. Started cefepime and vancomycin. Acute hemorrhagic stroke, likely from hypertensive emergency in the setting of coagulopathy from Xarelto use for atrial fibrillation Increaseing hydrocephalus possibly Non-communicating in nature due to increase in intracerebral pressure from intraventricular blood stasis at the 4th ventricle Elevated CSF protein likely from the past bleeding, likely the cause of hydrocephalus - status post Kcentra - Status post Mannitol 25% 36ml (9g) IV q6 x 2 days - Status post R frontal ventriculostomy placement. Day #0. Minimally elevated ICP noted. - continue frequent neuro and vitals check per ICU protocol - Keppra 500mg Q12 - HOB 45 degrees - hypertonic saline as needed - Aspiration and Seizure precautions - As per neurosurgery no acute intervention - maintain SBP 130-140, DBP 70-80 - maintain normothermia - maintain blood glucose 140-180 - monitor electrolytes closely and correct accordingly - Hold all anticoagulant and antiplatelets x 3 weeks Prognosis: poor Imaging: CT head (Tues 03/19): No change in hydrocephalus, decrease blood in ventricular system, no change in thalamic bleed CT head (Aaron 03/20): No change in L thalamic bleed which extends to 3rd ventrible. decrease blood in ventricular system. Persistant hydrocephalus s/r/d/w Dr. Steinberg <Remi Steinberg - Last Filed: 03/22/17 11:46> Objective - Vital Signs/Intake and Output Vital Signs (last 24 hours): Temp Pulse Resp BP Pulse Ox 100.2 F H 94 H 17 144/83 100 03/21/17 12:45 03/22/17 08:30 03/22/17 07:43 03/22/17 08:30 03/22/17 08:30 Intake and Output: 03/22/17 03/22/17 06:59 18:59 Intake Total 1487 7 Output Total 2950 Balance -1463 7 - Medications Medications: Current Medications Albuterol/Ipratropium (Duoneb 3 Mg/0.5 Mg (3 Ml) Ud) 3 ml IH Q2H PRN PRN Reason: Shortness of Breath Last Admin: 03/22/17 07:10 Dose: 3 ml Levetiracetam (Keppra 500mg Ivpb) 500 mg in 100 mls @ 400 mls/hr IV Q12 [facility] Last Admin: 03/22/17 10:38 Dose: 400 mls/hr Nicardipine HCl (Cardene Iv Premix) 20 mg in 200 mls @ 50 mls/hr IV .Q4H PRN; Protocol; 5 MG/HR PRN Reason: TITRATE PER MD ORDER Last Titration: 03/22/17 10:22 Dose: 0.5 mg/hr, 5 mls/hr Pantoprazole Sodium (Protonix Inj) 40 mg IVP DAILY [facility] Last Admin: 03/22/17 10:38 Dose: 40 mg - Labs Labs: 03/22/17 05:30 03/22/17 05:30 PT 14.0 SECONDS (9.4-12.5) H 03/20/17 13:50 INR 1.21 (0.93-1.08) H 03/20/17 13:50 APTT 27.1 Seconds (25.1-36.5) 03/20/17 13:50 Attending/Attestation - Attestation I have personally seen and examined this patient.: Yes I have fully participated in the care of the patient.: Yes I have reviewed all pertinent clinical information, including history, physical exam and plan: Yes
--- NOTE | 2017-03-22 13:05 | RAD ---
HISTORY: intubated COMPARISON: Portable chest 03/20/2017. FINDINGS: Endotracheal and nasogastric tubes are unchanged in position. LUNGS: No active pulmonary disease. PLEURA: Trace left basilar pleural fibrosis blunts the left costophrenic sulcus once again. No pleural effusion or pneumothorax is identified bilaterally. A skin fold seen the mid to inferior right chest laterally. CARDIOVASCULAR: Prominent cardiac silhouette appears stable. No definite pulmonary venous congestion identified. OSSEOUS STRUCTURES: No significant abnormalities. VISUALIZED UPPER ABDOMEN: Normal. OTHER FINDINGS: None. IMPRESSION: Stable chest radiography with no acute infiltrate or pleural effusion identified at this time. Mild cardiomegaly appears stable.
--- NOTE | 2017-03-22 16:16 | PN ---
DATE: 03/22/2017 SUBJECTIVE: The patient is seen and examined at bedside. She is withdrawing to painful stimuli. She is on pressure support 5/5 with FiO2 of 35%. She has tolerated an enteral feeds at 30 mL per hour. She is on Cardene drip. PHYSICAL EXAMINATION VITAL SIGNS: Blood pressure 151/103, heart rate 106, oxygen saturation 100%, end-tidal CO2 on the monitor 35. She is getting IV Tylenol and on cooling blankets and will be getting cold saline lavage through NG tube to bring core temperature down as soon as possible. The patient has EVD with ICP level setup at 10. Antibiotics were stopped by the ID service in light of negative blood cultures, low procalcitonin level, and lack of potential sources of infection-->fever and mild leukocytosis were attributed to acute [employer] pathology. Of note, fever is most likely of central origin. HEENT: Head and neck atraumatic. LUNGS: Clear to auscultation bilaterally. HEART: Regular rate and rhythm. S1 and S2 normal. ABDOMEN: Soft, nontender and nondistended. MUSCULOSKELETAL: No C/C/E. NEUROLOGIC: The patient is withdrawing to painful stimuli, otherwise not seen moving. SKIN: Moist. PSYCHIATRIC: The patient is not responsive. LABORATORY DATA: WBC 14.2, hemoglobin 11.5, platelet count 263. Sodium 146, potassium 3.3 (supplemented), chloride 106, carbon dioxide 28, BUN 17, creatinine 0.5, glucose 107. Total bilirubin 1.8, AST 65, ALT 38. Influenza negative. CSF glucose 30, CSF total protein 408. Blood gas 7.55/31/164 (will go down on FiO2). MEDICATIONS: DuoNeb p.r.n., Keppra, nicardipine, Protonix, potassium supplementation. ASSESSMENT AND PLAN: This is a 76-year-old lady who presented with thalamic intracranial bleed complicated by intraventricular extension and hydrocephalus, status post external ventricular drain placement, presently draining at 10. As per Neurology service, she appears to be withdrawing a little bit more; however, I do not see a big quantitative difference on exam from the one before EVD was placed 1. Neurology: The patient has EVD placed. We are aggressively combating fever with cold saline stomach lavage, IV Tylenol, and cold blankets. Fever most likely due to central origin. Negative septic workup and low procalcitonin level make infectious etiology much less likely, which prompted ID Service to stop antibiotics. We will maintain euglycemia and blood pressure 140 to 160 range systolic to maintain cerebral blood flow. 2. Pulmonary: We will continue with protective lung ventilation strategy to avoid ventilator induced lung injury. We will continue with head of bed elevated more than 30 degrees in neutral position. We will continue with oral hygiene, VAP bundle. Chest x-ray clear. 3. Cardiovascular: The patient is mildly hypertensive, which most likely attributed to ICH. The same goes for relative tachycardia. The patient is on Cardene drip to maintain blood pressure systolic between 140 to 160 area. 4. Gastrointestinal: The patient tolerates feeds well. GI prophylaxis. 5. Infectious Disease: Fever is likely of central origin and not related to an infection. 6. Renal: The patient's renal function is adequate. Good urine output. We will maintain mean arterial pressure more than 65 and we will try to avoid nephrotoxic medication. We will try to maintain euglycemia for additional nephroprotective effect. 7. Endocrine: We will maintain euglycemia for additional neuro and nephroprotective effect. We will continue to target euvolemia, euglycemia, normothermia, and oxygen saturation more than 90%. Head of bed elevated more than 30 degrees in neutral position. ccm time 40 min Rafael Gutierrez MD JUAN LUIS
--- NOTE | 2017-03-22 23:26 | PN ---
DATE: SUBJECTIVE: The patient is a 76-year-old, remains intubated, unresponsive, not sedated. PHYSICAL EXAMINATION VITAL SIGNS: She is afebrile. Pulse 87, respirations 18, blood pressure 142/89. LUNGS: Bilateral fair airflow. No rhonchi or crackles. HEART: S1 and S2 audible. ABDOMEN: Soft, nontender. No rebound. NEUROLOGIC: She is unresponsive. LABORATORY DATA: WBC is 14.2, hemoglobin is 11.5, hematocrit 34.9, platelets of 263. Chemistries: Sodium is 146, potassium 3.3, chloride 106, CO2 of 28, BUN 17, creatinine 0.5, blood sugar of 125. Blood culture and urine cultures are negative. ASSESSMENT: 1. Status post intracranial bleed, slight thalamic bleed. 2. Status post frontal ventriculostomy. 3. Chronic atrial fibrillation, was on Xarelto. 4. Respiratory failure. 5. Electrolyte imbalance. PLAN: Currently, the patient is on ventilator support. There is no improvement in her neurological status. She is being maintained on her tube feeding. Potassium was supplemented. We will follow up her electrolytes. Oly Major MD
[2017-03-23] MEDS: Nicardipine 20 MG/200 ML 20 MG/200 ML BAG IV PRN (05:32)
[2017-03-23 05:59] LABS: HEMOGLOBIN 11.4 g/dL (12.0-16.0); MEAN CELL VOLUME 66.2 fl (80.0-105.0); MEAN CORPUSCULAR HEMOGLOBIN 22.1 pg (25.0-35.0); MEAN CORPUSCULAR HGB CONC 33.4 g/dl (31.0-37.0); PLATELET COUNT 231 10^3/uL (120.0-450.0); RBC 5.15 10^6/uL (3.5-6.1); RED CELL DISTRIBUTION WIDTH 15.6 % (11.5-14.5); WHITE BLOOD COUNT 10.1 10^3/ul (4.5-11.0)
[2017-03-23 06:25] LABS: ALB/GLOB RATIO 0.9 (1.1-1.8); ALBUMIN 3.2 g/dL (3.0-4.8); ALT/SGPT 51 U/L (7-56); AST/SGOT 77 U/L (14-36); BLOOD UREA NITROGEN 21 mg/dL (7-21); CALCIUM 9.3 mg/dL (8.4-10.5); GFR AFRICAN-AMERICAN > 60; GFR NON-AFRICAN AMERICAN > 60
[2017-03-23] MEDS ORDERED: Potassium Chloride 40 mEq/30 ml LIQ UD PO ONE (06:33)
[2017-03-23 07:08] LABS: ARTERIAL BLOOD GAS HCO3 26.9 mmol/L (21-28); ARTERIAL BLOOD GAS HEMOGLOBIN 9.4 g/dL (11.7-17.4); ARTERIAL BLOOD GAS O2 CAPACITY 13.1 mL/dl (16-24); ARTERIAL BLOOD GAS O2 CONTENT 13.1 ML/dl (15-23); ARTERIAL BLOOD GAS O2 SAT 99.8 % (95-98); ARTERIAL BLOOD GAS PCO2 30 mm/Hg (35-45); ARTERIAL BLOOD GAS PH 7.56 (7.35-7.45); ARTERIAL BLOOD GAS TCO2 27.8 mmol.L (22-28)
--- NOTE | 2017-03-23 10:10 | RAD ---
HISTORY: Intubated. COMPARISON: Multiple serial examinations preceding the most recent study: March 22, 2017. Time of the most recent examination: 05:36 FINDINGS: LUNGS: No active pulmonary disease. PLEURA: No significant pleural effusion identified, no pneumothorax apparent. CARDIOVASCULAR: No radiographic findings to suggest acute or significant cardiovascular disease. OSSEOUS STRUCTURES: No significant abnormalities. VISUALIZED UPPER ABDOMEN: Normal. OTHER FINDINGS: Stable position of support apparatus including endotracheal tube and nasogastric tube. IMPRESSION: No significant interval change compared to the prior examination(s).
[2017-03-23] MEDS: levETIRAcetam 500mg IVPB 500 MG/100 ML BAG IV SCH ×2 (10:55→21:55)
--- NOTE | 2017-03-23 10:57 | CP.PCM.PN ---
Subjective - Date & Time of Evaluation Date of Evaluation: 03/23/17 Time of Evaluation: 07:30 - Subjective Subjective: Pt seen and examined, remains intubated, with minimal response. Objective - Vital Signs/Intake and Output Vital Signs (last 24 hours): Temp Pulse Resp BP Pulse Ox 96.8 F L 107 H 17 134/93 H 97 03/22/17 16:30 03/23/17 06:30 03/22/17 07:43 03/23/17 06:30 03/23/17 06:30 Intake and Output: 03/23/17 03/23/17 06:59 18:59 Intake Total 1010 20 Output Total 2825 Balance -1815 20 - Medications Medications: Current Medications Albuterol/Ipratropium (Duoneb 3 Mg/0.5 Mg (3 Ml) Ud) 3 ml IH Q2H PRN PRN Reason: Shortness of Breath Last Admin: 03/22/17 13:30 Dose: 3 ml Levetiracetam (Keppra 500mg Ivpb) 500 mg in 100 mls @ 400 mls/hr IV Q12 [facility] Last Admin: 03/22/17 22:30 Dose: 400 mls/hr Nicardipine HCl (Cardene Iv Premix) 20 mg in 200 mls @ 50 mls/hr IV .Q4H PRN; Protocol; 5 MG/HR PRN Reason: TITRATE PER MD ORDER Last Titration: 03/23/17 08:14 Dose: 1.5 mg/hr, 15 mls/hr Acetaminophen (Ofirmev) 1,000 mg in 100 mls @ 400 mls/hr IVPB Q6H PRN PRN Reason: T>99 Stop: 03/24/17 13:13 Last Admin: 03/23/17 05:34 Dose: 400 mls/hr Potassium Chloride (Potassium Chloride 10 Meq/100 Ml) 10 meq in 100 mls @ 50 mls/hr IVPB ONCE ONE Stop: 03/23/17 12:18 Pantoprazole Sodium (Protonix Inj) 40 mg IVP DAILY [facility] Last Admin: 03/22/17 10:38 Dose: 40 mg - Labs Labs: 03/23/17 05:00 03/23/17 05:00 PT 14.0 SECONDS (9.4-12.5) H 02/07/18 13:50 INR 1.21 (0.93-1.08) H 03/20/17 13:50 APTT 27.1 Seconds (25.1-36.5) 03/20/17 13:50 - Constitutional Appears: Non-toxic, No Acute Distress - ENT Exam ENT Exam: Mucous Membranes Moist - Respiratory Exam Respiratory Exam: Clear to Ausculation Bilateral, NORMAL BREATHING PATTERN - Cardiovascular Exam Cardiovascular Exam: REGULAR RHYTHM, +S1, +S2 - GI/Abdominal Exam GI & Abdominal Exam: Soft, Normal Bowel Sounds - Extremities Exam Extremities Exam: Pedal Edema Assessment and Plan - Assessment and Plan (Free Text) Assessment: 76yo female PMHx Afib on Xarelto, Asthma and COPD, Intracranial bleed, presented with L thalamic ICH, intubated off sedation found to have Intraventricular bleed with increasing hydrocephalus s/p EVD placement by neurosurgery. Currently afebrile, HD stable, comfortable in NAD. neurology and Neurosurgery following. BP controlled on Cardene drip, EVD in place. Hx Afib on A/C HTN ICH, L thalamic Recommend: - cont with ventilaotry support, ABG acceptable - follow up cultures, procal, monitor off antibiotics - BP control goal SBP <140, currently on Cardene drip - Keppra for seizure ppx - follow up neurology, neurosurgery - monitor electrolytes - neuro checks - FS control - maintain euthermia - hold A/C - Hold HSQ - GI ppx, PPI - DVT ppx, SCDs - poor prognosis critical care time 40 minutes
[2017-03-23] MEDS: Albuterol-Ipratrop 3 mg / 0.5 (3 ml) UD IH PRN (13:36)
--- NOTE | 2017-03-23 19:44 | PN ---
DATE: 03/23/2017 SUBJECTIVE: The patient is in bed, in no acute distress, nontoxic, was seen earlier today in [facility], bed 4. PHYSICAL EXAMINATION: VITAL SIGNS: The patient is intubated on a ventilator, unresponsive with a temperature of 96, blood pressure is 150/90, respiratory rate on the vent, heart rate of 109. HEENT: Unremarkable. NECK: Supple. LUNGS: Have decreased breath sounds. HEART: Normal S1, S2. ABDOMEN: Soft, nontender. LABORATORY DATA: Reveals a white count of 10,000, hemoglobin of 11, platelets of 231. BUN of 21, creatinine of 0.4. Urinalysis is noted. CSF protein is 408. Influenza is negative. Blood cultures are negative. Urine cultures are negative. No MRSA is detected. Review of the orders reveals the patient's medications are reviewed, off of antibiotics. ASSESSMENT AND PLAN: A 76-year-old female with systemic inflammatory response syndrome with acute hemorrhagic thalamic cerebrovascular accident, ventilatory dependent respiratory failure from the cerebrovascular accident. No hydrocephalus. No evidence of infection at this point. The patient initially received vancomycin and cefepime when the cultures were negative and the patient is at risk for developing nosocomial infection. Brennan Amador MD
--- NOTE | 2017-03-23 20:42 | PN ---
DATE: SUBJECTIVE: Patient is 76-year-old, remains intubated, minimally responsive, withdrawn and upgoing Babinski. Family by the bedside have multiple questions, all answered. PHYSICAL EXAMINATION: VITAL SIGNS: She has temperature of 99.6, pulse 108, respirations 20, blood pressure 153/97. LUNGS: Bilateral fair air flow. No rhonchi or crackle. HEART: S1, S2, audible. ABDOMEN: Soft, nontender. EXTREMITIES: Bilateral leg, no edema. LABORATORY DATA: WBC is 10.1, hemoglobin 11.4, hematocrit 34, platelet 231. Chemistry: Sodium 146, potassium 2.7, chloride 105, CO2 30, BUN 21, creatinine 0.4. Blood sugar of 124. X-ray of chest was done at bedside, with no interval significant findings. ASSESSMENT AND PLAN: 1. Status post intracranial bleed secondary to Xarelto. 2. Respiratory failure. 3. History of chronic atrial fibrillation. 4. Status post frontal ventriculostomy. 5. Hypokalemia. PLAN: I discussed with the family by the bedside son and the . Overall prognosis and patient's future response is unpredictable. She is going to need the tracheostomy and PEG tube insertion. They are agreeable. I will request Dr. Long to evaluate for PEG placement and Dr. Espino for tracheostomy in case of tube feeding and we will discuss with Dr. Steinberg, if we need to have CT scan done to see any improvement after she has a ventriculostomy done. Oly Major MD
[2017-03-24] MEDS: Nicardipine 20 MG/200 ML 20 MG/200 ML BAG IV PRN ×3 (01:12→16:46)
[2017-03-24 04:53] LABS: ARTERIAL BLOOD GAS HCO3 26.5 mmol/L (21-28); ARTERIAL BLOOD GAS HEMOGLOBIN 11.7 g/dL (11.7-17.4); ARTERIAL BLOOD GAS O2 CAPACITY 15.9 mL/dl (16-24); ARTERIAL BLOOD GAS O2 CONTENT 15.7 ML/dl (15-23); ARTERIAL BLOOD GAS O2 SAT 98.7 % (95-98); ARTERIAL BLOOD GAS PCO2 31 mm/Hg (35-45); ARTERIAL BLOOD GAS PH 7.54 (7.35-7.45); ARTERIAL BLOOD GAS TCO2 27.5 mmol.L (22-28)
[2017-03-24 05:50] LABS: HEMOGLOBIN 11.2 g/dL (12.0-16.0); MEAN CELL VOLUME 66.5 fl (80.0-105.0); MEAN CORPUSCULAR HGB CONC 33.1 g/dl (31.0-37.0); PLATELET COUNT 296 10^3/uL (120.0-450.0); RBC 5.08 10^6/uL (3.5-6.1); RED CELL DISTRIBUTION WIDTH 15.5 % (11.5-14.5); WHITE BLOOD COUNT 11.6 10^3/ul (4.5-11.0)
[2017-03-24 05:57] LABS: ALB/GLOB RATIO 0.9 (1.1-1.8); ALBUMIN 3.5 g/dL (3.0-4.8); ALT/SGPT 58 U/L (7-56); AST/SGOT 91 U/L (14-36); BLOOD UREA NITROGEN 21 mg/dL (7-21); CALCIUM 9.5 mg/dL (8.4-10.5); GFR AFRICAN-AMERICAN > 60; GFR NON-AFRICAN AMERICAN > 60
[2017-03-24] MEDS: Albuterol-Ipratrop 3 mg / 0.5 (3 ml) UD IH PRN ×2 (08:02→13:13)
[2017-03-24] MEDS ORDERED: Potassium Chloride 40 mEq/30 ml LIQ UD PO ONE (09:21)
--- NOTE | 2017-03-24 09:27 | CP.PCM.PN ---
Subjective - Date & Time of Evaluation Date of Evaluation: 03/24/17 Time of Evaluation: 07:30 - Subjective Subjective: Pt seen and examined, remains intubated, with minimal response. EVD in place. Objective - Vital Signs/Intake and Output Vital Signs (last 24 hours): Temp Pulse Resp BP Pulse Ox 96.8 F L 113 H 17 121/75 99 03/22/17 16:30 03/24/17 08:51 03/22/17 07:43 03/24/17 08:51 03/24/17 08:51 Intake and Output: 03/24/17 03/24/17 06:59 18:59 Intake Total 1115 170 Output Total 1311 Balance -196 170 - Medications Medications: Current Medications Albuterol/Ipratropium (Duoneb 3 Mg/0.5 Mg (3 Ml) Ud) 3 ml IH Q2H PRN PRN Reason: Shortness of Breath Last Admin: 03/24/17 08:02 Dose: 3 ml Levetiracetam (Keppra 500mg Ivpb) 500 mg in 100 mls @ 400 mls/hr IV Q12 SANJANA Last Admin: 03/23/17 21:55 Dose: 400 mls/hr Nicardipine HCl (Cardene Iv Premix) 20 mg in 200 mls @ 50 mls/hr IV .Q4H PRN; Protocol; 5 MG/HR PRN Reason: TITRATE PER MD ORDER Last Admin: 03/24/17 07:32 Dose: 4 mg/hr, 40 mls/hr Acetaminophen (Ofirmev) 1,000 mg in 100 mls @ 400 mls/hr IVPB Q6H PRN PRN Reason: T>99 Stop: 03/24/17 13:13 Last Admin: 03/23/17 19:46 Dose: 400 mls/hr Pantoprazole Sodium (Protonix Inj) 40 mg IVP DAILY SANJANA Last Admin: 03/23/17 10:57 Dose: 40 mg - Labs Labs: 03/24/17 05:00 03/24/17 05:00 PT 14.0 SECONDS (9.4-12.5) H 03/20/17 13:50 INR 1.21 (0.93-1.08) H 03/20/17 13:50 APTT 27.1 Seconds (25.1-36.5) 03/20/17 13:50 - Constitutional Appears: Non-toxic, No Acute Distress - ENT Exam ENT Exam: Mucous Membranes Moist - Respiratory Exam Respiratory Exam: Clear to Ausculation Bilateral, NORMAL BREATHING PATTERN - Cardiovascular Exam Cardiovascular Exam: REGULAR RHYTHM, +S1, +S2 - GI/Abdominal Exam GI & Abdominal Exam: Soft, Normal Bowel Sounds - Extremities Exam Extremities Exam: Normal Inspection - Neurological Exam Neurological Exam: Altered Assessment and Plan - Assessment and Plan (Free Text) Assessment: 76yo female PMHx Afib on Xarelto, Asthma and COPD, Intracranial bleed, presented with L thalamic ICH, intubated off sedation found to have Intraventricular bleed with increasing hydrocephalus s/p EVD placement by neurosurgery. Currently afebrile, HD stable, comfortable in NAD Neurology and Neurosurgery following. BP controlled on Cardene drip, EVD in place. Off antibiotics, has been afebrile, Procal negative, cultures negative. Hx Afib on A/C HTN ICH, L thalamic Recommend: - cont with ventilaotry support, ABG acceptable, CXR without focal consolidation - follow up cultures, monitor off antibiotics - BP control goal SBP <140, currently on Cardene drip - Keppra for seizure ppx - follow up neurology, neurosurgery, may need ALLEY CLEANER shunt - monitor electrolytes, replete K - neuro checks - FS control - maintain euthermia - hold A/C - Hold HSQ - GI ppx, PPI - DVT ppx, SCDs - poor prognosis
[2017-03-24] MEDS: levETIRAcetam 500mg IVPB 500 MG/100 ML BAG IV SCH ×2 (10:13→21:23)
--- NOTE | 2017-03-24 10:53 | RAD ---
HISTORY: Intubated. COMPARISON: Multiple serial examinations preceding the most recent study: March 23, 2017. 05:12. Time of the most recent examination: FINDINGS: LUNGS: No active pulmonary disease. PLEURA: No significant pleural effusion identified, no pneumothorax apparent. CARDIOVASCULAR: No radiographic findings to suggest acute or significant cardiovascular disease. OSSEOUS STRUCTURES: No significant abnormalities. VISUALIZED UPPER ABDOMEN: Normal. OTHER FINDINGS: Stable, satisfactory position ventilatory, vascular and nasogastric apparatus. IMPRESSION: No significant interval change compared to the prior examination(s).
--- NOTE | 2017-03-24 17:29 | PN ---
DATE: 03/24/2017 SUBJECTIVE: The patient is seen earlier this morning in CCU 129, bed 4. She remains intubated on a ventilator and poor condition. OBJECTIVE: VITAL SIGNS: Temperature of 96.8, blood pressure is 140/90, respiratory rate on the vent, heart rate of 109. HEENT: ET tube is in place. NECK: Supple. LUNGS: Have decreased breath sounds. HEART: Normal S1, S2. ABDOMEN: Soft, nontender. LABORATORY EXAMINATION: Reveals a white count of 11,600, hemoglobin of 11, and platelets of 296. Chemistries reveal a BUN of 21, creatinine of 0.4. LFTs are elevated. Procalcitonin is 0.08 and 0.13. Urinalysis is noted. Influenza was negative. Microbiology reveals the blood cultures no growth, urine cultures no growth. Review of orders reveals the patient to be off antibiotics. Chest x-ray from this morning read by Dr. Tristan Howe, no active disease. ASSESSMENT AND PLAN: This is a 76-year-old female seen earlier in the CCU 129, bed 2 with systemic inflammatory response syndrome with acute hemorrhagic thalamic cerebrovascular accident, ventilator-dependent respiratory failure secondary to the cerebrovascular accident. Currently, no evidence of infection and cultures negative. However, the patient is at very high risk of developing nosocomial infections. We will follow with you. Brennan Amador MD
--- NOTE | 2017-03-24 23:48 | CON ---
EAR NOSE AND THROAT CONSULTATION DATE: 03/24/2017 REQUESTING PHYSICIAN: [facility] ICU. REASON FOR CONSULTATION: Ventilatory-dependant respiratory failure, evaluation for tracheostomy. HISTORY OF PRESENT ILLNESS: Patient is a 76-year-old female with past medical significant for atrial fibrillation, previously on Xarelto, asthma, and COPD, who was admitted to [facility] on 03/17/2017, found to have an intracranial, intraventricular bleed. She was subsequently managed in the intensive care unit setting. She required neurosurgical intervention with EVD placement and has been remaining in the ICU under ventilator dependence for poor neurological and pulmonary status. She has been currently intubated for eight days with no likelihood of extubation in the near future. Otolaryngology Service was consulted for evaluation and treatment. History was obtained from chart review and discussion with nursing and intensive care unit staff. PAST MEDICAL HISTORY: As above. MEDICATIONS: Reviewed. ALLERGIES: NO KNOWN DRUG ALLERGIES. SOCIAL HISTORY: Unable to be obtained given the patient's status. REVIEW OF SYSTEMS: Unable to be obtained given the patient's status. PHYSICAL EXAMINATION: VITAL SIGNS: Temperature is 99.5, pulse is 111, blood pressure is 129/91, respiratory rate is 24, oxygen saturation 98%. She is currently on ventilator support with oxygen requirement of 30% and a PEEP of 5. GENERAL: Patient is an ill-appearing 76-year-old female. She is sedated in the ICU. HEENT: Head is atraumatic, normocephalic. Face is totally symmetrical. Ears: Auricles are unremarkable bilaterally. There is no mass or lesion noted. Nose: The nares are unremarkable. Oral cavity and oropharynx: Has an endotracheal tube in place. NECK: Patient has no obvious surgical scars. There is no crepitus in the neck. Trachea is midline. There is no collections. LABORATORY DATA: White count is 11.6, hemoglobin is 11.2, platelets are 296. Coagulation profile from 03/20/2017 is unremarkable. Radiographic studies: Patient had chest x-ray on 03/24/2017 revealing no significant interval change with no significant pleural effusion or pneumothorax. ASSESSMENT: Patient is a 76-year-old female who was admitted on 03/17/2017 with intracranial bleed requiring external ventricular drain placement with subsequent ventilator dependant respiratory failure secondary to poor pulmonary and neurologic status. PLAN: Plan will be to proceed for tracheostomy tube placement. Multiple attempts were made to call the , who is the primary decision maker, Beni Arreola, although these attempts to get him on telephone were unsuccessful, we would like to perform the tracheostomy tube tomorrow in the afternoon. We will make further attempts to reach out for clearance and consent. We will keep the patient n.p.o. at midnight, hold any anticoagulation in anticipation of possible tracheostomy tube placement tomorrow. The plan of care was discussed in detail with nursing staff as well as intensive care unit staff. Thank you for allowing us to participate in this patient's care. Lorenzo Gutierrez DO
--- NOTE | 2017-03-25 00:53 | PN ---
DATE: SUBJECTIVE: Unable to communicate with the patient because she is on a ventilator. PHYSICAL EXAMINATION: VITAL SIGNS: Temperature is 96.8, pulse of 110, blood pressure is 142/86, respirations 24. GENERAL: The patient is lying in bed, flat, comfortable. HEENT: No oral lesion. Anicteric sclerae. Moist mucosa. Positive for ETT. NECK: No JVD, adenopathy, or thyromegaly. CARDIOVASCULAR: S1 and S2, regular. No murmurs, rubs, or gallops. LUNGS: Clear to auscultation bilaterally. No wheeze, rales, or rhonchi. ABDOMEN: Bowel sounds are positive, soft, nontender and nondistended. EXTREMITIES: no cyanosis, clubbing or edema. LABORATORY DATA: White count of 11.6 and hemoglobin 11.2. Potassium 3.2. ASSESSMENT: 1. Intracranial bleed secondary to Xarelto. 2. Respiratory failure, on ventilator. 3. Chronic atrial fibrillation. 4. Status post frontal ventriculostomy. 5. Hypokalemia. PLAN: The patient remains critically ill. She is in the ICU. She is on Keppra for seizure prophylaxis. She is on Protonix daily. She is going to continue mechanically ventilated. She is being followed by Neurology and Neurosurgery. She is also being followed by Infectious Disease. We will repeat her blood work tomorrow. Overall prognosis is guarded. Joshua Almazan MD
[2017-03-25 05:47] LABS: ARTERIAL BLOOD GAS HCO3 25.4 mmol/L (21-28); ARTERIAL BLOOD GAS HEMOGLOBIN 10.6 g/dL (11.7-17.4); ARTERIAL BLOOD GAS O2 CAPACITY 14.5 mL/dl (16-24); ARTERIAL BLOOD GAS O2 CONTENT 14.3 ML/dl (15-23); ARTERIAL BLOOD GAS O2 SAT 98.4 % (95-98); ARTERIAL BLOOD GAS PCO2 29 mm/Hg (35-45); ARTERIAL BLOOD GAS PH 7.55 (7.35-7.45); ARTERIAL BLOOD GAS TCO2 26.3 mmol.L (22-28)
[2017-03-25] MEDS: Nicardipine 20 MG/200 ML 20 MG/200 ML BAG IV PRN ×2 (06:40→17:51)
[2017-03-25 07:21] LABS: MEAN CELL VOLUME 66.1 fl (80.0-105.0); MEAN CORPUSCULAR HEMOGLOBIN 22.1 pg (25.0-35.0); MEAN CORPUSCULAR HGB CONC 33.4 g/dl (31.0-37.0); RBC 4.98 10^6/uL (3.5-6.1); RED CELL DISTRIBUTION WIDTH 15.3 % (11.5-14.5); WHITE BLOOD COUNT 11.5 10^3/ul (4.5-11.0)
[2017-03-25 07:42] LABS: BLOOD UREA NITROGEN 25 mg/dL (7-21); CALCIUM 9.6 mg/dL (8.4-10.5); GFR AFRICAN-AMERICAN > 60; GFR NON-AFRICAN AMERICAN > 60
[2017-03-25 08:09] LABS: PLATELET COUNT 359 10^3/uL (120.0-450.0)
--- NOTE | 2017-03-25 08:39 | RAD ---
HISTORY: intubated COMPARISON: 03/24/2017 FINDINGS: Endotracheal tube terminates 2.2 cm proximal to the quinn. The nasogastric tube terminates in the stomach. LUNGS: The lungs are hyperinflated. No focal consolidation. PLEURA: No significant pleural effusion identified, no pneumothorax apparent. CARDIOVASCULAR: Stable mild cardiomegaly. OSSEOUS STRUCTURES: No significant abnormalities. VISUALIZED UPPER ABDOMEN: Normal. OTHER FINDINGS: None. IMPRESSION: Stable position of endotracheal and nasogastric tubes. No active pulmonary disease.
--- NOTE | 2017-03-25 08:44 | CP.PCM.PN ---
<Nixon Hein - Last Filed: 03/25/17 12:38> Subjective - Date & Time of Evaluation Date of Evaluation: 03/25/17 Time of Evaluation: 08:44 - Subjective Subjective: Nixon Hein PGY1 ICU Note for Dr. Reeder Patient was seen and examined in ICU. She remains minimally responsive. , Beni(#[phone]) is bedside and states that he and his children have discussed their wishes for the patient, however, they would like to speak to Dr. Steinberg before making any further decisions. Objective - Vital Signs/Intake and Output Vital Signs (last 24 hours): Temp Pulse Resp BP Pulse Ox 99.7 F H 115 H 28 H 157/101 H 94 L 03/25/17 04:00 03/25/17 04:31 03/25/17 04:00 03/25/17 04:31 03/25/17 04:31 Intake and Output: 03/25/17 03/25/17 06:59 18:59 Intake Total 480 Output Total 1135 Balance -655 - Medications Medications: Current Medications Albuterol/Ipratropium (Duoneb 3 Mg/0.5 Mg (3 Ml) Ud) 3 ml IH Q2H PRN PRN Reason: Shortness of Breath Last Admin: 03/24/17 13:13 Dose: 3 ml Levetiracetam (Keppra 500mg Ivpb) 500 mg in 100 mls @ 400 mls/hr IV Q12 SANJANA Last Admin: 03/24/17 21:23 Dose: 400 mls/hr Nicardipine HCl (Cardene Iv Premix) 20 mg in 200 mls @ 50 mls/hr IV .Q4H PRN; Protocol; 5 MG/HR PRN Reason: TITRATE PER MD ORDER Last Admin: 03/25/17 06:40 Dose: 1.5 mg/hr, 15 mls/hr Pantoprazole Sodium (Protonix Inj) 40 mg IVP DAILY SANJANA Last Admin: 03/24/17 10:13 Dose: 40 mg - Labs Labs: 03/25/17 05:30 03/25/17 05:30 PT 14.0 SECONDS (9.4-12.5) H 03/20/17 13:50 INR 1.21 (0.93-1.08) H 03/20/17 13:50 APTT 27.1 Seconds (25.1-36.5) 03/20/17 13:50 - Constitutional Appears: Well, Non-toxic, No Acute Distress, Cachectic - Head Exam Head Exam: NORMAL INSPECTION Additional comments: drain in place - Eye Exam Eye Exam: Normal appearance - ENT Exam ENT Exam: Mucous Membranes Moist Additional comments: intubated, on vent - Neck Exam Neck Exam: Normal Inspection - Respiratory Exam Respiratory Exam: NORMAL BREATHING PATTERN. absent: Rales, Rhonchi, Wheezes Additional comments: remains intubated - Cardiovascular Exam Cardiovascular Exam: RRR, +S1, +S2 - GI/Abdominal Exam GI & Abdominal Exam: Soft. absent: Distended, Tenderness - Exam Additional comments: perez in place - Extremities Exam Additional comments: decerebrate posturing - Back Exam Back Exam: NORMAL INSPECTION - Neurological Exam Neurological Exam: Altered Additional comments: not arousable - Psychiatric Exam Psychiatric exam: Normal Affect, Normal Mood - Skin Skin Exam: Normal Color, Warm Assessment and Plan - Assessment and Plan (Free Text) Assessment: 76yo past medical history of intracerebral hemorrhage (8yrs ago), a.fib (was on Xeralto), asthma and COPD admitted for L thalamic bleed with intraventricular extension seen on head CT s/p ventriculostomy. Plan: Neuro: Intubated, not on sedation ICH w/ L thalamic bleed with intraventricular extension s/p Kcentra and mannitol and ventriculostomy Neurosurgery consulted-recs appreciated Neuro consulted- recs appreciated CSF culture pending Continue Keppra IV, seizure precaution Maintain normothermia with cooling blanket and IV tylenol - will do NGT lavage with cold water to lower temp (goal <99F) Aspiration and seizure precautions Cardio: Hx of Afib, but in NSR Placed back on Cardene drip to Maintain SBP 130-140s, DBP 70-80s Cardio consulted- recs appreciated Hold anticoagulants for ICH Maintain MAP> 65 mmHg Pulm: Intubated PRVC, daily PS as tolerated Maintain SpO2>90% Continue lung protective ventilation strategy, HOB elevate 45 degrees GI: Continue tube feeds Nephro: Hypokalemia Will continue to monitor electrolytes and replace as needed Heme/Onc: Hgb stable- No overt bleeding, Head CT showed stable bleed No anticoagulation ID: Leukocytosis improved Procalcitonin 0.08 down from 0.13 CSF culture pending, Glucose decreased at 30, Protein elevated at 408 Septic work up negative thus far ID consulted As per ID, patient's leukocytosis and fever and be secondary to ICH No abx on board per ID Endo: Maintain euglycemia (140s-180s) Diet: OG tube feedings (Jevity 1.2) GI ppx: protonix DVT ppx: SCDs Dispo: prognosis guarded. Palliative care consulted. Family will discuss wishes with Dr. Steinberg. Trach/PEG will be planned then will discuss terminal computer operator placement. Patient was seen, examined and discussed with attending, Dr. Lilli Hein PGY1 Pager # [phone] <Paul Reeder - Last Filed: 03/25/17 13:01> Objective - Vital Signs/Intake and Output Vital Signs (last 24 hours): Temp Pulse Resp BP Pulse Ox 99.7 F H 110 H 28 H 142/99 H 100 03/25/17 12:00 03/25/17 12:30 03/25/17 04:00 03/25/17 12:30 03/25/17 12:30 Intake and Output: 03/25/17 03/25/17 06:59 18:59 Intake Total 480 Output Total 1135 Balance -655 - Medications Medications: Current Medications Albuterol/Ipratropium (Duoneb 3 Mg/0.5 Mg (3 Ml) Ud) 3 ml IH Q2H PRN PRN Reason: Shortness of Breath Last Admin: 03/24/17 13:13 Dose: 3 ml Levetiracetam (Keppra 500mg Ivpb) 500 mg in 100 mls @ 400 mls/hr IV Q12 SANJANA Last Admin: 03/25/17 09:34 Dose: 400 mls/hr Nicardipine HCl (Cardene Iv Premix) 20 mg in 200 mls @ 50 mls/hr IV .Q4H PRN; Protocol; 5 MG/HR PRN Reason: TITRATE PER MD ORDER Last Admin: 03/25/17 06:40 Dose: 1.5 mg/hr, 15 mls/hr Pantoprazole Sodium (Protonix Inj) 40 mg IVP DAILY [facility] Last Admin: 03/25/17 09:32 Dose: 40 mg - Labs Labs: 03/25/17 05:30 02/12/18 05:30 PT 14.0 SECONDS (9.4-12.5) H 03/20/17 13:50 INR 1.21 (0.93-1.08) H 03/20/17 13:50 APTT 27.1 Seconds (25.1-36.5) 03/20/17 13:50 Assessment and Plan - Assessment and Plan (Free Text) Assessment: Pt seen and examined, with resident on rounds, agree with note with following additions/exceptions: 76yo female PMHx Afib on Xarelto, Asthma and COPD, Intracranial bleed, presented with L thalamic ICH, intubated off sedation found to have Intraventricular bleed with increasing hydrocephalus s/p EVD placement by neurosurgery. Currently afebrile, HD stable, comfortable in NAD Neurology and Neurosurgery following. BP controlled off Cardene drip, EVD in place. Off antibiotics, has been afebrile, Procal negative, cultures negative. Hx Afib on A/C HTN ICH, L thalamic Recommend: - cont with ventilatory support, ABG acceptable, CXR without focal consolidation - follow up cultures, monitor off antibiotics - BP control goal SBP <140, currently off Cardene drip - Keppra for seizure ppx - follow up neurology, neurosurgery, may need WILDLIFE CONTROL AGENT shunt - monitor electrolytes - neuro checks - FS control - maintain euthermia - hold A/C - Hold HSQ - GI ppx, PPI - DVT ppx, SCDs - poor prognosis
[2017-03-25] MEDS: levETIRAcetam 500mg IVPB 500 MG/100 ML BAG IV SCH ×2 (09:34→21:54)
--- NOTE | 2017-03-25 09:49 | CON ---
DATE:03/24/2017 REASON FOR CONSULTATION: Feeding tube placement. HISTORY OF PRESENT ILLNESS: This is a 76-year-old patient with past medical history of paroxysmal atrial fibrillation, on Xarelto, admitted with intracerebral bleed, status post ventriculostomy. The patient is on vent. GI career development consultant requested to evaluate for the feeding tube placement. Other past medical history significant for hypertension, dyslipidemia, COPD, history of weight loss. The patient had an extensive GI workup done in the past. SOCIAL HISTORY: She is an ex-smoker, history of alcohol use before. REVIEW OF SYSTEMS: As per the chart, limited. PHYSICAL EXAMINATION VITAL SIGNS: Temperature is 98.8, blood pressure 151/90, respirations 24. O2 saturation is 95%. GENERAL: The patient is on vent, not responsive. HEENT: Anicteric, ventricular shunt present. Pupils equal. NECK: Supple. HEART: S1 and S2 heard. LUNGS: Bilateral air entry present. ABDOMEN: Soft. There is no tenderness. EXTREMITIES: No cyanosis. No clubbing. LABORATORY DATA: Hemoglobin 11.2, hematocrit 33.8, WBC 11.6, platelets 296,000. Chemistries: Her total bilirubin is 1.5, AST 91, ALT 58. IMPRESSION AND PLAN: This is a 76-year-old patient, status post right frontal ventriculostomy, on vent, for feeding tube placement and also tracheostomy. The history of other comorbidities include status post cerebrovascular accident and chronic obstructive pulmonary disease. We will discuss with the neurologist and also with the family prior to scheduling for the procedure. Planned for tracheostomy. We will also coordinate with the surgical team. Thank you very much for allowing us to participate in the care of the patient. Wilton Long MD JUAN LUIS
[2017-03-25] MEDS ORDERED: Potassium Chloride 20 mEq ER Tab PO STA (13:22)
[2017-03-25] MEDS: Albuterol-Ipratrop 3 mg / 0.5 (3 ml) UD IH PRN (13:45)
[2017-03-25] MEDS ORDERED: Potassium Chloride 40 mEq/30 ml LIQ UD PO ONE (13:52)
[2017-03-25] MEDS ORDERED: Lidocaine 1% w Epi 1:100,000 Inj ONE (14:29)
--- NOTE | 2017-03-25 15:11 | PN ---
DATE: 03/25/2017 NEUROLOGY FOLLOWUP CHIEF COMPLAINT: Status post left thalamic hemorrhage with intraventricular extension, status post hydrocephalus, status post EVD. SUBJECTIVE: The patient is seen and examined at bedside. Talked to the , Beni at bedside and talked to him in further detail regards that the patient would likely need a tracheostomy and PEG tube placement in the long-term care. Patient has a positive gag and moves her lower extremities much more. Withdraws to localized deep noxious stimulus. No acute events overnight. PAST MEDICAL HISTORY: History of intracerebral hemorrhage 8 years ago; AFib, on Xarelto; asthma; COPD. FAMILY HISTORY: Noncontributory. ALLERGIES: NO KNOWN DRUG ALLERGIES. SOCIAL HISTORY: No illicit drug use, smoking, or EtOH abuse. REVIEW OF SYSTEMS: A 14-point review of systems is negative except as per HPI. LABORATORY DATA: Sodium 147, potassium 3.2, chloride 107, carbon dioxide 27. BUN 25, creatinine 0.4. Random glucose 120. PHYSICAL EXAMINATION VITAL SIGNS: Temperature 99.7, pulse rate of 109, blood pressure 142/99, respiratory rate by mechanical ventilation. GENERAL: The patient is intubated, on no sedation. HEENT: Atraumatic and normocephalic. PERRLA. NECK: Supple. No JVD. No adenopathy noted. LUNGS: Clear to auscultation. No adventitious sounds. Intubated. HEART: S1 and S2, mildly tachycardic, but normal rhythm. No murmurs. ABDOMEN: Soft, nontender, nondistended. Bowel sounds present. EXTREMITIES: No clubbing, no cyanosis. Peripheral pulses 2+ felt bilaterally. NEUROLOGIC: The patient is in intubated status. Cranial nerves II through XII intact. Positive gag. Positive corneal, Speech is difficult to assess at this time. Motor exam: Moves spontaneously lower extremities as well as the left upper extremity, but minimally, but no movement of the right upper extremity. Sensory exam: Withdraws to localized deep noxious stimulus. DTRs are 1+ throughout. Coordination and gait deferred for now. ASSESSMENT AND PLAN: This is a 76-year-old woman with past medical history of intracerebral hemorrhage 8 years ago; atrial fibrillation, on Xarelto; asthma; and chronic obstructive pulmonary disease; who came in for hypertensive urgency, patient found to be altered, found to have left thalamic bleed with intraventricular extension, status post hydrocephalus, status post ventriculostomy. Patient's left thalamic bleed was secondary to uncontrolled hypertension, superimposed on underlying anticoagulation usage of Xarelto. RECOMMENDATIONS: At this time, recommend: 1. Follow up with Neurosurgery's management in regards to the EVD for the hydrocephalus, which was the complication of the left thalamic bleed with intraventricular extension. 2. Patient is on Keppra 500 mg IV q. 12 for seizure precaution. 3. Continue normal thermal cooling blanket and IV Tylenol. 4. Currently, patient is in normal sinus rhythm and has history of AFib. We will keep the blood pressure between 130s to 140s systolic and diastolic 170s to 80s and hold anticoagulation for now. 5. Recommend to continue with the plan for tracheostomy and PEG tube placement. I talked to the , Beni in detail and patient will need long-term care. 6. Monitor electrolytes and correct accordingly. Once again, thank you for this followup. Remi Steinberg MD
--- NOTE | 2017-03-25 16:22 | CP.PCM.PN ---
Subjective - Date & Time of Evaluation Date of Evaluation: 03/25/17 Time of Evaluation: 09:00 - Subjective Subjective: Continues to be on the ventilator, not responsive, intermittent fevers. Objective - Vital Signs/Intake and Output Vital Signs (last 24 hours): Temp Pulse Resp BP Pulse Ox 99.8 F H 115 H 24 157/101 H 94 L 03/24/17 20:00 03/25/17 04:31 03/24/17 20:00 03/25/17 04:31 03/25/17 04:31 Intake and Output: 03/24/17 03/25/17 18:59 06:59 Intake Total 1390 200 Output Total 600 Balance 790 200 - Medications Medications: Current Medications Albuterol/Ipratropium (Duoneb 3 Mg/0.5 Mg (3 Ml) Ud) 3 ml IH Q2H PRN PRN Reason: Shortness of Breath Last Admin: 03/24/17 13:13 Dose: 3 ml Levetiracetam (Keppra 500mg Ivpb) 500 mg in 100 mls @ 400 mls/hr IV Q12 [facility]JANA Last Admin: 03/24/17 21:23 Dose: 400 mls/hr Nicardipine HCl (Cardene Iv Premix) 20 mg in 200 mls @ 50 mls/hr IV .Q4H PRN; Protocol; 5 MG/HR PRN Reason: TITRATE PER MD ORDER Last Admin: 03/25/17 06:40 Dose: 1.5 mg/hr, 15 mls/hr Pantoprazole Sodium (Protonix Inj) 40 mg IVP DAILY [facility] Last Admin: 03/24/17 10:13 Dose: 40 mg - Labs Labs: 03/24/17 05:00 03/24/17 05:00 PT 14.0 SECONDS (9.4-12.5) H 03/20/17 13:50 INR 1.21 (0.93-1.08) H 03/20/17 13:50 APTT 27.1 Seconds (25.1-36.5) 03/20/17 13:50 - Constitutional Appears: Non-toxic, Chronically Ill - Head Exam Head Exam: NORMAL INSPECTION - ENT Exam Additional comments: ET tube in place - Neck Exam Neck Exam: absent: Meningismus - Respiratory Exam Respiratory Exam: Decreased Breath Sounds - Cardiovascular Exam Cardiovascular Exam: +S1, +S2 - GI/Abdominal Exam GI & Abdominal Exam: Soft. absent: Tenderness Assessment and Plan - Assessment and Plan (Free Text) Plan: Assessment Systemic Inflammatory response syndrome with fevers, probably from acute hemorrhagic thalamic CVA, patient with ventilator-dependent respiratory failure from the CVA and hydrocephalus, no evidence of sepsis identified atrial fibrillation on anticoagulation asthma Plan continue to monitor off antibiotics since she is at risk for hospital-acquired infections overall prognosis is poor
[2017-03-25] MEDS ORDERED: Rocuronium 10 mg/ml (5 ml) ONE (16:38)
--- NOTE | 2017-03-25 21:06 | PN ---
DATE: SUBJECTIVE: The patient is 76 years old, seen and examined, remained intubated, not sedated, unresponsive. PHYSICAL EXAMINATION VITAL SIGNS: She is afebrile, pulse 109, respirations 18, blood pressure 147/89. LUNGS: Bilateral fair airflow. No rhonchi or crackle. HEART: S1 and S2 audible. ABDOMEN: Soft. Nontender. No rebound. No guarding. NEUROLOGIC: She is unresponsive. EXTREMITIES: Bilateral leg, no edema. LABORATORY EXAM: WBC 11.5, hemoglobin 11, hematocrit 32, platelet of 359. Chemistry: Sodium 147, potassium 3.2, chloride 107, CO2 of 27, BUN 25, creatinine 0.4, blood sugar of 112. ASSESSMENT: 1. Status post intracranial thalamic bleed. 2. Status post frontal ventriculostomy. 3. Chronic atrial fibrillation, off of anticoagulant. 4. Chronic obstructive pulmonary disease. PLAN: I had discussion with the patient's family. They okayed for tracheostomy. They are also agreeable for PEG placement that will be done by Dr. Long. Once the tracheostomy and PEG are in place, we might have to make a plan for LTAC. Oly Major MD
--- NOTE | 2017-03-25 22:24 | PN ---
DATE: 03/25/2017 SUBJECTIVE: This patient was seen and evaluated today. Patient is on vent. Patient's was at bedside. PHYSICAL EXAMINATION: GENERAL: Patient is on ventilation. VITAL SIGNS: Temperature 99.8, blood pressure 142/81, O2 saturation is 99%. HEENT: Patient has a ventriculostomy drain noticed in the frontal area. NECK: Supple. HEART: S1, S2 heard. LUNGS: Bilateral air entry present. ABDOMEN: Soft. No tenderness. EXTREMITIES: No cyanosis. No clubbing. LABORATORY DATA: WBC 11.1, hemoglobin 11, hematocrit 32.9, platelets 359. Chemistry ipotassium 3.2. IMPRESSION: This is a 76-year-old patient with paroxysmal atrial fibrillation, was on Xarelto, had an intracerebral bleed, on ventilator. Status post ventriculostomy. RECOMMENDATIONS: GI consult was requested for feeding tube placement. Patient is planned to have a tracheostomy today. Supplement potassium. Discussed with the patient's . Patient is scheduled for percutaneous endoscopic gastrostomy tube placement tomorrow. Discussed wuth patient's Thank you very much for allowing us to participate in the care of the patient. Wilton Long MD MTDD
[2017-03-26] MEDS: Nicardipine 20 MG/200 ML 20 MG/200 ML BAG IV PRN (06:30)
--- NOTE | 2017-03-26 07:03 | OP ---
PROCEDURE DATE: 03/25/2017 PREOPERATIVE DIAGNOSIS: Ventilator-dependent respiratory failure. POSTOPERATIVE DIAGNOSIS: Ventilator-dependent respiratory failure. PROCEDURE: Tracheostomy with inferior Lainey flap. SURGEON: Lorenzo Gutierrez DO FUR MIXER OPERATOR: Mirella Bella DO TYPE OF ANESTHESIA: General endotracheal. ANESTHESIA ADMINISTERED BY: Dr. Ely. ESTIMATED BLOOD LOSS: 5 mL. . COMPLICATIONS: None. FLUIDS: Crystalloid. CONDITION: Stable. PROCEDURE IN DETAIL: This is a 76-year-old female, who was admitted to [facility] after suffering an intracranial hemorrhage. The patient was previously on Xarelto for atrial fibrillation. She was subsequently managed in the Intensive Care Unit and required neurosurgical intervention and an drain placement. She has remained in ICU under ventilator dependence for poor neurological and pulmonary status. She has been intubated for 9-10 days now and has been unable to come off the ventilator. For this reason, she is coming to the operating room today for tracheostomy. Risks and benefits of the procedure, including, but not limited to bleeding, infection, scarring, pain, loss of airway, potential damage to the airway, and damage to the lungs as well as were discussed with the family. They understood the risks and wished to proceed and informed consent was signed. Afterwards, the patient was brought into the operating room and placed supine on the operating room table. General anesthesia was induced and a time-out was called, confirming the patient. A shoulder roll was placed to extend the neck and then planned skin incision was marked on the neck. A 1% lidocaine with 1:100,000 epinephrine was injected along the planned incision. The patient was then prepped and draped in the sterile fashion. A horizontal incision was made using a 15 blade to the skin and dermis. Subcutaneous fat was divided using a blunt dissection and so the strap muscles were identified. The midline raphae was then identified and divided in a vertical fashion using Bovie. Then, Army-Sherwood was used to retract the strap muscles laterally until the thyroid and the trachea came into view. At this time, blunt dissection was used to further clear up some of the remaining tissue overlying the trachea using Kittner. Once the cricoid and tracheal rings were visualized, the planned incision was made between the first and second tracheal rings, and an 11 blade was used to make a horizontal incision to the rings, and then Metzenbaum scissors were used to further widen the incision laterally. Metzenbaum scissors were also used to make 2 incisions inferiorly to create a small tracheal flap, which was secured with 2-0 silk suture to the anterior chest wall. The tracheal opening was then dilated using a Trousseau dilator. At this point, a previously tested #6 cuff Shiley was passed as an obturator into the trachea, the obturator was then removed, and a soft suction catheter was used to confirm the placement of the tracheostomy within the trachea. The catheter was then removed and an inner cannula was placed. The tracheostomy was then hooked up to the anesthesia circuit and end-tidal CO2 was identified. Afterwards, tracheostomy apparatus was secured with four-cornered 2-0 silk sutures and a fast tracheostomy collar. At this point, care of the patient was turned back over to the Anesthesia Team, who brought her back to the Intensive Care Unit in stable condition. Dr. Lorenzo Gutierrez was present and scrubbed for the entirety of the procedure. Lorenzo Gutierrez DO
[2017-03-26] MEDS: Albuterol-Ipratrop 3 mg / 0.5 (3 ml) UD IH PRN ×2 (07:29→13:24)
[2017-03-26 07:39] LABS: HEMOGLOBIN 10.1 g/dL (12.0-16.0); MEAN CELL VOLUME 65.6 fl (80.0-105.0); MEAN CORPUSCULAR HEMOGLOBIN 22.1 pg (25.0-35.0); MEAN CORPUSCULAR HGB CONC 33.7 g/dl (31.0-37.0); PLATELET COUNT 369 10^3/uL (120.0-450.0); RBC 4.57 10^6/uL (3.5-6.1); RED CELL DISTRIBUTION WIDTH 15.1 % (11.5-14.5); WHITE BLOOD COUNT 9.5 10^3/ul (4.5-11.0)
[2017-03-26 07:53] LABS: INR 1.35 (0.93-1.08); PARTIAL THROMBOPLASTIN TIME 22.7 Seconds (25.1-36.5); PROTHROMBIN TIME 15.6 SECONDS (9.4-12.5)
--- NOTE | 2017-03-26 08:24 | RAD ---
HISTORY: s/p trach COMPARISON: 03/25/2014 FINDINGS: LUNGS: Pulmonary hyperinflation. Questionable infiltrate medial right lung base. PLEURA: No significant pleural effusion identified, no pneumothorax apparent. CARDIOVASCULAR: Normal heart size. Endotracheal tube exchanged for tracheostomy tube. Nasogastric tube removed. OSSEOUS STRUCTURES: No significant abnormalities. VISUALIZED UPPER ABDOMEN: Normal. OTHER FINDINGS: None. IMPRESSION: Questionable infiltrate at medial right lung base. Pulmonary hyperinflation. Endotracheal tube exchanged for tracheostomy tube.
--- NOTE | 2017-03-26 08:41 | RAD ---
HISTORY: intubated COMPARISON: 03/25/2017 FINDINGS: LUNGS: Pulmonary hyperinflation. No evidence pulmonary infiltrate. PLEURA: Minimal blunting of both costophrenic angles likely reflects chronic pleural thickening. CARDIOVASCULAR: Normal heart size. Tracheostomy tube. OSSEOUS STRUCTURES: No significant abnormalities. VISUALIZED UPPER ABDOMEN: Normal. OTHER FINDINGS: None. IMPRESSION: No active disease.
[2017-03-26 08:42] LABS: ALB/GLOB RATIO 0.9 (1.1-1.8); ALT/SGPT 75 U/L (7-56); AST/SGOT 89 U/L (14-36); BLOOD UREA NITROGEN 30 mg/dL (7-21); CALCIUM 9.4 mg/dL (8.4-10.5); GFR AFRICAN-AMERICAN > 60; GFR NON-AFRICAN AMERICAN > 60; MAGNESIUM 2.2 mg/dL (1.7-2.2)
[2017-03-26] MEDS ORDERED: Potassium Chloride 40 mEq/30 ml LIQ UD PO ONE (08:44)
[2017-03-26] MEDS: levETIRAcetam 500mg IVPB 500 MG/100 ML BAG IV SCH ×3 (08:45→21:13)
--- NOTE | 2017-03-26 10:40 | CP.CCUPN ---
<Angel LuisNixon - Last Filed: 03/26/17 10:29> CCU Subjective - Physician Review Subjective (Free Text): Nixon Hein PGY1 ICU Note for Dr. Reeder Patient was seen and examined in ICU. She remains minimally responsive. The family discussed their wishes with Dr. Steinberg yesterday. Patient also received tacheostomy yesterday. Patient had fever overnight, and cultures were sent, CXR is negative. CCU Objective - Vital Signs / Intake & Output Vital Signs (Last 4 hours): Vital Signs Temp Pulse Resp BP Pulse Ox 03/26/17 09:00 94 H 117/79 98 03/26/17 08:01 28 H 96 03/26/17 08:00 101.7 F H 112/75 03/26/17 07:59 99 H 96 03/26/17 07:00 111 H 109/58 L 97 Intake and Output (Last 8hrs): Intake & Output 03/25/17 03/26/17 03/26/17 22:59 06:59 14:59 Intake Total 380 480 Output Total 913 950 Balance -533 -470 Intake: IV 380 480 CARDINE 180 280 Output: Drainage 13 Right Head 13 Urine 900 950 Urethral (Perez) 900 950 - Physical Exam Head: Positive for: Normocephalic, Other (EVD drain in place) Pupils: Positive for: Non-Reactive Extroacular Muscles: Positive for: Other (unable to assess) Conjunctiva: Positive for: Normal Ears: Positive for: Normal Pharnyx: Positive for: Normal Nose (External): Positive for: Atraumatic Nose (Internal): Positive for: Normal Inspection Neck: Positive for: Trachea Midline, Other (s/p tracheostomy, on vent). Negative for: MIDLINE TENDERNESS Respiratory/Chest: Positive for: Clear to Auscultation, Good Air Exchange, Other (on vent). Negative for: Respiratory Distress, Accessory Muscle Use, Wheezes Cardiovascular: Positive for: Regular Rate and Rhythm, Normal S1, S2. Negative for: Murmurs Abdomen: Positive for: Normal Bowel Sounds, Other (no OGT ). Negative for: Tenderness, Distention, Peritoneal Signs Genitourinary/Pelvic Exam: Positive for: Other (perez in place ) Back: Positive for: Normal Inspection Upper Extremity: Positive for: Normal Inspection, NORMAL PULSES, Capillary Refill < 2s. Negative for: Cyanosis, Edema Lower Extremity: Positive for: Normal Inspection, Other (SCDs in place). Negative for: Edema Neurological: Positive for: Other (GCS4t - pupils are sluggisg at 2mm b/l;+ babinski b/l, decerebrate posturing to pain). Negative for: GCS=15, CN II-XII Intact, Speech Normal Skin: Positive for: Warm, Dry, Normal Color. Negative for: Rashes Lymphatic: Positive for: OX3, NI, NC Psychiatric: Positive for: Other (altered). Negative for: Alert, Oriented x 3, Normal Insight, Normal Concentration - Medications Active Medications: Active Medications Generic Name Dose Route Start Last Admin Trade Name Freq PRN Reason Stop Dose Admin Albuterol/Ipratropium 3 ml 03/19/17 10:40 03/26/17 07:29 Duoneb 3 Mg/0.5 Mg (3 Ml) Ud IH 3 ml Q2H PRN Administration Shortness of Breath Levetiracetam 500 mg in 100 mls @ 400 mls/hr 03/17/17 22:00 03/26/17 08:45 Keppra 500mg Ivpb IV 400 mls/hr Q12 SANJANA Administration Nicardipine HCl 20 mg in 200 mls @ 50 mls/hr 03/19/17 15:00 03/26/17 06:30 Cardene Iv Premix IV 1.5 mg/hr .Q4H PRN 15 mls/hr TITRATE PER MD ORDER Administration Protocol 5 MG/HR Potassium Chloride 10 meq in 100 mls @ 50 mls/hr 03/26/17 08:44 03/26/17 09: 47 Potassium Chloride 10 Meq/100 Ml IVPB 03/26/17 10:43 50 mls/hr ONCE ONE Administration Potassium Chloride 10 meq in 100 mls @ 50 mls/hr 03/26/17 10:30 Potassium Chloride 10 Meq/100 Ml IVPB 03/26/17 18:29 Q2H SANJANA Pantoprazole Sodium 40 mg 03/18/17 10:00 03/26/17 08:45 Protonix Inj IVP 40 mg DAILY SANJANA Administration - Patient Studies Lab Studies: Lab Studies 03/26/17 03/26/17 03/26/17 Range/Units 07:00 07:00 07:00 WBC 9.5 (4.5-11.0) 10^3/ul RBC 4.57 (3.5-6.1) 10^6/uL Hgb 10.1 L (12.0-16.0) g/dL Hct 30.0 L (36.0-48.0) % MCV 65.6 L (80.0-105.0) fl MCH 22.1 L (25.0-35.0) pg MCHC 33.7 (31.0-37.0) g/dl RDW 15.1 H (11.5-14.5) % Plt Count 369 (120.0-450.0) 10^3/uL PT 15.6 H (9.4-12.5) SECONDS INR 1.35 H (0.93-1.08) APTT 22.7 L (25.1-36.5) Seconds Sodium 149 H (132-148) mmol/L Potassium 3.2 L (3.6-5.0) mmol/L Chloride 114 H (98-107) mmol/L Carbon Dioxide 23 (21-33) mmol/L Anion Gap 15 (10-20) BUN 30 H (7-21) mg/dL Creatinine 0.6 L (0.7-1.2) mg/dl Est GFR ( Amer) > 60 Est GFR (Non-Af Amer) > 60 POC Glucose (mg/dL) (65-110) mg/dL Random Glucose 131 H (70-110) mg/dL Calcium 9.4 (8.4-10.5) mg/dL Phosphorus 3.2 (2.5-4.5) mg/dL Magnesium 2.2 (1.7-2.2) mg/dL Total Bilirubin 1.4 H (0.2-1.3) mg/dL AST 89 H (14-36) U/L ALT 75 H (7-56) U/L Alkaline Phosphatase 101 (38-126) U/L Total Protein 6.6 (5.8-8.3) g/dL Albumin 3.0 (3.0-4.8) g/dL Globulin 3.5 gm/dL Albumin/Globulin Ratio 0.9 L (1.1-1.8) 03/25/17 03/25/17 03/25/17 Range/Units 21:34 15:55 11:03 WBC (4.5-11.0) 10^3/ul RBC (3.5-6.1) 10^6/uL Hgb (12.0-16.0) g/dL Hct (36.0-48.0) % MCV (80.0-105.0) fl MCH (25.0-35.0) pg MCHC (31.0-37.0) g/dl RDW (11.5-14.5) % Plt Count (120.0-450.0) 10^3/uL PT (9.4-12.5) SECONDS INR (0.93-1.08) APTT (25.1-36.5) Seconds Sodium (132-148) mmol/L Potassium (3.6-5.0) mmol/L Chloride (98-107) mmol/L Carbon Dioxide (21-33) mmol/L Anion Gap (10-20) BUN (7-21) mg/dL Creatinine (0.7-1.2) mg/dl Est GFR ( Amer) Est GFR (Non-Af Amer) POC Glucose (mg/dL) 113 H 121 H 112 H (65-110) mg/dL Random Glucose (70-110) mg/dL Calcium (8.4-10.5) mg/dL Phosphorus (2.5-4.5) mg/dL Magnesium (1.7-2.2) mg/dL Total Bilirubin (0.2-1.3) mg/dL AST (14-36) U/L ALT (7-56) U/L Alkaline Phosphatase (38-126) U/L Total Protein (5.8-8.3) g/dL Albumin (3.0-4.8) g/dL Globulin gm/dL Albumin/Globulin Ratio (1.1-1.8) 03/25/17 Range/Units 07:16 WBC (4.5-11.0) 10^3/ul RBC (3.5-6.1) 10^6/uL Hgb (12.0-16.0) g/dL Hct (36.0-48.0) % MCV (80.0-105.0) fl MCH (25.0-35.0) pg MCHC (31.0-37.0) g/dl RDW (11.5-14.5) % Plt Count (120.0-450.0) 10^3/uL PT (9.4-12.5) SECONDS INR (0.93-1.08) APTT (25.1-36.5) Seconds Sodium (132-148) mmol/L Potassium (3.6-5.0) mmol/L Chloride (98-107) mmol/L Carbon Dioxide (21-33) mmol/L Anion Gap (10-20) BUN (7-21) mg/dL Creatinine (0.7-1.2) mg/dl Est GFR ( Amer) Est GFR (Non-Af Amer) POC Glucose (mg/dL) 120 H (65-110) mg/dL Random Glucose (70-110) mg/dL Calcium (8.4-10.5) mg/dL Phosphorus (2.5-4.5) mg/dL Magnesium (1.7-2.2) mg/dL Total Bilirubin (0.2-1.3) mg/dL AST (14-36) U/L ALT (7-56) U/L Alkaline Phosphatase (38-126) U/L Total Protein (5.8-8.3) g/dL Albumin (3.0-4.8) g/dL Globulin gm/dL Albumin/Globulin Ratio (1.1-1.8) Laboratory Results - last 24 hr 03/25/17 03/25/17 03/25/17 07:16 11:03 15:55 WBC RBC Hgb Hct MCV MCH MCHC RDW Plt Count PT INR APTT Sodium Potassium Chloride Carbon Dioxide Anion Gap BUN Creatinine Est GFR ( Amer) Est GFR (Non-Af Amer) POC Glucose (mg/dL) 120 H 112 H 121 H Random Glucose Calcium Phosphorus Magnesium Total Bilirubin AST ALT Alkaline Phosphatase Total Protein Albumin Globulin Albumin/Globulin Ratio 03/25/17 03/26/17 03/26/17 21:34 07:00 07:00 WBC 9.5 RBC 4.57 Hgb 10.1 L Hct 30.0 L MCV 65.6 L MCH 22.1 L MCHC 33.7 RDW 15.1 H Plt Count 369 PT INR APTT Sodium 149 H Potassium 3.2 L Chloride 114 H Carbon Dioxide 23 Anion Gap 15 BUN 30 H Creatinine 0.6 L Est GFR ( Amer) > 60 Est GFR (Non-Af Amer) > 60 POC Glucose (mg/dL) 113 H Random Glucose 131 H Calcium 9.4 Phosphorus 3.2 Magnesium 2.2 Total Bilirubin 1.4 H AST 89 H ALT 75 H Alkaline Phosphatase 101 Total Protein 6.6 Albumin 3.0 Globulin 3.5 Albumin/Globulin Ratio 0.9 L 03/26/17 07:00 WBC RBC Hgb Hct MCV MCH MCHC RDW Plt Count PT 15.6 H INR 1.35 H APTT 22.7 L Sodium Potassium Chloride Carbon Dioxide Anion Gap BUN Creatinine Est GFR ( Amer) Est GFR (Non-Af Amer) POC Glucose (mg/dL) Random Glucose Calcium Phosphorus Magnesium Total Bilirubin AST ALT Alkaline Phosphatase Total Protein Albumin Globulin Albumin/Globulin Ratio Fingerstick Blood Sugar Results: 113 Review of Systems - Review of Systems Systems not reviewed;Unavailable: Intubated Critical Care Progress Note - Ventilator Checklist Head of Bed 30 Degrees: Yes Daily Sedation Vacation: Yes Daily Assessment of Readiness to Wean: Yes PUD Prophalyxis: Yes DVT Prophylaxis: Yes - Extremities/Vascular Does the Patient have a Perez Catheter?: Yes Does the Patient need a Perez Catheter?: Yes - Prophylaxis GI Prophylaxis GI: PPI - Prophylaxis DVT Prophylaxis DVT: SCDs Assessment/Plan - Assessment and Plan (Free Text) Assessment: 76yo past medical history of intracerebral hemorrhage (8yrs ago),A.fib (was on Xeralto), asthma and COPD admitted for L thalamic bleed with intraventricular extension seen on head CT s/p ventriculostomy. s/p tracheostomy POD 1. Plan: Neuro: - Intubated, not on sedation - ICH w/ L thalamic bleed with intraventricular extension s/p Kcentra and mannitol and ventriculostomy - monitor drainage from EVD - Neurosurgery consulted-recs appreciated - Neuro consulted- recs appreciated - Continue Keppra IV, seizure precaution - Maintain normothermia with cooling blanket and IV tylenol PRN - Aspiration and seizure precautions Cardio: - Hx of Afib, but in NSR - Placed back on Cardene drip to Maintain SBP 130-140s, DBP 70-80s - Cardio consulted- recs appreciated - Hold anticoagulants for ICH - Maintain MAP> 65 mmHg Pulm: - Intubated PRVC, daily PS as tolerated - Maintain SpO2>90% - Continue lung protective ventilation strategy, HOB elevate 45 degrees - CXR shows questionable medial right lung base infiltrate GI: - Continue tube feeds - patient for PEG tube placement today; OGT pulled yesterday in OR Nephro: - Hypokalemia, repleted - Will continue to monitor electrolytes and replace as needed Heme/Onc: - Hgb stable- No overt bleeding, Head CT showed stable bleed - No anticoagulation ID: - Leukocytosis improved - Procalcitonin 0.08 down from 0.13 - CSF culture pending, Glucose decreased at 30, Protein elevated at 408 - Septic work up negative thus far - ID consulted - As per ID, patient's leukocytosis and fever and be secondary to ICH - No abx on board per ID Endo: - Maintain euglycemia (140s-180s) Diet: OG tube feedings (Jevity 1.2) pending PEG tube placemetn GI ppx: protonix DVT ppx: SCDs Dispo: prognosis guarded. Palliative care consulted. Family will discuss wishes with Dr. Steinberg. Trach/PEG will be planned then will discuss termite helper placement. Patient was seen, examined and discussed with attending, Dr. Lilli Hein PGY1 Pager # [phone] <Paul Reeder - Last Filed: 03/26/17 11:11> CCU Objective - Vital Signs / Intake & Output Vital Signs (Last 4 hours): Vital Signs Temp Pulse Resp BP Pulse Ox 03/26/17 10:00 125/80 03/26/17 09:59 92 H 95 03/26/17 09:00 94 H 117/79 98 03/26/17 08:01 28 H 96 03/26/17 08:00 101.7 F H 112/75 03/26/17 07:59 99 H 96 Intake and Output (Last 8hrs): Intake & Output 03/25/17 03/26/17 03/26/17 22:59 06:59 14:59 Intake Total 380 480 Output Total 913 950 Balance -533 -470 Intake: IV 380 480 CARDINE 180 280 Output: Drainage 13 Right Head 13 Urine 900 950 Urethral (Perez) 900 950 - Medications Active Medications: Active Medications Generic Name Dose Route Start Last Admin Trade Name Freq PRN Reason Stop Dose Admin Albuterol/Ipratropium 3 ml 03/19/17 10:40 03/26/17 07:29 Duoneb 3 Mg/0.5 Mg (3 Ml) Ud IH 3 ml Q2H PRN Administration Shortness of Breath Levetiracetam 500 mg in 100 mls @ 400 mls/hr 03/17/17 22:00 03/26/17 08:45 Keppra 500mg Ivpb IV 400 mls/hr Q12 SANJANA Administration Nicardipine HCl 20 mg in 200 mls @ 50 mls/hr 03/19/17 15:00 03/26/17 06:30 Cardene Iv Premix IV 1.5 mg/hr .Q4H PRN 15 mls/hr TITRATE PER MD ORDER Administration Protocol 5 MG/HR Potassium Chloride 10 meq in 100 mls @ 50 mls/hr 03/26/17 10:30 Potassium Chloride 10 Meq/100 Ml IVPB 03/26/17 18:29 Q2H SANJANA Pantoprazole Sodium 40 mg 03/18/17 10:00 03/26/17 08:45 Protonix Inj IVP 40 mg DAILY SANJANA Administration - Patient Studies Lab Studies: Lab Studies 03/26/17 03/26/17 03/26/17 Range/Units 11:02 07:00 07:00 WBC (4.5-11.0) 10^3/ul RBC (3.5-6.1) 10^6/uL Hgb (12.0-16.0) g/dL Hct (36.0-48.0) % MCV (80.0-105.0) fl MCH (25.0-35.0) pg MCHC (31.0-37.0) g/dl RDW (11.5-14.5) % Plt Count (120.0-450.0) 10^3/uL PT 15.6 H (9.4-12.5) SECONDS INR 1.35 H (0.93-1.08) APTT 22.7 L (25.1-36.5) Seconds Sodium 149 H (132-148) mmol/L Potassium 3.2 L (3.6-5.0) mmol/L Chloride 114 H (98-107) mmol/L Carbon Dioxide 23 (21-33) mmol/L Anion Gap 15 (10-20) BUN 30 H (7-21) mg/dL Creatinine 0.6 L (0.7-1.2) mg/dl Est GFR ( Amer) > 60 Est GFR (Non-Af Amer) > 60 POC Glucose (mg/dL) 110 (65-110) mg/dL Random Glucose 131 H (70-110) mg/dL Calcium 9.4 (8.4-10.5) mg/dL Phosphorus 3.2 (2.5-4.5) mg/dL Magnesium 2.2 (1.7-2.2) mg/dL Total Bilirubin 1.4 H (0.2-1.3) mg/dL AST 89 H (14-36) U/L ALT 75 H (7-56) U/L Alkaline Phosphatase 101 (38-126) U/L Total Protein 6.6 (5.8-8.3) g/dL Albumin 3.0 (3.0-4.8) g/dL Globulin 3.5 gm/dL Albumin/Globulin Ratio 0.9 L (1.1-1.8) 03/26/17 03/25/17 03/25/17 Range/Units 07:00 21:34 15:55 WBC 9.5 (4.5-11.0) 10^3/ul RBC 4.57 (3.5-6.1) 10^6/uL Hgb 10.1 L (12.0-16.0) g/dL Hct 30.0 L (36.0-48.0) % MCV 65.6 L (80.0-105.0) fl MCH 22.1 L (25.0-35.0) pg MCHC 33.7 (31.0-37.0) g/dl RDW 15.1 H (11.5-14.5) % Plt Count 369 (120.0-450.0) 10^3/uL PT (9.4-12.5) SECONDS INR (0.93-1.08) APTT (25.1-36.5) Seconds Sodium (132-148) mmol/L Potassium (3.6-5.0) mmol/L Chloride (98-107) mmol/L Carbon Dioxide (21-33) mmol/L Anion Gap (10-20) BUN (7-21) mg/dL Creatinine (0.7-1.2) mg/dl Est GFR ( Amer) Est GFR (Non-Af Amer) POC Glucose (mg/dL) 113 H 121 H (65-110) mg/dL Random Glucose (70-110) mg/dL Calcium (8.4-10.5) mg/dL Phosphorus (2.5-4.5) mg/dL Magnesium (1.7-2.2) mg/dL Total Bilirubin (0.2-1.3) mg/dL AST (14-36) U/L ALT (7-56) U/L Alkaline Phosphatase (38-126) U/L Total Protein (5.8-8.3) g/dL Albumin (3.0-4.8) g/dL Globulin gm/dL Albumin/Globulin Ratio (1.1-1.8) /01/28 Range/Units 11:03 WBC (4.5-11.0) 10^3/ul RBC (3.5-6.1) 10^6/uL Hgb (12.0-16.0) g/dL Hct (36.0-48.0) % MCV (80.0-105.0) fl MCH (25.0-35.0) pg MCHC (31.0-37.0) g/dl RDW (11.5-14.5) % Plt Count (120.0-450.0) 10^3/uL PT (9.4-12.5) SECONDS INR (0.93-1.08) APTT (25.1-36.5) Seconds Sodium (132-148) mmol/L Potassium (3.6-5.0) mmol/L Chloride (98-107) mmol/L Carbon Dioxide (21-33) mmol/L Anion Gap (10-20) BUN (7-21) mg/dL Creatinine (0.7-1.2) mg/dl Est GFR ( Amer) Est GFR (Non-Af Amer) POC Glucose (mg/dL) 112 H (65-110) mg/dL Random Glucose (70-110) mg/dL Calcium (8.4-10.5) mg/dL Phosphorus (2.5-4.5) mg/dL Magnesium (1.7-2.2) mg/dL Total Bilirubin (0.2-1.3) mg/dL AST (14-36) U/L ALT (7-56) U/L Alkaline Phosphatase (38-126) U/L Total Protein (5.8-8.3) g/dL Albumin (3.0-4.8) g/dL Globulin gm/dL Albumin/Globulin Ratio (1.1-1.8) Laboratory Results - last 24 hr 03/25/17 03/25/17 03/25/17 11:03 15:55 21:34 WBC RBC Hgb Hct MCV MCH MCHC RDW Plt Count PT INR APTT Sodium Potassium Chloride Carbon Dioxide Anion Gap BUN Creatinine Est GFR ( Amer) Est GFR (Non-Af Amer) POC Glucose (mg/dL) 112 H 121 H 113 H Random Glucose Calcium Phosphorus Magnesium Total Bilirubin AST ALT Alkaline Phosphatase Total Protein Albumin Globulin Albumin/Globulin Ratio 03/26/17 03/26/17 03/26/17 07:00 07:00 07:00 WBC 9.5 RBC 4.57 Hgb 10.1 L Hct 30.0 L MCV 65.6 L MCH 22.1 L MCHC 33.7 RDW 15.1 H Plt Count 369 PT 15.6 H INR 1.35 H APTT 22.7 L Sodium 149 H Potassium 3.2 L Chloride 114 H Carbon Dioxide 23 Anion Gap 15 BUN 30 H Creatinine 0.6 L Est GFR ( Amer) > 60 Est GFR (Non-Af Amer) > 60 POC Glucose (mg/dL) Random Glucose 131 H Calcium 9.4 Phosphorus 3.2 Magnesium 2.2 Total Bilirubin 1.4 H AST 89 H ALT 75 H Alkaline Phosphatase 101 Total Protein 6.6 Albumin 3.0 Globulin 3.5 Albumin/Globulin Ratio 0.9 L 03/26/17 11:02 WBC RBC Hgb Hct MCV MCH MCHC RDW Plt Count PT INR APTT Sodium Potassium Chloride Carbon Dioxide Anion Gap BUN Creatinine Est GFR ( Amer) Est GFR (Non-Af Amer) POC Glucose (mg/dL) 110 Random Glucose Calcium Phosphorus Magnesium Total Bilirubin AST ALT Alkaline Phosphatase Total Protein Albumin Globulin Albumin/Globulin Ratio Assessment/Plan - Assessment and Plan (Free Text) Assessment: Pt seen and examined, with resident on rounds, agree with note with following additions/exceptions: 76yo female PMHx Afib on Xarelto, Asthma and COPD, Intracranial bleed, presented with L thalamic ICH, intubated off sedation found to have Intraventricular bleed with increasing hydrocephalus s/p EVD placement by neurosurgery. Currently afebrile, HD stable, comfortable in NAD Neurology and Neurosurgery following. BP controlled off Cardene drip, EVD in place. s/p tracheostomy yesterday awaiting PEG placement tomorrow Hx Afib on A/C HTN ICH, L thalamic Respiratory failure s/p trach Recommend: - cont with ventilatory support, ABG acceptable, CXR without focal consolidation - follow up cultures, monitor off antibiotics - BP control goal SBP <140, Cardene drip as needed - Keppra for seizure ppx - follow up neurology, neurosurgery, may need AIR TWISTER WINDER shunt - monitor electrolytes - neuro checks - FS control - maintain euthermia - hold A/C - Hold HSQ - GI ppx, PPI - PEG tomorrow - DVT ppx, SCDs - poor prognosis
--- NOTE | 2017-03-26 14:18 | CP.PCM.PN ---
Subjective - Date & Time of Evaluation Date of Evaluation: 03/26/17 Time of Evaluation: 13:50 - Subjective Subjective: [id number] [id number] : 1940 Loc: CCU Room/Bed: 129-04 Age/Sex: 76 / F ADM Status: ADM IN ADM Date: DIS Date: DATE: 03/25/2017 NEUROLOGY FOLLOWUP CHIEF COMPLAINT: Status post left thalamic hemorrhage with intraventricular extension, status post hydrocephalus, status post EVD. SUBJECTIVE: The patient is seen and examined at bedside. Talked to the , Beni at bedside and talked to him in further detail regards that the patient would likely need a tracheostomy and PEG tube placement in the long-term care. Patient has a positive gag and moves her lower extremities much more. Withdraws to localized deep noxious stimulus. No acute events overnight. She is s/p Trach.. PAST MEDICAL HISTORY: History of intracerebral hemorrhage 8 years ago; AFib, on Xarelto; asthma; COPD. FAMILY HISTORY: Noncontributory. ALLERGIES: NO KNOWN DRUG ALLERGIES. SOCIAL HISTORY: No illicit drug use, smoking, or EtOH abuse. REVIEW OF SYSTEMS: A 14-point review of systems is negative except as per HPI. LABORATORY DATA:Reviewed. PHYSICAL EXAMINATION VITAL SIGNS: Reviewed via chart. GENERAL: The patient is intubated, on no sedation. HEENT: Atraumatic and normocephalic. PERRLA. NECK: Supple. No JVD. No adenopathy noted. LUNGS: Clear to auscultation. No adventitious sounds. Intubated. HEART: S1 and S2, mildly tachycardic, but normal rhythm. No murmurs. ABDOMEN: Soft, nontender, nondistended. Bowel sounds present. EXTREMITIES: No clubbing, no cyanosis. Peripheral pulses 2+ felt bilaterally. NEUROLOGIC: The patient is in intubated status. Cranial nerves II through XII intact. Positive gag. Positive corneal reflex, Speech is difficult to assess at this time. Motor exam: Moves spontaneously lower extremities as well as the left upper extremity, but minimally, but no movement of the right upper extremity. Sensory exam: Withdraws to localized deep noxious stimulus. DTRs are 1+ throughout. Coordination and gait deferred for now. ASSESSMENT AND PLAN: This is a 76-year-old woman with past medical historyof intracerebral hemorrhage 8 years ago; atrial fibrillation, on Xarelto;asthma; and chronic obstructive pulmonary disease; who came in for hypertensive urgency, patient found to be altered, found to have left thalamic bleed with intraventricular extension, status post hydrocephalus,status post ventriculostomy. Patient's left thalamic bleed was secondaryto uncontrolled hypertension, superimposed on underlying anticoagulation usage of Xarelto. She is s/p trach. RECOMMENDATIONS: At this time, recommend: 1. Follow up with Neurosurgery's management in regards to the EVD for the hydrocephalus, which was the complication of the left thalamic bleed with intraventricular extension. 2. Patient is on Keppra 500 mg IV q. 12 for seizure precaution. 3. Continue normal thermal cooling blanket and IV Tylenol. 4. Currently, patient is in normal sinus rhythm and has history of AFib. We will keep the blood pressure between 130s to 140s systolic and diastolic 170s to 80s and hold anticoagulation for now. 5. Recommend to continue with the plan for PEG tube placement. I talked to the , Beni in detail and patient will need long-term care. 6. Monitor electrolytes and correct accordingly. Once again, thank you for this followup. Remi Steinberg MD Objective - Vital Signs/Intake and Output Vital Signs (last 24 hours): Temp Pulse Resp BP Pulse Ox 100.8 F H 90 28 H 147/85 94 L 03/26/17 12:00 03/26/17 12:00 03/26/17 08:01 03/26/17 12:00 03/26/17 12:00 Intake and Output: 03/26/17 03/26/17 06:59 18:59 Intake Total 480 Output Total 950 Balance -470 - Medications Medications: Current Medications Albuterol/Ipratropium (Duoneb 3 Mg/0.5 Mg (3 Ml) Ud) 3 ml IH Q2H PRN PRN Reason: Shortness of Breath Last Admin: 03/26/17 13:24 Dose: 3 ml Levetiracetam (Keppra 500mg Ivpb) 500 mg in 100 mls @ 400 mls/hr IV Q12 SANJANA Last Admin: 03/26/17 08:45 Dose: 400 mls/hr Nicardipine HCl (Cardene Iv Premix) 20 mg in 200 mls @ 50 mls/hr IV .Q4H PRN; Protocol; 5 MG/HR PRN Reason: TITRATE PER MD ORDER Last Admin: 03/26/17 06:30 Dose: 1.5 mg/hr, 15 mls/hr Potassium Chloride (Potassium Chloride 10 Meq/100 Ml) 10 meq in 100 mls @ 50 mls/hr IVPB Q2H SANJANA Stop: 03/26/17 18:29 Last Admin: 03/26/17 13:42 Dose: 50 mls/hr Pantoprazole Sodium (Protonix Inj) 40 mg IVP DAILY [facility] Last Admin: 03/26/17 08:45 Dose: 40 mg - Labs Labs: 03/26/17 07:00 03/26/17 07:00 PT 15.6 SECONDS (9.4-12.5) H 03/26/17 07:00 INR 1.35 (0.93-1.08) H 03/26/17 07:00 APTT 22.7 Seconds (25.1-36.5) L 03/26/17 07:00
--- NOTE | 2017-03-26 16:59 | CP.PCM.PN ---
<Isi Duque - Last Filed: 03/26/17 17:00> Subjective - Date & Time of Evaluation Date of Evaluation: 03/26/17 Time of Evaluation: 14:00 - Subjective Subjective: Seen at bedside in ICU, patient is having MAXIMUM TEMPERATURE 101.4. Patient had chest x-ray with no acute findings and blood cultures drawn. Patient status post trach yesterday, remains unresponsive. Plan for PEG tube canceled today. Objective - Vital Signs/Intake and Output Vital Signs (last 24 hours): Temp Pulse Resp BP Pulse Ox 100.8 F H 104 H 28 H 128/90 94 L 03/26/17 12:00 03/26/17 15:00 03/26/17 08:01 03/26/17 15:00 03/26/17 15:00 Intake and Output: 03/26/17 03/26/17 06:59 18:59 Intake Total 480 Output Total 950 Balance -470 - Medications Medications: Current Medications Albuterol/Ipratropium (Duoneb 3 Mg/0.5 Mg (3 Ml) Ud) 3 ml IH Q2H PRN PRN Reason: Shortness of Breath Last Admin: 03/26/17 13:24 Dose: 3 ml Levetiracetam (Keppra 500mg Ivpb) 500 mg in 100 mls @ 400 mls/hr IV Q12 SANJANA Last Admin: 03/26/17 15:01 Dose: Not Given Nicardipine HCl (Cardene Iv Premix) 20 mg in 200 mls @ 50 mls/hr IV .Q4H PRN; Protocol; 5 MG/HR PRN Reason: TITRATE PER MD ORDER Last Admin: 03/26/17 06:30 Dose: 1.5 mg/hr, 15 mls/hr Potassium Chloride (Potassium Chloride 10 Meq/100 Ml) 10 meq in 100 mls @ 50 mls/hr IVPB Q2H [facility]JANA Stop: 03/26/17 18:29 Last Admin: 03/26/17 15:03 Dose: 50 mls/hr Acetaminophen (Ofirmev) 1,000 mg in 100 mls @ 400 mls/hr IVPB Q6H PRN PRN Reason: Temperature > 100.4 Stop: 03/28/17 15:25 Pantoprazole Sodium (Protonix Inj) 40 mg IVP DAILY [facility] Last Admin: 03/26/17 15:01 Dose: Not Given - Labs Labs: 03/26/17 07:00 03/26/17 07:00 PT 15.6 SECONDS (9.4-12.5) H 03/26/17 07:00 INR 1.35 (0.93-1.08) H 03/26/17 07:00 APTT 22.7 Seconds (25.1-36.5) L 03/26/17 07:00 - Constitutional Appears: No Acute Distress - Head Exam Additional comments: ventriculostomy drain - Eye Exam Pupil Exam: absent: NORMAL ACCOMODATION (sluggish pupils) - Neck Exam Additional comments: trach present - Respiratory Exam Respiratory Exam: absent: Respiratory Distress - Cardiovascular Exam Cardiovascular Exam: +S1, +S2 - GI/Abdominal Exam GI & Abdominal Exam: Soft, Normal Bowel Sounds. absent: Guarding, Rebound - Extremities Exam Extremities Exam: absent: Calf Tenderness, Pedal Edema - Neurological Exam Neurological Exam: Altered (unresponsive) Assessment and Plan - Assessment and Plan (Free Text) Assessment: Assessment: Left intracranial thalmic bleed status post ventriculostomy drain Status post trach Fevers History of atrial fibrillation Plan: Continue PPI On IV fluids for hydration Follow-up blood cultures EGD/PEG when optimal As per ICU team,neuro Seen and discussed with Dr. Long <Wilton Long V - Last Filed: 03/26/17 23:51> Objective - Vital Signs/Intake and Output Vital Signs (last 24 hours): Temp Pulse Resp BP Pulse Ox 100.3 F H 77 28 H 156/99 H 97 03/26/17 16:00 03/26/17 22:00 03/26/17 08:01 03/26/17 22:00 03/26/17 22:00 Intake and Output: 03/26/17 03/27/17 18:59 06:59 Intake Total 250 Output Total 303 Balance -53 - Medications Medications: Current Medications Albuterol/Ipratropium (Duoneb 3 Mg/0.5 Mg (3 Ml) Ud) 3 ml IH Q2H PRN PRN Reason: Shortness of Breath Last Admin: 03/26/17 13:24 Dose: 3 ml Levetiracetam (Keppra 500mg Ivpb) 500 mg in 100 mls @ 400 mls/hr IV Q12 [facility]JANA Last Admin: 03/26/17 21:13 Dose: 400 mls/hr Nicardipine HCl (Cardene Iv Premix) 20 mg in 200 mls @ 50 mls/hr IV .Q4H PRN; Protocol; 5 MG/HR PRN Reason: TITRATE PER MD ORDER Last Admin: 03/26/17 06:30 Dose: 1.5 mg/hr, 15 mls/hr Acetaminophen (Ofirmev) 1,000 mg in 100 mls @ 400 mls/hr IVPB Q6H PRN PRN Reason: Temperature > 100.4 Stop: 03/28/17 15:25 Last Admin: 03/26/17 17:58 Dose: 400 mls/hr Pantoprazole Sodium (Protonix Inj) 40 mg IVP DAILY [facility] Last Admin: 03/26/17 15:01 Dose: Not Given - Labs Labs: 03/26/17 07:00 03/26/17 07:00 PT 15.6 SECONDS (9.4-12.5) H 03/26/17 07:00 INR 1.35 (0.93-1.08) H 03/26/17 07:00 APTT 22.7 Seconds (25.1-36.5) L 03/26/17 07:00 Attending/Attestation - Attestation I have personally seen and examined this patient.: Yes I have fully participated in the care of the patient.: Yes I have reviewed all pertinent clinical information, including history, physical exam and plan: Yes Notes (Text): This is an addendum to GI progress report dictated by Isi Duque APN.The patient was seen and examined earlier. Medical records, lab studies, imagings were reviewed. Last 24 hours events reviewed. Agreed with the above treatment plan as outlined in Isi Duque APN's notes the with the addition of the following 03/26/17 23:51
[2017-03-26 21:16] LABS: URINE BILIRUBIN SMALL (NEGATIVE); URINE BLOOD NEGATIVE (NEGATIVE); URINE GLUCOSE (UA) NEGATIVE (NEGATIVE); URINE LEUKOCYTE ESTERASE NEGATIVE Leu/uL (NEGATIVE); URINE NITRATE NEGATIVE (NEGATIVE); URINE PROTEIN 30 mg/dL (<30 mg/dL)
[2017-03-26 21:20] LABS: URINE APPEARANCE CLEAR (CLEAR); URINE COLOR STRAW (YELLOW)
[2017-03-26 22:18] LABS: URINE BACTERIA FEW (NEG); URINE EPITHELIAL CELLS 0 - 2 /hpf (0-5); URINE RBC 0 - 2 /hpf (0-2)
[2017-03-27] MEDS: Nicardipine 20 MG/200 ML 20 MG/200 ML BAG IV PRN ×2 (01:31→13:41)
--- NOTE | 2017-03-27 01:35 | PN ---
DATE: 03/26/2017 SUBJECTIVE: The patient is in bed, in no acute distress, nontoxic. PHYSICAL EXAMINATION: VITAL SIGNS: Her temperature is 100.3 and respiratory rate of 18. Patient's on the vent. Blood pressure is 130/80, heart rate of 100. HEENT: Unremarkable. NECK: Supple. LUNGS: Decreased breath sounds. HEART: Normal S1, S2. ABDOMEN: Soft, nontender. LABORATORY EXAMINATION: Reveals a white count of 9.5, hemoglobin of 10. BUN of 30, creatinine 0.6. LFTs are mildly elevated. The last procalcitonin was on which is 0.08. The urinalysis is noted. Blood cultures are no growth. Urine cultures are no growth. Chest x-ray: No evidence of pulmonary infiltrates. Review of orders reveals the patient to be off of antibiotics. ASSESSMENT/PLAN: This is a 76-year-old female who was seen early this morning in the CCU, room 129, bed 4, with systemic inflammatory response syndrome with fevers with acute hemorrhagic thalamic cerebrovascular accident and ventilator dependent, respiratory failure from the cerebrovascular accident, hydronephrosis. We will repeat pancultures blood, urine, sputum, urinalysis, procalcitonin and look for new evidence of infection and we will follow closely with you. Brennan Amador MD
[2017-03-27 07:18] LABS: HEMOGLOBIN 10.3 g/dL (12.0-16.0); MEAN CELL VOLUME 66.3 fl (80.0-105.0); MEAN CORPUSCULAR HEMOGLOBIN 21.7 pg (25.0-35.0); MEAN CORPUSCULAR HGB CONC 32.7 g/dl (31.0-37.0); PLATELET COUNT 408 10^3/uL (120.0-450.0); RBC 4.75 10^6/uL (3.5-6.1); WHITE BLOOD COUNT 12.6 10^3/ul (4.5-11.0)
[2017-03-27 07:23] LABS: ARTERIAL BLOOD GAS HCO3 16.9 mmol/L (21-28); ARTERIAL BLOOD GAS O2 CAPACITY 13.8 mL/dl (16-24); ARTERIAL BLOOD GAS O2 CONTENT 13.7 ML/dl (15-23); ARTERIAL BLOOD GAS O2 SAT 99.1 % (95-98); ARTERIAL BLOOD GAS PH 7.58 (7.35-7.45); ARTERIAL BLOOD GAS TCO2 17.5 mmol.L (22-28)
[2017-03-27 07:25] LABS: ARTERIAL BLOOD GAS PCO2 18 mm/Hg (35-45)
[2017-03-27 07:27] LABS: INR 1.34 (0.93-1.08); PARTIAL THROMBOPLASTIN TIME 22.6 Seconds (25.1-36.5); PROTHROMBIN TIME 15.5 SECONDS (9.4-12.5)
[2017-03-27 07:37] LABS: ALB/GLOB RATIO 0.9 (1.1-1.8); ALBUMIN 3.2 g/dL (3.0-4.8); ALT/SGPT 80 U/L (7-56); AST/SGOT 78 U/L (14-36); BLOOD UREA NITROGEN 40 mg/dL (7-21); CALCIUM 9.5 mg/dL (8.4-10.5); GFR AFRICAN-AMERICAN > 60; GFR NON-AFRICAN AMERICAN > 60; MAGNESIUM 2.4 mg/dL (1.7-2.2)
[2017-03-27] MEDS: Albuterol-Ipratrop 3 mg / 0.5 (3 ml) UD IH PRN (07:38)
--- NOTE | 2017-03-27 07:48 | CP.CCUPN ---
<Nixon Hein - Last Filed: 03/27/17 13:42> CCU Subjective - Physician Review Subjective (Free Text): Nixon Hein PGY1 ICU Note for Dr. Gutierrez Patient was seen and examined in ICU. She remains minimally responsive. Patient' s fevers 2/2 intracranial hemorrhage, as septic workup has been negative so far. Per night team, the patient had minimal drainage from EVD overnight. Otherwise, no acute overnight events. Discussed with GI team for PEG tube placement today, as fevers have been present from time of admission and are likely not infectious etiology. CCU Objective - Vital Signs / Intake & Output Vital Signs (Last 4 hours): Vital Signs Temp Pulse Resp BP Pulse Ox 03/27/17 07:42 28 H 99 03/27/17 06:00 96 H 153/92 H 99 03/27/17 05:00 97 H 154/97 H 97 03/27/17 04:00 99.7 F H 103 H 161/113 H 98 Intake and Output (Last 8hrs): Intake & Output 03/26/17 03/27/17 03/27/17 22:59 06:59 14:59 Intake Total 450 225 Output Total 303 504 Balance 147 -279 Weight 88 lb 1.6 oz Intake: IV 450 225 CARDINE 105 Right Antecubital 250 120 Output: Drainage 3 4 Right Head 3 4 Urine 300 500 Urethral (Perez) 300 500 - Physical Exam Physical Exam Limitations: Positive for: Altered Mental Status Head: Positive for: Normocephalic, Other (EVD drain in place) Pupils: Positive for: Non-Reactive Extroacular Muscles: Positive for: Other (unable to assess) Conjunctiva: Positive for: Normal Ears: Positive for: Normal Mouth: Positive for: Moist Mucous Membranes, Normal Teeth, Other (s/p trach, on vent) Pharnyx: Positive for: Normal, Other Nose (External): Positive for: Atraumatic Nose (Internal): Positive for: Normal Inspection Neck: Positive for: Other (s/p tracheostomy, on vent). Negative for: MIDLINE TENDERNESS Respiratory/Chest: Positive for: Clear to Auscultation, Good Air Exchange, Other (on vent). Negative for: Respiratory Distress, Accessory Muscle Use, Wheezes Cardiovascular: Positive for: Regular Rate and Rhythm, Normal S1, S2. Negative for: Murmurs Abdomen: Positive for: Normal Bowel Sounds, Other (no OGT ). Negative for: Tenderness, Distention, Peritoneal Signs Genitourinary/Pelvic Exam: Positive for: Other (perez in place ) Back: Positive for: Normal Inspection Upper Extremity: Positive for: Normal Inspection, NORMAL PULSES, Capillary Refill < 2s. Negative for: Cyanosis, Edema Lower Extremity: Positive for: Normal Inspection, Other (SCDs in place). Negative for: Edema Neurological: Positive for: Other (GCS4t - pupils are sluggisg at 2mm b/l;+ babinski b/l, decerebrate posturing to pain). Negative for: GCS=15, CN II-XII Intact, Speech Normal Skin: Positive for: Warm, Dry, Normal Color. Negative for: Rashes Lymphatic: Positive for: OX3, NI, NC Psychiatric: Positive for: Other (altered). Negative for: Alert, Oriented x 3, Normal Insight, Normal Concentration - Medications Active Medications: Active Medications Generic Name Dose Route Start Last Admin Trade Name Freq PRN Reason Stop Dose Admin Albuterol/Ipratropium 3 ml 03/19/17 10:40 03/27/17 07:38 Duoneb 3 Mg/0.5 Mg (3 Ml) Ud IH 3 ml Q2H PRN Administration Shortness of Breath Levetiracetam 500 mg in 100 mls @ 400 mls/hr 03/17/17 22:00 03/26/17 21:13 Keppra 500mg Ivpb IV 400 mls/hr Q12 SANJANA Administration Nicardipine HCl 20 mg in 200 mls @ 50 mls/hr 03/19/17 15:00 03/27/17 01:31 Cardene Iv Premix IV 1.5 mg/hr .Q4H PRN 15 mls/hr TITRATE PER MD ORDER Administration Protocol 5 MG/HR Acetaminophen 1,000 mg in 100 mls @ 400 mls/hr 03/26/17 15:18 03/26/17 17:58 Ofirmev IVPB 03/28/17 15:25 400 mls/hr Q6H PRN Administration Temperature > 100.4 Pantoprazole Sodium 40 mg 03/18/17 10:00 03/26/17 15:01 Protonix Inj IVP Not Given DAILY SANJANA - Patient Studies Lab Studies: Lab Studies 03/27/17 03/27/17 03/27/17 Range/Units 07:15 05:30 05:30 WBC (4.5-11.0) 10^3/ul RBC (3.5-6.1) 10^6/uL Hgb (12.0-16.0) g/dL Hct (36.0-48.0) % MCV (80.0-105.0) fl MCH (25.0-35.0) pg MCHC (31.0-37.0) g/dl RDW (11.5-14.5) % Plt Count (120.0-450.0) 10^3/uL PT 15.5 H (9.4-12.5) SECONDS INR 1.34 H (0.93-1.08) APTT 22.6 L (25.1-36.5) Seconds pCO2 18 L* (35-45) mm/Hg pO2 109.0 H (80-100) mm/Hg HCO3 16.9 L (21-28) mmol/L ABG pH 7.58 H (7.35-7.45) ABG Total CO2 17.5 L (22-28) mmol.L ABG O2 Saturation 99.1 H (95-98) % ABG O2 Content 13.7 L (15-23) ML/dl ABG Base Excess -3.4 L (-2.0-3.0) mmol/L ABG Hemoglobin 10.0 L (11.7-17.4) g/dL ABG Carboxyhemoglobin 1.7 H (0.5-1.5) % POC ABG HHb (Measured) 0.9 (0-5) % ABG Methemoglobin 1.6 (0.0-3.0) % ABG O2 Capacity 13.8 L (16-24) mL/dl Hgb O2 Saturation 95.8 (95.0-98.0) % FiO2 30.0 % Sodium 151 H (132-148) mmol/L Potassium 3.6 (3.6-5.0) mmol/L Chloride 118 H (98-107) mmol/L Carbon Dioxide 20 L (21-33) mmol/L Anion Gap 17 (10-20) BUN 40 H (7-21) mg/dL Creatinine 0.8 (0.7-1.2) mg/dl Est GFR ( Amer) > 60 Est GFR (Non-Af Amer) > 60 POC Glucose (mg/dL) (65-110) mg/dL Random Glucose 106 (70-110) mg/dL Calcium 9.5 (8.4-10.5) mg/dL Phosphorus 3.9 (2.5-4.5) mg/dL Magnesium 2.4 H (1.7-2.2) mg/dL Total Bilirubin 1.5 H (0.2-1.3) mg/dL AST 78 H (14-36) U/L ALT 80 H (7-56) U/L Alkaline Phosphatase 106 (38-126) U/L Total Protein 6.8 (5.8-8.3) g/dL Albumin 3.2 (3.0-4.8) g/dL Globulin 3.6 gm/dL Albumin/Globulin Ratio 0.9 L (1.1-1.8) Urine Color (YELLOW) Urine Appearance (CLEAR) Urine pH (4.7-8.0) Ur Specific [place] (1.005-1.035) Urine Protein (<30 mg/dL) mg/dL Urine Glucose (UA) (NEGATIVE) mg/dL Urine Ketones (NEGATIVE) mg/dL Urine Blood (NEGATIVE) Urine Nitrate (NEGATIVE) Urine Bilirubin (NEGATIVE) Urine Urobilinogen (<1 E.U./dL) E.U./dL Ur Leukocyte Esterase (NEGATIVE) Yasmin/uL Urine RBC (0-2) /hpf Urine WBC (0-6) /hpf Ur Epithelial Cells (0-5) /hpf Urine Bacteria (NEG) 03/27/17 03/26/17 03/26/17 Range/Units 05:30 20:56 11:02 WBC 12.6 H D (4.5-11.0) 10^3/ul RBC 4.75 (3.5-6.1) 10^6/uL Hgb 10.3 L (12.0-16.0) g/dL Hct 31.5 L (36.0-48.0) % MCV 66.3 L (80.0-105.0) fl MCH 21.7 L (25.0-35.0) pg MCHC 32.7 (31.0-37.0) g/dl RDW 15.0 H (11.5-14.5) % Plt Count 408 (120.0-450.0) 10^3/uL PT (9.4-12.5) SECONDS INR (0.93-1.08) APTT (25.1-36.5) Seconds pCO2 (35-45) mm/Hg pO2 (80-100) mm/Hg HCO3 (21-28) mmol/L ABG pH (7.35-7.45) ABG Total CO2 (22-28) mmol.L ABG O2 Saturation (95-98) % ABG O2 Content (15-23) ML/dl ABG Base Excess (-2.0-3.0) mmol/L ABG Hemoglobin (11.7-17.4) g/dL ABG Carboxyhemoglobin (0.5-1.5) % POC ABG HHb (Measured) (0-5) % ABG Methemoglobin (0.0-3.0) % ABG O2 Capacity (16-24) mL/dl Hgb O2 Saturation (95.0-98.0) % FiO2 % Sodium (132-148) mmol/L Potassium (3.6-5.0) mmol/L Chloride (98-107) mmol/L Carbon Dioxide (21-33) mmol/L Anion Gap (10-20) BUN (7-21) mg/dL Creatinine (0.7-1.2) mg/dl Est GFR ( Amer) Est GFR (Non-Af Amer) POC Glucose (mg/dL) 110 (65-110) mg/dL Random Glucose (70-110) mg/dL Calcium (8.4-10.5) mg/dL Phosphorus (2.5-4.5) mg/dL Magnesium (1.7-2.2) mg/dL Total Bilirubin (0.2-1.3) mg/dL AST (14-36) U/L ALT (7-56) U/L Alkaline Phosphatase (38-126) U/L Total Protein (5.8-8.3) g/dL Albumin (3.0-4.8) g/dL Globulin gm/dL Albumin/Globulin Ratio (1.1-1.8) Urine Color Straw (YELLOW) Urine Appearance Clear (CLEAR) Urine pH 6.0 (4.7-8.0) Ur Specific [place] 1.010 (1.005-1.035) Urine Protein 30 H (<30 mg/dL) mg/dL Urine Glucose (UA) Negative (NEGATIVE) mg/dL Urine Ketones Trace H (NEGATIVE) mg/dL Urine Blood Negative (NEGATIVE) Urine Nitrate Negative (NEGATIVE) Urine Bilirubin Small H (NEGATIVE) Urine Urobilinogen 1.0 H (<1 E.U./dL) E.U./dL Ur Leukocyte Esterase Negative (NEGATIVE) Yasmin/uL Urine RBC 0 - 2 (0-2) /hpf Urine WBC 1 - 3 (0-6) /hpf Ur Epithelial Cells 0 - 2 (0-5) /hpf Urine Bacteria Few (NEG) 03/26/17 03/26/17 Range/Units 07:00 07:00 WBC (4.5-11.0) 10^3/ul RBC (3.5-6.1) 10^6/uL Hgb (12.0-16.0) g/dL Hct (36.0-48.0) % MCV (80.0-105.0) fl MCH (25.0-35.0) pg MCHC (31.0-37.0) g/dl RDW (11.5-14.5) % Plt Count (120.0-450.0) 10^3/uL PT 15.6 H (9.4-12.5) SECONDS INR 1.35 H (0.93-1.08) APTT 22.7 L (25.1-36.5) Seconds pCO2 (35-45) mm/Hg pO2 (80-100) mm/Hg HCO3 (21-28) mmol/L ABG pH (7.35-7.45) ABG Total CO2 (22-28) mmol.L ABG O2 Saturation (95-98) % ABG O2 Content (15-23) ML/dl ABG Base Excess (-2.0-3.0) mmol/L ABG Hemoglobin (11.7-17.4) g/dL ABG Carboxyhemoglobin (0.5-1.5) % POC ABG HHb (Measured) (0-5) % ABG Methemoglobin (0.0-3.0) % ABG O2 Capacity (16-24) mL/dl Hgb O2 Saturation (95.0-98.0) % FiO2 % Sodium 149 H (132-148) mmol/L Potassium 3.2 L (3.6-5.0) mmol/L Chloride 114 H (98-107) mmol/L Carbon Dioxide 23 (21-33) mmol/L Anion Gap 15 (10-20) BUN 30 H (7-21) mg/dL Creatinine 0.6 L (0.7-1.2) mg/dl Est GFR ( Amer) > 60 Est GFR (Non-Af Amer) > 60 POC Glucose (mg/dL) (65-110) mg/dL Random Glucose 131 H (70-110) mg/dL Calcium 9.4 (8.4-10.5) mg/dL Phosphorus 3.2 (2.5-4.5) mg/dL Magnesium 2.2 (1.7-2.2) mg/dL Total Bilirubin 1.4 H (0.2-1.3) mg/dL AST 89 H (14-36) U/L ALT 75 H (7-56) U/L Alkaline Phosphatase 101 (38-126) U/L Total Protein 6.6 (5.8-8.3) g/dL Albumin 3.0 (3.0-4.8) g/dL Globulin 3.5 gm/dL Albumin/Globulin Ratio 0.9 L (1.1-1.8) Urine Color (YELLOW) Urine Appearance (CLEAR) Urine pH (4.7-8.0) Ur Specific [place] (1.005-1.035) Urine Protein (<30 mg/dL) mg/dL Urine Glucose (UA) (NEGATIVE) mg/dL Urine Ketones (NEGATIVE) mg/dL Urine Blood (NEGATIVE) Urine Nitrate (NEGATIVE) Urine Bilirubin (NEGATIVE) Urine Urobilinogen (<1 E.U./dL) E.U./dL Ur Leukocyte Esterase (NEGATIVE) Yasmin/uL Urine RBC (0-2) /hpf Urine WBC (0-6) /hpf Ur Epithelial Cells (0-5) /hpf Urine Bacteria (NEG) Laboratory Results - last 24 hr 03/26/17 03/26/17 03/26/17 07:00 07:00 11:02 WBC RBC Hgb Hct MCV MCH MCHC RDW Plt Count PT 15.6 H INR 1.35 H APTT 22.7 L pCO2 pO2 HCO3 ABG pH ABG Total CO2 ABG O2 Saturation ABG O2 Content ABG Base Excess ABG Hemoglobin ABG Carboxyhemoglobin POC ABG HHb (Measured) ABG Methemoglobin ABG O2 Capacity Hgb O2 Saturation FiO2 Sodium 149 H Potassium 3.2 L Chloride 114 H Carbon Dioxide 23 Anion Gap 15 BUN 30 H Creatinine 0.6 L Est GFR ( Amer) > 60 Est GFR (Non-Af Amer) > 60 POC Glucose (mg/dL) 110 Random Glucose 131 H Calcium 9.4 Phosphorus 3.2 Magnesium 2.2 Total Bilirubin 1.4 H AST 89 H ALT 75 H Alkaline Phosphatase 101 Total Protein 6.6 Albumin 3.0 Globulin 3.5 Albumin/Globulin Ratio 0.9 L Urine Color Urine Appearance Urine pH Ur Specific [place] Urine Protein Urine Glucose (UA) Urine Ketones Urine Blood Urine Nitrate Urine Bilirubin Urine Urobilinogen Ur Leukocyte Esterase Urine RBC Urine WBC Ur Epithelial Cells Urine Bacteria 03/26/17 03/27/17 03/27/17 20:56 05:30 05:30 WBC 12.6 H D RBC 4.75 Hgb 10.3 L Hct 31.5 L MCV 66.3 L MCH 21.7 L MCHC 32.7 RDW 15.0 H Plt Count 408 PT INR APTT pCO2 pO2 HCO3 ABG pH ABG Total CO2 ABG O2 Saturation ABG O2 Content ABG Base Excess ABG Hemoglobin ABG Carboxyhemoglobin POC ABG HHb (Measured) ABG Methemoglobin ABG O2 Capacity Hgb O2 Saturation FiO2 Sodium 151 H Potassium 3.6 Chloride 118 H Carbon Dioxide 20 L Anion Gap 17 BUN 40 H Creatinine 0.8 Est GFR ( Amer) > 60 Est GFR (Non-Af Amer) > 60 POC Glucose (mg/dL) Random Glucose 106 Calcium 9.5 Phosphorus 3.9 Magnesium 2.4 H Total Bilirubin 1.5 H AST 78 H ALT 80 H Alkaline Phosphatase 106 Total Protein 6.8 Albumin 3.2 Globulin 3.6 Albumin/Globulin Ratio 0.9 L Urine Color Straw Urine Appearance Clear Urine pH 6.0 Ur Specific [place] 1.010 Urine Protein 30 H Urine Glucose (UA) Negative Urine Ketones Trace H Urine Blood Negative Urine Nitrate Negative Urine Bilirubin Small H Urine Urobilinogen 1.0 H Ur Leukocyte Esterase Negative Urine RBC 0 - 2 Urine WBC 1 - 3 Ur Epithelial Cells 0 - 2 Urine Bacteria Few 03/27/17 03/27/17 05:30 07:15 WBC RBC Hgb Hct MCV MCH MCHC RDW Plt Count PT 15.5 H INR 1.34 H APTT 22.6 L pCO2 18 L* pO2 109.0 H HCO3 16.9 L ABG pH 7.58 H ABG Total CO2 17.5 L ABG O2 Saturation 99.1 H ABG O2 Content 13.7 L ABG Base Excess -3.4 L ABG Hemoglobin 10.0 L ABG Carboxyhemoglobin 1.7 H POC ABG HHb (Measured) 0.9 ABG Methemoglobin 1.6 ABG O2 Capacity 13.8 L Hgb O2 Saturation 95.8 FiO2 30.0 Sodium Potassium Chloride Carbon Dioxide Anion Gap BUN Creatinine Est GFR ( Amer) Est GFR (Non-Af Amer) POC Glucose (mg/dL) Random Glucose Calcium Phosphorus Magnesium Total Bilirubin AST ALT Alkaline Phosphatase Total Protein Albumin Globulin Albumin/Globulin Ratio Urine Color Urine Appearance Urine pH Ur Specific [place] Urine Protein Urine Glucose (UA) Urine Ketones Urine Blood Urine Nitrate Urine Bilirubin Urine Urobilinogen Ur Leukocyte Esterase Urine RBC Urine WBC Ur Epithelial Cells Urine Bacteria Fingerstick Blood Sugar Results: 112 Review of Systems - Review of Systems Systems not reviewed;Unavailable: Intubated Critical Care Progress Note - Ventilator Checklist Head of Bed 30 Degrees: Yes Daily Assessment of Readiness to Wean: Yes PUD Prophalyxis: Yes DVT Prophylaxis: Yes Oral Care with Chlorhexidine Gluconate {CHG}: Yes Assessment/Plan - Assessment and Plan (Free Text) Assessment: 76yo female with a past medical history of intracerebral hemorrhage ( 8yrs ago),A.fib (was on Xeralto), asthma and COPD admitted for L thalamic bleed with intraventricular extension seen on head CT s/p ventriculostomy. s/p tracheostomy. Plan: Neuro: - Intubated, not on sedation - ICH w/ L thalamic bleed with intraventricular extension s/p Kcentra and mannitol and ventriculostomy - EVD clamped per neurosurgery recs, will monitor and neurosurgery will manage accordingly - repeat CT Head today to monitor hydrocephalus/intracranial bleeding - Neurosurgery consulted-recs appreciated - Neuro consulted- recs appreciated - Continue Keppra IV, seizure precaution - Maintain normothermia with cooling blanket and IV tylenol PRN - Aspiration and seizure precautions Cardio: - Hx of Afib, but in NSR - Placed back on Cardene drip to Maintain SBP 130-140s, DBP 70-80s - Cardio consulted- recs appreciated - Hold anticoagulants for ICH - Maintain MAP> 65 mmHg Pulm: - Intubated PRVC, daily PS as tolerated - Maintain SpO2>90% - Continue lung protective ventilation strategy, HOB elevate 45 degrees - CXR shows questionable medial right lung base infiltrate - Protective lung ventilation strategy includes HOB elevated, daily oral care, and aspiration precautions GI: - Continue tube feeds - patient for PEG tube placement today; OGT pulled yesterday in OR Nephro: - Hypokalemia, repleted - Will continue to monitor electrolytes and replace as needed Heme/Onc: - Hgb stable- No overt bleeding, Head CT showed stable bleed - No anticoagulation ID: - fevers likely central 2/2 hemorrhage - Patient is on tylenol and cooling blanket; pending PEG tube, will give cool saline lavage to improve fever - Leukocytosis improved - Procalcitonin 0.08 down from 0.13 - CSF culture pending, Glucose decreased at 30, Protein elevated at 408 - Septic work up negative thus far - ID consulted - As per ID, patient's leukocytosis and fever and be secondary to ICH - No abx on board per ID Endo: - Maintain strict glycemic control (80s-110s) - avoid hyper/hypo-glycemia Diet: PEG tube feedings (Jevity 1.2) pending PEG tube placement today GI ppx: protonix DVT ppx: SCDs Dispo: prognosis guarded. Palliative care consulted. Family will discuss wishes with Dr. Steinberg. PEG is planned for today then LTAC will be discussed with the family Patient was seen, examined and discussed with attending, Dr. Brenda Hein PGY1 Pager # [phone] <Rafael Gutierrez - Last Filed: 03/27/17 14:12> CCU Objective - Vital Signs / Intake & Output Vital Signs (Last 4 hours): Vital Signs Pulse BP Pulse Ox 03/27/17 11:00 114 H 140/83 94 L Intake and Output (Last 8hrs): Intake & Output 03/26/17 03/27/17 03/27/17 22:59 06:59 14:59 Intake Total 450 225 200 Output Total 303 504 Balance 147 -279 200 Weight 88 lb 1.6 oz Intake: IV 450 225 200 CARDINE 105 Right Antecubital 250 120 Output: Drainage 3 4 Right Head 3 4 Urine 300 500 Urethral (Perez) 300 500 - Medications Active Medications: Active Medications Generic Name Dose Route Start Last Admin Trade Name Freq PRN Reason Stop Dose Admin Albuterol/Ipratropium 3 ml 03/19/17 10:40 03/27/17 07:38 Duoneb 3 Mg/0.5 Mg (3 Ml) Ud IH 3 ml Q2H PRN Administration Shortness of Breath Levetiracetam 500 mg in 100 mls @ 400 mls/hr 03/17/17 22:00 03/27/17 09:22 Keppra 500mg Ivpb IV 400 mls/hr Q12 SANJANA Administration Nicardipine HCl 20 mg in 200 mls @ 50 mls/hr 03/19/17 15:00 03/27/17 13:41 Cardene Iv Premix IV 1.5 mg/hr .Q4H PRN 15 mls/hr TITRATE PER MD ORDER Administration Protocol 5 MG/HR Acetaminophen 1,000 mg in 100 mls @ 400 mls/hr 03/26/17 15:18 03/27/17 09:39 Ofirmev IVPB 03/28/17 15:25 400 mls/hr Q6H PRN Administration Temperature > 100.4 Pantoprazole Sodium 40 mg 03/18/17 10:00 03/27/17 09:23 Protonix Inj IVP 40 mg DAILY SANJANA Administration - Patient Studies Lab Studies: Microbiology Studies 03/26/17 12:56 Blood Culture - Preliminary Blood-Venous NO GROWTH AFTER 24 HOURS 03/26/17 12:56 Blood Culture - Preliminary Blood-Venous NO GROWTH AFTER 24 HOURS Lab Studies 03/27/17 03/27/17 03/27/17 Range/Units 07:15 05:30 05:30 WBC (4.5-11.0) 10^3/ul RBC (3.5-6.1) 10^6/uL Hgb (12.0-16.0) g/dL Hct (36.0-48.0) % MCV (80.0-105.0) fl MCH (25.0-35.0) pg MCHC (31.0-37.0) g/dl RDW (11.5-14.5) % Plt Count (120.0-450.0) 10^3/uL PT 15.5 H (9.4-12.5) SECONDS INR 1.34 H (0.93-1.08) APTT 22.6 L (25.1-36.5) Seconds pCO2 18 L* (35-45) mm/Hg pO2 109.0 H (80-100) mm/Hg HCO3 16.9 L (21-28) mmol/L ABG pH 7.58 H (7.35-7.45) ABG Total CO2 17.5 L (22-28) mmol.L ABG O2 Saturation 99.1 H (95-98) % ABG O2 Content 13.7 L (15-23) ML/dl ABG Base Excess -3.4 L (-2.0-3.0) mmol/L ABG Hemoglobin 10.0 L (11.7-17.4) g/dL ABG Carboxyhemoglobin 1.7 H (0.5-1.5) % POC ABG HHb (Measured) 0.9 (0-5) % ABG Methemoglobin 1.6 (0.0-3.0) % ABG O2 Capacity 13.8 L (16-24) mL/dl Hgb O2 Saturation 95.8 (95.0-98.0) % FiO2 30.0 % Sodium 151 H (132-148) mmol/L Potassium 3.6 (3.6-5.0) mmol/L Chloride 118 H (98-107) mmol/L Carbon Dioxide 20 L (21-33) mmol/L Anion Gap 17 (10-20) BUN 40 H (7-21) mg/dL Creatinine 0.8 (0.7-1.2) mg/dl Est GFR ( Amer) > 60 Est GFR (Non-Af Amer) > 60 Random Glucose 106 (70-110) mg/dL Calcium 9.5 (8.4-10.5) mg/dL Phosphorus 3.9 (2.5-4.5) mg/dL Magnesium 2.4 H (1.7-2.2) mg/dL Total Bilirubin 1.5 H (0.2-1.3) mg/dL AST 78 H (14-36) U/L ALT 80 H (7-56) U/L Alkaline Phosphatase 106 (38-126) U/L Total Protein 6.8 (5.8-8.3) g/dL Albumin 3.2 (3.0-4.8) g/dL Globulin 3.6 gm/dL Albumin/Globulin Ratio 0.9 L (1.1-1.8) Procalcitonin (0.19-0.49) NG/ML Urine Color (YELLOW) Urine Appearance (CLEAR) Urine pH (4.7-8.0) Ur Specific [place] (1.005-1.035) Urine Protein (<30 mg/dL) mg/dL Urine Glucose (UA) (NEGATIVE) mg/dL Urine Ketones (NEGATIVE) mg/dL Urine Blood (NEGATIVE) Urine Nitrate (NEGATIVE) Urine Bilirubin (NEGATIVE) Urine Urobilinogen (<1 E.U./dL) E.U./dL Ur Leukocyte Esterase (NEGATIVE) Yasmin/uL Urine RBC (0-2) /hpf Urine WBC (0-6) /hpf Ur Epithelial Cells (0-5) /hpf Urine Bacteria (NEG) 03/27/17 03/26/17 03/26/17 Range/Units 05:30 21:30 20:56 WBC 12.6 H D (4.5-11.0) 10^3/ul RBC 4.75 (3.5-6.1) 10^6/uL Hgb 10.3 L (12.0-16.0) g/dL Hct 31.5 L (36.0-48.0) % MCV 66.3 L (80.0-105.0) fl MCH 21.7 L (25.0-35.0) pg MCHC 32.7 (31.0-37.0) g/dl RDW 15.0 H (11.5-14.5) % Plt Count 408 (120.0-450.0) 10^3/uL PT (9.4-12.5) SECONDS INR (0.93-1.08) APTT (25.1-36.5) Seconds pCO2 (35-45) mm/Hg pO2 (80-100) mm/Hg HCO3 (21-28) mmol/L ABG pH (7.35-7.45) ABG Total CO2 (22-28) mmol.L ABG O2 Saturation (95-98) % ABG O2 Content (15-23) ML/dl ABG Base Excess (-2.0-3.0) mmol/L ABG Hemoglobin (11.7-17.4) g/dL ABG Carboxyhemoglobin (0.5-1.5) % POC ABG HHb (Measured) (0-5) % ABG Methemoglobin (0.0-3.0) % ABG O2 Capacity (16-24) mL/dl Hgb O2 Saturation (95.0-98.0) % FiO2 % Sodium (132-148) mmol/L Potassium (3.6-5.0) mmol/L Chloride (98-107) mmol/L Carbon Dioxide (21-33) mmol/L Anion Gap (10-20) BUN (7-21) mg/dL Creatinine (0.7-1.2) mg/dl Est GFR ( Amer) Est GFR (Non-Af Amer) Random Glucose (70-110) mg/dL Calcium (8.4-10.5) mg/dL Phosphorus (2.5-4.5) mg/dL Magnesium (1.7-2.2) mg/dL Total Bilirubin (0.2-1.3) mg/dL AST (14-36) U/L ALT (7-56) U/L Alkaline Phosphatase (38-126) U/L Total Protein (5.8-8.3) g/dL Albumin (3.0-4.8) g/dL Globulin gm/dL Albumin/Globulin Ratio (1.1-1.8) Procalcitonin 0.22 (0.19-0.49) NG/ML Urine Color Straw (YELLOW) Urine Appearance Clear (CLEAR) Urine pH 6.0 (4.7-8.0) Ur Specific [place] 1.010 (1.005-1.035) Urine Protein 30 H (<30 mg/dL) mg/dL Urine Glucose (UA) Negative (NEGATIVE) mg/dL Urine Ketones Trace H (NEGATIVE) mg/dL Urine Blood Negative (NEGATIVE) Urine Nitrate Negative (NEGATIVE) Urine Bilirubin Small H (NEGATIVE) Urine Urobilinogen 1.0 H (<1 E.U./dL) E.U./dL Ur Leukocyte Esterase Negative (NEGATIVE) Yasmin/uL Urine RBC 0 - 2 (0-2) /hpf Urine WBC 1 - 3 (0-6) /hpf Ur Epithelial Cells 0 - 2 (0-5) /hpf Urine Bacteria Few (NEG) Laboratory Results - last 24 hr 03/26/17 03/26/17 03/27/17 20:56 21:30 05:30 WBC 12.6 H D RBC 4.75 Hgb 10.3 L Hct 31.5 L MCV 66.3 L MCH 21.7 L MCHC 32.7 RDW 15.0 H Plt Count 408 PT INR APTT pCO2 pO2 HCO3 ABG pH ABG Total CO2 ABG O2 Saturation ABG O2 Content ABG Base Excess ABG Hemoglobin ABG Carboxyhemoglobin POC ABG HHb (Measured) ABG Methemoglobin ABG O2 Capacity Hgb O2 Saturation FiO2 Sodium Potassium Chloride Carbon Dioxide Anion Gap BUN Creatinine Est GFR ( Amer) Est GFR (Non-Af Amer) Random Glucose Calcium Phosphorus Magnesium Total Bilirubin AST ALT Alkaline Phosphatase Total Protein Albumin Globulin Albumin/Globulin Ratio Procalcitonin 0.22 Urine Color Straw Urine Appearance Clear Urine pH 6.0 Ur Specific [place] 1.010 Urine Protein 30 H Urine Glucose (UA) Negative Urine Ketones Trace H Urine Blood Negative Urine Nitrate Negative Urine Bilirubin Small H Urine Urobilinogen 1.0 H Ur Leukocyte Esterase Negative Urine RBC 0 - 2 Urine WBC 1 - 3 Ur Epithelial Cells 0 - 2 Urine Bacteria Few 03/27/17 03/27/17 03/27/17 05:30 05:30 07:15 WBC RBC Hgb Hct MCV MCH MCHC RDW Plt Count PT 15.5 H INR 1.34 H APTT 22.6 L pCO2 18 L* pO2 109.0 H HCO3 16.9 L ABG pH 7.58 H ABG Total CO2 17.5 L ABG O2 Saturation 99.1 H ABG O2 Content 13.7 L ABG Base Excess -3.4 L ABG Hemoglobin 10.0 L ABG Carboxyhemoglobin 1.7 H POC ABG HHb (Measured) 0.9 ABG Methemoglobin 1.6 ABG O2 Capacity 13.8 L Hgb O2 Saturation 95.8 FiO2 30.0 Sodium 151 H Potassium 3.6 Chloride 118 H Carbon Dioxide 20 L Anion Gap 17 BUN 40 H Creatinine 0.8 Est GFR ( Amer) > 60 Est GFR (Non-Af Amer) > 60 Random Glucose 106 Calcium 9.5 Phosphorus 3.9 Magnesium 2.4 H Total Bilirubin 1.5 H AST 78 H ALT 80 H Alkaline Phosphatase 106 Total Protein 6.8 Albumin 3.2 Globulin 3.6 Albumin/Globulin Ratio 0.9 L Procalcitonin Urine Color Urine Appearance Urine pH Ur Specific [place] Urine Protein Urine Glucose (UA) Urine Ketones Urine Blood Urine Nitrate Urine Bilirubin Urine Urobilinogen Ur Leukocyte Esterase Urine RBC Urine WBC Ur Epithelial Cells Urine Bacteria Attending/Attestation - Attestation I have personally seen and examined this patient.: Yes I have fully participated in the care of the patient.: Yes I have reviewed all pertinent clinical information: Yes Notes (Text): 03/27/17 14:00 ICH with SUELLEN and HC, s/p EVD without improvement in mental status and neurological exam. Nevertheless, doing ok on PS and will be tried on t-collar. as per night team report 4 cc of CSF drainage overnight at EVD set up of 20 cmH20-->d/w Dr. Cosby-->will clamp. Will repeat CT head later today to assess hydrocephalus while EVD clamped. PEG today. Once done and cleared by GI-->will also use it for cold GI lavage in case of hyperthermia. Meanwhile IV tylenol and cooling blankets for fever, euvolemia and euglycemia and 02sat>90%. fever and mild leukocytosis is likely due to [employer] insult. ccm time 40 min
--- NOTE | 2017-03-27 08:21 | RAD ---
HISTORY: intubated COMPARISON: Portable chest 03/26/2017. FINDINGS: Endotracheal tube is unchanged in position. LUNGS: No infiltrate is appreciated bilaterally once again however pulmonary hyperinflation is again evident. PLEURA: Blunting of the bilateral costophrenic sulci a again reflects chronic pleural thickening. Consider possible COPD. CARDIOVASCULAR: Cardiac size appears stable. No definite pulmonary vascular derangement appreciable. OSSEOUS STRUCTURES: No significant abnormalities. VISUALIZED UPPER ABDOMEN: Normal. OTHER FINDINGS: None. IMPRESSION: Stable radiography with no acute infiltrate or significant pleural effusion appreciable. Questionable COPD.
[2017-03-27] MEDS: levETIRAcetam 500mg IVPB 500 MG/100 ML BAG IV SCH (09:22)
--- NOTE | 2017-03-27 09:30 | PN ---
DATE: 03/26/2017 SUBJECTIVE: The patient is 76 years old, seen and examined, remained intubated, had tracheostomy done yesterday, minimally responsive, having tube feeding done. PHYSICAL EXAMINATION: VITAL SIGNS: She has temperature of 100.8 rectally this morning, pulse 90, respiration 18, blood pressure 147/85. LUNGS: Bilateral soft crackle in upper lung bases. HEART: S1 and S2 audible. ABDOMEN: Soft, nontender, no rebound, no guarding. NEUROLOGICAL: She is unresponsive. EXTREMITIES: Bilateral leg, no edema. . LABORATORY DATA: WBC 9.5, hemoglobin 10, hematocrit 30, platelets of 369. Chemistry: Sodium 149, potassium 3.2, chloride 114, CO2 of 23, BUN 30, creatinine 0.6, blood sugar is 110. ASSESSMENT AND PLAN: 1. Status post intracranial bleed. 2. Encephalopathy. 3. Fever, etiology at this point unknown. Source at this point is unknown. 4. Electrolyte imbalance. 5. History of chronic atrial fibrillation. The patient was supposed to have PEG place today, but because of the fever, it has been postponed. We will monitor next 24 hour, if fever have, will have PEG placed and after that will make plan for LTAC and the patient's family want her to go to rehab in . Oly Major MD
[2017-03-27] MEDS ORDERED: Lidocaine 2% Inj (20ml) ONE (14:20)
[2017-03-27] MEDS ORDERED: Propofol 10 mg/ml Inj (20 ML) ONE (14:20)
[2017-03-27] MEDS ORDERED: Etomidate 20 mg/10ml Inj IV ONE (14:20)
--- NOTE | 2017-03-27 16:50 | PN ---
DATE: SUBJECTIVE: Patient was seen and examined at the bedside. She appears to be comfortable. She is not on any sedation. PHYSICAL EXAMINATION: VITAL SIGNS: She is on pressure support 5/5 with a FiO2 of 30%. On that setting, her respiratory rate was 31, her tidal volume 308, her rapid shallow breathing index varies between 90 and 104, blood pressure 147/85, heart rate 113, end tidal CO2 on the monitor is 28, oxygen saturation 95%. She is on cooling blanket and IV Tylenol was just given for temperature of 101.6, which is aggressively confronted. HEENT: Head and neck atraumatic, status post EVD as well. EVD is put on 20 and remained on 20 cm of H2O overnight with draining only 4 mL of CSF. Patient is status post trach. HEART: Regular rate and rhythm. S1, S2 normal. ABDOMEN: Soft, nontender, nondistended. MUSCULOSKELETAL: No C/C/E. NEUROLOGIC: Patient is not responding to touch, painful or verbal stimuli. SKIN: Moist. PSYCHIATRIC: The patient is not responsive. LABORATORY DATA: WBC 12.6, hemoglobin 10.3, platelet count 408. Sodium 151, potassium 3.6, chloride 118, carbon dioxide 20, BUN 40, creatinine 0.6, glucose 106. AST 70, ALT 80, total bilirubin 1.5, magnesium 2.4. Microbiology, blood negative. CSF culture is pending. Glucose 30 in the CSF and protein 408. MEDICATIONS: Tylenol IV, DuoNeb p.r.n., Keppra, Cardene drip at 1.5 mg/hour, Protonix, potassium supplementation. ASSESSMENT AND PLAN: This is a 76 year old lady with devastating intracranial bleed into left thalamus with intraventricular extension and hydrocephalus, status post EVD without substantial improvement in her mental status. At present time, ICP appears to be equalized at 20. Whether or not to remove EVD will be up to neurosurgical service. EVD was clamped today. We will continue to monitor her mental status. We will continue to maintain blood pressure systolic within 140 to 160 range. We will continue to maintain euvolemia, euglycemia, normothermia and oxygen saturation more than 90%. Once percutaneous endoscopic gastrostomy tube is placed, we will consider cold lavage for aggressively bringing down temperature. Meanwhile, the patient is on Tylenol IV and cooling blankets. I think that the fever is of central origin. ID service is following the patient as well. As per their note, the patient has systemic inflammatory response syndrome with fevers from acute hemorrhagic thalamic cerebrovascular accident. They suggested to continue to monitor off of antibiotics. Patient is on pressure support trial and if tolerates it, will be put on trach collar. We will continue with conservative oxygen management, head of bed elevated more than 35 degrees, oral hygiene, VAP bundle. We will avoid therapeutic and prophylactic anticoagulation. We will maintain mean arterial pressure 65 and avoid nephrotoxic medication. Maintain euvolemia and euglycemia. We will also add nephroprotective effect. ccm time 40 min Rafael Gutierrez MD MTDClaus
--- NOTE | 2017-03-27 21:24 | PN ---
DATE: SUBJECTIVE: The patient is seen in bed, in no acute distress, nontoxic. PHYSICAL EXAMINATION: VITAL SIGNS: Temperature is 100.7, blood pressure is 130/80, respiratory rate of 23 on the vent, heart rate of 114. HEENT: Unremarkable. NECK: Supple. LUNGS: Decreased breath sounds. HEART: Normal S1 and S2. ABDOMEN: Soft, nontender. LABORATORY EXAMINATION: Reveals a white count of 12,600, hemoglobin of 10, platelets of 408. Chemistry reveals a BUN of 40, creatinine of 0.8. Procalcitonin is 0.22. Urinalysis is unremarkable. Microbiology reveals blood cultures are negative. Urine cultures are negative from yesterday. Review of orders reveals the patient to be off of antibiotics. Patient's chest x-ray is noted. ASSESSMENT AND PLAN: This is a 76-year-old female, who was seen in [facility], bed 4, who was with systemic inflammatory response syndrome with fevers secondary to acute hemorrhagic thalamic cerebrovascular accident, ventilator-dependent respiratory failure from the cerebrovascular accident, and repeat ryan-cultures from yesterday, blood cultures and urine cultures, negative. Procalcitonin was negative. Urinalysis negative. We will check on a sputum culture and currently still off of antibiotics. We will follow closely with you. Overall prognosis is quite poor. Brennan Amador MD
--- NOTE | 2017-03-28 00:34 | PN ---
DATE: SUBJECTIVE: The patient is a 76-year-old, remains intubated, unresponsive. Plan for PEG placement today. OBJECTIVE: GENERAL: She is unresponsive on vent. VITAL SIGNS: She has a temperature of 100.5, pulse 93, respirations 18, blood pressure 149/102. LUNGS: Bilateral fair air flow, currently on vent. HEART: S1, S2 audible. ABDOMEN: Soft, nontender, no rebound, no guarding. NEUROLOGIC: She is unresponsive. LABORATORY DATA: WBC is 12.2, hemoglobin 10.3, hematocrit 31, platelet count of 408. PT 15.5, INR 1.34. Chemistry: Sodium 151, potassium 3.6, chloride 118, CO2 of 20, BUN 40, creatinine 0.8, blood sugar of 111, total bili 1.5. ASSESSMENT: 1. Status post intracranial bleed. 2. Status post thalamic bleed. 3. Status post frontal ventriculostomy. 4. History of atrial fibrillation, was on Xarelto, apparently off of that. 5. Chronic anemia. 6. Encephalopathy. PLAN: Patient is currently on vent status post tracheostomy. We will continue her on nebulizer treatment. She is on Keppra. Potassium is being supplemented. She is on Protonix also. Discussed with cutting machine offbearer. We will discuss with director social welfare to make plan for LTAC. Oly Major MD
[2017-03-28] MEDS: levETIRAcetam 500mg IVPB 500 MG/100 ML BAG IV SCH ×3 (01:24→22:07)
[2017-03-28 05:55] LABS: ARTERIAL BLOOD GAS HCO3 21.7 mmol/L (21-28); ARTERIAL BLOOD GAS HEMOGLOBIN 15.2 g/dL (11.7-17.4); ARTERIAL BLOOD GAS O2 CAPACITY 20.9 mL/dl (16-24); ARTERIAL BLOOD GAS O2 CONTENT 20.8 ML/dl (15-23); ARTERIAL BLOOD GAS O2 SAT 99.6 % (95-98); ARTERIAL BLOOD GAS PCO2 26 mm/Hg (35-45); ARTERIAL BLOOD GAS PH 7.53 (7.35-7.45); ARTERIAL BLOOD GAS TCO2 22.5 mmol.L (22-28)
[2017-03-28 07:19] LABS: BASO # 0.02 K/mm3 (0.0-2.0); BASO % 0.1 % (0.0-3.0); EOS % 0.3 % (1.5-5.0); GRAN # 13.15 (1.4-6.5); GRAN % 86.5 % (50.0-68.0); HEMOGLOBIN 10.8 g/dL (12.0-16.0); LYMPH # 1.3 (1.2-3.4); LYMPH % 8.7 % (22.0-35.0); MEAN CELL VOLUME 66.9 fl (80.0-105.0); MEAN CORPUSCULAR HEMOGLOBIN 22.1 pg (25.0-35.0); MONO # 0.7 (0.1-0.6); MONO % 4.4 % (1.0-6.0); PLATELET COUNT 387 10^3/uL (120.0-450.0); RBC 4.89 10^6/uL (3.5-6.1); RED CELL DISTRIBUTION WIDTH 15.2 % (11.5-14.5); WHITE BLOOD COUNT 15.2 10^3/ul (4.5-11.0)
[2017-03-28 07:55] LABS: ALB/GLOB RATIO 0.9 (1.1-1.8); ALBUMIN 3.2 g/dL (3.0-4.8); ALT/SGPT 74 U/L (7-56); AST/SGOT 69 U/L (14-36); BLOOD UREA NITROGEN 28 mg/dL (7-21); CALCIUM 9.6 mg/dL (8.4-10.5); GFR AFRICAN-AMERICAN > 60; GFR NON-AFRICAN AMERICAN > 60; MAGNESIUM 2.5 mg/dL (1.7-2.2)
--- NOTE | 2017-03-28 08:38 | CT ---
PROCEDURE: CT HEAD WITHOUT CONTRAST. HISTORY: intracranial bleed COMPARISON: Unenhanced head CT 03/20/2017 TECHNIQUE: Axial computed tomography images were obtained through the head/brain without intravenous contrast. Radiation dose: Total exam DLP = 855.60 mGy-cm. This CT exam was performed using one or more of the following dose reduction techniques: Automated exposure control, adjustment of the mA and/or kV according to patient size, and/or use of iterative reconstruction technique. FINDINGS: HEMORRHAGE: Left thalamic intraparenchymal hemorrhage is diminished in overall size no measuring 3.9 x 1.9 cm (transverse by anteroposterior dimensions) as compared to 4.1 by 2.4 cm previously. Further, there has been a significant reduction in intraventricular hemorrhage with only limited residual noted at the dependent portions of the bilateral lateral ventricle atria. BRAIN: Deformity of the medial left thalamus shifting 1.4 cm to the right is apparent, partially effacing 3rd ventricle, unchanged in appearance overall. Local edema is again seen surrounding the hemorrhagic locus at the left thalamus. Diffuse cerebral atrophy chronic microangiopathy are again identified as well as bilateral basal ganglia calcifications. Dense calcifications the left caudate head is again appreciated. Extra-axial spaces are stable, with no suspicious findings in the periphery. Posterior fossa contents are stable including prominent 4th ventricle. VENTRICLES: Hydrocephalus persists with right frontal shunt unchanged in position terminating at the foramen of Monro. CALVARIUM: Stable including right frontal lashay hole for ventricular shunt. PARANASAL SINUSES: Unremarkable as visualized. No significant inflammatory changes. MASTOID AIR CELLS: Limited left mastoiditis identified. OTHER FINDINGS: None. IMPRESSION: 1. Intraparenchymal hemorrhage at the left thalamus is mildly diminished in volume and significantly diminished in overall density indicating early chronic hemorrhagic degradation with stable local edema. Deformity of the medial left thalamus is again seen partially effacing the 3rd ventricle. No new intracranial hemorrhage is appreciated with prominent but stable hydrocephalus again seen. Right frontal shunt unchanged in position grossly. 2. Reiterated age related neuro degenerative changes.
--- NOTE | 2017-03-28 08:38 | CP.CCUPN ---
<Nixon Hein - Last Filed: 03/28/17 14:36> CCU Subjective - Physician Review Subjective (Free Text): Nixon Hein PGY1 ICU Note for Dr. Gutierrez Patient was seen and examined in ICU. She remains minimally responsive. Neurosurgery saw patient this morning and removed the EVD and made no further recommendations. GI Dr. Long has made recommendations to start using PEG tube. CCU Objective - Vital Signs / Intake & Output Vital Signs (Last 4 hours): Vital Signs Temp Pulse Resp BP Pulse Ox 03/28/17 06:00 104 H 152/98 H 97 03/28/17 05:45 107 H 157/98 H 97 03/28/17 05:30 108 H 155/97 H 96 03/28/17 05:15 103 H 154/102 H 93 L 03/28/17 05:00 99 H 145/92 H 95 03/28/17 04:59 100.2 F H 28 H 03/28/17 04:45 97 H 144/91 H 97 Intake and Output (Last 8hrs): Intake & Output 03/27/17 03/28/17 03/28/17 22:59 06:59 14:59 Intake Total 150 565 55 Output Total 1150 900 Balance -1000 -335 55 Weight 90 lb 6.4 oz Intake: IV 150 565 55 CARDINE 50 240 Right Forearm 100 200 Output: Urine 1150 900 Urethral (Perez) 1150 900 Stool 0 Emesis 0 Other: # Bowel Movements 0 - Physical Exam Physical Exam Limitations: Positive for: Altered Mental Status Head: Positive for: Normocephalic Pupils: Positive for: Non-Reactive Extroacular Muscles: Positive for: Other (unable to assess) Conjunctiva: Positive for: Normal Ears: Positive for: Normal Mouth: Positive for: Moist Mucous Membranes, Normal Teeth, Other (s/p trach, on vent) Pharnyx: Positive for: Normal, Other Nose (External): Positive for: Atraumatic Nose (Internal): Positive for: Normal Inspection Neck: Positive for: Other (s/p tracheostomy, on vent). Negative for: MIDLINE TENDERNESS Respiratory/Chest: Positive for: Clear to Auscultation, Good Air Exchange, Other (on vent). Negative for: Respiratory Distress, Accessory Muscle Use, Wheezes Cardiovascular: Positive for: Regular Rate and Rhythm, Normal S1, S2. Negative for: Murmurs Abdomen: Positive for: Normal Bowel Sounds, Other (PEG tube in place). Negative for: Tenderness, Distention, Peritoneal Signs Genitourinary/Pelvic Exam: Positive for: Other (perez in place ) Back: Positive for: Normal Inspection Upper Extremity: Positive for: Normal Inspection, NORMAL PULSES, Capillary Refill < 2s. Negative for: Cyanosis, Edema Lower Extremity: Positive for: Normal Inspection, Other (SCDs in place). Negative for: Edema Neurological: Positive for: Other (GCS4t - pupils are sluggisg at 2mm b/l;+ babinski b/l, decerebrate posturing to pain). Negative for: GCS=15, CN II-XII Intact, Speech Normal Skin: Positive for: Warm, Dry, Normal Color. Negative for: Rashes Lymphatic: Positive for: OX3, NI, NC Psychiatric: Positive for: Other (altered). Negative for: Alert, Oriented x 3, Normal Insight, Normal Concentration - Medications Active Medications: Active Medications Generic Name Dose Route Start Last Admin Trade Name Freq PRN Reason Stop Dose Admin Albuterol/Ipratropium 3 ml 03/19/17 10:40 03/27/17 07:38 Duoneb 3 Mg/0.5 Mg (3 Ml) Ud IH 3 ml Q2H PRN Administration Shortness of Breath Levetiracetam 500 mg in 100 mls @ 400 mls/hr 03/17/17 22:00 03/28/17 01:24 Keppra 500mg Ivpb IV 400 mls/hr Q12 SANJANA Administration Nicardipine HCl 20 mg in 200 mls @ 50 mls/hr 03/19/17 15:00 03/28/17 08:28 Cardene Iv Premix IV 5 mg/hr .Q4H PRN 50 mls/hr TITRATE PER MD ORDER Titration Protocol 5 MG/HR Acetaminophen 1,000 mg in 100 mls @ 400 mls/hr 03/26/17 15:18 03/27/17 20:29 Ofirmev IVPB 03/28/17 15:25 400 mls/hr Q6H PRN Administration Temperature > 100.4 Pantoprazole Sodium 40 mg 03/18/17 10:00 03/27/17 09:23 Protonix Inj IVP 40 mg DAILY SANJANA Administration - Patient Studies Lab Studies: Microbiology Studies 03/26/17 21:45 Blood Culture - Preliminary Blood NO GROWTH AFTER 24 HOURS 03/26/17 21:30 Blood Culture - Preliminary Blood NO GROWTH AFTER 24 HOURS 03/27/17 07:50 Gram Stain - Final Trachasp 03/26/17 08:45 Urine Culture - Final Urine,Perez No Growth (<1,000 CFU/ML) 03/26/17 12:56 Blood Culture - Preliminary Blood-Venous NO GROWTH AFTER 24 HOURS 03/26/17 12:56 Blood Culture - Preliminary Blood-Venous NO GROWTH AFTER 24 HOURS Lab Studies 03/28/17 03/28/17 03/28/17 Range/Units 06:00 06:00 05:55 WBC 15.2 H D (4.5-11.0) 10^3/ul RBC 4.89 (3.5-6.1) 10^6/uL Hgb 10.8 L (12.0-16.0) g/dL Hct 32.7 L (36.0-48.0) % MCV 66.9 L (80.0-105.0) fl MCH 22.1 L (25.0-35.0) pg MCHC 33.0 (31.0-37.0) g/dl RDW 15.2 H (11.5-14.5) % Plt Count 387 (120.0-450.0) 10^3/uL Gran % 86.5 H (50.0-68.0) % Lymph % (Auto) 8.7 L (22.0-35.0) % [place] % (Auto) 4.4 (1.0-6.0) % Eos % (Auto) 0.3 L (1.5-5.0) % Baso % (Auto) 0.1 (0.0-3.0) % Gran # 13.15 H (1.4-6.5) Lymph # (Auto) 1.3 (1.2-3.4) [place] # (Auto) 0.7 H (0.1-0.6) Eos # (Auto) 0.0 (0.0-0.7) Baso # (Auto) 0.02 (0.0-2.0) K/mm3 pCO2 (35-45) mm/Hg pO2 (80-100) mm/Hg HCO3 (21-28) mmol/L ABG pH (7.35-7.45) ABG Total CO2 (22-28) mmol.L ABG O2 Saturation (95-98) % ABG O2 Content (15-23) ML/dl ABG Base Excess (-2.0-3.0) mmol/L ABG Hemoglobin (11.7-17.4) g/dL ABG Carboxyhemoglobin (0.5-1.5) % POC ABG HHb (Measured) (0-5) % ABG Methemoglobin (0.0-3.0) % ABG O2 Capacity (16-24) mL/dl Hgb O2 Saturation (95.0-98.0) % FiO2 % Sodium 157 H* (132-148) mmol/L Potassium 3.2 L (3.6-5.0) mmol/L Chloride 122 H (98-107) mmol/L Carbon Dioxide 23 (21-33) mmol/L Anion Gap 16 (10-20) BUN 28 H (7-21) mg/dL Creatinine 0.6 L (0.7-1.2) mg/dl Est GFR ( Amer) > 60 Est GFR (Non-Af Amer) > 60 POC Glucose (mg/dL) 141 H (65-110) mg/dL Random Glucose 141 H (70-110) mg/dL Calcium 9.6 (8.4-10.5) mg/dL Phosphorus 2.7 (2.5-4.5) mg/dL Magnesium 2.5 H (1.7-2.2) mg/dL Total Bilirubin 1.5 H (0.2-1.3) mg/dL AST 69 H (14-36) U/L ALT 74 H (7-56) U/L Alkaline Phosphatase 114 (38-126) U/L Total Protein 7.0 (5.8-8.3) g/dL Albumin 3.2 (3.0-4.8) g/dL Globulin 3.8 gm/dL Albumin/Globulin Ratio 0.9 L (1.1-1.8) Procalcitonin (0.19-0.49) NG/ML 03/28/17 03/27/17 03/27/17 Range/Units 05:30 23:55 18:11 WBC (4.5-11.0) 10^3/ul RBC (3.5-6.1) 10^6/uL Hgb (12.0-16.0) g/dL Hct (36.0-48.0) % MCV (80.0-105.0) fl MCH (25.0-35.0) pg MCHC (31.0-37.0) g/dl RDW (11.5-14.5) % Plt Count (120.0-450.0) 10^3/uL Gran % (50.0-68.0) % Lymph % (Auto) (22.0-35.0) % [place] % (Auto) (1.0-6.0) % Eos % (Auto) (1.5-5.0) % Baso % (Auto) (0.0-3.0) % Gran # (1.4-6.5) Lymph # (Auto) (1.2-3.4) [place] # (Auto) (0.1-0.6) Eos # (Auto) (0.0-0.7) Baso # (Auto) (0.0-2.0) K/mm3 pCO2 26 L (35-45) mm/Hg pO2 111.0 H (80-100) mm/Hg HCO3 21.7 (21-28) mmol/L ABG pH 7.53 H (7.35-7.45) ABG Total CO2 22.5 (22-28) mmol.L ABG O2 Saturation 99.6 H (95-98) % ABG O2 Content 20.8 (15-23) ML/dl ABG Base Excess 0.6 (-2.0-3.0) mmol/L ABG Hemoglobin 15.2 (11.7-17.4) g/dL ABG Carboxyhemoglobin 2.1 H (0.5-1.5) % POC ABG HHb (Measured) 0.4 (0-5) % ABG Methemoglobin 0.9 (0.0-3.0) % ABG O2 Capacity 20.9 (16-24) mL/dl Hgb O2 Saturation 96.6 (95.0-98.0) % FiO2 30.0 % Sodium (132-148) mmol/L Potassium (3.6-5.0) mmol/L Chloride (98-107) mmol/L Carbon Dioxide (21-33) mmol/L Anion Gap (10-20) BUN (7-21) mg/dL Creatinine (0.7-1.2) mg/dl Est GFR ( Amer) Est GFR (Non-Af Amer) POC Glucose (mg/dL) 140 H 107 (65-110) mg/dL Random Glucose (70-110) mg/dL Calcium (8.4-10.5) mg/dL Phosphorus (2.5-4.5) mg/dL Magnesium (1.7-2.2) mg/dL Total Bilirubin (0.2-1.3) mg/dL AST (14-36) U/L ALT (7-56) U/L Alkaline Phosphatase (38-126) U/L Total Protein (5.8-8.3) g/dL Albumin (3.0-4.8) g/dL Globulin gm/dL Albumin/Globulin Ratio (1.1-1.8) Procalcitonin (0.19-0.49) NG/ML 03/27/17 03/26/17 Range/Units 11:38 21:30 WBC (4.5-11.0) 10^3/ul RBC (3.5-6.1) 10^6/uL Hgb (12.0-16.0) g/dL Hct (36.0-48.0) % MCV (80.0-105.0) fl MCH (25.0-35.0) pg MCHC (31.0-37.0) g/dl RDW (11.5-14.5) % Plt Count (120.0-450.0) 10^3/uL Gran % (50.0-68.0) % Lymph % (Auto) (22.0-35.0) % [place] % (Auto) (1.0-6.0) % Eos % (Auto) (1.5-5.0) % Baso % (Auto) (0.0-3.0) % Gran # (1.4-6.5) Lymph # (Auto) (1.2-3.4) [place] # (Auto) (0.1-0.6) Eos # (Auto) (0.0-0.7) Baso # (Auto) (0.0-2.0) K/mm3 pCO2 (35-45) mm/Hg pO2 (80-100) mm/Hg HCO3 (21-28) mmol/L ABG pH (7.35-7.45) ABG Total CO2 (22-28) mmol.L ABG O2 Saturation (95-98) % ABG O2 Content (15-23) ML/dl ABG Base Excess (-2.0-3.0) mmol/L ABG Hemoglobin (11.7-17.4) g/dL ABG Carboxyhemoglobin (0.5-1.5) % POC ABG HHb (Measured) (0-5) % ABG Methemoglobin (0.0-3.0) % ABG O2 Capacity (16-24) mL/dl Hgb O2 Saturation (95.0-98.0) % FiO2 % Sodium (132-148) mmol/L Potassium (3.6-5.0) mmol/L Chloride (98-107) mmol/L Carbon Dioxide (21-33) mmol/L Anion Gap (10-20) BUN (7-21) mg/dL Creatinine (0.7-1.2) mg/dl Est GFR ( Amer) Est GFR (Non-Af Amer) POC Glucose (mg/dL) 111 H (65-110) mg/dL Random Glucose (70-110) mg/dL Calcium (8.4-10.5) mg/dL Phosphorus (2.5-4.5) mg/dL Magnesium (1.7-2.2) mg/dL Total Bilirubin (0.2-1.3) mg/dL AST (14-36) U/L ALT (7-56) U/L Alkaline Phosphatase (38-126) U/L Total Protein (5.8-8.3) g/dL Albumin (3.0-4.8) g/dL Globulin gm/dL Albumin/Globulin Ratio (1.1-1.8) Procalcitonin 0.22 (0.19-0.49) NG/ML Laboratory Results - last 24 hr 03/26/17 03/27/17 03/27/17 21:30 11:38 18:11 WBC RBC Hgb Hct MCV MCH MCHC RDW Plt Count Gran % Lymph % (Auto) [place] % (Auto) Eos % (Auto) Baso % (Auto) Gran # Lymph # (Auto) [place] # (Auto) Eos # (Auto) Baso # (Auto) pCO2 pO2 HCO3 ABG pH ABG Total CO2 ABG O2 Saturation ABG O2 Content ABG Base Excess ABG Hemoglobin ABG Carboxyhemoglobin POC ABG HHb (Measured) ABG Methemoglobin ABG O2 Capacity Hgb O2 Saturation FiO2 Sodium Potassium Chloride Carbon Dioxide Anion Gap BUN Creatinine Est GFR ( Amer) Est GFR (Non-Af Amer) POC Glucose (mg/dL) 111 H 107 Random Glucose Calcium Phosphorus Magnesium Total Bilirubin AST ALT Alkaline Phosphatase Total Protein Albumin Globulin Albumin/Globulin Ratio Procalcitonin 0.22 03/27/17 03/28/17 03/28/17 23:55 05:30 05:55 WBC RBC Hgb Hct MCV MCH MCHC RDW Plt Count Gran % Lymph % (Auto) [place] % (Auto) Eos % (Auto) Baso % (Auto) Gran # Lymph # (Auto) [place] # (Auto) Eos # (Auto) Baso # (Auto) pCO2 26 L pO2 111.0 H HCO3 21.7 ABG pH 7.53 H ABG Total CO2 22.5 ABG O2 Saturation 99.6 H ABG O2 Content 20.8 ABG Base Excess 0.6 ABG Hemoglobin 15.2 ABG Carboxyhemoglobin 2.1 H POC ABG HHb (Measured) 0.4 ABG Methemoglobin 0.9 ABG O2 Capacity 20.9 Hgb O2 Saturation 96.6 FiO2 30.0 Sodium Potassium Chloride Carbon Dioxide Anion Gap BUN Creatinine Est GFR ( Amer) Est GFR (Non-Af Amer) POC Glucose (mg/dL) 140 H 141 H Random Glucose Calcium Phosphorus Magnesium Total Bilirubin AST ALT Alkaline Phosphatase Total Protein Albumin Globulin Albumin/Globulin Ratio Procalcitonin 03/28/17 03/28/17 06:00 06:00 WBC 15.2 H D RBC 4.89 Hgb 10.8 L Hct 32.7 L MCV 66.9 L MCH 22.1 L MCHC 33.0 RDW 15.2 H Plt Count 387 Gran % 86.5 H Lymph % (Auto) 8.7 L [place] % (Auto) 4.4 Eos % (Auto) 0.3 L Baso % (Auto) 0.1 Gran # 13.15 H Lymph # (Auto) 1.3 [place] # (Auto) 0.7 H Eos # (Auto) 0.0 Baso # (Auto) 0.02 pCO2 pO2 HCO3 ABG pH ABG Total CO2 ABG O2 Saturation ABG O2 Content ABG Base Excess ABG Hemoglobin ABG Carboxyhemoglobin POC ABG HHb (Measured) ABG Methemoglobin ABG O2 Capacity Hgb O2 Saturation FiO2 Sodium 157 H* Potassium 3.2 L Chloride 122 H Carbon Dioxide 23 Anion Gap 16 BUN 28 H Creatinine 0.6 L Est GFR ( Amer) > 60 Est GFR (Non-Af Amer) > 60 POC Glucose (mg/dL) Random Glucose 141 H Calcium 9.6 Phosphorus 2.7 Magnesium 2.5 H Total Bilirubin 1.5 H AST 69 H ALT 74 H Alkaline Phosphatase 114 Total Protein 7.0 Albumin 3.2 Globulin 3.8 Albumin/Globulin Ratio 0.9 L Procalcitonin Fingerstick Blood Sugar Results: 140 Review of Systems - Review of Systems Systems not reviewed;Unavailable: Altered Mental Status Critical Care Progress Note - Ventilator Checklist Head of Bed 30 Degrees: Yes Daily Sedation Vacation: Yes Daily Assessment of Readiness to Wean: Yes Daily Spontaneous Breathing Trial: Yes PUD Prophalyxis: Yes DVT Prophylaxis: Yes Oral Care with Chlorhexidine Gluconate {CHG}: Yes - Vent Settings MODE:: PRESSURE SUPPORT - Extremities/Vascular Does the Patient have a Central Venous Catheter?: No Does the Patient need a Central Venous Catheter?: No Does the Patient have a Perez Catheter?: Yes Does the Patient need a Peerz Catheter?: Yes - Prophylaxis GI Prophylaxis GI: PPI - Prophylaxis DVT Prophylaxis DVT: SCDs Assessment/Plan - Assessment and Plan (Free Text) Assessment: 76yo female with a past medical history of intracerebral hemorrhage ( 8yrs ago),A.fib (was on Xeralto), asthma and COPD admitted for L thalamic bleed with intraventricular extension seen on head CT s/p ventriculostomy. s/p tracheostomy and PEG tube placement. Plan: Neuro: - non-responsive not on sedation - ICH w/ L thalamic bleed with intraventricular extension s/p Kcentra and mannitol and ventriculostomy - EVD removed today by Dr. Peterson - repeat CT Head showed early chronic hemorrhagic degradation - Neurosurgery consulted-recs appreciated - Neuro consulted- recs appreciated - Continue Keppra IV, seizure precaution - Maintain normothermia with cooling blanket, IV tylenol PRN, as well as cool saline flushes through PEG tube fto maintain T < 100F - Aspiration and seizure precautions Cardio: - Hx of Afib, but in NSR - Cardene drip to Maintain SBP 130-140s, DBP 70-80s - Cardio consulted- recs appreciated - Hold anticoagulants for ICH - Maintain MAP> 65 mmHg Pulm: - Intubated PRVC, daily PS as tolerated - Maintain SpO2>90% - Continue lung protective ventilation strategy, HOB elevate 45 degrees - CXR shows questionable medial right lung base infiltrate - Protective lung ventilation strategy includes HOB elevated, daily oral care, and aspiration precautions; DVT and GI ppx; will continue daily weaning trials off sedation and vent GI: - Continue tube feeds via PEG tube Nephro: - Will continue to monitor electrolytes and replace as needed Heme/Onc: - Hgb stable- No overt bleeding, Head CT showed stable bleed - No anticoagulation ID: - fevers likely central 2/2 hemorrhage - Patient is on tylenol and cooling blanket and cool saline lavage (250cc q 6h) via PEG tube to improve fever - Leukocytosis improved - Procalcitoninlow - CSF culture pending, Glucose decreased at 30, Protein elevated at 408 - Septic work up negative thus far - ID consulted - As per ID, patient's leukocytosis and fever and be secondary to ICH - No abx on board per ID Endo: - Maintain strict glycemic control (80s-110s) - avoid hyper/hypo-glycemia Diet: PEG tube feedings (Jevity 1.2) GI ppx: protonix DVT ppx: SCDs Dispo: prognosis guarded. Palliative care consulted. Family will discuss wishes with Dr. Steinberg. LTAC will be discussed with the family Patient was seen, examined and discussed with attending, Dr. Brenda Hein PGY1 Pager # [phone] <Rafael Gutierrez - Last Filed: 03/29/17 16:41> CCU Objective - Vital Signs / Intake & Output Vital Signs (Last 4 hours): Vital Signs Pulse Resp BP Pulse Ox 03/29/17 14:15 100 H 102/58 L 96 03/29/17 14:00 100 H 99/62 L 96 03/29/17 13:45 103 H 104/67 98 03/29/17 13:30 105 H 114/67 100 03/29/17 13:20 25 H 99 03/29/17 13:15 116 H 122/84 99 03/29/17 13:00 114 H 167/88 H 95 03/29/17 12:45 108 H 160/74 H 98 Intake and Output (Last 8hrs): Intake & Output 03/29/17 03/29/17 03/29/17 06:59 14:59 22:59 Intake Total 155 1954 Output Total 750 Balance 155 1204 Weight 90 lb 6.4 oz Intake: IV 155 754 CARDINE 300 Tube Feeding 600 Other 600 Output: Urine 750 Urethral (Perez) 750 Stool 0 Emesis 0 Other: # Bowel Movements 1 - Medications Active Medications: Active Medications Generic Name Dose Route Start Last Admin Trade Name Freq PRN Reason Stop Dose Admin Albuterol/Ipratropium 3 ml 03/19/17 10:40 03/29/17 13:13 Duoneb 3 Mg/0.5 Mg (3 Ml) Ud IH 3 ml Q2H PRN Administration Shortness of Breath Docusate Sodium 100 mg 03/29/17 18:00 Colace Liquid PEG BID SANJANA Levetiracetam 500 mg in 100 mls @ 400 mls/hr 03/17/17 22:00 03/29/17 09:00 Keppra 500mg Ivpb IV 400 mls/hr Q12 SANJANA Administration Nicardipine HCl 20 mg in 200 mls @ 50 mls/hr 03/19/17 15:00 03/29/17 14:30 Cardene Iv Premix IV 0 mg/hr .Q4H PRN 0 mls/hr TITRATE PER MD ORDER Titration Protocol 5 MG/HR Acetaminophen 1,000 mg in 100 mls @ 400 mls/hr 03/29/17 11:37 03/29/17 13:09 Ofirmev IVPB 03/31/17 11:38 400 mls/hr Q6H PRN Administration Temperature > 100 F Pantoprazole Sodium 40 mg 03/18/17 10:00 03/29/17 08:59 Protonix Inj IVP 40 mg DAILY SANJANA Administration Potassium Phos/Sodium Phos 1 pkt 03/29/17 10:00 03/29/17 13:11 Neutra-Phos PO 03/29/17 18:01 1 pkt TID SANJANA Administration - Patient Studies Lab Studies: Microbiology Studies 03/26/17 12:56 Blood Culture - Preliminary Blood-Venous NO GROWTH AFTER 3 DAYS 03/26/17 12:56 Blood Culture - Preliminary Blood-Venous NO GROWTH AFTER 3 DAYS 03/27/17 07:50 Gram Stain - Final Trachasp Sputum Culture - Final NORMAL ORAL RAMON 03/26/17 21:45 Blood Culture - Preliminary Blood NO GROWTH AFTER 48 HOURS 03/26/17 21:30 Blood Culture - Preliminary Blood NO GROWTH AFTER 48 HOURS Lab Studies 03/29/17 03/29/17 03/29/17 Range/Units 12:02 06:18 06:15 WBC (4.5-11.0) 10^3/ul RBC (3.5-6.1) 10^6/uL Hgb (12.0-16.0) g/dL Hct (36.0-48.0) % MCV (80.0-105.0) fl MCH (25.0-35.0) pg MCHC (31.0-37.0) g/dl RDW (11.5-14.5) % Plt Count (120.0-450.0) 10^3/uL Gran % (50.0-68.0) % Lymph % (Auto) (22.0-35.0) % [place] % (Auto) (1.0-6.0) % Eos % (Auto) (1.5-5.0) % Baso % (Auto) (0.0-3.0) % Gran # (1.4-6.5) Lymph # (Auto) (1.2-3.4) [place] # (Auto) (0.1-0.6) Eos # (Auto) (0.0-0.7) Baso # (Auto) (0.0-2.0) K/mm3 pCO2 26 L (35-45) mm/Hg pO2 83.0 (80-100) mm/Hg HCO3 22.7 (21-28) mmol/L ABG pH 7.55 H (7.35-7.45) ABG Total CO2 23.5 (22-28) mmol.L ABG O2 Saturation 98.7 H (95-98) % ABG O2 Content 12.6 L (15-23) ML/dl ABG Base Excess 0.9 (-2.0-3.0) mmol/L ABG Hemoglobin 9.3 L (11.7-17.4) g/dL ABG Carboxyhemoglobin 1.9 H (0.5-1.5) % POC ABG HHb (Measured) 1.3 (0-5) % ABG Methemoglobin 1.1 (0.0-3.0) % ABG O2 Capacity 12.8 L (16-24) mL/dl Hgb O2 Saturation 95.7 (95.0-98.0) % FiO2 30.0 % Sodium (132-148) mmol/L Potassium (3.6-5.0) mmol/L Chloride (98-107) mmol/L Carbon Dioxide (21-33) mmol/L Anion Gap (10-20) BUN (7-21) mg/dL Creatinine (0.7-1.2) mg/dl Est GFR ( Amer) Est GFR (Non-Af Amer) POC Glucose (mg/dL) 157 H 169 H (65-110) mg/dL Random Glucose (70-110) mg/dL Calcium (8.4-10.5) mg/dL Phosphorus (2.5-4.5) mg/dL Magnesium (1.7-2.2) mg/dL Total Bilirubin (0.2-1.3) mg/dL AST (14-36) U/L ALT (7-56) U/L Alkaline Phosphatase (38-126) U/L Total Protein (5.8-8.3) g/dL Albumin (3.0-4.8) g/dL Globulin gm/dL Albumin/Globulin Ratio (1.1-1.8) 03/29/17 03/29/17 03/28/17 Range/Units 05:30 05:30 23:59 WBC 23.3 H D (4.5-11.0) 10^3/ul RBC 4.15 (3.5-6.1) 10^6/uL Hgb 9.0 L (12.0-16.0) g/dL Hct 27.8 L (36.0-48.0) % MCV 67.0 L (80.0-105.0) fl MCH 21.7 L (25.0-35.0) pg MCHC 32.4 (31.0-37.0) g/dl RDW 15.1 H (11.5-14.5) % Plt Count 390 (120.0-450.0) 10^3/uL Gran % 88.8 H (50.0-68.0) % Lymph % (Auto) 6.8 L (22.0-35.0) % [place] % (Auto) 4.2 (1.0-6.0) % Eos % (Auto) 0.2 L (1.5-5.0) % Baso % (Auto) 0.0 (0.0-3.0) % Gran # 20.67 H (1.4-6.5) Lymph # (Auto) 1.6 (1.2-3.4) [place] # (Auto) 1.0 H (0.1-0.6) Eos # (Auto) 0.0 (0.0-0.7) Baso # (Auto) 0.01 (0.0-2.0) K/mm3 pCO2 (35-45) mm/Hg pO2 (80-100) mm/Hg HCO3 (21-28) mmol/L ABG pH (7.35-7.45) ABG Total CO2 (22-28) mmol.L ABG O2 Saturation (95-98) % ABG O2 Content (15-23) ML/dl ABG Base Excess (-2.0-3.0) mmol/L ABG Hemoglobin (11.7-17.4) g/dL ABG Carboxyhemoglobin (0.5-1.5) % POC ABG HHb (Measured) (0-5) % ABG Methemoglobin (0.0-3.0) % ABG O2 Capacity (16-24) mL/dl Hgb O2 Saturation (95.0-98.0) % FiO2 % Sodium 155 H (132-148) mmol/L Potassium 3.6 (3.6-5.0) mmol/L Chloride 120 H (98-107) mmol/L Carbon Dioxide 24 (21-33) mmol/L Anion Gap 16 (10-20) BUN 27 H (7-21) mg/dL Creatinine 0.6 L (0.7-1.2) mg/dl Est GFR ( Amer) > 60 Est GFR (Non-Af Amer) > 60 POC Glucose (mg/dL) 166 H (65-110) mg/dL Random Glucose 172 H (70-110) mg/dL Calcium 9.3 (8.4-10.5) mg/dL Phosphorus 2.3 L (2.5-4.5) mg/dL Magnesium 2.4 H (1.7-2.2) mg/dL Total Bilirubin 1.1 (0.2-1.3) mg/dL AST 67 H (14-36) U/L ALT 66 H (7-56) U/L Alkaline Phosphatase 112 (38-126) U/L Total Protein 6.7 (5.8-8.3) g/dL Albumin 3.1 (3.0-4.8) g/dL Globulin 3.6 gm/dL Albumin/Globulin Ratio 0.8 L (1.1-1.8) 03/28/17 Range/Units 17:59 WBC (4.5-11.0) 10^3/ul RBC (3.5-6.1) 10^6/uL Hgb (12.0-16.0) g/dL Hct (36.0-48.0) % MCV (80.0-105.0) fl MCH (25.0-35.0) pg MCHC (31.0-37.0) g/dl RDW (11.5-14.5) % Plt Count (120.0-450.0) 10^3/uL Gran % (50.0-68.0) % Lymph % (Auto) (22.0-35.0) % [place] % (Auto) (1.0-6.0) % Eos % (Auto) (1.5-5.0) % Baso % (Auto) (0.0-3.0) % Gran # (1.4-6.5) Lymph # (Auto) (1.2-3.4) [place] # (Auto) (0.1-0.6) Eos # (Auto) (0.0-0.7) Baso # (Auto) (0.0-2.0) K/mm3 pCO2 (35-45) mm/Hg pO2 (80-100) mm/Hg HCO3 (21-28) mmol/L ABG pH (7.35-7.45) ABG Total CO2 (22-28) mmol.L ABG O2 Saturation (95-98) % ABG O2 Content (15-23) ML/dl ABG Base Excess (-2.0-3.0) mmol/L ABG Hemoglobin (11.7-17.4) g/dL ABG Carboxyhemoglobin (0.5-1.5) % POC ABG HHb (Measured) (0-5) % ABG Methemoglobin (0.0-3.0) % ABG O2 Capacity (16-24) mL/dl Hgb O2 Saturation (95.0-98.0) % FiO2 % Sodium (132-148) mmol/L Potassium (3.6-5.0) mmol/L Chloride (98-107) mmol/L Carbon Dioxide (21-33) mmol/L Anion Gap (10-20) BUN (7-21) mg/dL Creatinine (0.7-1.2) mg/dl Est GFR ( Amer) Est GFR (Non-Af Amer) POC Glucose (mg/dL) 133 H (65-110) mg/dL Random Glucose (70-110) mg/dL Calcium (8.4-10.5) mg/dL Phosphorus (2.5-4.5) mg/dL Magnesium (1.7-2.2) mg/dL Total Bilirubin (0.2-1.3) mg/dL AST (14-36) U/L ALT (7-56) U/L Alkaline Phosphatase (38-126) U/L Total Protein (5.8-8.3) g/dL Albumin (3.0-4.8) g/dL Globulin gm/dL Albumin/Globulin Ratio (1.1-1.8) Laboratory Results - last 24 hr 03/28/17 03/28/17 03/29/17 17:59 23:59 05:30 WBC RBC Hgb Hct MCV MCH MCHC RDW Plt Count Gran % Lymph % (Auto) [place] % (Auto) Eos % (Auto) Baso % (Auto) Gran # Lymph # (Auto) [place] # (Auto) Eos # (Auto) Baso # (Auto) pCO2 pO2 HCO3 ABG pH ABG Total CO2 ABG O2 Saturation ABG O2 Content ABG Base Excess ABG Hemoglobin ABG Carboxyhemoglobin POC ABG HHb (Measured) ABG Methemoglobin ABG O2 Capacity Hgb O2 Saturation FiO2 Sodium 155 H Potassium 3.6 Chloride 120 H Carbon Dioxide 24 Anion Gap 16 BUN 27 H Creatinine 0.6 L Est GFR ( Amer) > 60 Est GFR (Non-Af Amer) > 60 POC Glucose (mg/dL) 133 H 166 H Random Glucose 172 H Calcium 9.3 Phosphorus 2.3 L Magnesium 2.4 H Total Bilirubin 1.1 AST 67 H ALT 66 H Alkaline Phosphatase 112 Total Protein 6.7 Albumin 3.1 Globulin 3.6 Albumin/Globulin Ratio 0.8 L 03/29/17 03/29/17 03/29/17 05:30 06:15 06:18 WBC 23.3 H D RBC 4.15 Hgb 9.0 L Hct 27.8 L MCV 67.0 L MCH 21.7 L MCHC 32.4 RDW 15.1 H Plt Count 390 Gran % 88.8 H Lymph % (Auto) 6.8 L [place] % (Auto) 4.2 Eos % (Auto) 0.2 L Baso % (Auto) 0.0 Gran # 20.67 H Lymph # (Auto) 1.6 [place] # (Auto) 1.0 H Eos # (Auto) 0.0 Baso # (Auto) 0.01 pCO2 26 L pO2 83.0 HCO3 22.7 ABG pH 7.55 H ABG Total CO2 23.5 ABG O2 Saturation 98.7 H ABG O2 Content 12.6 L ABG Base Excess 0.9 ABG Hemoglobin 9.3 L ABG Carboxyhemoglobin 1.9 H POC ABG HHb (Measured) 1.3 ABG Methemoglobin 1.1 ABG O2 Capacity 12.8 L Hgb O2 Saturation 95.7 FiO2 30.0 Sodium Potassium Chloride Carbon Dioxide Anion Gap BUN Creatinine Est GFR ( Amer) Est GFR (Non-Af Amer) POC Glucose (mg/dL) 169 H Random Glucose Calcium Phosphorus Magnesium Total Bilirubin AST ALT Alkaline Phosphatase Total Protein Albumin Globulin Albumin/Globulin Ratio 03/29/17 12:02 WBC RBC Hgb Hct MCV MCH MCHC RDW Plt Count Gran % Lymph % (Auto) [place] % (Auto) Eos % (Auto) Baso % (Auto) Gran # Lymph # (Auto) [place] # (Auto) Eos # (Auto) Baso # (Auto) pCO2 pO2 HCO3 ABG pH ABG Total CO2 ABG O2 Saturation ABG O2 Content ABG Base Excess ABG Hemoglobin ABG Carboxyhemoglobin POC ABG HHb (Measured) ABG Methemoglobin ABG O2 Capacity Hgb O2 Saturation FiO2 Sodium Potassium Chloride Carbon Dioxide Anion Gap BUN Creatinine Est GFR ( Amer) Est GFR (Non-Af Amer) POC Glucose (mg/dL) 157 H Random Glucose Calcium Phosphorus Magnesium Total Bilirubin AST ALT Alkaline Phosphatase Total Protein Albumin Globulin Albumin/Globulin Ratio Attending/Attestation - Attestation I have personally seen and examined this patient.: Yes I have fully participated in the care of the patient.: Yes I have reviewed all pertinent clinical information: Yes Notes (Text): 03/29/17 16:37 76 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 Continue ventilatory and hemodynamic support. Maintain euvolemia, euglycemia and normothermia and 02 sat>90%. HOB>35 , oral hygiene. off of sedation., VAP bundle ccm time 40 min 03/29/17 16:41
[2017-03-28] MEDS ORDERED: Potassium Chl 20mEq & D5W 1,000 ML IV SCH (08:45)
--- NOTE | 2017-03-28 08:53 | RAD ---
HISTORY: intubated COMPARISON: Portable chest 03/27/2017. FINDINGS: Tracheostomy tube is unchanged in position with event recorder again seen at the left chest. LUNGS: No acute infiltrate again evident bilaterally. PLEURA: Blunting of the bilateral costophrenic sulci on review of older prior chest radiographs including from 03/17/2017 as well as chest CT from 06/12/2016 indicates minimal bilateral pleural effusions rather than probable fibrosis. No pneumothorax bilaterally. CARDIOVASCULAR: Normal. OSSEOUS STRUCTURES: No significant abnormalities. VISUALIZED UPPER ABDOMEN: Normal. OTHER FINDINGS: None. IMPRESSION: Trace bilateral pleural effusions are again appreciated with no definite acute infiltrates bilaterally. The examination appears stable in the interval.
[2017-03-28] MEDS: Nicardipine 20 MG/200 ML 20 MG/200 ML BAG IV PRN ×2 (09:30→12:35)
--- NOTE | 2017-03-28 09:43 | CP.PCM.PN ---
Subjective - Date & Time of Evaluation Date of Evaluation: 03/28/17 Time of Evaluation: 09:40 - Subjective Subjective: ventriculostomy did nothing to improve clinical condition or CT appearance of dilated vents It is likely that the hydro was pre-existant There is no indication for further drainage She appears unresponsice decerebrate sluggish pupils Drain d/rosales no further neurosurgical intervention indicated at this time suggest supportive care Objective - Vital Signs/Intake and Output Vital Signs (last 24 hours): Temp Pulse Resp BP Pulse Ox 100.5 F H 114 H 28 H 146/92 H 100 03/28/17 08:00 03/28/17 08:45 03/28/17 04:59 03/28/17 08:45 03/28/17 08:45 Intake and Output: 03/28/17 03/28/17 06:59 18:59 Intake Total 665 75 Output Total 900 Balance -235 75 - Medications Medications: Current Medications Albuterol/Ipratropium (Duoneb 3 Mg/0.5 Mg (3 Ml) Ud) 3 ml IH Q2H PRN PRN Reason: Shortness of Breath Last Admin: 03/27/17 07:38 Dose: 3 ml Levetiracetam (Keppra 500mg Ivpb) 500 mg in 100 mls @ 400 mls/hr IV Q12 SANJANA Last Admin: 03/28/17 09:24 Dose: 400 mls/hr Nicardipine HCl (Cardene Iv Premix) 20 mg in 200 mls @ 50 mls/hr IV .Q4H PRN; Protocol; 5 MG/HR PRN Reason: TITRATE PER MD ORDER Last Admin: 03/28/17 09:30 Dose: 7.5 mg/hr, 75 mls/hr Acetaminophen (Ofirmev) 1,000 mg in 100 mls @ 400 mls/hr IVPB Q6H PRN PRN Reason: Temperature > 100.4 Stop: 03/28/17 15:25 Last Admin: 03/27/17 20:29 Dose: 400 mls/hr Potassium Chloride (Potassium Chloride 20 Meq/100 Ml) 20 meq in 100 mls @ 50 mls/hr IVPB Q2H SANJANA Stop: 03/28/17 12:59 Last Admin: 03/28/17 09:06 Dose: 50 mls/hr Pantoprazole Sodium (Protonix Inj) 40 mg IVP DAILY SANJANA Last Admin: 03/28/17 09:24 Dose: 40 mg - Labs Labs: 03/28/17 06:00 03/28/17 06:00 PT 15.5 SECONDS (9.4-12.5) H 03/27/17 05:30 INR 1.34 (0.93-1.08) H 03/27/17 05:30 APTT 22.6 Seconds (25.1-36.5) L 03/27/17 05:30
--- NOTE | 2017-03-28 10:35 | CP.PCM.PN ---
<Wilton Long V - Last Filed: 03/28/17 23:22> Objective - Vital Signs/Intake and Output Vital Signs (last 24 hours): Temp Pulse Resp BP Pulse Ox 100.2 F H 96 H 28 H 140/83 97 03/28/17 16:00 03/28/17 20:30 03/28/17 04:59 03/28/17 20:30 03/28/17 20:30 Intake and Output: 03/28/17 03/29/17 18:59 06:59 Intake Total 1700 Output Total 700 Balance 1000 - Medications Medications: Current Medications Albuterol/Ipratropium (Duoneb 3 Mg/0.5 Mg (3 Ml) Ud) 3 ml IH Q2H PRN PRN Reason: Shortness of Breath Last Admin: 03/27/17 07:38 Dose: 3 ml Levetiracetam (Keppra 500mg Ivpb) 500 mg in 100 mls @ 400 mls/hr IV Q12 SANJANA Last Admin: 03/28/17 22:07 Dose: 400 mls/hr Nicardipine HCl (Cardene Iv Premix) 20 mg in 200 mls @ 50 mls/hr IV .Q4H PRN; Protocol; 5 MG/HR PRN Reason: TITRATE PER MD ORDER Last Titration: 03/28/17 18:15 Dose: 2.5 mg/hr, 25 mls/hr Pantoprazole Sodium (Protonix Inj) 40 mg IVP DAILY [facility] Last Admin: 03/28/17 09:24 Dose: 40 mg - Labs Labs: 03/28/17 06:00 03/28/17 06:00 PT 15.5 SECONDS (9.4-12.5) H 03/27/17 05:30 INR 1.34 (0.93-1.08) H 03/27/17 05:30 APTT 22.6 Seconds (25.1-36.5) L 03/27/17 05:30 Attending/Attestation - Attestation I have personally seen and examined this patient.: Yes I have fully participated in the care of the patient.: Yes I have reviewed all pertinent clinical information, including history, physical exam and plan: Yes Notes (Text): This is an addendum to GI progress report dictated by Isi Duque APN.The patient was seen and examined earlier. Medical records, lab studies, imagings were reviewed. Last 24 hours events reviewed. Agreed with the above treatment plan as outlined in Isi Duque APN's notes the with the addition of the following 03/28/17 23:24 <Isi Duque - Last Filed: 03/29/17 16:31> Subjective - Date & Time of Evaluation Date of Evaluation: 03/28/17 Time of Evaluation: 09:00 - Subjective Subjective: S&E at bedside, s/p EGD/PEG, no acute overnight events reported. Patient remains non responsive. No overt GI bleed. Start PEG feeding today with free water. Objective - Vital Signs/Intake and Output Vital Signs (last 24 hours): Temp Pulse Resp BP Pulse Ox 100.5 F H 114 H 28 H 146/92 H 100 03/28/17 08:00 03/28/17 08:45 03/28/17 04:59 03/28/17 08:45 03/28/17 08:45 Intake and Output: 03/28/17 03/28/17 06:59 18:59 Intake Total 665 75 Output Total 900 Balance -235 75 - Medications Medications: Current Medications Albuterol/Ipratropium (Duoneb 3 Mg/0.5 Mg (3 Ml) Ud) 3 ml IH Q2H PRN PRN Reason: Shortness of Breath Last Admin: 03/27/17 07:38 Dose: 3 ml Levetiracetam (Keppra 500mg Ivpb) 500 mg in 100 mls @ 400 mls/hr IV Q12 SANJANA Last Admin: 03/28/17 09:24 Dose: 400 mls/hr Nicardipine HCl (Cardene Iv Premix) 20 mg in 200 mls @ 50 mls/hr IV .Q4H PRN; Protocol; 5 MG/HR PRN Reason: TITRATE PER MD ORDER Last Admin: 03/28/17 09:30 Dose: 7.5 mg/hr, 75 mls/hr Acetaminophen (Ofirmev) 1,000 mg in 100 mls @ 400 mls/hr IVPB Q6H PRN PRN Reason: Temperature > 100.4 Stop: 03/28/17 15:25 Last Admin: 03/27/17 20:29 Dose: 400 mls/hr Potassium Chloride (Potassium Chloride 20 Meq/100 Ml) 20 meq in 100 mls @ 50 mls/hr IVPB Q2H SANJANA Stop: 03/28/17 12:59 Last Admin: 03/28/17 09:06 Dose: 50 mls/hr Pantoprazole Sodium (Protonix Inj) 40 mg IVP DAILY [facility] Last Admin: 03/28/17 09:24 Dose: 40 mg - Labs Labs: 03/28/17 06:00 03/28/17 06:00 PT 15.5 SECONDS (9.4-12.5) H 03/27/17 05:30 INR 1.34 (0.93-1.08) H 03/27/17 05:30 APTT 22.6 Seconds (25.1-36.5) L 03/27/17 05:30 - Constitutional Appears: No Acute Distress - ENT Exam ENT Exam: Mucous Membranes Moist Additional comments: trach to vent - Respiratory Exam Respiratory Exam: NORMAL BREATHING PATTERN. absent: Respiratory Distress - Cardiovascular Exam Cardiovascular Exam: +S1, +S2 - GI/Abdominal Exam GI & Abdominal Exam: Soft, Normal Bowel Sounds. absent: Tenderness Additional comments: PEG in place, insertion site clean, no drain/blood, movable - Extremities Exam Extremities Exam: absent: Calf Tenderness, Pedal Edema - Neurological Exam Neurological Exam: Altered - Skin Skin Exam: Dry, Warm Assessment and Plan - Assessment and Plan (Free Text) Assessment: Assessment: Left intracranial thalmic bleed status post ventriculostomy drain Status post trach Fevers History of atrial fibrillation Hypernatremia Plan: Continue PPI On IV fluids for hydration discuss w/ ICU team/nsg,ok to start PEG feedings and for medication: Jevity @ 20cc/hr. titrate to goal of 40 cc/hr w/free water monitor electrolytes As per ICU team,neuro Seen and discussed with Dr. Long
--- NOTE | 2017-03-28 13:42 | PN ---
DATE: 03/28/2017 SUBJECTIVE: The patient is seen and examined at bedside. She is not responsive to painful, touch and verbal stimuli. She is on PRVC, 450/28/5/30% on that setting, her oxygen saturation is 100%. OBJECTIVE VITAL SIGNS: Heart rate 105, respiratory rate 28, blood pressure 144/85, temperature 100.5. ENT: Head and neck atraumatic. EVD in place, does not appear to be inflamed. Trach in place. Appear to be in right position. HEART: Regular rate and rhythm. S1, S2 normal. ABDOMEN: Soft, nontender, nondistended. PEG tube appears to be okay and in right position. MUSCULOSKELETAL: No C/C/E. NEUROLOGICAL: The patient was not observed moving her extremity and noncooperative with neurological exam. SKIN: Moist. PSYCHIATRIC: The patient is not responding to painful verbal and touch stimuli. LABORATORY DATA: WBC 15.2, hemoglobin 10.8, platelet count 387,000. Sodium 157, potassium 3.2, chloride 122, carbon dioxide 23. BUN 28, creatinine 0.6, glucose 141, AST 69, ALT 74, total bilirubin 1.5. Blood gas today morning 7.53/26/111. MEDICATIONS: Tylenol IV, DuoNeb p.r.n., Keppra, Cardene drip, Protonix daily. 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 External ventricular drain was clamped since yesterday. CAT scan of the head is pending to reevaluate hydrocephalus. Prior to clamping, the patient had only 4 mL of CSF drained when EVD was raised to 20 cm of water. That did not translate into improved mental status. Fever most likely of central origin according to ID note. Whether or not to send cultures from CSF will be deferred to ID Service as well. At present time, ID Service want to keep the patient off antibiotics and observe clinically. I will touch base with Neurosurgical Service about removing EVD, which may also help with reactive leukocytosis. We will continue to target euvolemia, euglycemia, normothermia, and oxygen saturation more than 90%. The patient is on IV Tylenol and cooling blanket. If need be, we will continue percutaneous endoscopic tube for cold GI lavage once okayed by GI Service. We will continue with protective lung ventilation strategy and later, we will try to switch to pressure support and potentially, trach collar. We will continue with oral hygiene, head of bed elevated more than 35 degrees. The patient is off of sedation. We will continue with mechanical DVT prophylaxis. ccm time 40 min We will continue with GI prophylaxis. Rafael Gutierrez MD MTDClaus
--- NOTE | 2017-03-28 19:30 | PN ---
DATE: SUBJECTIVE: The patient is 76 years old, remain intubated, unresponsive. Has tracheostomy and PEG placed. PHYSICAL EXAMINATION: VITAL SIGNS: She is afebrile, pulse 99, respirations 20, blood pressure 141/89. LUNGS: Bilateral fair airflow. Soft crackle in the upper lung region. HEART: S1 and S2 audible. ABDOMEN: Soft. Nontender. No rebound. No guarding. NEUROLOGIC: She is unresponsive. LABORATORY EXAM: WBC is 15.2, hemoglobin 10.8, hematocrit 32.7, platelet of 387. Chemistry: Sodium 157, potassium 3.2, chloride 122, CO2 of 23, BUN 28, creatinine 0.6, blood sugar 141, magnesium 2.5. ASSESSMENT: 1. Status post intracranial bleeding and status post intrathalamic bleed. 2. Encephalopathy. 3. Status post frontal ventriculostomy. 4. Status post tracheostomy. 5. Status post percutaneous endoscopic gastrostomy. 6. History of atrial fibrillation, was on Xarelto, on hold for now. PLAN: The patient is also hypernatremia and hypokalemic. We will increase her fluid through PEG and we will monitor her electrolytes in the a.m. Oly Major MD
[2017-03-29] MEDS: Nicardipine 20 MG/200 ML 20 MG/200 ML BAG IV PRN ×3 (00:24→12:50)
--- NOTE | 2017-03-29 01:04 | PN ---
DATE: 03/28/2017 SUBJECTIVE: The patient was seen earlier today in room 129, bed 4. No fevers or chills. PHYSICAL EXAMINATION: VITAL SIGNS: Temperature is 100.2, blood pressure is 140/80, respiratory rate of 18, heart rate of 99. HEENT: Examination of HEENT is unremarkable. NECK: Supple. LUNGS: Have decreased breath sounds. HEART: Normal S1 and S2. ABDOMEN: Soft. LABORATORY DATA: Laboratory examination reveals a white count of 15,200, hemoglobin of 10, platelets of 387. Chemistries revealed a BUN of 28, creatinine of 0.6, and procalcitonin on 03/26/2017, two days ago, was 0.22, repeat cultures are negative. MEDICATIONS: Review of orders revealed the patient to be on no antibiotics. ASSESSMENT AND PLAN: This is a 76-year-old female who was seen in room 129, bed 4, with systemic inflammatory response syndrome secondary to acute hemorrhagic thalamic cerebrovascular accident, ventilator-dependent respiratory failure, cerebrovascular accident. Repeat ryan-culture is negative. Procalcitonin is negative. We will continue to follow up for possible development of nosocomial infections. Brennan Amador MD
[2017-03-29 06:36] LABS: ARTERIAL BLOOD GAS HCO3 22.7 mmol/L (21-28); ARTERIAL BLOOD GAS HEMOGLOBIN 9.3 g/dL (11.7-17.4); ARTERIAL BLOOD GAS O2 CAPACITY 12.8 mL/dl (16-24); ARTERIAL BLOOD GAS O2 CONTENT 12.6 ML/dl (15-23); ARTERIAL BLOOD GAS O2 SAT 98.7 % (95-98); ARTERIAL BLOOD GAS PCO2 26 mm/Hg (35-45); ARTERIAL BLOOD GAS PH 7.55 (7.35-7.45); ARTERIAL BLOOD GAS TCO2 23.5 mmol.L (22-28)
[2017-03-29 06:55] LABS: BASO # 0.01 K/mm3 (0.0-2.0); EOS % 0.2 % (1.5-5.0); GRAN # 20.67 (1.4-6.5); GRAN % 88.8 % (50.0-68.0); LYMPH # 1.6 (1.2-3.4); LYMPH % 6.8 % (22.0-35.0); MEAN CORPUSCULAR HEMOGLOBIN 21.7 pg (25.0-35.0); MEAN CORPUSCULAR HGB CONC 32.4 g/dl (31.0-37.0); MONO % 4.2 % (1.0-6.0); PLATELET COUNT 390 10^3/uL (120.0-450.0); RBC 4.15 10^6/uL (3.5-6.1); RED CELL DISTRIBUTION WIDTH 15.1 % (11.5-14.5); WHITE BLOOD COUNT 23.3 10^3/ul (4.5-11.0)
[2017-03-29 07:23] LABS: ALB/GLOB RATIO 0.8 (1.1-1.8); ALBUMIN 3.1 g/dL (3.0-4.8); ALT/SGPT 66 U/L (7-56); AST/SGOT 67 U/L (14-36); BLOOD UREA NITROGEN 27 mg/dL (7-21); CALCIUM 9.3 mg/dL (8.4-10.5); GFR AFRICAN-AMERICAN > 60; GFR NON-AFRICAN AMERICAN > 60; MAGNESIUM 2.4 mg/dL (1.7-2.2)
--- NOTE | 2017-03-29 08:09 | RAD ---
HISTORY: intubated COMPARISON: Portable chest 03/28/2017. FINDINGS: Endotracheal tube unchanged in position. LUNGS: No active pulmonary disease. PLEURA: No pneumothorax identified bilaterally. Minimal left pleural effusion again evident, borderline at the right. CARDIOVASCULAR: Normal. OSSEOUS STRUCTURES: No significant abnormalities. VISUALIZED UPPER ABDOMEN: Feeding tube identified terminating at the region the gastric viscus. OTHER FINDINGS: None. IMPRESSION: No interval infiltrate identified with minimal left pleural effusion again evident, borderline on the right.
[2017-03-29] MEDS ORDERED: Potassium Phosphate 15 MMOLE in Sodium Chloride 0.9% 250 ML IVPB ONE (08:19)
[2017-03-29] MEDS: levETIRAcetam 500mg IVPB 500 MG/100 ML BAG IV SCH ×2 (09:00→21:00)
--- NOTE | 2017-03-29 09:43 | CP.CCUPN ---
<Angel LuisNixon - Last Filed: 03/29/17 13:12> CCU Subjective - Physician Review Subjective (Free Text): Nixon Hein PGY1 ICU Note for Dr. Gutierrez Patient was seen and examined in ICU. She is minimally responsive with no change in mental status. persistent fevers attributed to central cause due to brain hemorrhage, however, WBC are elevated. No other overnight events. CCU Objective - Vital Signs / Intake & Output Vital Signs (Last 4 hours): Vital Signs Temp Pulse BP Pulse Ox 03/29/17 07:52 100.2 F H 03/29/17 07:48 104 H 03/29/17 07:45 103 H 127/84 98 03/29/17 07:30 105 H 131/79 98 03/29/17 07:15 109 H 133/83 98 03/29/17 07:00 110 H 139/85 97 03/29/17 06:45 112 H 148/90 98 03/29/17 06:30 113 H 144/91 H 97 03/29/17 06:15 110 H 138/84 96 03/29/17 06:00 98 H 125/75 91 L 03/29/17 05:45 102 H 122/79 85 L Intake and Output (Last 8hrs): Intake & Output 03/28/17 03/29/17 03/29/17 22:59 06:59 14:59 Intake Total 7126 863 4096 Output Total 700 750 Balance 680 155 970 Intake: IV 700 155 520 CARDINE 300 300 Left Forearm 100 Right Wrist 300 Tube Feeding 180 600 Other 500 600 Output: Urine 700 750 Urethral (Perez) 700 750 Stool 0 0 Emesis 0 0 Other: # Bowel Movements 1 - Physical Exam Physical Exam Limitations: Positive for: Altered Mental Status Head: Positive for: Normocephalic Pupils: Positive for: Non-Reactive Extroacular Muscles: Positive for: Other (unable to assess) Conjunctiva: Positive for: Normal Ears: Positive for: Normal Mouth: Positive for: Dry, Normal Teeth, Other (s/p trach, on vent) Pharnyx: Positive for: Normal, Other Nose (External): Positive for: Atraumatic Nose (Internal): Positive for: Normal Inspection Neck: Positive for: Other (s/p tracheostomy, on vent). Negative for: MIDLINE TENDERNESS Respiratory/Chest: Positive for: Clear to Auscultation, Good Air Exchange, Other (on vent). Negative for: Respiratory Distress, Accessory Muscle Use, Wheezes Cardiovascular: Positive for: Regular Rate and Rhythm, Normal S1, S2. Negative for: Murmurs Abdomen: Positive for: Normal Bowel Sounds, Other (PEG tube in place). Negative for: Tenderness, Distention, Peritoneal Signs Genitourinary/Pelvic Exam: Positive for: Other (perez was removed, on purewick) Back: Positive for: Normal Inspection Upper Extremity: Positive for: Normal Inspection, NORMAL PULSES, Capillary Refill < 2s, Other (decerebrate positioning). Negative for: Cyanosis, Edema Lower Extremity: Positive for: Normal Inspection, Other (SCDs in place). Negative for: Edema Neurological: Positive for: Other (GCS4t - pupils are sluggish at 2mm b/l;+ babinski b/l, decerebrate posturing at rest). Negative for: GCS=15, CN II-XII Intact, Speech Normal Skin: Positive for: Warm, Dry, Normal Color. Negative for: Rashes Lymphatic: Positive for: OX3, NI, NC Psychiatric: Positive for: Other (altered). Negative for: Alert, Oriented x 3, Normal Insight, Normal Concentration - Medications Active Medications: Active Medications Generic Name Dose Route Start Last Admin Trade Name Freq PRN Reason Stop Dose Admin Albuterol/Ipratropium 3 ml 03/19/17 10:40 03/27/17 07:38 Duoneb 3 Mg/0.5 Mg (3 Ml) Ud IH 3 ml Q2H PRN Administration Shortness of Breath Levetiracetam 500 mg in 100 mls @ 400 mls/hr 03/17/17 22:00 03/29/17 09:00 Keppra 500mg Ivpb IV 400 mls/hr Q12 SANJANA Administration Nicardipine HCl 20 mg in 200 mls @ 50 mls/hr 03/19/17 15:00 03/29/17 09:16 Cardene Iv Premix IV 5 mg/hr .Q4H PRN 50 mls/hr TITRATE PER MD ORDER Titration Protocol 5 MG/HR Pantoprazole Sodium 40 mg 03/18/17 10:00 03/29/17 08:59 Protonix Inj IVP 40 mg DAILY SANJANA Administration Potassium Phos/Sodium Phos 1 pkt 02/16/18 10:00 Neutra-Phos PO 03/29/17 18:01 TID SANJANA - Patient Studies Lab Studies: Microbiology Studies 03/26/17 21:45 Blood Culture - Preliminary Blood NO GROWTH AFTER 48 HOURS 03/26/17 21:30 Blood Culture - Preliminary Blood NO GROWTH AFTER 48 HOURS 03/26/17 12:56 Blood Culture - Preliminary Blood-Venous NO GROWTH AFTER 48 HOURS 03/26/17 12:56 Blood Culture - Preliminary Blood-Venous NO GROWTH AFTER 48 HOURS Lab Studies 03/29/17 03/29/17 03/29/17 Range/Units 06:18 06:15 05:30 WBC 23.3 H D (4.5-11.0) 10^3/ul RBC 4.15 (3.5-6.1) 10^6/uL Hgb 9.0 L (12.0-16.0) g/dL Hct 27.8 L (36.0-48.0) % MCV 67.0 L (80.0-105.0) fl MCH 21.7 L (25.0-35.0) pg MCHC 32.4 (31.0-37.0) g/dl RDW 15.1 H (11.5-14.5) % Plt Count 390 (120.0-450.0) 10^3/uL Gran % 88.8 H (50.0-68.0) % Lymph % (Auto) 6.8 L (22.0-35.0) % Gladwin % (Auto) 4.2 (1.0-6.0) % Eos % (Auto) 0.2 L (1.5-5.0) % Baso % (Auto) 0.0 (0.0-3.0) % Gran # 20.67 H (1.4-6.5) Lymph # (Auto) 1.6 (1.2-3.4) Gladwin # (Auto) 1.0 H (0.1-0.6) Eos # (Auto) 0.0 (0.0-0.7) Baso # (Auto) 0.01 (0.0-2.0) K/mm3 pCO2 26 L (35-45) mm/Hg pO2 83.0 (80-100) mm/Hg HCO3 22.7 (21-28) mmol/L ABG pH 7.55 H (7.35-7.45) ABG Total CO2 23.5 (22-28) mmol.L ABG O2 Saturation 98.7 H (95-98) % ABG O2 Content 12.6 L (15-23) ML/dl ABG Base Excess 0.9 (-2.0-3.0) mmol/L ABG Hemoglobin 9.3 L (11.7-17.4) g/dL ABG Carboxyhemoglobin 1.9 H (0.5-1.5) % POC ABG HHb (Measured) 1.3 (0-5) % ABG Methemoglobin 1.1 (0.0-3.0) % ABG O2 Capacity 12.8 L (16-24) mL/dl Hgb O2 Saturation 95.7 (95.0-98.0) % FiO2 30.0 % Sodium (132-148) mmol/L Potassium (3.6-5.0) mmol/L Chloride (98-107) mmol/L Carbon Dioxide (21-33) mmol/L Anion Gap (10-20) BUN (7-21) mg/dL Creatinine (0.7-1.2) mg/dl Est GFR ( Amer) Est GFR (Non-Af Amer) POC Glucose (mg/dL) 169 H (65-110) mg/dL Random Glucose (70-110) mg/dL Calcium (8.4-10.5) mg/dL Phosphorus (2.5-4.5) mg/dL Magnesium (1.7-2.2) mg/dL Total Bilirubin (0.2-1.3) mg/dL AST (14-36) U/L ALT (7-56) U/L Alkaline Phosphatase (38-126) U/L Total Protein (5.8-8.3) g/dL Albumin (3.0-4.8) g/dL Globulin gm/dL Albumin/Globulin Ratio (1.1-1.8) 03/29/17 03/28/17 03/28/17 Range/Units 05:30 23:59 17:59 WBC (4.5-11.0) 10^3/ul RBC (3.5-6.1) 10^6/uL Hgb (12.0-16.0) g/dL Hct (36.0-48.0) % MCV (80.0-105.0) fl MCH (25.0-35.0) pg MCHC (31.0-37.0) g/dl RDW (11.5-14.5) % Plt Count (120.0-450.0) 10^3/uL Gran % (50.0-68.0) % Lymph % (Auto) (22.0-35.0) % Gladwin % (Auto) (1.0-6.0) % Eos % (Auto) (1.5-5.0) % Baso % (Auto) (0.0-3.0) % Gran # (1.4-6.5) Lymph # (Auto) (1.2-3.4) Gladwin # (Auto) (0.1-0.6) Eos # (Auto) (0.0-0.7) Baso # (Auto) (0.0-2.0) K/mm3 pCO2 (35-45) mm/Hg pO2 (80-100) mm/Hg HCO3 (21-28) mmol/L ABG pH (7.35-7.45) ABG Total CO2 (22-28) mmol.L ABG O2 Saturation (95-98) % ABG O2 Content (15-23) ML/dl ABG Base Excess (-2.0-3.0) mmol/L ABG Hemoglobin (11.7-17.4) g/dL ABG Carboxyhemoglobin (0.5-1.5) % POC ABG HHb (Measured) (0-5) % ABG Methemoglobin (0.0-3.0) % ABG O2 Capacity (16-24) mL/dl Hgb O2 Saturation (95.0-98.0) % FiO2 % Sodium 155 H (132-148) mmol/L Potassium 3.6 (3.6-5.0) mmol/L Chloride 120 H (98-107) mmol/L Carbon Dioxide 24 (21-33) mmol/L Anion Gap 16 (10-20) BUN 27 H (7-21) mg/dL Creatinine 0.6 L (0.7-1.2) mg/dl Est GFR ( Amer) > 60 Est GFR (Non-Af Amer) > 60 POC Glucose (mg/dL) 166 H 133 H (65-110) mg/dL Random Glucose 172 H (70-110) mg/dL Calcium 9.3 (8.4-10.5) mg/dL Phosphorus 2.3 L (2.5-4.5) mg/dL Magnesium 2.4 H (1.7-2.2) mg/dL Total Bilirubin 1.1 (0.2-1.3) mg/dL AST 67 H (14-36) U/L ALT 66 H (7-56) U/L Alkaline Phosphatase 112 (38-126) U/L Total Protein 6.7 (5.8-8.3) g/dL Albumin 3.1 (3.0-4.8) g/dL Globulin 3.6 gm/dL Albumin/Globulin Ratio 0.8 L (1.1-1.8) 03/28/17 Range/Units 11:20 WBC (4.5-11.0) 10^3/ul RBC (3.5-6.1) 10^6/uL Hgb (12.0-16.0) g/dL Hct (36.0-48.0) % MCV (80.0-105.0) fl MCH (25.0-35.0) pg MCHC (31.0-37.0) g/dl RDW (11.5-14.5) % Plt Count (120.0-450.0) 10^3/uL Gran % (50.0-68.0) % Lymph % (Auto) (22.0-35.0) % Gladwin % (Auto) (1.0-6.0) % Eos % (Auto) (1.5-5.0) % Baso % (Auto) (0.0-3.0) % Gran # (1.4-6.5) Lymph # (Auto) (1.2-3.4) Gladwin # (Auto) (0.1-0.6) Eos # (Auto) (0.0-0.7) Baso # (Auto) (0.0-2.0) K/mm3 pCO2 (35-45) mm/Hg pO2 (80-100) mm/Hg HCO3 (21-28) mmol/L ABG pH (7.35-7.45) ABG Total CO2 (22-28) mmol.L ABG O2 Saturation (95-98) % ABG O2 Content (15-23) ML/dl ABG Base Excess (-2.0-3.0) mmol/L ABG Hemoglobin (11.7-17.4) g/dL ABG Carboxyhemoglobin (0.5-1.5) % POC ABG HHb (Measured) (0-5) % ABG Methemoglobin (0.0-3.0) % ABG O2 Capacity (16-24) mL/dl Hgb O2 Saturation (95.0-98.0) % FiO2 % Sodium (132-148) mmol/L Potassium (3.6-5.0) mmol/L Chloride (98-107) mmol/L Carbon Dioxide (21-33) mmol/L Anion Gap (10-20) BUN (7-21) mg/dL Creatinine (0.7-1.2) mg/dl Est GFR ( Amer) Est GFR (Non-Af Amer) POC Glucose (mg/dL) 166 H (65-110) mg/dL Random Glucose (70-110) mg/dL Calcium (8.4-10.5) mg/dL Phosphorus (2.5-4.5) mg/dL Magnesium (1.7-2.2) mg/dL Total Bilirubin (0.2-1.3) mg/dL AST (14-36) U/L ALT (7-56) U/L Alkaline Phosphatase (38-126) U/L Total Protein (5.8-8.3) g/dL Albumin (3.0-4.8) g/dL Globulin gm/dL Albumin/Globulin Ratio (1.1-1.8) Laboratory Results - last 24 hr 03/28/17 03/28/17 03/28/17 11:20 17:59 23:59 WBC RBC Hgb Hct MCV MCH MCHC RDW Plt Count Gran % Lymph % (Auto) Gladwin % (Auto) Eos % (Auto) Baso % (Auto) Gran # Lymph # (Auto) Gladwin # (Auto) Eos # (Auto) Baso # (Auto) pCO2 pO2 HCO3 ABG pH ABG Total CO2 ABG O2 Saturation ABG O2 Content ABG Base Excess ABG Hemoglobin ABG Carboxyhemoglobin POC ABG HHb (Measured) ABG Methemoglobin ABG O2 Capacity Hgb O2 Saturation FiO2 Sodium Potassium Chloride Carbon Dioxide Anion Gap BUN Creatinine Est GFR ( Amer) Est GFR (Non-Af Amer) POC Glucose (mg/dL) 166 H 133 H 166 H Random Glucose Calcium Phosphorus Magnesium Total Bilirubin AST ALT Alkaline Phosphatase Total Protein Albumin Globulin Albumin/Globulin Ratio 03/29/17 03/29/17 03/29/17 05:30 05:30 06:15 WBC 23.3 H D RBC 4.15 Hgb 9.0 L Hct 27.8 L MCV 67.0 L MCH 21.7 L MCHC 32.4 RDW 15.1 H Plt Count 390 Gran % 88.8 H Lymph % (Auto) 6.8 L Gladwin % (Auto) 4.2 Eos % (Auto) 0.2 L Baso % (Auto) 0.0 Gran # 20.67 H Lymph # (Auto) 1.6 Gladwin # (Auto) 1.0 H Eos # (Auto) 0.0 Baso # (Auto) 0.01 pCO2 26 L pO2 83.0 HCO3 22.7 ABG pH 7.55 H ABG Total CO2 23.5 ABG O2 Saturation 98.7 H ABG O2 Content 12.6 L ABG Base Excess 0.9 ABG Hemoglobin 9.3 L ABG Carboxyhemoglobin 1.9 H POC ABG HHb (Measured) 1.3 ABG Methemoglobin 1.1 ABG O2 Capacity 12.8 L Hgb O2 Saturation 95.7 FiO2 30.0 Sodium 155 H Potassium 3.6 Chloride 120 H Carbon Dioxide 24 Anion Gap 16 BUN 27 H Creatinine 0.6 L Est GFR ( Amer) > 60 Est GFR (Non-Af Amer) > 60 POC Glucose (mg/dL) Random Glucose 172 H Calcium 9.3 Phosphorus 2.3 L Magnesium 2.4 H Total Bilirubin 1.1 AST 67 H ALT 66 H Alkaline Phosphatase 112 Total Protein 6.7 Albumin 3.1 Globulin 3.6 Albumin/Globulin Ratio 0.8 L 03/29/17 06:18 WBC RBC Hgb Hct MCV MCH MCHC RDW Plt Count Gran % Lymph % (Auto) Gladwin % (Auto) Eos % (Auto) Baso % (Auto) Gran # Lymph # (Auto) Gladwin # (Auto) Eos # (Auto) Baso # (Auto) pCO2 pO2 HCO3 ABG pH ABG Total CO2 ABG O2 Saturation ABG O2 Content ABG Base Excess ABG Hemoglobin ABG Carboxyhemoglobin POC ABG HHb (Measured) ABG Methemoglobin ABG O2 Capacity Hgb O2 Saturation FiO2 Sodium Potassium Chloride Carbon Dioxide Anion Gap BUN Creatinine Est GFR ( Amer) Est GFR (Non-Af Amer) POC Glucose (mg/dL) 169 H Random Glucose Calcium Phosphorus Magnesium Total Bilirubin AST ALT Alkaline Phosphatase Total Protein Albumin Globulin Albumin/Globulin Ratio Fingerstick Blood Sugar Results: 169 Review of Systems - Review of Systems Systems not reviewed;Unavailable: Altered Mental Status Review of Systems: Critical Care Progress Note - Ventilator Checklist Head of Bed 30 Degrees: Yes Daily Assessment of Readiness to Wean: Yes Daily Spontaneous Breathing Trial: Yes PUD Prophalyxis: Yes DVT Prophylaxis: Yes Oral Care with Chlorhexidine Gluconate {CHG}: Yes - Vent Settings MODE:: PRESSURE SUPPORT - Extremities/Vascular Does the Patient have a Central Venous Catheter?: No Does the Patient need a Central Venous Catheter?: No Does the Patient have a Perez Catheter?: Yes (Purewick) Does the Patient need a Perez Catheter?: Yes - Prophylaxis GI Prophylaxis GI: PPI - Prophylaxis DVT Prophylaxis DVT: SCDs Assessment/Plan - Assessment and Plan (Free Text) Assessment: 76yo female with a past medical history of intracerebral hemorrhage ( 8yrs ago),A.fib (was on Xeralto), asthma and COPD admitted for L thalamic bleed with intraventricular extension seen on head CT s/p ventriculostomy. s/p tracheostomy and PEG tube placement. Plan is for placement at [facility]. Plan: Neuro: - non-responsive off sedation - ICH w/ L thalamic bleed with intraventricular extension s/p kcentra and mannitol and ventriculostomy - EVD was removed by Dr. Peterson - repeat CT Head showed early chronic hemorrhagic degradation - Neurosurgery consulted-recs appreciated - Neuro consulted- recs appreciated - Continue Keppra IV, seizure precaution - Maintain normothermia with cooling blanket, IV tylenol PRN, as well as cool saline flushes through PEG tube fto maintain T < 100F - Aspiration and seizure precautions Cardio: - Hx of Afib, but in NSR - Cardene drip to Maintain SBP 130-140s, DBP 70-80s - Cardio consulted- recs appreciated - Hold anticoagulants for ICH - Maintain MAP> 65 mmHg Pulm: - On tracheostomy and requires vent, daily PS as tolerated - Maintain SpO2>90% - CXR shows minimal L effusion but no infiltrates - cont protective lung ventilation strategy includes HOB elevated, daily oral care, and aspiration precautions; DVT and GI ppx; will continue daily weaning trials off sedation and vent GI: - Continue tube feeds via PEG tube - switched to Osmolite due to hypernatremia Nephro: - Will continue to monitor electrolytes and replace as needed - hypernatremia will be managed by tube feedings change to osmolite and free water flushes 300q6 hrs; monitor and IVF due to BP control Heme/Onc: - Hgb stable- No overt bleeding, Head CT showed stable bleed - No anticoagulation ID: - fevers likely central 2/2 hemorrhage - Patient is on IV tylenol and cooling blanket and cool saline lavage (250cc q 6h) via PEG tube to improve fever - Leukocytosis worsened overnight - cultures have been negative, however, will re-culture blood, urine, trach collar and obtain UA and procal - CXR this AM did not show infiltrates - ID consulted Endo: - Maintain strict glycemic control (80s-110s) - avoid hyper/hypo-glycemia Diet: PEG tube feedings (Jevity 1.2) GI ppx: protonix DVT ppx: SCDs Dispo: prognosis guarded. Palliative care consulted. Family will discuss wishes with Dr. Steinberg and Dr. 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 Patient was seen, examined and discussed with attending, Dr. Brenda Hein PGY1 Pager # [phone] <Rafael Gutierrez - Last Filed: 03/29/17 17:09> CCU Objective - Vital Signs / Intake & Output Vital Signs (Last 4 hours): Vital Signs Pulse Resp BP Pulse Ox 03/29/17 14:15 100 H 102/58 L 96 03/29/17 14:00 100 H 99/62 L 96 03/29/17 13:45 103 H 104/67 98 03/29/17 13:30 105 H 114/67 100 03/29/17 13:20 25 H 99 03/29/17 13:15 116 H 122/84 99 03/29/17 13:00 114 H 167/88 H 95 Intake and Output (Last 8hrs): Intake & Output 03/29/17 03/29/17 03/29/17 06:59 14:59 22:59 Intake Total 155 1954 Output Total 750 Balance 155 1204 Weight 90 lb 6.4 oz Intake: IV 155 754 CARDINE 300 Tube Feeding 600 Other 600 Output: Urine 750 Urethral (Perez) 750 Stool 0 Emesis 0 Other: # Bowel Movements 1 - Medications Active Medications: Active Medications Generic Name Dose Route Start Last Admin Trade Name Freq PRN Reason Stop Dose Admin Albuterol/Ipratropium 3 ml 03/19/17 10:40 03/29/17 13:13 Duoneb 3 Mg/0.5 Mg (3 Ml) Ud IH 3 ml Q2H PRN Administration Shortness of Breath Docusate Sodium 100 mg 03/29/17 18:00 Colace Liquid PEG BID SANJANA Levetiracetam 500 mg in 100 mls @ 400 mls/hr 03/17/17 22:00 03/29/17 09:00 Keppra 500mg Ivpb IV 400 mls/hr Q12 SANJANA Administration Nicardipine HCl 20 mg in 200 mls @ 50 mls/hr 03/19/17 15:00 03/29/17 14:30 Cardene Iv Premix IV 0 mg/hr .Q4H PRN 0 mls/hr TITRATE PER MD ORDER Titration Protocol 5 MG/HR Acetaminophen 1,000 mg in 100 mls @ 400 mls/hr 03/29/17 11:37 03/29/17 13:09 Ofirmev IVPB 03/31/17 11:38 400 mls/hr Q6H PRN Administration Temperature > 100 F Pantoprazole Sodium 40 mg 03/18/17 10:00 03/29/17 08:59 Protonix Inj IVP 40 mg DAILY SANJANA Administration Potassium Phos/Sodium Phos 1 pkt 03/29/17 10:00 03/29/17 13:11 Neutra-Phos PO 03/29/17 18:01 1 pkt TID SANJANA Administration - Patient Studies Lab Studies: Microbiology Studies 03/26/17 12:56 Blood Culture - Preliminary Blood-Venous NO GROWTH AFTER 3 DAYS 03/26/17 12:56 Blood Culture - Preliminary Blood-Venous NO GROWTH AFTER 3 DAYS 03/27/17 07:50 Gram Stain - Final Trachasp Sputum Culture - Final NORMAL ORAL RAMON 03/26/17 21:45 Blood Culture - Preliminary Blood NO GROWTH AFTER 48 HOURS 03/26/17 21:30 Blood Culture - Preliminary Blood NO GROWTH AFTER 48 HOURS Lab Studies 03/29/17 03/29/17 03/29/17 Range/Units 12:02 06:18 06:15 WBC (4.5-11.0) 10^3/ul RBC (3.5-6.1) 10^6/uL Hgb (12.0-16.0) g/dL Hct (36.0-48.0) % MCV (80.0-105.0) fl MCH (25.0-35.0) pg MCHC (31.0-37.0) g/dl RDW (11.5-14.5) % Plt Count (120.0-450.0) 10^3/uL Gran % (50.0-68.0) % Lymph % (Auto) (22.0-35.0) % Gladwin % (Auto) (1.0-6.0) % Eos % (Auto) (1.5-5.0) % Baso % (Auto) (0.0-3.0) % Gran # (1.4-6.5) Lymph # (Auto) (1.2-3.4) Gladwin # (Auto) (0.1-0.6) Eos # (Auto) (0.0-0.7) Baso # (Auto) (0.0-2.0) K/mm3 pCO2 26 L (35-45) mm/Hg pO2 83.0 (80-100) mm/Hg HCO3 22.7 (21-28) mmol/L ABG pH 7.55 H (7.35-7.45) ABG Total CO2 23.5 (22-28) mmol.L ABG O2 Saturation 98.7 H (95-98) % ABG O2 Content 12.6 L (15-23) ML/dl ABG Base Excess 0.9 (-2.0-3.0) mmol/L ABG Hemoglobin 9.3 L (11.7-17.4) g/dL ABG Carboxyhemoglobin 1.9 H (0.5-1.5) % POC ABG HHb (Measured) 1.3 (0-5) % ABG Methemoglobin 1.1 (0.0-3.0) % ABG O2 Capacity 12.8 L (16-24) mL/dl Hgb O2 Saturation 95.7 (95.0-98.0) % FiO2 30.0 % Sodium (132-148) mmol/L Potassium (3.6-5.0) mmol/L Chloride (98-107) mmol/L Carbon Dioxide (21-33) mmol/L Anion Gap (10-20) BUN (7-21) mg/dL Creatinine (0.7-1.2) mg/dl Est GFR ( Amer) Est GFR (Non-Af Amer) POC Glucose (mg/dL) 157 H 169 H (65-110) mg/dL Random Glucose (70-110) mg/dL Calcium (8.4-10.5) mg/dL Phosphorus (2.5-4.5) mg/dL Magnesium (1.7-2.2) mg/dL Total Bilirubin (0.2-1.3) mg/dL AST (14-36) U/L ALT (7-56) U/L Alkaline Phosphatase (38-126) U/L Total Protein (5.8-8.3) g/dL Albumin (3.0-4.8) g/dL Globulin gm/dL Albumin/Globulin Ratio (1.1-1.8) 03/29/17 03/29/17 03/28/17 Range/Units 05:30 05:30 23:59 WBC 23.3 H D (4.5-11.0) 10^3/ul RBC 4.15 (3.5-6.1) 10^6/uL Hgb 9.0 L (12.0-16.0) g/dL Hct 27.8 L (36.0-48.0) % MCV 67.0 L (80.0-105.0) fl MCH 21.7 L (25.0-35.0) pg MCHC 32.4 (31.0-37.0) g/dl RDW 15.1 H (11.5-14.5) % Plt Count 390 (120.0-450.0) 10^3/uL Gran % 88.8 H (50.0-68.0) % Lymph % (Auto) 6.8 L (22.0-35.0) % Gladwin % (Auto) 4.2 (1.0-6.0) % Eos % (Auto) 0.2 L (1.5-5.0) % Baso % (Auto) 0.0 (0.0-3.0) % Gran # 20.67 H (1.4-6.5) Lymph # (Auto) 1.6 (1.2-3.4) Gladwin # (Auto) 1.0 H (0.1-0.6) Eos # (Auto) 0.0 (0.0-0.7) Baso # (Auto) 0.01 (0.0-2.0) K/mm3 pCO2 (35-45) mm/Hg pO2 (80-100) mm/Hg HCO3 (21-28) mmol/L ABG pH (7.35-7.45) ABG Total CO2 (22-28) mmol.L ABG O2 Saturation (95-98) % ABG O2 Content (15-23) ML/dl ABG Base Excess (-2.0-3.0) mmol/L ABG Hemoglobin (11.7-17.4) g/dL ABG Carboxyhemoglobin (0.5-1.5) % POC ABG HHb (Measured) (0-5) % ABG Methemoglobin (0.0-3.0) % ABG O2 Capacity (16-24) mL/dl Hgb O2 Saturation (95.0-98.0) % FiO2 % Sodium 155 H (132-148) mmol/L Potassium 3.6 (3.6-5.0) mmol/L Chloride 120 H (98-107) mmol/L Carbon Dioxide 24 (21-33) mmol/L Anion Gap 16 (10-20) BUN 27 H (7-21) mg/dL Creatinine 0.6 L (0.7-1.2) mg/dl Est GFR ( Amer) > 60 Est GFR (Non-Af Amer) > 60 POC Glucose (mg/dL) 166 H (65-110) mg/dL Random Glucose 172 H (70-110) mg/dL Calcium 9.3 (8.4-10.5) mg/dL Phosphorus 2.3 L (2.5-4.5) mg/dL Magnesium 2.4 H (1.7-2.2) mg/dL Total Bilirubin 1.1 (0.2-1.3) mg/dL AST 67 H (14-36) U/L ALT 66 H (7-56) U/L Alkaline Phosphatase 112 (38-126) U/L Total Protein 6.7 (5.8-8.3) g/dL Albumin 3.1 (3.0-4.8) g/dL Globulin 3.6 gm/dL Albumin/Globulin Ratio 0.8 L (1.1-1.8) 03/28/17 Range/Units 17:59 WBC (4.5-11.0) 10^3/ul RBC (3.5-6.1) 10^6/uL Hgb (12.0-16.0) g/dL Hct (36.0-48.0) % MCV (80.0-105.0) fl MCH (25.0-35.0) pg MCHC (31.0-37.0) g/dl RDW (11.5-14.5) % Plt Count (120.0-450.0) 10^3/uL Gran % (50.0-68.0) % Lymph % (Auto) (22.0-35.0) % Gladwin % (Auto) (1.0-6.0) % Eos % (Auto) (1.5-5.0) % Baso % (Auto) (0.0-3.0) % Gran # (1.4-6.5) Lymph # (Auto) (1.2-3.4) Gladwin # (Auto) (0.1-0.6) Eos # (Auto) (0.0-0.7) Baso # (Auto) (0.0-2.0) K/mm3 pCO2 (35-45) mm/Hg pO2 (80-100) mm/Hg HCO3 (21-28) mmol/L ABG pH (7.35-7.45) ABG Total CO2 (22-28) mmol.L ABG O2 Saturation (95-98) % ABG O2 Content (15-23) ML/dl ABG Base Excess (-2.0-3.0) mmol/L ABG Hemoglobin (11.7-17.4) g/dL ABG Carboxyhemoglobin (0.5-1.5) % POC ABG HHb (Measured) (0-5) % ABG Methemoglobin (0.0-3.0) % ABG O2 Capacity (16-24) mL/dl Hgb O2 Saturation (95.0-98.0) % FiO2 % Sodium (132-148) mmol/L Potassium (3.6-5.0) mmol/L Chloride (98-107) mmol/L Carbon Dioxide (21-33) mmol/L Anion Gap (10-20) BUN (7-21) mg/dL Creatinine (0.7-1.2) mg/dl Est GFR ( Amer) Est GFR (Non-Af Amer) POC Glucose (mg/dL) 133 H (65-110) mg/dL Random Glucose (70-110) mg/dL Calcium (8.4-10.5) mg/dL Phosphorus (2.5-4.5) mg/dL Magnesium (1.7-2.2) mg/dL Total Bilirubin (0.2-1.3) mg/dL AST (14-36) U/L ALT (7-56) U/L Alkaline Phosphatase (38-126) U/L Total Protein (5.8-8.3) g/dL Albumin (3.0-4.8) g/dL Globulin gm/dL Albumin/Globulin Ratio (1.1-1.8) Laboratory Results - last 24 hr 03/28/17 03/28/17 03/29/17 17:59 23:59 05:30 WBC RBC Hgb Hct MCV MCH MCHC RDW Plt Count Gran % Lymph % (Auto) Gladwin % (Auto) Eos % (Auto) Baso % (Auto) Gran # Lymph # (Auto) Gladwin # (Auto) Eos # (Auto) Baso # (Auto) pCO2 pO2 HCO3 ABG pH ABG Total CO2 ABG O2 Saturation ABG O2 Content ABG Base Excess ABG Hemoglobin ABG Carboxyhemoglobin POC ABG HHb (Measured) ABG Methemoglobin ABG O2 Capacity Hgb O2 Saturation FiO2 Sodium 155 H Potassium 3.6 Chloride 120 H Carbon Dioxide 24 Anion Gap 16 BUN 27 H Creatinine 0.6 L Est GFR ( Amer) > 60 Est GFR (Non-Af Amer) > 60 POC Glucose (mg/dL) 133 H 166 H Random Glucose 172 H Calcium 9.3 Phosphorus 2.3 L Magnesium 2.4 H Total Bilirubin 1.1 AST 67 H ALT 66 H Alkaline Phosphatase 112 Total Protein 6.7 Albumin 3.1 Globulin 3.6 Albumin/Globulin Ratio 0.8 L 03/29/17 03/29/17 03/29/17 05:30 06:15 06:18 WBC 23.3 H D RBC 4.15 Hgb 9.0 L Hct 27.8 L MCV 67.0 L MCH 21.7 L MCHC 32.4 RDW 15.1 H Plt Count 390 Gran % 88.8 H Lymph % (Auto) 6.8 L Gladwin % (Auto) 4.2 Eos % (Auto) 0.2 L Baso % (Auto) 0.0 Gran # 20.67 H Lymph # (Auto) 1.6 Gladwin # (Auto) 1.0 H Eos # (Auto) 0.0 Baso # (Auto) 0.01 pCO2 26 L pO2 83.0 HCO3 22.7 ABG pH 7.55 H ABG Total CO2 23.5 ABG O2 Saturation 98.7 H ABG O2 Content 12.6 L ABG Base Excess 0.9 ABG Hemoglobin 9.3 L ABG Carboxyhemoglobin 1.9 H POC ABG HHb (Measured) 1.3 ABG Methemoglobin 1.1 ABG O2 Capacity 12.8 L Hgb O2 Saturation 95.7 FiO2 30.0 Sodium Potassium Chloride Carbon Dioxide Anion Gap BUN Creatinine Est GFR ( Amer) Est GFR (Non-Af Amer) POC Glucose (mg/dL) 169 H Random Glucose Calcium Phosphorus Magnesium Total Bilirubin AST ALT Alkaline Phosphatase Total Protein Albumin Globulin Albumin/Globulin Ratio 03/29/17 12:02 WBC RBC Hgb Hct MCV MCH MCHC RDW Plt Count Gran % Lymph % (Auto) [place] % (Auto) Eos % (Auto) Baso % (Auto) Gran # Lymph # (Auto) Gladwin # (Auto) Eos # (Auto) Baso # (Auto) pCO2 pO2 HCO3 ABG pH ABG Total CO2 ABG O2 Saturation ABG O2 Content ABG Base Excess ABG Hemoglobin ABG Carboxyhemoglobin POC ABG HHb (Measured) ABG Methemoglobin ABG O2 Capacity Hgb O2 Saturation FiO2 Sodium Potassium Chloride Carbon Dioxide Anion Gap BUN Creatinine Est GFR ( Amer) Est GFR (Non-Af Amer) POC Glucose (mg/dL) 157 H Random Glucose Calcium Phosphorus Magnesium Total Bilirubin AST ALT Alkaline Phosphatase Total Protein Albumin Globulin Albumin/Globulin Ratio Attending/Attestation - Attestation I have personally seen and examined this patient.: Yes I have fully participated in the care of the patient.: Yes I have reviewed all pertinent clinical information: Yes Notes (Text): 03/29/17 16:57 76 yo female with devastating thalamic bleed with SUELLEN and hydrocephalus, s/p EVD , now removed. No meaningful supratentorial recovery over ICU stay. Family opted for LTAC-->s/p trach/peg. Maintain euvolemia, euglycemia, normothermia and 72wop75%. ccm time 40 min
[2017-03-29] MEDS: Potassium & Sodium Phosphate PO SCH ×3 (11:05→17:21)
[2017-03-29] MEDS: Albuterol-Ipratrop 3 mg / 0.5 (3 ml) UD IH PRN (13:13)
--- NOTE | 2017-03-29 16:32 | CP.PCM.PN ---
<Isi Duque - Last Filed: 03/29/17 16:31> Subjective - Date & Time of Evaluation Date of Evaluation: 03/29/17 Time of Evaluation: 09:30 - Subjective Subjective: Seen and examined at the bedside earlier this morning, chart reviewed. Patient' s ventriculostomy drain removed yesterday. Patient tolerating PEG feedings at 50 cc an hour with free water. No report of bowel movement. Patient reported to have a smear of stool. Patient remains unresponsive. Spoke with nursing staff at bedside. Objective - Vital Signs/Intake and Output Vital Signs (last 24 hours): Temp Pulse Resp BP Pulse Ox 99.7 F H 100 H 25 H 102/58 L 96 03/29/17 12:00 03/29/17 14:15 03/29/17 13:20 03/29/17 14:15 03/29/17 14:15 Intake and Output: 03/29/17 03/29/17 06:59 18:59 Intake Total 155 1954 Output Total 750 Balance 155 1204 - Medications Medications: Current Medications Albuterol/Ipratropium (Duoneb 3 Mg/0.5 Mg (3 Ml) Ud) 3 ml IH Q2H PRN PRN Reason: Shortness of Breath Last Admin: 03/29/17 13:13 Dose: 3 ml Levetiracetam (Keppra 500mg Ivpb) 500 mg in 100 mls @ 400 mls/hr IV Q12 SANJANA Last Admin: 03/29/17 09:00 Dose: 400 mls/hr Nicardipine HCl (Cardene Iv Premix) 20 mg in 200 mls @ 50 mls/hr IV .Q4H PRN; Protocol; 5 MG/HR PRN Reason: TITRATE PER MD ORDER Last Titration: 03/29/17 14:30 Dose: 0 mg/hr, 0 mls/hr Acetaminophen (Ofirmev) 1,000 mg in 100 mls @ 400 mls/hr IVPB Q6H PRN PRN Reason: Temperature > 100 F Stop: 03/31/17 11:38 Last Admin: 03/29/17 13:09 Dose: 400 mls/hr Pantoprazole Sodium (Protonix Inj) 40 mg IVP DAILY SANJANA Last Admin: 03/29/17 08:59 Dose: 40 mg Potassium Phos/Sodium Phos (Neutra-Phos) 1 pkt PO TID SANJANA Stop: 03/29/17 18:01 Last Admin: 03/29/17 13:11 Dose: 1 pkt - Labs Labs: 03/29/17 05:30 03/29/17 05:30 PT 15.5 SECONDS (9.4-12.5) H 03/27/17 05:30 INR 1.34 (0.93-1.08) H 03/27/17 05:30 APTT 22.6 Seconds (25.1-36.5) L 03/27/17 05:30 - Constitutional Appears: No Acute Distress - Eye Exam Eye Exam: absent: Scleral icterus - ENT Exam ENT Exam: Mucous Membranes Moist - Neck Exam Additional comments: trach present - Respiratory Exam Respiratory Exam: NORMAL BREATHING PATTERN. absent: Respiratory Distress - GI/Abdominal Exam GI & Abdominal Exam: Soft, Normal Bowel Sounds. absent: Guarding, Tenderness, Rebound Additional comments: PEG present, insertion site dry and intact no erythema. 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 Long <Wilton Long V - Last Filed: 03/30/17 01:32> Objective - Vital Signs/Intake and Output Vital Signs (last 24 hours): Temp Pulse Resp BP Pulse Ox 99.6 F 114 H 25 H 136/105 H 97 03/29/17 23:32 03/30/17 01:00 03/29/17 13:20 03/30/17 01:00 03/30/17 01:00 Intake and Output: 03/29/17 03/30/17 18:59 06:59 Intake Total 3654 Output Total 1100 Balance 2554 - Medications Medications: Current Medications Albuterol/Ipratropium (Duoneb 3 Mg/0.5 Mg (3 Ml) Ud) 3 ml IH Q2H PRN PRN Reason: Shortness of Breath Last Admin: 02/16/18 13:13 Dose: 3 ml Docusate Sodium (Colace Liquid) 100 mg PEG BID [facility] Last Admin: 03/29/17 17:21 Dose: 100 mg Levetiracetam (Keppra 500mg Ivpb) 500 mg in 100 mls @ 400 mls/hr IV Q12 [facility] Last Admin: 03/29/17 21:00 Dose: 400 mls/hr Nicardipine HCl (Cardene Iv Premix) 20 mg in 200 mls @ 50 mls/hr IV .Q4H PRN; Protocol; 5 MG/HR PRN Reason: TITRATE PER MD ORDER Last Titration: 03/29/17 14:30 Dose: 0 mg/hr, 0 mls/hr Acetaminophen (Ofirmev) 1,000 mg in 100 mls @ 400 mls/hr IVPB Q6H PRN PRN Reason: Temperature > 100 F Stop: 03/31/17 11:38 Last Admin: 03/30/17 00:56 Dose: 400 mls/hr Pantoprazole Sodium (Protonix Inj) 40 mg IVP DAILY [facility] Last Admin: 03/29/17 08:59 Dose: 40 mg - Labs Labs: 03/29/17 05:30 03/29/17 05:30 PT 15.5 SECONDS (9.4-12.5) H 03/27/17 05:30 INR 1.34 (0.93-1.08) H 03/27/17 05:30 APTT 22.6 Seconds (25.1-36.5) L 03/27/17 05:30 Attending/Attestation - Attestation I have personally seen and examined this patient.: Yes I have fully participated in the care of the patient.: Yes I have reviewed all pertinent clinical information, including history, physical exam and plan: Yes Notes (Text): This is an addendum to GI progress report dictated by Isi Duque APN.The patient was seen and examined earlier. Medical records, lab studies, imagings were reviewed. Last 24 hours events reviewed. Agreed with the above treatment plan as outlined in Isi Duque APN's notes the with the addition of the following 03/30/17 01:32
[2017-03-29 23:50] LABS: URINE BILIRUBIN NEGATIVE (NEGATIVE); URINE BLOOD NEGATIVE (NEGATIVE); URINE GLUCOSE (UA) NEGATIVE (NEGATIVE); URINE LEUKOCYTE ESTERASE NEGATIVE Leu/uL (NEGATIVE); URINE NITRATE NEGATIVE (NEGATIVE); URINE PROTEIN TRACE mg/dL (<30 mg/dL)
[2017-03-29 23:51] LABS: URINE APPEARANCE CLEAR (CLEAR); URINE COLOR YELLOW (YELLOW)
[2017-03-30 00:18] LABS: URINE RBC 0 - 2 /hpf (0-2); URINE WBC 0 - 2 /hpf (0-6)
--- NOTE | 2017-03-30 00:28 | PN ---
DATE: 03/29/2017 SUBJECTIVE: The patient is in bed, in no acute distress, nontoxic. PHYSICAL EXAMINATION: VITAL SIGNS: Temperature is 97, T-max is 100.3 and blood pressure is 119/70, respiratory rate on the vent. HEENT: Unremarkable. NECK: Supple. LUNGS: Have decreased breath sounds. HEART: Normal S1 and S2. ABDOMEN: Soft, nontender. LABORATORY DATA: Reveals a white count of 23,000, hemoglobin of 9, platelets of 390 and chemistry reveals a BUN of 27, creatinine of 0.6, procalcitonin 0.14. The urinalysis is noted and serology is negative for influenza. Microbiology is noted to be negative. Review of orders reveals the patient to be off of antibiotics. The patient's repeat procalcitonin is 0.14 and the patient had a chest x-ray with no active lung disease. ASSESSMENT AND PLAN: This is a 76-year-old female who was seen earlier this morning in [facility], bed 4, with systemic inflammatory response syndrome secondary to acute hemorrhagic thalamic cerebrovascular accident, ventilatory dependent respiratory failure, cerebrovascular accident. Repeat ryan cultures negative, procalcitonin is negative. We will continue to follow the patient. Off of antibiotics and repeat cultures were ordered by Dr. Whitaker today, urine and blood, but a negative procalcitonin, less concerned about development of new nosocomial infection such as lung infection, and we will also send for urinalysis and a urine culture. Pending panculture results. Overall prognosis is poor for this patient. Brennan Amador MD
[2017-03-30 05:34] LABS: ARTERIAL BLOOD GAS HCO3 25.6 mmol/L (21-28); ARTERIAL BLOOD GAS O2 CAPACITY 12.3 mL/dl (16-24); ARTERIAL BLOOD GAS O2 CONTENT 12.2 ML/dl (15-23); ARTERIAL BLOOD GAS O2 SAT 98.9 % (95-98); ARTERIAL BLOOD GAS PCO2 36 mm/Hg (35-45); ARTERIAL BLOOD GAS PH 7.46 (7.35-7.45); ARTERIAL BLOOD GAS TCO2 26.7 mmol.L (22-28)
[2017-03-30 05:35] LABS: BASO # 0.02 K/mm3 (0.0-2.0); BASO % 0.1 % (0.0-3.0); EOS # 0.3 (0.0-0.7); EOS % 1.8 % (1.5-5.0); GRAN # 14.93 (1.4-6.5); GRAN % 82.8 % (50.0-68.0); HEMOGLOBIN 9.2 g/dL (12.0-16.0); LYMPH % 11.2 % (22.0-35.0); MEAN CELL VOLUME 67.1 fl (80.0-105.0); MEAN CORPUSCULAR HEMOGLOBIN 21.7 pg (25.0-35.0); MEAN CORPUSCULAR HGB CONC 32.4 g/dl (31.0-37.0); MONO # 0.7 (0.1-0.6); MONO % 4.1 % (1.0-6.0); PLATELET COUNT 321 10^3/uL (120.0-450.0); RBC 4.23 10^6/uL (3.5-6.1); RED CELL DISTRIBUTION WIDTH 15.2 % (11.5-14.5)
[2017-03-30 06:21] LABS: ALB/GLOB RATIO 0.8 (1.1-1.8); ALBUMIN 2.8 g/dL (3.0-4.8); ALT/SGPT 93 U/L (7-56); AST/SGOT 98 U/L (14-36); BLOOD UREA NITROGEN 25 mg/dL (7-21); CALCIUM 9.1 mg/dL (8.4-10.5); GFR AFRICAN-AMERICAN > 60; GFR NON-AFRICAN AMERICAN > 60; MAGNESIUM 2.3 mg/dL (1.7-2.2)
[2017-03-30] MEDS: Albuterol-Ipratrop 3 mg / 0.5 (3 ml) UD IH PRN ×2 (07:20→12:58)
[2017-03-30] MEDS: Nicardipine 20 MG/200 ML 20 MG/200 ML BAG IV PRN ×2 (07:50→14:09)
--- NOTE | 2017-03-30 08:40 | RAD ---
HISTORY: intubated COMPARISON: 03/29/2017 FINDINGS: LUNGS: Hyperinflation consistent with emphysema. No infiltrate. PLEURA: Minimal blunting both costophrenic angles, possibly very small pleural effusion versus chronic pleural thickening. CARDIOVASCULAR: Normal heart size. Tracheostomy tube. No congestive change. OSSEOUS STRUCTURES: No significant abnormalities. VISUALIZED UPPER ABDOMEN: Normal. OTHER FINDINGS: None. IMPRESSION: No acute infiltrate.
--- NOTE | 2017-03-30 09:06 | PN ---
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 She has tracheostomy as well as a PEG tube and ventilator is set at 30% FIO2. The patient is on CPAP pressure support with a PEEP of 5 and is tolerating well. We will try for trach collar today. PHYSICAL EXAMINATION: VITAL SIGNS: Physical exam note that her temperature is 97.9, her pulse is 92, respirations are 23 and BP is 155/96. SKIN: Warm and dry. HEENT: Head atraumatic, but postsurgical stitches are obvious. Ear, nose and throat note that the patient does have a tracheostomy. LUNGS: Reveal good breath sounds bilaterally. HEART: Has regular rate and rhythm. Normal S1, S2. ABDOMEN: Soft. Decreased bowel sounds. GENITALIA AND RECTAL: Deferred. MUSCULOSKELETAL: No joint deformities. EXTREMITIES: Reveal no edema. NEUROLOGICALLY: The patient is unresponsive neurologically secondary to the thalamic bleed. LABORATORY DATA: Laboratories reveal white count of 18.0, hemoglobin is 9.2, hematocrit 28.4 with platelets of 321,000. Arterial blood gas reveals a pH of 7.46, pCO2 of 36, pO2 of 90. Sodium is 151, potassium 3.4, chloride 116, CO2 of 28 with a BUN of 25, creatinine of 0.6 and a glucose of 125. Chest x-ray is pending. IMPRESSION: As far as my impression, this patient has thalamic bleed with intraventricular involvement. She has respiratory failure with requiring ventilator support and tracheostomy. The patient has history of atrial fibrillation, chronic obstructive pulmonary disease as well as is status post ventriculostomy. PLAN: As far as our plan, the patient will continue with ventilator support. We will give trial of trach collar once stabilized. She is scheduled for LTAC once family agrees and bed is available. The patient is getting bronchodilators of DuoNeb, Keppra as well as Cardene and Protonix. We will continue to follow closely and treat aggressively along with the other consultants and the primary care doctor. Rich Iglesias MD
[2017-03-30] MEDS: levETIRAcetam 500mg IVPB 500 MG/100 ML BAG IV SCH ×2 (09:13→21:27)
[2017-03-30] MEDS ORDERED: Potassium Chloride 20 mEq/15 ml LIQ UD PO STA (20:00)
--- NOTE | 2017-03-30 20:41 | PN ---
DATE: 03/30/2017 SUBJECTIVE: Patient seen earlier in [facility] 129, bed 4. PHYSICAL EXAMINATION: VITAL SIGNS: Patient has a temperature of 101, blood pressure is 130/70, respiratory rate on a vent, heart rate of 112. HEENT: Unremarkable. NECK: Supple. LUNGS: Have decreased breath sounds. HEART: Normal S1, S2. ABDOMEN: Soft, nontender. Review of orders reveals the patient is off of antibiotics. LABORATORY DATA: Reveals a white count of 18,000, hemoglobin of 9, platelets 321. BUN of 25, creatinine of 0.6, procalcitonin 0.14.. Blood cultures are negative. Dr. Iglesias's note is reviewed from this morning. Patient had four procalcitonin and all of them have been negative. The last one was yesterday. Patient also had a chest x-ray this morning at 6:00, which is read as no acute infiltrate. ASSESSMENT AND PLAN: This is a 76-year-old female seen earlier this morning in 129, bed 4 with systemic inflammatory response syndrome secondary to acute hemorrhagic thalamic cerebrovascular accident, ventilator-dependent respiratory failure, cerebrovascular accident and repeat cultures negative. Procalcitonin is negative. We will continue off of the antibiotics. However, the patient is at risk of developing nosocomial infections. We will follow closely with you. Brennan Amador MD
--- NOTE | 2017-03-31 00:50 | PN ---
DATE: SUBJECTIVE: Patient is 76 years old, seen and examined, remain unresponsive on vent. Had tracheostomy and PEG placement done. PHYSICAL EXAMINATION: VITAL SIGNS: She is afebrile. Pulse 87, respirations 26, blood pressure 115/75. LUNGS: Bilateral fair air flow. Soft crackle at the upper lung region. HEART: S1, S2 audible. ABDOMEN: Soft. PEG in place. NEUROLOGIC: She is unresponsive. EXTREMITIES: Bilateral leg, no edema. LABORATORY DATA: WBC is 18, hemoglobin 9.2, hematocrit 28.4, platelet 321. Chemistry: Sodium 151, potassium 3.4, chloride 116, CO2 of 28, BUN 25, creatinine 0.6, blood sugar of 159. ASSESSMENT: 1. Status post intracranial bleed. 2. Thalamic bleed. 3. Encephalopathy. 4. Status post tracheostomy. 5. Respiratory failure. 6. Status post PEG placement. 7. History of atrial fibrillation. PLAN: Overall, prognosis is poor. Patient had weaning trial, but she failed, became tachypneic and tachycardic. She is on precautions and on antiseizure medication. We will make a discharge plan next week for LTAC. Oly Major MD
--- NOTE | 2017-03-31 03:11 | PN ---
DATE:03/30/2017 SUBJECTIVE: This patient was seen and evaluated earlier today. Patient comfortable, on vent. PHYSICAL EXAMINATION: VITAL SIGNS: T-max was 101.4, blood pressure 143/95, O2 saturation 100%, pulse 91. HEENT: Post surgical stitch is present. NECK: Supple. Tracheostomy in place. HEART: S1, S2 heard. LUNGS: Bilateral air entry present. ABDOMEN: Soft. PEG tube in place. EXTREMITIES: No cyanosis. No clubbing. NEUROLOGIC: Unresponsive, on vent. LABORATORY DATA: Hemoglobin 9.2, hematocrit 28.4, WBC count 18,000, platelets 321. Sodium 151, potassium 3.4, total bilirubin 1.2. IMPRESSION: A 76-year-old patient with intracerebral bleed, on vent, status post tracheostomy, status post feeding tube placement, tolerating the G-tube feeding. Patient has been spiking temp. Repeat blood cultures negative. Patient is off antibiotics. Procalcitonin negative, off the antibiotics. Continue the feeding. Na elevated . Recommend free water via G-tube. Discussed with the nursing staff. Patient is awaiting for transfer to [facility]. Thank you very much for allowing me to participate in the care of the patient. Wilton Long MD MTDClaus
[2017-03-31 05:37] LABS: ALB/GLOB RATIO 0.8 (1.1-1.8); ALBUMIN 2.7 g/dL (3.0-4.8); ALT/SGPT 86 U/L (7-56); AST/SGOT 69 U/L (14-36); BLOOD UREA NITROGEN 21 mg/dL (7-21); CALCIUM 9.4 mg/dL (8.4-10.5); GFR AFRICAN-AMERICAN > 60; GFR NON-AFRICAN AMERICAN > 60
[2017-03-31] MEDS: Albuterol-Ipratrop 3 mg / 0.5 (3 ml) UD IH PRN ×2 (07:09→13:27)
[2017-03-31 08:30] LABS: ARTERIAL BLOOD GAS HCO3 20.6 mmol/L (21-28); ARTERIAL BLOOD GAS HEMOGLOBIN 10.1 g/dL (11.7-17.4); ARTERIAL BLOOD GAS O2 CONTENT 13.9 ML/dl (15-23); ARTERIAL BLOOD GAS O2 SAT 99.5 % (95-98); ARTERIAL BLOOD GAS PCO2 23 mm/Hg (35-45); ARTERIAL BLOOD GAS PH 7.56 (7.35-7.45); ARTERIAL BLOOD GAS TCO2 21.3 mmol.L (22-28)
[2017-03-31] MEDS: Nicardipine 20 MG/200 ML 20 MG/200 ML BAG IV PRN (08:37)
[2017-03-31] MEDS: levETIRAcetam 500mg IVPB 500 MG/100 ML BAG IV SCH ×2 (09:01→22:05)
--- NOTE | 2017-03-31 15:53 | PN ---
DATE: 03/31/2017 SUBJECTIVE: The patient is in bed, in no acute distress. The patient was seen in CCU 129, bed 4. No changes and the patient has had low-grade fevers. PHYSICAL EXAMINATION: VITAL SIGNS: On exam, temperature is 99, blood pressure is 130/70, respiratory rate on the vent, heart rate of 100. HEENT: Examination of HEENT is unremarkable. NECK: Supple. LUNGS: Have decreased breath sounds. HEART: Normal S1, S2. ABDOMEN: Soft, nontender. LABORATORY DATA: Laboratory examination reveals a white count of 18,000, hemoglobin of 9, platelets of 321. Chemistries reveals a BUN of 21, creatinine of 0.5. Procalcitonin reveals the patient's procalcitonin is 0.14. Urinalysis is noted and influenza is negative. Microbiology reveals all the blood cultures are negative and Streptococcus sanguinis is growing from the tissue culture from the trach collar. ASSESSMENT AND PLAN: A 76-year-old female, seen earlier with systemic inflammatory response syndrome secondary to acute hemorrhagic thalamic cerebrovascular accident, ventilatory-dependent respiratory failure, cerebrovascular accident and the patient is at risk for developing nosocomial infections. We will follow with you. Brennan Amador MD cc:
--- NOTE | 2017-03-31 22:27 | PN ---
DATE: SUBJECTIVE: The patient is a 76-year-old, seen and examined, remains intubated, unresponsive, getting PEG tube feeding, currently on trach collar, off of vent. PHYSICAL EXAMINATION VITAL SIGNS: She is afebrile, pulse 110, respiration 24, blood pressure 119/83. LUNGS: Bilateral fair air flow. No rhonchi or crackles. HEART: S1, S2, audible. ABDOMEN: Soft, nontender. No rebound, no guarding. PEG in place. NEUROLOGICAL: She is unresponsive. LABORATORY DATA: WBC is 18, hemoglobin 9.2, hematocrit 28. Chemistries: Sodium 146, potassium 4.0, chloride 112, CO2 26, BUN 21, creatinine 0.5, blood sugar 125. ASSESSMENT: 1. Intracranial bleed. 2. Status post thalamic bleed. 3. Encephalopathy. 4. History of hypertension. 5. Status post tracheostomy currently on trach collar. 6. .Status post PEG placement on tube feeding. 7. Hypernatremia, resolved. 8. History of atrial fibrillation. PLAN: The patient is off of vent. Social service will make arrangement for transfer to a rehab place and will reduce her 300 mg q. 6. We will followup her CBC and CMP in the a.m. Oly Major MD
--- NOTE | 2017-03-31 22:38 | PN ---
DATE: 03/31/2017 SUBJECTIVE: This patient is comfortable, tolerating the G-tube feeding. PHYSICAL EXAMINATION: VITAL SIGNS: Temperature 99.9, pulse 100, blood pressure is 119/93. HEENT: Anicteric. NECK: Supple. Tracheostomy in place. HEART: S1, S2 heard. LUNGS: Bilateral air entry present. ABDOMEN: Soft. G-tube in place. LABORATORY DATA: Sodium 146, potassium 4.0, chloride 112, bicarb 26, BUN 21, creatinine 0.5. IMPRESSION: A 76-year-old patient with status post cerebrovascular accident, status post tracheostomy, status post percutaneous endoscopic gastrostomy tube placement, tolerating the feeding. Patient did have constipation, did not move the bowel for more than 2 days. Would start the patient on MiraLax. Continue the present management. Thank you very much for allowing me to participate in the care of the patient. Wilton Long MD
[2017-04-01 07:13] LABS: BASO # 0.02 K/mm3 (0.0-2.0); BASO % 0.1 % (0.0-3.0); EOS # 0.3 (0.0-0.7); EOS % 1.8 % (1.5-5.0); GRAN # 12.03 (1.4-6.5); HEMOGLOBIN 8.4 g/dL (12.0-16.0); LYMPH # 1.3 (1.2-3.4); MEAN CELL VOLUME 66.3 fl (80.0-105.0); MEAN CORPUSCULAR HEMOGLOBIN 21.8 pg (25.0-35.0); MEAN CORPUSCULAR HGB CONC 32.8 g/dl (31.0-37.0); MONO # 0.6 (0.1-0.6); MONO % 4.1 % (1.0-6.0); PLATELET COUNT 363 10^3/uL (120.0-450.0); RBC 3.86 10^6/uL (3.5-6.1); RED CELL DISTRIBUTION WIDTH 15.2 % (11.5-14.5); WHITE BLOOD COUNT 14.2 10^3/ul (4.5-11.0)
[2017-04-01 07:51] LABS: ALB/GLOB RATIO 0.7 (1.1-1.8); ALBUMIN 2.4 g/dL (3.0-4.8); ALT/SGPT 66 U/L (7-56); AST/SGOT 78 U/L (14-36); BLOOD UREA NITROGEN 20 mg/dL (7-21); CALCIUM 8.7 mg/dL (8.4-10.5); GFR AFRICAN-AMERICAN > 60; GFR NON-AFRICAN AMERICAN > 60
--- NOTE | 2017-04-01 08:33 | CP.CCUPN ---
<Nixon Hein - Last Filed: 04/01/17 11:53> CCU Subjective - Physician Review Subjective (Free Text): Nixon Hein PGY1 ICU Note for Dr. Reeder Patient was seen and examined in ICU. She is minimally responsive with no change in mental status. persistent fevers attributed to central cause due to brain hemorrhage, and WBC are improving. No other overnight events. Trach culture was positive for strep. ROS was not obtained due to AMS. CCU Objective - Vital Signs / Intake & Output Vital Signs (Last 4 hours): Vital Signs Pulse BP Pulse Ox 04/01/17 06:45 115 H 95 04/01/17 06:30 110 H 105/67 95 04/01/17 06:15 102 H 95 04/01/17 06:00 103 H 112/56 L 97 04/01/17 05:45 95 H 97 04/01/17 05:30 101 H 110/70 98 04/01/17 05:15 93 H 99 04/01/17 05:00 92 H 125/78 99 04/01/17 04:45 91 H 99 Intake and Output (Last 8hrs): Intake & Output 03/31/17 04/01/17 04/01/17 22:59 06:59 14:59 Intake Total 1658 1400 Output Total 1300 650 Balance 358 750 Intake: IV 338 200 CARDINE 188 Left Hand 100 200 Tube Feeding 1200 1200 Other 120 Output: Urine 1300 650 Urine, Voided 1300 650 Other: # Bowel Movements 1 - Physical Exam Physical Exam Limitations: Positive for: Altered Mental Status Head: Positive for: Normocephalic Pupils: Positive for: Non-Reactive Extroacular Muscles: Positive for: Other (unable to assess) Conjunctiva: Positive for: Normal Ears: Positive for: Normal Mouth: Positive for: Dry, Normal Teeth, Other (s/p trach, on vent) Pharnyx: Positive for: Normal, Other Nose (External): Positive for: Atraumatic Nose (Internal): Positive for: Normal Inspection Neck: Positive for: Other (s/p tracheostomy, on vent). Negative for: MIDLINE TENDERNESS Respiratory/Chest: Positive for: Clear to Auscultation, Good Air Exchange, Other (on vent). Negative for: Respiratory Distress, Accessory Muscle Use, Wheezes Cardiovascular: Positive for: Regular Rate and Rhythm, Normal S1, S2. Negative for: Murmurs Abdomen: Positive for: Normal Bowel Sounds, Other (PEG tube in place). Negative for: Tenderness, Distention, Peritoneal Signs Genitourinary/Pelvic Exam: Positive for: Other (purewick) Back: Positive for: Normal Inspection Upper Extremity: Positive for: Normal Inspection, NORMAL PULSES, Capillary Refill < 2s, Other (decerebrate positioning). Negative for: Cyanosis, Edema Lower Extremity: Positive for: Normal Inspection, Other (SCDs in place). Negative for: Edema Neurological: Positive for: Other (GCS4t - pupils are sluggish at 2mm b/l;+ babinski b/l, decerebrate posturing at rest). Negative for: GCS=15, CN II-XII Intact, Speech Normal Skin: Positive for: Warm, Dry, Normal Color. Negative for: Rashes Lymphatic: Positive for: OX3, NI, NC Psychiatric: Positive for: Other (altered). Negative for: Alert, Oriented x 3, Normal Insight, Normal Concentration - Medications Active Medications: Active Medications Generic Name Dose Route Start Last Admin Trade Name Freq PRN Reason Stop Dose Admin Albuterol/Ipratropium 3 ml 03/19/17 10:40 03/31/17 13:27 Duoneb 3 Mg/0.5 Mg (3 Ml) Ud IH 3 ml Q2H PRN Administration Shortness of Breath Docusate Sodium 100 mg 03/29/17 18:00 03/31/17 17:11 Colace Liquid PEG 100 mg BID SANJANA Administration Levetiracetam 500 mg in 100 mls @ 400 mls/hr 03/17/17 22:00 03/31/17 22:05 Keppra 500mg Ivpb IV 400 mls/hr Q12 SANJANA Administration Nicardipine HCl 20 mg in 200 mls @ 50 mls/hr 03/19/17 15:00 03/31/17 16:00 Cardene Iv Premix IV 0 mg/hr .Q4H PRN 0 mls/hr TITRATE PER MD ORDER Titration Protocol 5 MG/HR Acetaminophen 1,000 mg in 100 mls @ 400 mls/hr 03/31/17 14:22 04/01/17 05:41 Ofirmev IVPB 04/02/17 14:23 400 mls/hr Q6H PRN Administration Pain, moderate (4-7) Ceftriaxone Sodium 1 gm in 100 mls @ 100 mls/hr 04/01/17 10:00 Rocephin 1 Gram Ivpb IVPB DAILY [facility] Protocol Pantoprazole Sodium 40 mg 03/18/17 10:00 03/31/17 09:01 Protonix Inj IVP 40 mg DAILY SANJANA Administration Polyethylene Glycol 17 gm 04/01/17 10:00 Miralax PO DAILY SANJANA - Patient Studies Lab Studies: Microbiology Studies 03/26/17 21:45 Blood Culture - Final Blood NO GROWTH AFTER 5 DAYS Gram Stain - Final TEST NOT PERFORMED 03/26/17 21:30 Blood Culture - Final Blood NO GROWTH AFTER 5 DAYS Gram Stain - Final TEST NOT PERFORMED 03/29/17 13:00 Blood Culture - Preliminary Blood-Venous NO GROWTH AFTER 48 HOURS 03/29/17 12:50 Blood Culture - Preliminary Blood-Venous NO GROWTH AFTER 48 HOURS 03/26/17 12:56 Blood Culture - Final Blood-Venous NO GROWTH AFTER 5 DAYS Gram Stain - Final TEST NOT PERFORMED 03/26/17 12:56 Blood Culture - Final Blood-Venous NO GROWTH AFTER 5 DAYS Gram Stain - Final TEST NOT PERFORMED 03/29/17 13:17 Tissue Culture - Final Other: Please Indicate Streptococcus anginosus group 03/29/17 23:30 Urine Culture - Final Urine,Catheterized No Growth (<1,000 CFU/ML) Lab Studies 04/01/17 04/01/17 04/01/17 Range/Units 06:24 05:30 05:30 WBC 14.2 H D (4.5-11.0) 10^3/ul RBC 3.86 (3.5-6.1) 10^6/uL Hgb 8.4 L (12.0-16.0) g/dL Hct 25.6 L (36.0-48.0) % MCV 66.3 L (80.0-105.0) fl MCH 21.8 L (25.0-35.0) pg MCHC 32.8 (31.0-37.0) g/dl RDW 15.2 H (11.5-14.5) % Plt Count 363 (120.0-450.0) 10^3/uL Gran % 85.0 H (50.0-68.0) % Lymph % (Auto) 9.0 L (22.0-35.0) % Foard % (Auto) 4.1 (1.0-6.0) % Eos % (Auto) 1.8 (1.5-5.0) % Baso % (Auto) 0.1 (0.0-3.0) % Gran # 12.03 H (1.4-6.5) Lymph # (Auto) 1.3 (1.2-3.4) Foard # (Auto) 0.6 (0.1-0.6) Eos # (Auto) 0.3 (0.0-0.7) Baso # (Auto) 0.02 (0.0-2.0) K/mm3 pCO2 (35-45) mm/Hg pO2 (80-100) mm/Hg HCO3 (21-28) mmol/L ABG pH (7.35-7.45) ABG Total CO2 (22-28) mmol.L ABG O2 Saturation (95-98) % ABG O2 Content (15-23) ML/dl ABG Base Excess (-2.0-3.0) mmol/L ABG Hemoglobin (11.7-17.4) g/dL ABG Carboxyhemoglobin (0.5-1.5) % POC ABG HHb (Measured) (0-5) % ABG Methemoglobin (0.0-3.0) % ABG O2 Capacity (16-24) mL/dl Hgb O2 Saturation (95.0-98.0) % FiO2 % Sodium 144 (132-148) mmol/L Potassium 3.5 L (3.6-5.0) mmol/L Chloride 110 H (98-107) mmol/L Carbon Dioxide 26 (21-33) mmol/L Anion Gap 12 (10-20) BUN 20 (7-21) mg/dL Creatinine 0.5 L (0.7-1.2) mg/dl Est GFR ( Amer) > 60 Est GFR (Non-Af Amer) > 60 POC Glucose (mg/dL) 127 H (65-110) mg/dL Random Glucose 121 H (70-110) mg/dL Calcium 8.7 (8.4-10.5) mg/dL Total Bilirubin 0.8 (0.2-1.3) mg/dL AST 78 H (14-36) U/L ALT 66 H (7-56) U/L Alkaline Phosphatase 118 (38-126) U/L Total Protein 5.7 L (5.8-8.3) g/dL Albumin 2.4 L (3.0-4.8) g/dL Globulin 3.2 gm/dL Albumin/Globulin Ratio 0.7 L (1.1-1.8) 03/31/17 03/31/17 03/31/17 Range/Units 17:12 12:02 08:00 WBC (4.5-11.0) 10^3/ul RBC (3.5-6.1) 10^6/uL Hgb (12.0-16.0) g/dL Hct (36.0-48.0) % MCV (80.0-105.0) fl MCH (25.0-35.0) pg MCHC (31.0-37.0) g/dl RDW (11.5-14.5) % Plt Count (120.0-450.0) 10^3/uL Gran % (50.0-68.0) % Lymph % (Auto) (22.0-35.0) % Foard % (Auto) (1.0-6.0) % Eos % (Auto) (1.5-5.0) % Baso % (Auto) (0.0-3.0) % Gran # (1.4-6.5) Lymph # (Auto) (1.2-3.4) Foard # (Auto) (0.1-0.6) Eos # (Auto) (0.0-0.7) Baso # (Auto) (0.0-2.0) K/mm3 pCO2 23 L (35-45) mm/Hg pO2 118.0 H (80-100) mm/Hg HCO3 20.6 L (21-28) mmol/L ABG pH 7.56 H (7.35-7.45) ABG Total CO2 21.3 L (22-28) mmol.L ABG O2 Saturation 99.5 H (95-98) % ABG O2 Content 13.9 L (15-23) ML/dl ABG Base Excess -0.6 (-2.0-3.0) mmol/L ABG Hemoglobin 10.1 L (11.7-17.4) g/dL ABG Carboxyhemoglobin 1.7 H (0.5-1.5) % POC ABG HHb (Measured) 0.5 (0-5) % ABG Methemoglobin 1.0 (0.0-3.0) % ABG O2 Capacity 14.0 L (16-24) mL/dl Hgb O2 Saturation 96.7 (95.0-98.0) % FiO2 35.0 % Sodium (132-148) mmol/L Potassium (3.6-5.0) mmol/L Chloride (98-107) mmol/L Carbon Dioxide (21-33) mmol/L Anion Gap (10-20) BUN (7-21) mg/dL Creatinine (0.7-1.2) mg/dl Est GFR ( Amer) Est GFR (Non-Af Amer) POC Glucose (mg/dL) 140 H 125 H (65-110) mg/dL Random Glucose (70-110) mg/dL Calcium (8.4-10.5) mg/dL Total Bilirubin (0.2-1.3) mg/dL AST (14-36) U/L ALT (7-56) U/L Alkaline Phosphatase (38-126) U/L Total Protein (5.8-8.3) g/dL Albumin (3.0-4.8) g/dL Globulin gm/dL Albumin/Globulin Ratio (1.1-1.8) Laboratory Results - last 24 hr 03/31/17 03/31/17 03/31/17 08:00 12:02 17:12 WBC RBC Hgb Hct MCV MCH MCHC RDW Plt Count Gran % Lymph % (Auto) Foard % (Auto) Eos % (Auto) Baso % (Auto) Gran # Lymph # (Auto) Foard # (Auto) Eos # (Auto) Baso # (Auto) pCO2 23 L pO2 118.0 H HCO3 20.6 L ABG pH 7.56 H ABG Total CO2 21.3 L ABG O2 Saturation 99.5 H ABG O2 Content 13.9 L ABG Base Excess -0.6 ABG Hemoglobin 10.1 L ABG Carboxyhemoglobin 1.7 H POC ABG HHb (Measured) 0.5 ABG Methemoglobin 1.0 ABG O2 Capacity 14.0 L Hgb O2 Saturation 96.7 FiO2 35.0 Sodium Potassium Chloride Carbon Dioxide Anion Gap BUN Creatinine Est GFR ( Amer) Est GFR (Non-Af Amer) POC Glucose (mg/dL) 125 H 140 H Random Glucose Calcium Total Bilirubin AST ALT Alkaline Phosphatase Total Protein Albumin Globulin Albumin/Globulin Ratio 04/01/17 04/01/17 04/01/17 05:30 05:30 06:24 WBC 14.2 H D RBC 3.86 Hgb 8.4 L Hct 25.6 L MCV 66.3 L MCH 21.8 L MCHC 32.8 RDW 15.2 H Plt Count 363 Gran % 85.0 H Lymph % (Auto) 9.0 L Foard % (Auto) 4.1 Eos % (Auto) 1.8 Baso % (Auto) 0.1 Gran # 12.03 H Lymph # (Auto) 1.3 Foard # (Auto) 0.6 Eos # (Auto) 0.3 Baso # (Auto) 0.02 pCO2 pO2 HCO3 ABG pH ABG Total CO2 ABG O2 Saturation ABG O2 Content ABG Base Excess ABG Hemoglobin ABG Carboxyhemoglobin POC ABG HHb (Measured) ABG Methemoglobin ABG O2 Capacity Hgb O2 Saturation FiO2 Sodium 144 Potassium 3.5 L Chloride 110 H Carbon Dioxide 26 Anion Gap 12 BUN 20 Creatinine 0.5 L Est GFR ( Amer) > 60 Est GFR (Non-Af Amer) > 60 POC Glucose (mg/dL) 127 H Random Glucose 121 H Calcium 8.7 Total Bilirubin 0.8 AST 78 H ALT 66 H Alkaline Phosphatase 118 Total Protein 5.7 L Albumin 2.4 L Globulin 3.2 Albumin/Globulin Ratio 0.7 L Fingerstick Blood Sugar Results: 127 Review of Systems - Review of Systems Systems not reviewed;Unavailable: Altered Mental Status Critical Care Progress Note - Ventilator Checklist Head of Bed 30 Degrees: Yes Daily Sedation Vacation: Yes Daily Assessment of Readiness to Wean: Yes Daily Spontaneous Breathing Trial: Yes PUD Prophalyxis: Yes DVT Prophylaxis: Yes Oral Care with Chlorhexidine Gluconate {CHG}: Yes - Vent Settings MODE:: CPAP - Extremities/Vascular Does the Patient have a Central Venous Catheter?: No Does the Patient need a Central Venous Catheter?: No Does the Patient have a Perez Catheter?: Yes Does the Patient need a Perez Catheter?: Yes - Prophylaxis GI Prophylaxis GI: PPI - Prophylaxis DVT Prophylaxis DVT: SCDs Assessment/Plan - Assessment and Plan (Free Text) Assessment: 76yo female with a past medical history of intracerebral hemorrhage ( 8yrs ago),A.fib (was on Xeralto), asthma and COPD admitted for L thalamic bleed with intraventricular extension seen on head CT s/p ventriculostomy. s/p tracheostomy and PEG tube placement. Patient's mental state has not changed and fevers are likely due to central cause. [facility] placement per SW. Patient has failed pressure support/CPAP weaning trial and required to be put back on PRVC on 03/28, 03/29, 03/30 and 03/31. Plan: Neuro: - non-responsive off sedation - ICH w/ L thalamic bleed with intraventricular extension s/p kcentra and mannitol and ventriculostomy - EVD was removed by Dr. Peterson - repeat CT Head showed early chronic hemorrhagic degradation - Neurosurgery consulted-recs appreciated - Neuro consulted- recs appreciated - Continue Keppra IV, seizure precaution - Maintain normothermia with cooling blanket, IV tylenol PRN, as well as cool saline flushes through PEG tube fto maintain T < 100F - Aspiration and seizure precautions Cardio: - Hx of Afib, but in NSR - 1.5 L NS bolus ordered - Cardene drip held due to hypotensive episodes - Cardio consulted- recs appreciated - Hold anticoagulants for ICH - Maintain MAP> 65 mmHg Pulm: - On tracheostomy and requires vent, daily PS/CPAP as tolerated however patient has failed for the past 4 days - Maintain SpO2>90% - CXR shows minimal L effusion but no infiltrates - cont protective lung ventilation strategy includes HOB elevated, daily oral care, and aspiration precautions; DVT and GI ppx; will continue daily weaning trials off sedation and vent GI: - Continue tube feeds via PEG tube - cont Osmolite due to hypernatremia Nephro: - Will continue to monitor electrolytes and replace as needed - hypernatremia will be managed by tube feedings change to osmolite and free water flushes 300q6 hrs; monitor and IVF due to BP control Heme/Onc: - Hgb stable- No overt bleeding, Head CT showed stable bleed - No anticoagulation ID: - fevers likely central 2/2 hemorrhage - Patient is on IV tylenol and cooling blanket and cool saline lavage (250cc q 6h) via PEG tube to improve fever - Leukocytosis improving - cultures show negative blood, urine and trach asp - culture from swab of tracheostomy site revealed strep - started on Rocephin - CXR this AM did not show infiltrates - ID consulted Endo: - Maintain strict glycemic control (80s-110s) - avoid hyper/hypo-glycemia Diet: PEG tube feedings (Osmolite) GI ppx: protonix DVT ppx: SCDs Dispo: prognosis guarded. Palliative care consulted. [facility] placement being discussed with SW. Patient was seen, examined and discussed with attending, Dr. Lilli Hein PGY1 Pager # [phone] <Paul Reeder - Last Filed: 04/01/17 13:49> CCU Objective - Vital Signs / Intake & Output Vital Signs (Last 4 hours): Vital Signs Temp Pulse BP Pulse Ox 04/01/17 12:30 102 H 117/75 97 04/01/17 12:15 103 H 112/69 97 04/01/17 12:00 99.3 F 105 H 153/93 H 97 04/01/17 11:45 99 H 123/88 96 04/01/17 11:30 103 H 133/84 98 04/01/17 11:15 100 H 105/70 96 04/01/17 11:00 106 H 140/83 96 04/01/17 10:45 104 H 133/81 96 04/01/17 10:30 101 H 121/82 96 04/01/17 10:15 99 H 110/79 96 04/01/17 10:00 98 H 100/66 96 Intake and Output (Last 8hrs): Intake & Output 03/31/17 04/01/17 04/01/17 22:59 06:59 14:59 Intake Total 1658 1400 Output Total 1300 650 Balance 358 750 Weight 111 lb Intake: IV 338 200 CARDINE 188 Left Hand 100 200 Tube Feeding 1200 1200 Other 120 Output: Urine 1300 650 Urine, Voided 1300 650 Other: # Bowel Movements 1 - Medications Active Medications: Active Medications Generic Name Dose Route Start Last Admin Trade Name Freq PRN Reason Stop Dose Admin Albuterol/Ipratropium 3 ml 03/19/17 10:40 03/31/17 13:27 Duoneb 3 Mg/0.5 Mg (3 Ml) Ud IH 3 ml Q2H PRN Administration Shortness of Breath Docusate Sodium 100 mg 03/29/17 18:00 04/01/17 09:32 Colace Liquid PEG Not Given BID SANJANA Heparin Sodium (Porcine) 5,000 units 04/01/17 10:00 04/01/17 09:43 Heparin SC 5,000 units Q12 SANJANA Administration Protocol Levetiracetam 500 mg in 100 mls @ 400 mls/hr 03/17/17 22:00 04/01/17 09:25 Keppra 500mg Ivpb IV 400 mls/hr Q12 SANJANA Administration Nicardipine HCl 20 mg in 200 mls @ 50 mls/hr 03/19/17 15:00 03/31/17 16:00 Cardene Iv Premix IV 0 mg/hr .Q4H PRN 0 mls/hr TITRATE PER MD ORDER Titration Protocol 5 MG/HR Acetaminophen 1,000 mg in 100 mls @ 400 mls/hr 03/31/17 14:22 04/01/17 05:41 Ofirmev IVPB 04/02/17 14:23 400 mls/hr Q6H PRN Administration Pain, moderate (4-7) Ceftriaxone Sodium 1 gm in 100 mls @ 100 mls/hr 04/01/17 10:00 04/01/17 09:25 Rocephin 1 Gram Ivpb IVPB 100 mls/hr DAILY [facility]NA Administration Protocol Pantoprazole Sodium 40 mg 03/18/17 10:00 04/01/17 09:25 Protonix Inj IVP 40 mg DAILY [facility]JANA Administration Polyethylene Glycol 17 gm 04/01/17 10:00 04/01/17 09:32 Miralax PO Not Given DAILY SANJANA - Patient Studies Lab Studies: Microbiology Studies 03/29/17 13:00 Blood Culture - Preliminary Blood-Venous NO GROWTH AFTER 3 DAYS 03/29/17 12:50 Blood Culture - Preliminary Blood-Venous NO GROWTH AFTER 3 DAYS 04/01/17 09:07 C. difficile Antigen & Toxin A,B (M - Final Stool 03/26/17 21:45 Blood Culture - Final Blood NO GROWTH AFTER 5 DAYS Gram Stain - Final TEST NOT PERFORMED 03/26/17 21:30 Blood Culture - Final Blood NO GROWTH AFTER 5 DAYS Gram Stain - Final TEST NOT PERFORMED 03/26/17 12:56 Blood Culture - Final Blood-Venous NO GROWTH AFTER 5 DAYS Gram Stain - Final TEST NOT PERFORMED 03/26/17 12:56 Blood Culture - Final Blood-Venous NO GROWTH AFTER 5 DAYS Gram Stain - Final TEST NOT PERFORMED 03/29/17 13:17 Tissue Culture - Final Other: Please Indicate Streptococcus anginosus group 03/29/17 23:30 Urine Culture - Final Urine,Catheterized No Growth (<1,000 CFU/ML) Lab Studies 04/01/17 04/01/17 04/01/17 Range/Units 06:24 05:30 05:30 WBC 14.2 H D (4.5-11.0) 10^3/ul RBC 3.86 (3.5-6.1) 10^6/uL Hgb 8.4 L (12.0-16.0) g/dL Hct 25.6 L (36.0-48.0) % MCV 66.3 L (80.0-105.0) fl MCH 21.8 L (25.0-35.0) pg MCHC 32.8 (31.0-37.0) g/dl RDW 15.2 H (11.5-14.5) % Plt Count 363 (120.0-450.0) 10^3/uL Gran % 85.0 H (50.0-68.0) % Lymph % (Auto) 9.0 L (22.0-35.0) % Foard % (Auto) 4.1 (1.0-6.0) % Eos % (Auto) 1.8 (1.5-5.0) % Baso % (Auto) 0.1 (0.0-3.0) % Gran # 12.03 H (1.4-6.5) Lymph # (Auto) 1.3 (1.2-3.4) Foard # (Auto) 0.6 (0.1-0.6) Eos # (Auto) 0.3 (0.0-0.7) Baso # (Auto) 0.02 (0.0-2.0) K/mm3 Sodium 144 (132-148) mmol/L Potassium 3.5 L (3.6-5.0) mmol/L Chloride 110 H (98-107) mmol/L Carbon Dioxide 26 (21-33) mmol/L Anion Gap 12 (10-20) BUN 20 (7-21) mg/dL Creatinine 0.5 L (0.7-1.2) mg/dl Est GFR ( Amer) > 60 Est GFR (Non-Af Amer) > 60 POC Glucose (mg/dL) 127 H (65-110) mg/dL Random Glucose 121 H (70-110) mg/dL Calcium 8.7 (8.4-10.5) mg/dL Total Bilirubin 0.8 (0.2-1.3) mg/dL AST 78 H (14-36) U/L ALT 66 H (7-56) U/L Alkaline Phosphatase 118 (38-126) U/L Total Protein 5.7 L (5.8-8.3) g/dL Albumin 2.4 L (3.0-4.8) g/dL Globulin 3.2 gm/dL Albumin/Globulin Ratio 0.7 L (1.1-1.8) 18 Range/Units 17:12 WBC (4.5-11.0) 10^3/ul RBC (3.5-6.1) 10^6/uL Hgb (12.0-16.0) g/dL Hct (36.0-48.0) % MCV (80.0-105.0) fl MCH (25.0-35.0) pg MCHC (31.0-37.0) g/dl RDW (11.5-14.5) % Plt Count (120.0-450.0) 10^3/uL Gran % (50.0-68.0) % Lymph % (Auto) (22.0-35.0) % Foard % (Auto) (1.0-6.0) % Eos % (Auto) (1.5-5.0) % Baso % (Auto) (0.0-3.0) % Gran # (1.4-6.5) Lymph # (Auto) (1.2-3.4) Foard # (Auto) (0.1-0.6) Eos # (Auto) (0.0-0.7) Baso # (Auto) (0.0-2.0) K/mm3 Sodium (132-148) mmol/L Potassium (3.6-5.0) mmol/L Chloride (98-107) mmol/L Carbon Dioxide (21-33) mmol/L Anion Gap (10-20) BUN (7-21) mg/dL Creatinine (0.7-1.2) mg/dl Est GFR ( Amer) Est GFR (Non-Af Amer) POC Glucose (mg/dL) 140 H (65-110) mg/dL Random Glucose (70-110) mg/dL Calcium (8.4-10.5) mg/dL Total Bilirubin (0.2-1.3) mg/dL AST (14-36) U/L ALT (7-56) U/L Alkaline Phosphatase (38-126) U/L Total Protein (5.8-8.3) g/dL Albumin (3.0-4.8) g/dL Globulin gm/dL Albumin/Globulin Ratio (1.1-1.8) Laboratory Results - last 24 hr 03/31/17 04/01/17 04/01/17 17:12 05:30 05:30 WBC 14.2 H D RBC 3.86 Hgb 8.4 L Hct 25.6 L MCV 66.3 L MCH 21.8 L MCHC 32.8 RDW 15.2 H Plt Count 363 Gran % 85.0 H Lymph % (Auto) 9.0 L Foard % (Auto) 4.1 Eos % (Auto) 1.8 Baso % (Auto) 0.1 Gran # 12.03 H Lymph # (Auto) 1.3 Foard # (Auto) 0.6 Eos # (Auto) 0.3 Baso # (Auto) 0.02 Sodium 144 Potassium 3.5 L Chloride 110 H Carbon Dioxide 26 Anion Gap 12 BUN 20 Creatinine 0.5 L Est GFR ( Amer) > 60 Est GFR (Non-Af Amer) > 60 POC Glucose (mg/dL) 140 H Random Glucose 121 H Calcium 8.7 Total Bilirubin 0.8 AST 78 H ALT 66 H Alkaline Phosphatase 118 Total Protein 5.7 L Albumin 2.4 L Globulin 3.2 Albumin/Globulin Ratio 0.7 L 04/01/17 06:24 WBC RBC Hgb Hct MCV MCH MCHC RDW Plt Count Gran % Lymph % (Auto) Foard % (Auto) Eos % (Auto) Baso % (Auto) Gran # Lymph # (Auto) Foard # (Auto) Eos # (Auto) Baso # (Auto) Sodium Potassium Chloride Carbon Dioxide Anion Gap BUN Creatinine Est GFR ( Amer) Est GFR (Non-Af Amer) POC Glucose (mg/dL) 127 H Random Glucose Calcium Total Bilirubin AST ALT Alkaline Phosphatase Total Protein Albumin Globulin Albumin/Globulin Ratio Assessment/Plan - Assessment and Plan (Free Text) Assessment: Patient seen and examined on rounds, with resident, agree with note with following additions/exceptions: Patient is 76yo female with PMhx of Afib on A/C, HTN, HLD, previous ICH a/w 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 Currently afebrile, HD stable, comfortable in NAD, minimally responsive, s/p PEG and Trach, awaiting Ltach. Stable. ICH s/p EVD s/p removal of EVD s/p PEG s/p Trach HTN Hx of Afib (now off A/C) Recurrent Fevers Recommend: - cont with ventilatory support, CPAP as needed, patient has failed Tcollar multiple times - monitor off antibiotics, follow up procal - BP control - IVF hydration - Monitor HH - FS control - maintain euthermia - follow up NSG, neurology - GI ppx - DVT ppx, discuss with neuro starting HSQ - awaiting Ltach
[2017-04-01] MEDS ORDERED: Potassium Chloride 40 mEq/30 ml LIQ UD PO ONE (08:34)
[2017-04-01] MEDS ORDERED: Sodium Chloride 0.9% 500 ML IV STA (08:46)
--- NOTE | 2017-04-01 08:55 | PN ---
DATE: 03/29/2017 SUBJECTIVE: The patient is 76-year-old, seen and examined, remains unresponsive, on vent, has trach, PEG placed, on PEG tube feeding. Currently getting CPAP trial and seems to be short of breath. She will be switched back to pressure support and CMV mode. OBJECTIVE: VITAL SIGNS: She is afebrile, pulse 109, respirations 27, blood pressure 119/76. LUNGS: Bilateral good airflow. No rhonchi or crackles. HEART: S1, S2 audible. Tachycardic. ABDOMEN: Soft. PEG in place. NEUROLOGIC: She is unresponsive. LABORATORY EXAM: WBC is 23.3, hemoglobin 9, hematocrit 27.8, platelet of 390. Chemistry: Sodium 155, potassium 3.6, chloride 120, CO2 of 24, BUN 27, creatinine 0.6, blood sugar of 157. ASSESSMENT: 1. Respiratory failure. 2. Intracranial bleed. 3. Status post frontal ventriculostomy. That shunt was removed since it did not make any difference in patient's mental status and it could have been the source of infection. 4. Chronic atrial fibrillation. 5. Chronic obstructive pulmonary disease. PLAN: She was given a weaning trial. financial services associate are in the process of making arrangement to [facility]. As soon as arrangement is made, patient will be transferred. Oly Major MD
[2017-04-01] MEDS: levETIRAcetam 500mg IVPB 500 MG/100 ML BAG IV SCH ×2 (09:25→21:23)
[2017-04-01] MEDS: cefTRIAXone 1 gm 1 GM/100 ML BAG IVPB SCH (09:25)
[2017-04-01] MEDS ORDERED: Sodium Chloride 0.9% 1,000 ML IV STA (09:28)
[2017-04-01] MEDS: POLYETHYLENE GLYCOL 3350 17 GM/Dose PACKET PO SCH (09:32)
--- NOTE | 2017-04-01 10:18 | PN ---
DATE: 03/31/2017 CAREER SERVICES OFFICER NOTE SUBJECTIVE: The patient is unresponsive and this morning was on the ventilator, but at this time has been changed to trach collar and being monitored closely. Her O2 saturation is good and no respiratory distress. The patient will be suctioned well and good pulmonary toilet. She is getting TEN and residuals are being checked. PHYSICAL EXAMINATION: VITAL SIGNS: Physical exam note that her temperature is 98.9, her pulse is 103, respirations are 26 and BP is 136/89, O2 saturations are 100%. HEENT: Head is atraumatic, normocephalic. Eyes reactive to light. Ear, nose and throat seemed to be within normal limits. NECK: Her neck is supple with tracheostomy in place. HEART: Has regular rate and rhythm. Normal S1, S2. Mildly tachycardic. LUNGS: Reveal rare rhonchi bilaterally. ABDOMEN: Soft. Decreased bowel sounds. GENITALIA AND RECTAL: Deferred. MUSCULOSKELETAL: No joint deformities. EXTREMITIES: Reveal trace lower extremity edema. NEUROLOGICALLY: She seemed to be grossly intact. LABORATORY DATA: As far as her laboratories are concerned, her arterial blood gases reveals a pH of 7.56, pCO2 of 23, pO2 of 118. The patient's CBC and CMP are pending. IMPRESSION: As far as my impression, the patient has thalamic bleed with intraventricular involvement. She has respiratory failure and has tracheostomy and is on tracheostomy collar at this time. The patient has atrial fibrillation, chronic obstructive pulmonary disease and is status post a ventriculostomy. PLAN: As far as our plan, we will continue respiratory support, watch closely with the trach collar and follow her O2 saturations as well. We will give good trach care and continue with total enteral nutrition. The patient is on DuoNeb, Keppra, Cardene and Protonix. She is scheduled for LTAC placement. Rich Iglesias MD
--- NOTE | 2017-04-01 10:25 | CP.PCM.PN ---
Subjective - Date & Time of Evaluation Date of Evaluation: 04/01/17 Time of Evaluation: 09:50 - Subjective Subjective: Patient continues to be on the ventilator, poorly responsive, low grade temperatures that are not outright fever yesterday. Objective - Vital Signs/Intake and Output Vital Signs (last 24 hours): Temp Pulse Resp BP Pulse Ox 98.9 F 115 H 26 H 105/67 95 04/01/17 04:00 04/01/17 06:45 04/01/17 04:00 04/01/17 06:30 04/01/17 06:45 Intake and Output: 04/01/17 04/01/17 06:59 18:59 Intake Total 1400 Output Total 650 Balance 750 - Medications Medications: Current Medications Albuterol/Ipratropium (Duoneb 3 Mg/0.5 Mg (3 Ml) Ud) 3 ml IH Q2H PRN PRN Reason: Shortness of Breath Last Admin: 03/31/17 13:27 Dose: 3 ml Docusate Sodium (Colace Liquid) 100 mg PEG BID [facility] Last Admin: 03/31/17 17:11 Dose: 100 mg Levetiracetam (Keppra 500mg Ivpb) 500 mg in 100 mls @ 400 mls/hr IV Q12 [facility] Last Admin: 03/31/17 22:05 Dose: 400 mls/hr Nicardipine HCl (Cardene Iv Premix) 20 mg in 200 mls @ 50 mls/hr IV .Q4H PRN; Protocol; 5 MG/HR PRN Reason: TITRATE PER MD ORDER Last Titration: 03/31/17 16:00 Dose: 0 mg/hr, 0 mls/hr Acetaminophen (Ofirmev) 1,000 mg in 100 mls @ 400 mls/hr IVPB Q6H PRN PRN Reason: Pain, moderate (4-7) Stop: 04/02/17 14:23 Last Admin: 04/01/17 05:41 Dose: 400 mls/hr Ceftriaxone Sodium (Rocephin 1 Gram Ivpb) 1 gm in 100 mls @ 100 mls/hr IVPB DAILY [facility] PRN Reason: Protocol Sodium Chloride (Sodium Chloride 0.9%) 500 mls @ 999 mls/hr IV .Q31M STA Stop: 04/01/17 09:16 Last Admin: 04/01/17 08:56 Dose: 999 mls/hr Pantoprazole Sodium (Protonix Inj) 40 mg IVP DAILY [facility] Last Admin: 03/31/17 09:01 Dose: 40 mg Polyethylene Glycol (Miralax) 17 gm PO DAILY [facility]JANA - Labs Labs: 04/01/17 05:30 04/01/17 05:30 PT 15.5 SECONDS (9.4-12.5) H 03/27/17 05:30 INR 1.34 (0.93-1.08) H 03/27/17 05:30 APTT 22.6 Seconds (25.1-36.5) L 03/27/17 05:30 - Constitutional Appears: Chronically Ill - Neck Exam Additional comments: tracheostomy tube in place - Respiratory Exam Respiratory Exam: Decreased Breath Sounds - Cardiovascular Exam Cardiovascular Exam: +S1, +S2 - GI/Abdominal Exam GI & Abdominal Exam: Soft. 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
[2017-04-01] MEDS: Vancomycin 25 MG/ML PO SCH (20:45)
--- NOTE | 2017-04-01 22:54 | PN ---
DATE: SUBJECTIVE: The patient is 76-year-old, remains intubated, admitted on vent collar. Currently, she is on CPAP. Seems to be tachypneic and tachycardic. PHYSICAL EXAMINATION: VITAL SIGNS: She has temperature of 100, pulse 102, respirations 18, blood pressure 97/60. LUNGS: Bilateral fair air flow. Soft crackle in the upper lung region. HEART: S1, S2 audible. ABDOMEN: Soft. Nontender. PEG in place. NEUROLOGIC: She is unresponsive. She is on trach collar. She is on PEG feeding. LABORATORY DATA: WBC is 14.2, hemoglobin 8.4, hematocrit 25.6, platelet of 663. Chemistry: Sodium 144, potassium 3.5, chloride 110, CO2 of 26, BUN 20, creatinine 0.5, blood sugar 127. AST 78, ALT 66. ASSESSMENT: 1. Encephalopathy. 2. Status post intracranial bleed and intrathalamic bleed. 3. Status post tracheostomy, status post PEG placement. PLAN: Overall prognosis is poor. Continue nebulizer treatment. Continue deep venous thrombosis prophylaxis. The patient is on Keppra. Continue Protonix, currently on Rocephin. We will follow up this patient in the a.m. She got multiple trials of weaning that she has failed. Currently on CPAP. Business Development Analyst are in the process of making arrangements for transfer. Oly Major MD
[2017-04-02] MEDS: Vancomycin 25 MG/ML PO SCH ×5 (01:54→19:38)
--- NOTE | 2017-04-02 06:43 | PN ---
DATE: 04/01/2017 SUBJECTIVE: This patient is on trach collar, CPAP. PHYSICAL EXAMINATION: VITAL SIGNS: Temperature 100, blood pressure 110/70, pulse 92, respirations . HEENT: Anicteric. NECK: Supple. Tracheostomy present. LUNGS: Bilateral air entry present. ABDOMEN: G-tube present. LABORATORY DATA: Hemoglobin has dropped to 8.4, hematocrit 25.3, WBC 14.2, and platelets 363. LFTs are essentially unremarkable. Chemistry: Significant for AST 78, ALT 66. Albumin 2.4. IMPRESSION: This is a 76-year-old patient status post cerebrovascular accident, status post tracheostomy placement, status post gastrostomy tube placed, tolerating tube feeding. Patient has constipation, received MiraLax. There is a mild drop in blood count. Continue to follow up the hemoglobin. Empiric proton pump inhibitors therapy to continue. Thank you very much for allowing me to participate in the care of the patient. Wilton Long MD
[2017-04-02 07:13] LABS: HEMOGLOBIN 8.3 g/dL (12.0-16.0); MEAN CELL VOLUME 67.1 fl (80.0-105.0); MEAN CORPUSCULAR HEMOGLOBIN 21.7 pg (25.0-35.0); MEAN CORPUSCULAR HGB CONC 32.3 g/dl (31.0-37.0); PLATELET COUNT 358 10^3/uL (120.0-450.0); RBC 3.83 10^6/uL (3.5-6.1); RED CELL DISTRIBUTION WIDTH 15.3 % (11.5-14.5); WHITE BLOOD COUNT 12.3 10^3/ul (4.5-11.0)
[2017-04-02 07:26] LABS: INR 1.33 (0.93-1.08); PROTHROMBIN TIME 15.4 SECONDS (9.4-12.5)
--- NOTE | 2017-04-02 07:37 | CP.CCUPN ---
<Nixon Hein - Last Filed: 04/02/17 12:33> CCU Subjective - Physician Review Subjective (Free Text): Nixon Hein PGY1 ICU Note for Dr. Reeder Patient was seen and examined in ICU. She is minimally responsive with no change in mental status. persistent fevers attributed to central cause due to brain hemorrhage, and WBC are improving. No other overnight events. Trach culture was positive for strep and cdiff antigen was positive; started on PO vancomycin. ROS was not obtained due to AMS. SW in touch with family about placement options. CCU Objective - Vital Signs / Intake & Output Vital Signs (Last 4 hours): Vital Signs Temp Pulse Resp BP Pulse Ox 04/02/17 06:52 98 H 04/02/17 06:45 102 H 97 04/02/17 06:30 101 H 137/82 97 04/02/17 06:15 100 H 130/92 H 97 04/02/17 06:00 103 H 137/92 H 97 04/02/17 05:45 100 H 146/83 97 04/02/17 05:30 104 H 145/107 H 97 04/02/17 05:15 100 H 110/75 96 04/02/17 05:00 100 H 115/74 96 04/02/17 04:45 104 H 134/85 96 04/02/17 04:30 100 H 118/83 96 04/02/17 04:15 100 H 125/81 97 04/02/17 04:00 99.7 F H 98 H 26 H 126/84 97 04/02/17 03:45 98 H 127/83 97 Intake and Output (Last 8hrs): Intake & Output 04/01/17 04/02/17 04/02/17 22:59 06:59 14:59 Intake Total 650 100 Output Total 250 400 Balance 400 -300 Weight 108 lb 3 oz Intake: IV 100 Left Hand 100 Tube Feeding 350 Other 300 Output: Urine 250 400 Urine, Voided 250 400 Other: # Bowel Movements 5 - Physical Exam Physical Exam Limitations: Positive for: Altered Mental Status Head: Positive for: Normocephalic Pupils: Positive for: Non-Reactive Extroacular Muscles: Positive for: Other (unable to assess) Conjunctiva: Positive for: Normal Ears: Positive for: Normal Mouth: Positive for: Dry, Normal Teeth, Other (s/p trach, on vent) Pharnyx: Positive for: Normal, Other Nose (External): Positive for: Atraumatic Nose (Internal): Positive for: Normal Inspection Neck: Positive for: Other (s/p tracheostomy, on vent). Negative for: MIDLINE TENDERNESS Respiratory/Chest: Positive for: Clear to Auscultation, Good Air Exchange, Other (on vent). Negative for: Respiratory Distress, Accessory Muscle Use, Wheezes Cardiovascular: Positive for: Regular Rate and Rhythm, Normal S1, S2. Negative for: Murmurs Abdomen: Positive for: Normal Bowel Sounds, Other (PEG tube in place). Negative for: Tenderness, Distention, Peritoneal Signs Genitourinary/Pelvic Exam: Positive for: Other (purewick) Back: Positive for: Normal Inspection Upper Extremity: Positive for: Normal Inspection, NORMAL PULSES, Capillary Refill < 2s, Other (decerebrate positioning). Negative for: Cyanosis, Edema Lower Extremity: Positive for: Normal Inspection, Other (SCDs in place). Negative for: Edema Neurological: Positive for: Other (GCS4t - pupils are sluggish at 2mm b/l;+ babinski b/l, decerebrate posturing at rest). Negative for: GCS=15, CN II-XII Intact, Speech Normal Skin: Positive for: Warm, Dry, Normal Color. Negative for: Rashes Lymphatic: Positive for: OX3, NI, NC Psychiatric: Positive for: Other (altered). Negative for: Alert, Oriented x 3, Normal Insight, Normal Concentration - Medications Active Medications: Active Medications Generic Name Dose Route Start Last Admin Trade Name Freq PRN Reason Stop Dose Admin Albuterol/Ipratropium 3 ml 03/19/17 10:40 03/31/17 13:27 Duoneb 3 Mg/0.5 Mg (3 Ml) Ud IH 3 ml Q2H PRN Administration Shortness of Breath Docusate Sodium 100 mg 03/29/17 18:00 04/01/17 18:46 Colace Liquid PEG Not Given BID [facility]NA Heparin Sodium (Porcine) 5,000 units 04/01/17 10:00 04/01/17 21:23 Heparin SC 5,000 units Q12 [facility] Administration Protocol Levetiracetam 500 mg in 100 mls @ 400 mls/hr 03/17/17 22:00 04/01/17 21:23 Keppra 500mg Ivpb IV 400 mls/hr Q12 [facility] Administration Nicardipine HCl 20 mg in 200 mls @ 50 mls/hr 03/19/17 15:00 03/31/17 16:00 Cardene Iv Premix IV 0 mg/hr .Q4H PRN 0 mls/hr TITRATE PER MD ORDER Titration Protocol 5 MG/HR Acetaminophen 1,000 mg in 100 mls @ 400 mls/hr 03/31/17 14:22 04/01/17 05:41 Ofirmev IVPB 04/02/17 14:23 400 mls/hr Q6H PRN Administration Pain, moderate (4-7) Ceftriaxone Sodium 1 gm in 100 mls @ 100 mls/hr 04/01/17 10:00 04/01/17 09:25 Rocephin 1 Gram Ivpb IVPB 100 mls/hr DAILY [facility] Administration Protocol Pantoprazole Sodium 40 mg 03/18/17 10:00 04/01/17 09:25 Protonix Inj IVP 40 mg DAILY [facility] Administration Polyethylene Glycol 17 gm 04/01/17 10:00 04/01/17 09:32 Miralax PO Not Given DAILY [facility] Vancomycin HCl 125 mg 04/01/17 19:45 04/02/17 01:54 Vancocin 25 Mg/Ml (Oral Use) PO 125 mg Q6H [facility] Administration Protocol - Patient Studies Lab Studies: Microbiology Studies 03/29/17 13:00 Blood Culture - Preliminary Blood-Venous NO GROWTH AFTER 3 DAYS 03/29/17 12:50 Blood Culture - Preliminary Blood-Venous NO GROWTH AFTER 3 DAYS 04/01/17 09:07 C. difficile Antigen & Toxin A,B (M - Final Stool Lab Studies 04/02/17 04/02/17 04/02/17 Range/Units 06:30 06:30 02:18 WBC 12.3 H (4.5-11.0) 10^3/ul RBC 3.83 (3.5-6.1) 10^6/uL Hgb 8.3 L (12.0-16.0) g/dL Hct 25.7 L (36.0-48.0) % MCV 67.1 L (80.0-105.0) fl MCH 21.7 L (25.0-35.0) pg MCHC 32.3 (31.0-37.0) g/dl RDW 15.3 H (11.5-14.5) % Plt Count 358 (120.0-450.0) 10^3/uL PT 15.4 H (9.4-12.5) SECONDS INR 1.33 H (0.93-1.08) Sodium (132-148) mmol/L Potassium (3.6-5.0) mmol/L Chloride (98-107) mmol/L Carbon Dioxide (21-33) mmol/L Anion Gap (10-20) BUN (7-21) mg/dL Creatinine (0.7-1.2) mg/dl Est GFR ( Amer) Est GFR (Non-Af Amer) POC Glucose (mg/dL) 105 (65-110) mg/dL Random Glucose (70-110) mg/dL Calcium (8.4-10.5) mg/dL Total Bilirubin (0.2-1.3) mg/dL AST (14-36) U/L ALT (7-56) U/L Alkaline Phosphatase (38-126) U/L Total Protein (5.8-8.3) g/dL Albumin (3.0-4.8) g/dL Globulin gm/dL Albumin/Globulin Ratio (1.1-1.8) 04/01/17 04/01/17 04/01/17 Range/Units 18:25 11:47 05:30 WBC (4.5-11.0) 10^3/ul RBC (3.5-6.1) 10^6/uL Hgb (12.0-16.0) g/dL Hct (36.0-48.0) % MCV (80.0-105.0) fl MCH (25.0-35.0) pg MCHC (31.0-37.0) g/dl RDW (11.5-14.5) % Plt Count (120.0-450.0) 10^3/uL PT (9.4-12.5) SECONDS INR (0.93-1.08) Sodium 144 (132-148) mmol/L Potassium 3.5 L (3.6-5.0) mmol/L Chloride 110 H (98-107) mmol/L Carbon Dioxide 26 (21-33) mmol/L Anion Gap 12 (10-20) BUN 20 (7-21) mg/dL Creatinine 0.5 L (0.7-1.2) mg/dl Est GFR ( Amer) > 60 Est GFR (Non-Af Amer) > 60 POC Glucose (mg/dL) 100 135 H (65-110) mg/dL Random Glucose 121 H (70-110) mg/dL Calcium 8.7 (8.4-10.5) mg/dL Total Bilirubin 0.8 (0.2-1.3) mg/dL AST 78 H (14-36) U/L ALT 66 H (7-56) U/L Alkaline Phosphatase 118 (38-126) U/L Total Protein 5.7 L (5.8-8.3) g/dL Albumin 2.4 L (3.0-4.8) g/dL Globulin 3.2 gm/dL Albumin/Globulin Ratio 0.7 L (1.1-1.8) Laboratory Results - last 24 hr 04/01/17 04/01/17 04/01/17 05:30 11:47 18:25 WBC RBC Hgb Hct MCV MCH MCHC RDW Plt Count PT INR Sodium 144 Potassium 3.5 L Chloride 110 H Carbon Dioxide 26 Anion Gap 12 BUN 20 Creatinine 0.5 L Est GFR ( Amer) > 60 Est GFR (Non-Af Amer) > 60 POC Glucose (mg/dL) 135 H 100 Random Glucose 121 H Calcium 8.7 Total Bilirubin 0.8 AST 78 H ALT 66 H Alkaline Phosphatase 118 Total Protein 5.7 L Albumin 2.4 L Globulin 3.2 Albumin/Globulin Ratio 0.7 L 04/02/17 04/02/17 04/02/17 02:18 06:30 06:30 WBC 12.3 H RBC 3.83 Hgb 8.3 L Hct 25.7 L MCV 67.1 L MCH 21.7 L MCHC 32.3 RDW 15.3 H Plt Count 358 PT 15.4 H INR 1.33 H Sodium Potassium Chloride Carbon Dioxide Anion Gap BUN Creatinine Est GFR ( Amer) Est GFR (Non-Af Amer) POC Glucose (mg/dL) 105 Random Glucose Calcium Total Bilirubin AST ALT Alkaline Phosphatase Total Protein Albumin Globulin Albumin/Globulin Ratio Fingerstick Blood Sugar Results: 130 Review of Systems - Review of Systems Systems not reviewed;Unavailable: Altered Mental Status Critical Care Progress Note - Ventilator Checklist Head of Bed 30 Degrees: Yes Daily Sedation Vacation: Yes Daily Assessment of Readiness to Wean: Yes Daily Spontaneous Breathing Trial: Yes PUD Prophalyxis: Yes DVT Prophylaxis: Yes Oral Care with Chlorhexidine Gluconate {CHG}: Yes - Vent Settings MODE:: CPAP - Extremities/Vascular Does the Patient have a Central Venous Catheter?: No Does the Patient need a Central Venous Catheter?: No Does the Patient have a Perez Catheter?: Yes Does the Patient need a Perez Catheter?: Yes - Prophylaxis GI Prophylaxis GI: PPI - Prophylaxis DVT Prophylaxis DVT: SCDs Assessment/Plan - Assessment and Plan (Free Text) Assessment: 76yo female with a past medical history of intracerebral hemorrhage ( 8yrs ago),A.fib (was on Xeralto), asthma and COPD admitted for L thalamic bleed with intraventricular extension seen on head CT s/p ventriculostomy. s/p tracheostomy and PEG tube placement. Patient's mental state has not changed and fevers are likely due to central cause. intermediate manager placement per SW. Patient has failed pressure support/CPAP weaning trials multiple times and required to be put back on PRVC on 03/28, 03/29, 03/30 and 03/31. Plan is for LTACH pending insurance authorization. Plan: Neuro: - non-responsive off sedation - ICH w/ L thalamic bleed with intraventricular extension s/p kcentra and mannitol and ventriculostomy - EVD was removed by Dr. Peterson - repeat CT Head showed early chronic hemorrhagic degradation - Neurosurgery consulted-recs appreciated - Neuro consulted- recs appreciated - Continue Keppra IV, seizure precaution - Maintain normothermia with cooling blanket, IV tylenol PRN, as well as cool saline flushes through PEG tube fto maintain T < 100F - Aspiration and seizure precautions Cardio: - Hx of Afib, but in NSR - Cardene drip held due to hypotensive episodes - Cardio consulted- recs appreciated - Hold anticoagulants for ICH - Maintain MAP> 65 mmHg Pulm: - On tracheostomy and requires vent, daily PS/CPAP as tolerated however patient has failed 4 trials so far - Maintain SpO2>90% - cont protective lung ventilation strategy includes HOB elevated, daily oral care, and aspiration precautions; DVT and GI ppx; will continue daily weaning trials off sedation and vent GI: - Continue tube feeds via PEG tube - cont Vital AF 1.2 Nephro: - Will continue to monitor electrolytes and replace as needed - hypernatremia will be managed by tube feedings change to osmolite and free water flushes 300q6 hrs; improved - monitor and IVF due to BP control Heme/Onc: - Hgb stable- No overt bleeding, Head CT showed stable bleed - No anticoagulation ID: - fevers likely central 2/2 hemorrhage - Patient is on IV tylenol and cooling blanket and cool saline lavage (250cc q 6h) via PEG tube to improve fever - Leukocytosis improving - cultures show negative blood, urine and trach asp - culture from swab of tracheostomy site revealed strep; cont Rocephin - c diff positive; patient on isolation and stared on PO vanc - CXR was unremarkable - ID consulted Endo: - Maintain strict glycemic control (80s-110s) - avoid hyper/hypo-glycemia Diet: PEG tube feedings (Vital AF 1.2) GI ppx: protonix DVT ppx: SCDs Dispo: prognosis guarded. Palliative care consulted. intermediate manager placement being discussed with SW. Patient was seen, examined and discussed with attending, Dr. Lilli Hein PGY1 Pager # [phone] <Paul Reeder - Last Filed: 04/02/17 12:55> CCU Objective - Vital Signs / Intake & Output Vital Signs (Last 4 hours): Vital Signs Temp Pulse Resp BP Pulse Ox 04/02/17 11:48 98.8 F 98 H 24 97/55 L 97 04/02/17 11:30 98 H 91/55 L 96 04/02/17 11:15 99 H 96 04/02/17 11:02 101 H 98/55 L 96 04/02/17 11:00 99 H 83/51 L 97 04/02/17 10:55 99.5 F 98 H 24 97 04/02/17 10:45 102 H 97 04/02/17 10:30 101 H 103/60 95 04/02/17 10:15 108 H 97 04/02/17 10:05 100.5 F H 109 H 28 H 97 04/02/17 10:00 108 H 145/74 97 04/02/17 09:59 106 H 97 04/02/17 09:45 105 H 98 04/02/17 09:30 107 H 132/80 98 04/02/17 09:15 102 H 97 04/02/17 09:00 99 H 127/81 98 Intake and Output (Last 8hrs): Intake & Output 04/01/17 04/02/17 04/02/17 22:59 06:59 14:59 Intake Total 650 100 300 Output Total 250 400 Balance 400 -300 300 Weight 108 lb 3 oz Intake: IV 100 300 Left Hand 100 200 Right Upper arm 100 Tube Feeding 350 Other 300 Output: Urine 250 400 Urine, Voided 250 400 Other: # Bowel Movements 5 - Medications Active Medications: Active Medications Generic Name Dose Route Start Last Admin Trade Name Freq PRN Reason Stop Dose Admin Albuterol/Ipratropium 3 ml 03/19/17 10:40 03/31/17 13:27 Duoneb 3 Mg/0.5 Mg (3 Ml) Ud IH 3 ml Q2H PRN Administration Shortness of Breath Docusate Sodium 100 mg 03/29/17 18:00 04/02/17 09:10 Colace Liquid PEG Not Given BID [facility]JANA Heparin Sodium (Porcine) 5,000 units 04/01/17 10:00 04/02/17 09:10 Heparin SC 5,000 units Q12 [facility] Administration Protocol Levetiracetam 500 mg in 100 mls @ 400 mls/hr 03/17/17 22:00 04/02/17 09:10 Keppra 500mg Ivpb IV 400 mls/hr Q12 [facility] Administration Nicardipine HCl 20 mg in 200 mls @ 50 mls/hr 03/19/17 15:00 03/31/17 16:00 Cardene Iv Premix IV 0 mg/hr .Q4H PRN 0 mls/hr TITRATE PER MD ORDER Titration Protocol 5 MG/HR Acetaminophen 1,000 mg in 100 mls @ 400 mls/hr 03/31/17 14:22 04/02/17 09:47 Ofirmev IVPB 04/02/17 14:23 400 mls/hr Q6H PRN Administration Pain, moderate (4-7) Ceftriaxone Sodium 1 gm in 100 mls @ 100 mls/hr 04/01/17 10:00 04/02/17 09:11 Rocephin 1 Gram Ivpb IVPB 100 mls/hr DAILY [facility]NA Administration Protocol Mupirocin 1 gm 04/02/17 10:00 04/02/17 12:07 Bactroban Ointment TOP 1 applic BID [facility]JANA Administration Pantoprazole Sodium 40 mg 03/18/17 10:00 04/02/17 09:11 Protonix Inj IVP 40 mg DAILY [facility]NA Administration Polyethylene Glycol 17 gm 04/01/17 10:00 04/02/17 09:11 Miralax PO Not Given DAILY [facility]JANA Vancomycin HCl 125 mg 04/01/17 19:45 04/02/17 12:08 Vancocin 25 Mg/Ml (Oral Use) PO 125 mg Q6H [facility]NA Administration Protocol - Patient Studies Lab Studies: Microbiology Studies 03/29/17 13:00 Blood Culture - Preliminary Blood-Venous NO GROWTH AFTER 3 DAYS 03/29/17 12:50 Blood Culture - Preliminary Blood-Venous NO GROWTH AFTER 3 DAYS 04/01/17 09:07 C. difficile Antigen & Toxin A,B (M - Final Stool Lab Studies 04/02/17 04/02/17 04/02/17 Range/Units 11:17 06:30 06:30 WBC (4.5-11.0) 10^3/ul RBC (3.5-6.1) 10^6/uL Hgb (12.0-16.0) g/dL Hct (36.0-48.0) % MCV (80.0-105.0) fl MCH (25.0-35.0) pg MCHC (31.0-37.0) g/dl RDW (11.5-14.5) % Plt Count (120.0-450.0) 10^3/uL PT 15.4 H (9.4-12.5) SECONDS INR 1.33 H (0.93-1.08) Sodium 148 (132-148) mmol/L Potassium 3.9 (3.6-5.0) mmol/L Chloride 114 H (98-107) mmol/L Carbon Dioxide 22 (21-33) mmol/L Anion Gap 16 (10-20) BUN 21 (7-21) mg/dL Creatinine 0.5 L (0.7-1.2) mg/dl Est GFR ( Amer) > 60 Est GFR (Non-Af Amer) > 60 POC Glucose (mg/dL) 126 H (65-110) mg/dL Random Glucose 113 H (70-110) mg/dL Calcium 9.0 (8.4-10.5) mg/dL Total Bilirubin 0.6 (0.2-1.3) mg/dL AST 59 H D (14-36) U/L ALT 58 H (7-56) U/L Alkaline Phosphatase 119 (38-126) U/L Total Protein 5.9 (5.8-8.3) g/dL Albumin 2.6 L (3.0-4.8) g/dL Globulin 3.3 gm/dL Albumin/Globulin Ratio 0.8 L (1.1-1.8) 04/02/17 04/02/17 04/02/17 Range/Units 06:30 06:06 02:18 WBC 12.3 H (4.5-11.0) 10^3/ul RBC 3.83 (3.5-6.1) 10^6/uL Hgb 8.3 L (12.0-16.0) g/dL Hct 25.7 L (36.0-48.0) % MCV 67.1 L (80.0-105.0) fl MCH 21.7 L (25.0-35.0) pg MCHC 32.3 (31.0-37.0) g/dl RDW 15.3 H (11.5-14.5) % Plt Count 358 (120.0-450.0) 10^3/uL PT (9.4-12.5) SECONDS INR (0.93-1.08) Sodium (132-148) mmol/L Potassium (3.6-5.0) mmol/L Chloride (98-107) mmol/L Carbon Dioxide (21-33) mmol/L Anion Gap (10-20) BUN (7-21) mg/dL Creatinine (0.7-1.2) mg/dl Est GFR ( Amer) Est GFR (Non-Af Amer) POC Glucose (mg/dL) 130 H 105 (65-110) mg/dL Random Glucose (70-110) mg/dL Calcium (8.4-10.5) mg/dL Total Bilirubin (0.2-1.3) mg/dL AST (14-36) U/L ALT (7-56) U/L Alkaline Phosphatase (38-126) U/L Total Protein (5.8-8.3) g/dL Albumin (3.0-4.8) g/dL Globulin gm/dL Albumin/Globulin Ratio (1.1-1.8) 04/01/17 04/01/17 Range/Units 18:25 11:47 WBC (4.5-11.0) 10^3/ul RBC (3.5-6.1) 10^6/uL Hgb (12.0-16.0) g/dL Hct (36.0-48.0) % MCV (80.0-105.0) fl MCH (25.0-35.0) pg MCHC (31.0-37.0) g/dl RDW (11.5-14.5) % Plt Count (120.0-450.0) 10^3/uL PT (9.4-12.5) SECONDS INR (0.93-1.08) Sodium (132-148) mmol/L Potassium (3.6-5.0) mmol/L Chloride (98-107) mmol/L Carbon Dioxide (21-33) mmol/L Anion Gap (10-20) BUN (7-21) mg/dL Creatinine (0.7-1.2) mg/dl Est GFR ( Amer) Est GFR (Non-Af Amer) POC Glucose (mg/dL) 100 135 H (65-110) mg/dL Random Glucose (70-110) mg/dL Calcium (8.4-10.5) mg/dL Total Bilirubin (0.2-1.3) mg/dL AST (14-36) U/L ALT (7-56) U/L Alkaline Phosphatase (38-126) U/L Total Protein (5.8-8.3) g/dL Albumin (3.0-4.8) g/dL Globulin gm/dL Albumin/Globulin Ratio (1.1-1.8) Laboratory Results - last 24 hr 04/01/17 04/01/17 04/02/17 11:47 18:25 02:18 WBC RBC Hgb Hct MCV MCH MCHC RDW Plt Count PT INR Sodium Potassium Chloride Carbon Dioxide Anion Gap BUN Creatinine Est GFR ( Amer) Est GFR (Non-Af Amer) POC Glucose (mg/dL) 135 H 100 105 Random Glucose Calcium Total Bilirubin AST ALT Alkaline Phosphatase Total Protein Albumin Globulin Albumin/Globulin Ratio 04/02/17 04/02/17 04/02/17 06:06 06:30 06:30 WBC 12.3 H RBC 3.83 Hgb 8.3 L Hct 25.7 L MCV 67.1 L MCH 21.7 L MCHC 32.3 RDW 15.3 H Plt Count 358 PT 15.4 H INR 1.33 H Sodium Potassium Chloride Carbon Dioxide Anion Gap BUN Creatinine Est GFR ( Amer) Est GFR (Non-Af Amer) POC Glucose (mg/dL) 130 H Random Glucose Calcium Total Bilirubin AST ALT Alkaline Phosphatase Total Protein Albumin Globulin Albumin/Globulin Ratio 04/02/17 04/02/17 06:30 11:17 WBC RBC Hgb Hct MCV MCH MCHC RDW Plt Count PT INR Sodium 148 Potassium 3.9 Chloride 114 H Carbon Dioxide 22 Anion Gap 16 BUN 21 Creatinine 0.5 L Est GFR ( Amer) > 60 Est GFR (Non-Af Amer) > 60 POC Glucose (mg/dL) 126 H Random Glucose 113 H Calcium 9.0 Total Bilirubin 0.6 AST 59 H D ALT 58 H Alkaline Phosphatase 119 Total Protein 5.9 Albumin 2.6 L Globulin 3.3 Albumin/Globulin Ratio 0.8 L Assessment/Plan - Assessment and Plan (Free Text) Assessment: Patient seen and examined on rounds, with resident, agree with note with following additions/exceptions: Patient is 76yo female with PMhx of Afib on A/C, HTN, HLD, previous ICH a/w 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 Currently afebrile, HD stable, comfortable in NAD, minimally responsive, s/p PEG and Trach, awaiting Ltach. Had developed diarrhea, +cdiff Antigen, started on vanco PO. Stable. ICH s/p EVD s/p removal of EVD s/p PEG s/p Trach HTN Hx of Afib (now off A/C) Recurrent Fevers Cdiff Recommend: - cont with ventilatory support, CPAP as needed, patient has failed Tcollar multiple times - BP control - IVF hydration - Vanco PO, Rocephin IV as per ID - Monitor HH - FS control - maintain euthermia - follow up NSG, neurology - GI ppx - DVT ppx, HSQ - awaiting Ltach
[2017-04-02 08:48] LABS: ALB/GLOB RATIO 0.8 (1.1-1.8); ALBUMIN 2.6 g/dL (3.0-4.8); ALT/SGPT 58 U/L (7-56); AST/SGOT 59 U/L (14-36); BLOOD UREA NITROGEN 21 mg/dL (7-21); GFR AFRICAN-AMERICAN > 60; GFR NON-AFRICAN AMERICAN > 60
[2017-04-02] MEDS: levETIRAcetam 500mg IVPB 500 MG/100 ML BAG IV SCH ×2 (09:10→21:00)
[2017-04-02] MEDS: POLYETHYLENE GLYCOL 3350 17 GM/Dose PACKET PO SCH (09:11)
[2017-04-02] MEDS: cefTRIAXone 1 gm 1 GM/100 ML BAG IVPB SCH (09:11)
--- NOTE | 2017-04-02 10:18 | CP.PCM.PN ---
Subjective - Date & Time of Evaluation Date of Evaluation: 04/02/17 Time of Evaluation: 09:40 - Subjective Subjective: Continues to be on the ventilator, no fevers, now with diarrhea. Objective - Vital Signs/Intake and Output Vital Signs (last 24 hours): Temp Pulse Resp BP Pulse Ox 99 F 98 H 26 H 137/82 97 04/02/17 08:00 04/02/17 06:52 04/02/17 04:00 04/02/17 06:30 04/02/17 06:45 Intake and Output: 04/02/17 04/02/17 06:59 18:59 Intake Total 100 Output Total 400 Balance -300 - Medications Medications: Current Medications Albuterol/Ipratropium (Duoneb 3 Mg/0.5 Mg (3 Ml) Ud) 3 ml IH Q2H PRN PRN Reason: Shortness of Breath Last Admin: 03/31/17 13:27 Dose: 3 ml Docusate Sodium (Colace Liquid) 100 mg PEG BID [facility] Last Admin: 04/02/17 09:10 Dose: Not Given Heparin Sodium (Porcine) (Heparin) 5,000 units SC Q12 [facility] PRN Reason: Protocol Last Admin: 04/02/17 09:10 Dose: 5,000 units Levetiracetam (Keppra 500mg Ivpb) 500 mg in 100 mls @ 400 mls/hr IV Q12 [facility] Last Admin: 04/02/17 09:10 Dose: 400 mls/hr Nicardipine HCl (Cardene Iv Premix) 20 mg in 200 mls @ 50 mls/hr IV .Q4H PRN; Protocol; 5 MG/HR PRN Reason: TITRATE PER MD ORDER Last Titration: 03/31/17 16:00 Dose: 0 mg/hr, 0 mls/hr Acetaminophen (Ofirmev) 1,000 mg in 100 mls @ 400 mls/hr IVPB Q6H PRN PRN Reason: Pain, moderate (4-7) Stop: 04/02/17 14:23 Last Admin: 04/01/17 05:41 Dose: 400 mls/hr Ceftriaxone Sodium (Rocephin 1 Gram Ivpb) 1 gm in 100 mls @ 100 mls/hr IVPB DAILY [facility] PRN Reason: Protocol Last Admin: 04/02/17 09:11 Dose: 100 mls/hr Pantoprazole Sodium (Protonix Inj) 40 mg IVP DAILY [facility] Last Admin: 04/02/17 09:11 Dose: 40 mg Polyethylene Glycol (Miralax) 17 gm PO DAILY [facility] Last Admin: 04/02/17 09:11 Dose: Not Given Vancomycin HCl (Vancocin 25 Mg/Ml (Oral Use)) 125 mg PO Q6H [facility] PRN Reason: Protocol Last Admin: 04/02/17 09:12 Dose: 125 mg - Labs Labs: 04/02/17 06:30 04/02/17 06:30 PT 15.4 SECONDS (9.4-12.5) H 04/02/17 06:30 INR 1.33 (0.93-1.08) H 04/02/17 06:30 APTT 22.6 Seconds (25.1-36.5) L 03/27/17 05:30 - Constitutional Appears: Chronically Ill, Other (intubated, poorly responsive) - ENT Exam Additional comments: tracheostomy tube in place with some surrounding erythema - Respiratory Exam Respiratory Exam: Decreased Breath Sounds, Rales (scattered) - Cardiovascular Exam Cardiovascular Exam: +S1, +S2 - GI/Abdominal Exam GI & Abdominal Exam: Soft. absent: Tenderness Assessment and Plan - Assessment and Plan (Free Text) Plan: Assessment Strep anginosus found around site of tracheostomy, R/O skin and skin structure infection C. diff. 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
--- NOTE | 2017-04-02 12:52 | PN ---
DATE: SUBJECTIVE: The patient is 76 years old, seen and examined. Remained unresponsive, is connected to vent. Got exhausted, on CPAP. Being fed by PEG tube. PHYSICAL EXAMINATION: VITAL SIGNS: The patient is afebrile, pulse 98, respirations 24, blood pressure 97/55. LUNGS: Bilateral soft crackle at left lung region. HEART: S1 and S2 audible. ABDOMEN: Soft. PEG in place. NEUROLOGIC: She is unresponsive. EXTREMITIES: Bilateral leg, no edema. SCDs on place. LABORATORY DATA: WBC is 12.3, hemoglobin 8.3, hematocrit 25.7, platelet of 358. Chemistry: Sodium 148, potassium 3.9, chloride 114, CO2 of 22, BUN 31, creatinine 0.5, blood sugar of 126. ASSESSMENT: 1. Encephalopathy. 2. Status post intracranial bleed. 3. Status post intrathalamic bleed. 4. Status post tracheostomy. 5. Chronic atrial fibrillation. 6. Status post percutaneous endoscopic gastrostomy insertion. 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 Oly Major MD
--- NOTE | 2017-04-02 16:16 | CP.PCM.PN ---
<Mercedes,Kovil V - Last Filed: 04/03/17 07:12> Objective - Vital Signs/Intake and Output Vital Signs (last 24 hours): Temp Pulse Resp BP Pulse Ox 97.9 F 94 H 20 137/84 89 L 04/03/17 04:00 04/03/17 06:51 04/03/17 04:00 04/03/17 06:20 04/03/17 06:15 Intake and Output: 04/03/17 04/03/17 06:59 18:59 Intake Total 700 Output Total 400 Balance 300 - Medications Medications: Current Medications Albuterol/Ipratropium (Duoneb 3 Mg/0.5 Mg (3 Ml) Ud) 3 ml IH Q2H PRN PRN Reason: Shortness of Breath Last Admin: 03/31/17 13:27 Dose: 3 ml Docusate Sodium (Colace Liquid) 100 mg PEG BID [facility] Last Admin: 04/02/17 09:10 Dose: Not Given Heparin Sodium (Porcine) (Heparin) 5,000 units SC Q12 [facility] PRN Reason: Protocol Last Admin: 04/02/17 21:00 Dose: 5,000 units Levetiracetam (Keppra 500mg Ivpb) 500 mg in 100 mls @ 400 mls/hr IV Q12 [facility] Last Admin: 04/02/17 21:00 Dose: 400 mls/hr Nicardipine HCl (Cardene Iv Premix) 20 mg in 200 mls @ 50 mls/hr IV .Q4H PRN; Protocol; 5 MG/HR PRN Reason: TITRATE PER MD ORDER Last Titration: 03/31/17 16:00 Dose: 0 mg/hr, 0 mls/hr Ceftriaxone Sodium (Rocephin 1 Gram Ivpb) 1 gm in 100 mls @ 100 mls/hr IVPB DAILY [facility] PRN Reason: Protocol Last Admin: 04/02/17 09:11 Dose: 100 mls/hr Mupirocin (Bactroban Ointment) 1 gm TOP BID [facility] Last Admin: 04/02/17 17:05 Dose: 1 applic Pantoprazole Sodium (Protonix Inj) 40 mg IVP DAILY [facility] Last Admin: 04/02/17 09:11 Dose: 40 mg Polyethylene Glycol (Miralax) 17 gm PO DAILY [facility] Last Admin: 04/02/17 09:11 Dose: Not Given Vancomycin HCl (Vancocin 25 Mg/Ml (Oral Use)) 125 mg PO Q6H [facility] PRN Reason: Protocol Last Admin: 04/03/17 01:44 Dose: 125 mg - Labs Labs: 04/02/17 06:30 04/02/17 06:30 PT 15.4 SECONDS (9.4-12.5) H 04/02/17 06:30 INR 1.33 (0.93-1.08) H 04/02/17 06:30 APTT 22.6 Seconds (25.1-36.5) L 03/27/17 05:30 Attending/Attestation - Attestation I have personally seen and examined this patient.: Yes I have fully participated in the care of the patient.: Yes I have reviewed all pertinent clinical information, including history, physical exam and plan: Yes Notes (Text): This is an delayed addendum to GI progress report dictated by Isi Duque APN.The patient was seen and examined on 04/02/2017 at 530pm. Medical records, lab studies, imagings were reviewed. Last 24 hours events reviewed. Agreed with the above treatment plan as outlined in Isi Duque APN's notes the with the addition of the following on examination abdomen soft PEG tube in situ Follow-up stool studies Would discontinue Colace and when necessary MiraLAX 04/03/17 07:12 <Isi Duque J - Last Filed: 04/03/17 11:07> Subjective - Date & Time of Evaluation Date of Evaluation: 04/02/17 Time of Evaluation: 10:10 - Subjective Subjective: S&E at bedside earlier today, Tolerating PEG feedings, having diarrhea, flexiseal in place. No overt GI bleeding.(+) Cdiff. No other events reported per nursing. Objective - Vital Signs/Intake and Output Vital Signs (last 24 hours): Temp Pulse Resp BP Pulse Ox 98.8 F 98 H 24 123/85 97 04/02/17 11:48 04/02/17 14:00 04/02/17 11:48 04/02/17 14:00 04/02/17 14:00 Intake and Output: 04/02/17 04/02/17 06:59 18:59 Intake Total 100 300 Output Total 400 Balance -300 300 - Medications Medications: Current Medications Albuterol/Ipratropium (Duoneb 3 Mg/0.5 Mg (3 Ml) Ud) 3 ml IH Q2H PRN PRN Reason: Shortness of Breath Last Admin: 03/31/17 13:27 Dose: 3 ml Docusate Sodium (Colace Liquid) 100 mg PEG BID [facility] Last Admin: 04/02/17 09:10 Dose: Not Given Heparin Sodium (Porcine) (Heparin) 5,000 units SC Q12 [facility] PRN Reason: Protocol Last Admin: 04/02/17 09:10 Dose: 5,000 units Levetiracetam (Keppra 500mg Ivpb) 500 mg in 100 mls @ 400 mls/hr IV Q12 [facility] Last Admin: 04/02/17 09:10 Dose: 400 mls/hr Nicardipine HCl (Cardene Iv Premix) 20 mg in 200 mls @ 50 mls/hr IV .Q4H PRN; Protocol; 5 MG/HR PRN Reason: TITRATE PER MD ORDER Last Titration: 03/31/17 16:00 Dose: 0 mg/hr, 0 mls/hr Ceftriaxone Sodium (Rocephin 1 Gram Ivpb) 1 gm in 100 mls @ 100 mls/hr IVPB DAILY [facility] PRN Reason: Protocol Last Admin: 04/02/17 09:11 Dose: 100 mls/hr Mupirocin (Bactroban Ointment) 1 gm TOP BID [facility] Last Admin: 04/02/17 12:07 Dose: 1 applic Pantoprazole Sodium (Protonix Inj) 40 mg IVP DAILY [facility] Last Admin: 04/02/17 09:11 Dose: 40 mg Polyethylene Glycol (Miralax) 17 gm PO DAILY [facility] Last Admin: 04/02/17 09:11 Dose: Not Given Vancomycin HCl (Vancocin 25 Mg/Ml (Oral Use)) 125 mg PO Q6H [facility] PRN Reason: Protocol Last Admin: 04/02/17 12:08 Dose: 125 mg - Labs Labs: 04/02/17 06:30 04/02/17 06:30 PT 15.4 SECONDS (9.4-12.5) H 04/02/17 06:30 INR 1.33 (0.93-1.08) H 04/02/17 06:30 APTT 22.6 Seconds (25.1-36.5) L 03/27/17 05:30 - Constitutional Appears: No Acute Distress - Eye Exam Eye Exam: Normal appearance. absent: Scleral icterus - ENT Exam ENT Exam: Mucous Membranes Moist - Neck Exam Additional comments: (+) trach - Respiratory Exam Respiratory Exam: NORMAL BREATHING PATTERN. absent: Respiratory Distress - Cardiovascular Exam Cardiovascular Exam: +S1, +S2 - GI/Abdominal Exam GI & Abdominal Exam: Soft, Normal Bowel Sounds. absent: Guarding, Tenderness, Rebound Additional comments: (+) PEG, intact and dry. - Extremities Exam Extremities Exam: Normal Capillary Refill - Neurological Exam Neurological Exam: Altered Additional comments: non responsive - Skin Skin Exam: Dry, Warm Assessment and Plan - Assessment and Plan (Free Text) Assessment: Assessment: Left intracranial thalmic bleed status post ventriculostomy drain Status post trach CDiff colitis Fevers History of atrial fibrillation Hypernatremia Plan: Continue PPI continue PEG feedings at 50 cc an hour, with free water Mirlax/colace on hold on IV antibiotics on oral Vancomycin monitor electrolytes plan for LTAC Seen and discussed with Dr. Long
[2017-04-03] MEDS: Vancomycin 25 MG/ML PO SCH ×3 (01:44→13:55)
[2017-04-03 06:55] LABS: HEMOGLOBIN 8.3 g/dL (12.0-16.0); MEAN CELL VOLUME 66.7 fl (80.0-105.0); MEAN CORPUSCULAR HEMOGLOBIN 21.8 pg (25.0-35.0); MEAN CORPUSCULAR HGB CONC 32.7 g/dl (31.0-37.0); PLATELET COUNT 395 10^3/uL (120.0-450.0); RBC 3.81 10^6/uL (3.5-6.1); RED CELL DISTRIBUTION WIDTH 15.7 % (11.5-14.5); WHITE BLOOD COUNT 10.2 10^3/ul (4.5-11.0)
[2017-04-03 07:19] LABS: INR 1.22 (0.93-1.08); PROTHROMBIN TIME 14.1 SECONDS (9.4-12.5)
[2017-04-03 07:32] LABS: ALB/GLOB RATIO 0.8 (1.1-1.8); ALBUMIN 2.5 g/dL (3.0-4.8); ALT/SGPT 59 U/L (7-56); AST/SGOT 62 U/L (14-36); BLOOD UREA NITROGEN 19 mg/dL (7-21); CALCIUM 8.7 mg/dL (8.4-10.5); GFR AFRICAN-AMERICAN > 60; GFR NON-AFRICAN AMERICAN > 60
--- NOTE | 2017-04-03 07:48 | CP.CCUPN ---
<Nixon Hein - Last Filed: 04/03/17 10:07> CCU Subjective - Physician Review Subjective (Free Text): Nixon Hein PGY1 ICU Note for Dr. Reeder Patient was seen and examined in ICU. She remains with no changes in mental state. Patient remains afebrile for most time of day with only a few episodes of low grade fever, attributed to central etiology. No acute overnight events. ROS was not obtained due to AMS. SW in touch with family about placement options , and peer to peer discussion with Dr. Gutierrez planned for this afternoon. Patient has failed multiple trials to wean off vent during her hospital course that have been documented in prior notes and respiratory therapist notes. CCU Objective - Vital Signs / Intake & Output Vital Signs (Last 4 hours): Vital Signs Temp Pulse Resp BP Pulse Ox 04/03/17 06:51 94 H 04/03/17 06:45 90 04/03/17 06:30 91 H 04/03/17 06:20 137/84 04/03/17 06:19 92 H 04/03/17 06:15 93 H 89 L 04/03/17 06:01 184/108 H 04/03/17 06:00 102 H 100 04/03/17 05:45 94 H 99 04/03/17 05:30 92 H 99 04/03/17 05:15 92 H 99 04/03/17 05:00 93 H 136/82 98 04/03/17 04:45 91 H 98 04/03/17 04:30 95 H 99 04/03/17 04:15 90 99 04/03/17 04:00 97.9 F 92 H 20 162/99 H 98 Intake and Output (Last 8hrs): Intake & Output 04/02/17 04/03/17 04/03/17 22:59 06:59 14:59 Intake Total 1340 700 Output Total 200 400 Balance 1140 300 Weight 109 lb 8 oz Intake: IV 100 Right Upper arm 100 Tube Feeding 1200 600 Other 140 Output: Urine 100 400 Urine, Voided 100 400 Stool 100 Other: # Voids Urine, Voided 3 - Physical Exam Physical Exam Limitations: Positive for: Altered Mental Status Head: Positive for: Normocephalic Pupils: Positive for: Non-Reactive Extroacular Muscles: Positive for: Other (unable to assess) Conjunctiva: Positive for: Normal Ears: Positive for: Normal Mouth: Positive for: Dry, Normal Teeth, Other (s/p trach, on vent) Pharnyx: Positive for: Normal, Other Nose (External): Positive for: Atraumatic Nose (Internal): Positive for: Normal Inspection Neck: Positive for: Other (s/p tracheostomy, on vent). Negative for: MIDLINE TENDERNESS Respiratory/Chest: Positive for: Clear to Auscultation, Good Air Exchange, Other (on vent). Negative for: Respiratory Distress, Accessory Muscle Use, Wheezes Cardiovascular: Positive for: Regular Rate and Rhythm, Normal S1, S2. Negative for: Murmurs Abdomen: Positive for: Normal Bowel Sounds, Other (PEG tube in place). Negative for: Tenderness, Distention, Peritoneal Signs Genitourinary/Pelvic Exam: Positive for: Other (purewick) Back: Positive for: Normal Inspection Upper Extremity: Positive for: Normal Inspection, NORMAL PULSES, Capillary Refill < 2s, Other (decerebrate positioning). Negative for: Cyanosis, Edema Lower Extremity: Positive for: Normal Inspection, Other (SCDs in place). Negative for: Edema Neurological: Positive for: Other (GCS4t - pupils are sluggish at 2mm b/l;+ babinski b/l, decerebrate posturing at rest). Negative for: GCS=15, CN II-XII Intact, Speech Normal Skin: Positive for: Warm, Dry, Normal Color. Negative for: Rashes Lymphatic: Positive for: OX3, NI, NC Psychiatric: Positive for: Other (altered). Negative for: Alert, Oriented x 3, Normal Insight, Normal Concentration - Medications Active Medications: Active Medications Generic Name Dose Route Start Last Admin Trade Name Freq PRN Reason Stop Dose Admin Albuterol/Ipratropium 3 ml 03/19/17 10:40 03/31/17 13:27 Duoneb 3 Mg/0.5 Mg (3 Ml) Ud IH 3 ml Q2H PRN Administration Shortness of Breath Docusate Sodium 100 mg 03/29/17 18:00 04/02/17 09:10 Colace Liquid PEG Not Given BID SANJANA Heparin Sodium (Porcine) 5,000 units 04/01/17 10:00 04/02/17 21:00 Heparin SC 5,000 units Q12 [facility]JANA Administration Protocol Levetiracetam 500 mg in 100 mls @ 400 mls/hr 03/17/17 22:00 04/02/17 21:00 Keppra 500mg Ivpb IV 400 mls/hr Q12 [facility]JANA Administration Nicardipine HCl 20 mg in 200 mls @ 50 mls/hr 03/19/17 15:00 03/31/17 16:00 Cardene Iv Premix IV 0 mg/hr .Q4H PRN 0 mls/hr TITRATE PER MD ORDER Titration Protocol 5 MG/HR Ceftriaxone Sodium 1 gm in 100 mls @ 100 mls/hr 04/01/17 10:00 04/02/17 09:11 Rocephin 1 Gram Ivpb IVPB 100 mls/hr DAILY [facility]JANA Administration Protocol Mupirocin 1 gm 04/02/17 10:00 04/02/17 17:05 Bactroban Ointment TOP 1 applic BID [facility]JANA Administration Pantoprazole Sodium 40 mg 03/18/17 10:00 04/02/17 09:11 Protonix Inj IVP 40 mg DAILY [facility]JANA Administration Polyethylene Glycol 17 gm 04/01/17 10:00 04/02/17 09:11 Miralax PO Not Given DAILY [facility]JANA Vancomycin HCl 125 mg 04/01/17 19:45 04/03/17 01:44 Vancocin 25 Mg/Ml (Oral Use) PO 125 mg Q6H [facility]JANA Administration Protocol - Patient Studies Lab Studies: Microbiology Studies 03/29/17 13:17 Gram Stain - Final Other: Please Indicate Tissue Culture - Final Streptococcus anginosus group 03/29/17 13:00 Blood Culture - Preliminary Blood-Venous NO GROWTH AFTER 4 DAYS 03/29/17 12:50 Blood Culture - Preliminary Blood-Venous NO GROWTH AFTER 4 DAYS Lab Studies 04/03/17 04/03/17 04/03/17 Range/Units 06:30 06:30 06:30 WBC 10.2 (4.5-11.0) 10^3/ul RBC 3.81 (3.5-6.1) 10^6/uL Hgb 8.3 L (12.0-16.0) g/dL Hct 25.4 L (36.0-48.0) % MCV 66.7 L (80.0-105.0) fl MCH 21.8 L (25.0-35.0) pg MCHC 32.7 (31.0-37.0) g/dl RDW 15.7 H (11.5-14.5) % Plt Count 395 (120.0-450.0) 10^3/uL PT 14.1 H (9.4-12.5) SECONDS INR 1.22 H (0.93-1.08) Sodium 146 (132-148) mmol/L Potassium 3.8 (3.6-5.0) mmol/L Chloride 111 H (98-107) mmol/L Carbon Dioxide 27 (21-33) mmol/L Anion Gap 13 (10-20) BUN 19 (7-21) mg/dL Creatinine 0.5 L (0.7-1.2) mg/dl Est GFR ( Amer) > 60 Est GFR (Non-Af Amer) > 60 POC Glucose (mg/dL) (65-110) mg/dL Random Glucose 115 H (70-110) mg/dL Calcium 8.7 (8.4-10.5) mg/dL Total Bilirubin 0.4 (0.2-1.3) mg/dL AST 62 H (14-36) U/L ALT 59 H (7-56) U/L Alkaline Phosphatase 124 (38-126) U/L Total Protein 5.7 L (5.8-8.3) g/dL Albumin 2.5 L (3.0-4.8) g/dL Globulin 3.3 gm/dL Albumin/Globulin Ratio 0.8 L (1.1-1.8) 04/03/17 04/02/17 04/02/17 Range/Units 00:24 18:11 11:17 WBC (4.5-11.0) 10^3/ul RBC (3.5-6.1) 10^6/uL Hgb (12.0-16.0) g/dL Hct (36.0-48.0) % MCV (80.0-105.0) fl MCH (25.0-35.0) pg MCHC (31.0-37.0) g/dl RDW (11.5-14.5) % Plt Count (120.0-450.0) 10^3/uL PT (9.4-12.5) SECONDS INR (0.93-1.08) Sodium (132-148) mmol/L Potassium (3.6-5.0) mmol/L Chloride (98-107) mmol/L Carbon Dioxide (21-33) mmol/L Anion Gap (10-20) BUN (7-21) mg/dL Creatinine (0.7-1.2) mg/dl Est GFR ( Amer) Est GFR (Non-Af Amer) POC Glucose (mg/dL) 118 H 162 H 126 H (65-110) mg/dL Random Glucose (70-110) mg/dL Calcium (8.4-10.5) mg/dL Total Bilirubin (0.2-1.3) mg/dL AST (14-36) U/L ALT (7-56) U/L Alkaline Phosphatase (38-126) U/L Total Protein (5.8-8.3) g/dL Albumin (3.0-4.8) g/dL Globulin gm/dL Albumin/Globulin Ratio (1.1-1.8) 04/02/17 04/02/17 Range/Units 06:30 06:06 WBC (4.5-11.0) 10^3/ul RBC (3.5-6.1) 10^6/uL Hgb (12.0-16.0) g/dL Hct (36.0-48.0) % MCV (80.0-105.0) fl MCH (25.0-35.0) pg MCHC (31.0-37.0) g/dl RDW (11.5-14.5) % Plt Count (120.0-450.0) 10^3/uL PT (9.4-12.5) SECONDS INR (0.93-1.08) Sodium 148 (132-148) mmol/L Potassium 3.9 (3.6-5.0) mmol/L Chloride 114 H (98-107) mmol/L Carbon Dioxide 22 (21-33) mmol/L Anion Gap 16 (10-20) BUN 21 (7-21) mg/dL Creatinine 0.5 L (0.7-1.2) mg/dl Est GFR ( Amer) > 60 Est GFR (Non-Af Amer) > 60 POC Glucose (mg/dL) 130 H (65-110) mg/dL Random Glucose 113 H (70-110) mg/dL Calcium 9.0 (8.4-10.5) mg/dL Total Bilirubin 0.6 (0.2-1.3) mg/dL AST 59 H D (14-36) U/L ALT 58 H (7-56) U/L Alkaline Phosphatase 119 (38-126) U/L Total Protein 5.9 (5.8-8.3) g/dL Albumin 2.6 L (3.0-4.8) g/dL Globulin 3.3 gm/dL Albumin/Globulin Ratio 0.8 L (1.1-1.8) Laboratory Results - last 24 hr 04/02/17 04/02/17 04/02/17 06:06 06:30 11:17 WBC RBC Hgb Hct MCV MCH MCHC RDW Plt Count PT INR Sodium 148 Potassium 3.9 Chloride 114 H Carbon Dioxide 22 Anion Gap 16 BUN 21 Creatinine 0.5 L Est GFR ( Amer) > 60 Est GFR (Non-Af Amer) > 60 POC Glucose (mg/dL) 130 H 126 H Random Glucose 113 H Calcium 9.0 Total Bilirubin 0.6 AST 59 H D ALT 58 H Alkaline Phosphatase 119 Total Protein 5.9 Albumin 2.6 L Globulin 3.3 Albumin/Globulin Ratio 0.8 L 04/02/17 04/03/17 04/03/17 18:11 00:24 06:30 WBC 10.2 RBC 3.81 Hgb 8.3 L Hct 25.4 L MCV 66.7 L MCH 21.8 L MCHC 32.7 RDW 15.7 H Plt Count 395 PT INR Sodium Potassium Chloride Carbon Dioxide Anion Gap BUN Creatinine Est GFR ( Amer) Est GFR (Non-Af Amer) POC Glucose (mg/dL) 162 H 118 H Random Glucose Calcium Total Bilirubin AST ALT Alkaline Phosphatase Total Protein Albumin Globulin Albumin/Globulin Ratio 04/03/17 04/03/17 06:30 06:30 WBC RBC Hgb Hct MCV MCH MCHC RDW Plt Count PT 14.1 H INR 1.22 H Sodium 146 Potassium 3.8 Chloride 111 H Carbon Dioxide 27 Anion Gap 13 BUN 19 Creatinine 0.5 L Est GFR ( Amer) > 60 Est GFR (Non-Af Amer) > 60 POC Glucose (mg/dL) Random Glucose 115 H Calcium 8.7 Total Bilirubin 0.4 AST 62 H ALT 59 H Alkaline Phosphatase 124 Total Protein 5.7 L Albumin 2.5 L Globulin 3.3 Albumin/Globulin Ratio 0.8 L Fingerstick Blood Sugar Results: 120 Review of Systems - Review of Systems Systems not reviewed;Unavailable: Altered Mental Status Critical Care Progress Note - Ventilator Checklist Head of Bed 30 Degrees: Yes Daily Sedation Vacation: Yes Daily Assessment of Readiness to Wean: Yes Daily Spontaneous Breathing Trial: Yes PUD Prophalyxis: Yes DVT Prophylaxis: Yes Oral Care with Chlorhexidine Gluconate {CHG}: Yes - Vent Settings MODE:: CPAP - Extremities/Vascular Does the Patient have a Central Venous Catheter?: No Does the Patient need a Central Venous Catheter?: No Does the Patient have a Perez Catheter?: No Does the Patient need a Perez Catheter?: No (pure wick) - Prophylaxis GI Prophylaxis GI: PPI - Prophylaxis DVT Prophylaxis DVT: SCDs Assessment/Plan - Assessment and Plan (Free Text) Assessment: 76yo female with a past medical history of intracerebral hemorrhage ( 8yrs ago),A.fib (was on Xeralto), asthma and COPD admitted for L thalamic bleed with intraventricular extension seen on head CT s/p ventriculostomy. s/p tracheostomy and PEG tube placement. Patient's mental state has not changed and fevers are likely due to central cause. jail placement per SW. Patient has failed pressure support/CPAP weaning trials multiple times and required to be put back on PRVC on 03/28, 03/29, 03/30 and 03/31. Plan is for LTACH pending insurance authorization, which she was denied, so Dr. Gutierrez will be discussing a [id number]-by-[id number] with the insurance emergency medical dispatcher. Plan: Neuro: - non-responsive off sedation - ICH w/ L thalamic bleed with intraventricular extension s/p kcentra and mannitol and ventriculostomy - EVD was removed by Dr. Peterson - repeat CT Head showed early chronic hemorrhagic degradation - Neurosurgery consulted-recs appreciated - Neuro consulted- recs appreciated - Continue Keppra IV, seizure precaution - Maintain normothermia with cooling blanket, IV tylenol PRN, as well as cool saline flushes through PEG tube fto maintain T < 100F - Aspiration and seizure precautions Cardio: - Hx of Afib, but in NSR - Cardene drip PRN htn - Cardio consulted- recs appreciated - Hold anticoagulants for ICH - Maintain MAP> 65 mmHg Pulm: - On tracheostomy and requires vent, daily PS/CPAP as tolerated however patient has failed 4 trials so far, continue on CPAP if tolerates - Maintain SpO2>90% - cont protective lung ventilation strategy includes HOB elevated, daily oral care, and aspiration precautions; DVT and GI ppx; will continue daily weaning trials off sedation and vent GI: - Continue tube feeds via PEG tube - cont Vital AF 1.2 Nephro: - Will continue to monitor electrolytes and replace as needed - monitor and IVF due to BP control Heme/Onc: - Hgb stable- No overt bleeding, Head CT showed stable bleed - No anticoagulation ID: - fevers likely central 2/2 hemorrhage - Patient is on IV tylenol and cooling blanket and cool saline lavage (250cc q 6h) via PEG tube to improve fever - Leukocytosis improving - cultures show negative blood, urine and trach asp - culture from swab of tracheostomy site revealed strep; cont Rocephin - c diff positive; patient on isolation and cont PO vanc - CXR was unremarkable - ID consulted Endo: - Maintain strict glycemic control (80s-110s) - avoid hyper/hypo-glycemia Diet: PEG tube feedings (Vital AF 1.2) GI ppx: protonix DVT ppx: SCDs Dispo: prognosis guarded. Palliative care consulted. vermin exterminator placement being discussed with MALINDA. Patient was seen, examined and discussed with attending, Dr. Lilli Hein PGY1 Pager # [phone] <Paul Reeder - Last Filed: 04/03/17 11:08> CCU Objective - Vital Signs / Intake & Output Vital Signs (Last 4 hours): Vital Signs Temp Pulse Resp BP Pulse Ox 04/03/17 10:00 95 H 151/86 H 96 04/03/17 09:45 96 H 97 04/03/17 09:30 97 H 98 04/03/17 09:18 105 H 158/100 H 97 04/03/17 09:15 103 H 95 04/03/17 09:00 104 H 154/101 H 96 04/03/17 08:45 103 H 97 04/03/17 08:30 101 H 97 04/03/17 08:15 100 H 98 04/03/17 08:00 98.5 F 99 H 24 155/85 H 98 02/21/18 07:56 99 H 150/93 H 98 04/03/17 07:45 98 H 04/03/17 07:30 87 99 04/03/17 07:15 90 98 Intake and Output (Last 8hrs): Intake & Output 04/02/17 04/03/17 04/03/17 22:59 06:59 14:59 Intake Total 1340 700 Output Total 200 400 Balance 1140 300 Weight 109 lb 8 oz Intake: IV 100 Right Upper arm 100 Tube Feeding 1200 600 Other 140 Output: Urine 100 400 Urine, Voided 100 400 Stool 100 Other: # Voids Urine, Voided 3 - Medications Active Medications: Active Medications Generic Name Dose Route Start Last Admin Trade Name Freq PRN Reason Stop Dose Admin Albuterol/Ipratropium 3 ml 03/19/17 10:40 03/31/17 13:27 Duoneb 3 Mg/0.5 Mg (3 Ml) Ud IH 3 ml Q2H PRN Administration Shortness of Breath Docusate Sodium 100 mg 03/29/17 18:00 04/02/17 09:10 Colace Liquid PEG Not Given BID SANJANA Heparin Sodium (Porcine) 5,000 units 04/01/17 10:00 04/03/17 09:09 Heparin SC 5,000 units Q12 [facility]JANA Administration Protocol Levetiracetam 500 mg in 100 mls @ 400 mls/hr 03/17/17 22:00 04/03/17 09:06 Keppra 500mg Ivpb IV 400 mls/hr Q12 [facility]JANA Administration Nicardipine HCl 20 mg in 200 mls @ 50 mls/hr 03/19/17 15:00 03/31/17 16:00 Cardene Iv Premix IV 0 mg/hr .Q4H PRN 0 mls/hr TITRATE PER MD ORDER Titration Protocol 5 MG/HR Ceftriaxone Sodium 1 gm in 100 mls @ 100 mls/hr 04/01/17 10:00 04/03/17 09:07 Rocephin 1 Gram Ivpb IVPB 100 mls/hr DAILY [facility]JANA Administration Protocol Mupirocin 1 gm 04/02/17 10:00 04/03/17 09:08 Bactroban Ointment TOP 1 applic BID SANJANA Administration Pantoprazole Sodium 40 mg 03/18/17 10:00 04/03/17 09:09 Protonix Inj IVP 40 mg DAILY [facility]JANA Administration Polyethylene Glycol 17 gm 04/01/17 10:00 04/02/17 09:11 Miralax PO Not Given DAILY [facility]JANA Vancomycin HCl 125 mg 04/01/17 19:45 04/03/17 09:06 Vancocin 25 Mg/Ml (Oral Use) PO 125 mg Q6H [facility]JANA Administration Protocol - Patient Studies Lab Studies: Microbiology Studies 03/29/17 13:17 Gram Stain - Final Other: Please Indicate Tissue Culture - Final Streptococcus anginosus group 03/29/17 13:00 Blood Culture - Preliminary Blood-Venous NO GROWTH AFTER 4 DAYS 03/29/17 12:50 Blood Culture - Preliminary Blood-Venous NO GROWTH AFTER 4 DAYS Lab Studies 04/03/17 04/03/17 04/03/17 Range/Units 06:30 06:30 06:30 WBC 10.2 (4.5-11.0) 10^3/ul RBC 3.81 (3.5-6.1) 10^6/uL Hgb 8.3 L (12.0-16.0) g/dL Hct 25.4 L (36.0-48.0) % MCV 66.7 L (80.0-105.0) fl MCH 21.8 L (25.0-35.0) pg MCHC 32.7 (31.0-37.0) g/dl RDW 15.7 H (11.5-14.5) % Plt Count 395 (120.0-450.0) 10^3/uL PT 14.1 H (9.4-12.5) SECONDS INR 1.22 H (0.93-1.08) Sodium 146 (132-148) mmol/L Potassium 3.8 (3.6-5.0) mmol/L Chloride 111 H (98-107) mmol/L Carbon Dioxide 27 (21-33) mmol/L Anion Gap 13 (10-20) BUN 19 (7-21) mg/dL Creatinine 0.5 L (0.7-1.2) mg/dl Est GFR ( Amer) > 60 Est GFR (Non-Af Amer) > 60 POC Glucose (mg/dL) (65-110) mg/dL Random Glucose 115 H (70-110) mg/dL Calcium 8.7 (8.4-10.5) mg/dL Total Bilirubin 0.4 (0.2-1.3) mg/dL AST 62 H (14-36) U/L ALT 59 H (7-56) U/L Alkaline Phosphatase 124 (38-126) U/L Total Protein 5.7 L (5.8-8.3) g/dL Albumin 2.5 L (3.0-4.8) g/dL Globulin 3.3 gm/dL Albumin/Globulin Ratio 0.8 L (1.1-1.8) 04/03/17 04/02/17 04/02/17 Range/Units 00:24 18:11 11:17 WBC (4.5-11.0) 10^3/ul RBC (3.5-6.1) 10^6/uL Hgb (12.0-16.0) g/dL Hct (36.0-48.0) % MCV (80.0-105.0) fl MCH (25.0-35.0) pg MCHC (31.0-37.0) g/dl RDW (11.5-14.5) % Plt Count (120.0-450.0) 10^3/uL PT (9.4-12.5) SECONDS INR (0.93-1.08) Sodium (132-148) mmol/L Potassium (3.6-5.0) mmol/L Chloride (98-107) mmol/L Carbon Dioxide (21-33) mmol/L Anion Gap (10-20) BUN (7-21) mg/dL Creatinine (0.7-1.2) mg/dl Est GFR ( Amer) Est GFR (Non-Af Amer) POC Glucose (mg/dL) 118 H 162 H 126 H (65-110) mg/dL Random Glucose (70-110) mg/dL Calcium (8.4-10.5) mg/dL Total Bilirubin (0.2-1.3) mg/dL AST (14-36) U/L ALT (7-56) U/L Alkaline Phosphatase (38-126) U/L Total Protein (5.8-8.3) g/dL Albumin (3.0-4.8) g/dL Globulin gm/dL Albumin/Globulin Ratio (1.1-1.8) 04/02/17 Range/Units 06:06 WBC (4.5-11.0) 10^3/ul RBC (3.5-6.1) 10^6/uL Hgb (12.0-16.0) g/dL Hct (36.0-48.0) % MCV (80.0-105.0) fl MCH (25.0-35.0) pg MCHC (31.0-37.0) g/dl RDW (11.5-14.5) % Plt Count (120.0-450.0) 10^3/uL PT (9.4-12.5) SECONDS INR (0.93-1.08) Sodium (132-148) mmol/L Potassium (3.6-5.0) mmol/L Chloride (98-107) mmol/L Carbon Dioxide (21-33) mmol/L Anion Gap (10-20) BUN (7-21) mg/dL Creatinine (0.7-1.2) mg/dl Est GFR ( Amer) Est GFR (Non-Af Amer) POC Glucose (mg/dL) 130 H (65-110) mg/dL Random Glucose (70-110) mg/dL Calcium (8.4-10.5) mg/dL Total Bilirubin (0.2-1.3) mg/dL AST (14-36) U/L ALT (7-56) U/L Alkaline Phosphatase (38-126) U/L Total Protein (5.8-8.3) g/dL Albumin (3.0-4.8) g/dL Globulin gm/dL Albumin/Globulin Ratio (1.1-1.8) Laboratory Results - last 24 hr 04/02/17 04/02/17 04/02/17 06:06 11:17 18:11 WBC RBC Hgb Hct MCV MCH MCHC RDW Plt Count PT INR Sodium Potassium Chloride Carbon Dioxide Anion Gap BUN Creatinine Est GFR ( Amer) Est GFR (Non-Af Amer) POC Glucose (mg/dL) 130 H 126 H 162 H Random Glucose Calcium Total Bilirubin AST ALT Alkaline Phosphatase Total Protein Albumin Globulin Albumin/Globulin Ratio 04/03/17 04/03/17 04/03/17 00:24 06:30 06:30 WBC 10.2 RBC 3.81 Hgb 8.3 L Hct 25.4 L MCV 66.7 L MCH 21.8 L MCHC 32.7 RDW 15.7 H Plt Count 395 PT 14.1 H INR 1.22 H Sodium Potassium Chloride Carbon Dioxide Anion Gap BUN Creatinine Est GFR ( Amer) Est GFR (Non-Af Amer) POC Glucose (mg/dL) 118 H Random Glucose Calcium Total Bilirubin AST ALT Alkaline Phosphatase Total Protein Albumin Globulin Albumin/Globulin Ratio 04/03/17 06:30 WBC RBC Hgb Hct MCV MCH MCHC RDW Plt Count PT INR Sodium 146 Potassium 3.8 Chloride 111 H Carbon Dioxide 27 Anion Gap 13 BUN 19 Creatinine 0.5 L Est GFR ( Amer) > 60 Est GFR (Non-Af Amer) > 60 POC Glucose (mg/dL) Random Glucose 115 H Calcium 8.7 Total Bilirubin 0.4 AST 62 H ALT 59 H Alkaline Phosphatase 124 Total Protein 5.7 L Albumin 2.5 L Globulin 3.3 Albumin/Globulin Ratio 0.8 L Assessment/Plan - Assessment and Plan (Free Text) Assessment: Patient seen and examined on rounds, with resident, agree with note with following additions/exceptions: Patient is 76yo female with PMhx of Afib on A/C, HTN, HLD, previous ICH a/w 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 Currently afebrile, HD stable, comfortable in NAD, minimally responsive, s/p PEG and Trach, awaiting Ltach. +cdiff Antigen, started on vanco PO, ID following. Stable. ICH s/p EVD s/p removal of EVD s/p PEG s/p Trach HTN Hx of Afib (now off A/C) Recurrent Fevers Cdiff Recommend: - cont with ventilatory support, CPAP as needed, patient has failed Tcollar - BP control - IVF hydration - Vanco PO, Rocephin IV as per ID - Monitor HH - FS control - maintain euthermia - follow up NSG, neurology - GI ppx - DVT ppx, HSQ - awaiting Ltach transfer, stable
[2017-04-03] MEDS: levETIRAcetam 500mg IVPB 500 MG/100 ML BAG IV SCH (09:06)
[2017-04-03] MEDS: cefTRIAXone 1 gm 1 GM/100 ML BAG IVPB SCH (09:07)
--- NOTE | 2017-04-03 09:44 | CP.PCM.PN ---
Subjective - Date & Time of Evaluation Date of Evaluation: 04/03/17 Time of Evaluation: 09:30 - Subjective Subjective: Continues to be on the vent, poorly responsive, decerebrate position, no fevers overnight, still with watery stools through rectal tube. Objective - Vital Signs/Intake and Output Vital Signs (last 24 hours): Temp Pulse Resp BP Pulse Ox 98.5 F 100 H 24 155/85 H 98 04/03/17 08:00 04/03/17 08:15 04/03/17 08:00 04/03/17 08:00 04/03/17 08:15 Intake and Output: 04/03/17 04/03/17 06:59 18:59 Intake Total 700 Output Total 400 Balance 300 - Medications Medications: Current Medications Albuterol/Ipratropium (Duoneb 3 Mg/0.5 Mg (3 Ml) Ud) 3 ml IH Q2H PRN PRN Reason: Shortness of Breath Last Admin: 03/31/17 13:27 Dose: 3 ml Docusate Sodium (Colace Liquid) 100 mg PEG BID [facility] Last Admin: 04/02/17 09:10 Dose: Not Given Heparin Sodium (Porcine) (Heparin) 5,000 units SC Q12 [facility]JANA PRN Reason: Protocol Last Admin: 04/03/17 09:09 Dose: 5,000 units Levetiracetam (Keppra 500mg Ivpb) 500 mg in 100 mls @ 400 mls/hr IV Q12 [facility] Last Admin: 04/03/17 09:06 Dose: 400 mls/hr Nicardipine HCl (Cardene Iv Premix) 20 mg in 200 mls @ 50 mls/hr IV .Q4H PRN; Protocol; 5 MG/HR PRN Reason: TITRATE PER MD ORDER Last Titration: 03/31/17 16:00 Dose: 0 mg/hr, 0 mls/hr Ceftriaxone Sodium (Rocephin 1 Gram Ivpb) 1 gm in 100 mls @ 100 mls/hr IVPB DAILY [facility] PRN Reason: Protocol Last Admin: 04/03/17 09:07 Dose: 100 mls/hr Mupirocin (Bactroban Ointment) 1 gm TOP BID [facility] Last Admin: 04/03/17 09:08 Dose: 1 applic Pantoprazole Sodium (Protonix Inj) 40 mg IVP DAILY [facility] Last Admin: 04/03/17 09:09 Dose: 40 mg Polyethylene Glycol (Miralax) 17 gm PO DAILY [facility] Last Admin: 04/02/17 09:11 Dose: Not Given Vancomycin HCl (Vancocin 25 Mg/Ml (Oral Use)) 125 mg PO Q6H [facility] PRN Reason: Protocol Last Admin: 04/03/17 09:06 Dose: 125 mg - Labs Labs: 04/03/17 06:30 04/03/17 06:30 PT 14.1 SECONDS (9.4-12.5) H 04/03/17 06:30 INR 1.22 (0.93-1.08) H 04/03/17 06:30 APTT 22.6 Seconds (25.1-36.5) L 03/27/17 05:30 - Constitutional Appears: Other (on the vent, poorly responsive) - ENT Exam Additional comments: tracheostomy tube in place - Respiratory Exam Respiratory Exam: Decreased Breath Sounds - Cardiovascular Exam Cardiovascular Exam: +S1, +S2 - GI/Abdominal Exam GI & Abdominal Exam: Soft. absent: Tenderness Assessment and Plan - Assessment and Plan (Free Text) Plan: Assessment Strep anginosus found around site of tracheostomy, R/O skin and skin structure infection C. diff. 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
--- NOTE | 2017-04-03 11:09 | CP.PCM.PN ---
Subjective - Date & Time of Evaluation Date of Evaluation: 04/03/17 Time of Evaluation: 09:45 - Subjective Subjective: S&E at bedside, chart reviewed, continue to tolerated PEG feedings, as per nursing diarrhea is slightly better, less watery, no reports of bleeding. at bedside. No acute overnight events. Objective - Vital Signs/Intake and Output Vital Signs (last 24 hours): Temp Pulse Resp BP Pulse Ox 98.5 F 95 H 24 151/86 H 96 04/03/17 08:00 04/03/17 10:00 04/03/17 08:00 04/03/17 10:00 04/03/17 10:00 Intake and Output: 04/03/17 04/03/17 06:59 18:59 Intake Total 700 Output Total 400 Balance 300 - Medications Medications: Current Medications Albuterol/Ipratropium (Duoneb 3 Mg/0.5 Mg (3 Ml) Ud) 3 ml IH Q2H PRN PRN Reason: Shortness of Breath Last Admin: 03/31/17 13:27 Dose: 3 ml Docusate Sodium (Colace Liquid) 100 mg PEG BID [facility] Last Admin: 04/02/17 09:10 Dose: Not Given Heparin Sodium (Porcine) (Heparin) 5,000 units SC Q12 [facility] PRN Reason: Protocol Last Admin: 04/03/17 09:09 Dose: 5,000 units Levetiracetam (Keppra 500mg Ivpb) 500 mg in 100 mls @ 400 mls/hr IV Q12 [facility] Last Admin: 04/03/17 09:06 Dose: 400 mls/hr Nicardipine HCl (Cardene Iv Premix) 20 mg in 200 mls @ 50 mls/hr IV .Q4H PRN; Protocol; 5 MG/HR PRN Reason: TITRATE PER MD ORDER Last Titration: 03/31/17 16:00 Dose: 0 mg/hr, 0 mls/hr Ceftriaxone Sodium (Rocephin 1 Gram Ivpb) 1 gm in 100 mls @ 100 mls/hr IVPB DAILY [facility] PRN Reason: Protocol Last Admin: 04/03/17 09:07 Dose: 100 mls/hr Mupirocin (Bactroban Ointment) 1 gm TOP BID [facility] Last Admin: 04/03/17 09:08 Dose: 1 applic Pantoprazole Sodium (Protonix Inj) 40 mg IVP DAILY [facility] Last Admin: 04/03/17 09:09 Dose: 40 mg Polyethylene Glycol (Miralax) 17 gm PO DAILY [facility] Last Admin: 04/02/17 09:11 Dose: Not Given Vancomycin HCl (Vancocin 25 Mg/Ml (Oral Use)) 125 mg PO Q6H [facility] PRN Reason: Protocol Last Admin: 04/03/17 09:06 Dose: 125 mg - Labs Labs: 04/03/17 06:30 04/03/17 06:30 PT 14.1 SECONDS (9.4-12.5) H 04/03/17 06:30 INR 1.22 (0.93-1.08) H 04/03/17 06:30 APTT 22.6 Seconds (25.1-36.5) L 03/27/17 05:30 - Constitutional Appears: No Acute Distress - Eye Exam Eye Exam: Normal appearance. absent: Scleral icterus - ENT Exam ENT Exam: Mucous Membranes Moist - Neck Exam Neck Exam: Normal Inspection - Respiratory Exam Respiratory Exam: absent: Respiratory Distress Additional comments: (+) trach - Cardiovascular Exam Cardiovascular Exam: +S1, +S2 - GI/Abdominal Exam GI & Abdominal Exam: Soft, Normal Bowel Sounds. absent: Guarding, Rebound Additional comments: (+) PEG, site dry and intact - Extremities Exam Extremities Exam: absent: Pedal Edema - Neurological Exam Neurological Exam: Altered - Skin Skin Exam: Dry, Warm Assessment and Plan - Assessment and Plan (Free Text) Assessment: Assessment: Left intracranial thalmic bleed status post ventriculostomy drain Status post trach CDiff colitis Fevers History of atrial fibrillation Resolved Hypernatremia Plan: Continue PPI continue PEG feedings at 50 cc an hour, with free water OFF mirlax/colace on IV antibiotics on oral Vancomycin monitor electrolytes Seen and discussed with Dr. Long
[2017-04-03 16:27] VITALS: RESP 21; TEMP 98.7
[2017-04-03 17:48] VITALS: BP 118/78; PULSE 101; O2SAT 96
[2017-04-03] MEDS ORDERED: levETIRAcetam 500 mg/5ml UD cups PEG SCH (18:00)
[2017-04-04] MEDS ORDERED: Pantoprazole 40 mg Susp UD PEG SCH (06:00)
--- NOTE | 2017-04-04 08:26 | DS ---
SUBJECTIVE: Patient is a 76-year-old who came to the emergency room on 03/17. According to , they were getting ready to go to [facility] and she just passed out and he held her in his arms and she slurred her speech. Ambulance was called and she was brought to the emergency room. She was found to have intrathalamic bleed. To secure respiratory passages, she was intubated and transferred to ICU. Neurosurgical consult was requested. In their opinion, she is not a surgical candidate for evacuation of blood clots. She was given antidote and since then the patient remained unresponsive, was on vent and the patient did not make any progress. Neurologically, she remain unresponsive, so after having long discussion with the family, it was decided to have tracheostomy and vent placed and since then, she has been given weaning trial, but she failed, so she is being transferred to LTAC today, the facility name is [facility] in [place]. PHYSICAL EXAMINATION: GENERAL: Today, she is unresponsive on vent. VITAL SIGNS: She is afebrile, pulse 99, respirations 20, blood pressure 149/93. LUNGS: Bilateral fair air flow. Soft upper lung crackle. HEART: S1, S2 audible. ABDOMEN: Soft. PEG in place. NEUROLOGICAL: She is unresponsive. EXTREMITIES: Bilateral leg SCDs in place. LABORATORY DATA: WBC is 10.2, hemoglobin 8.3, hematocrit 25.4, platelet of 395. PT 14.1, INR 1.22. Chemistry: Sodium 146, potassium 3.8, chloride 111, CO2 27, BUN 19, creatinine 0.5, blood sugar 120. Flu test is negative. ASSESSMENT: 1. Intrathalamic bleed. 2. Chronic atrial fibrillation, was on Xarelto, recently switched from Coumadin to Xarelto. 3. Hypertension. 4. Respiratory failure. 5. Encephalopathy. 6. Status post tracheostomy. 7. Status post percutaneous endoscopic gastrostomy placement. PLAN: The patient is going to be transferred to LTAC [facility] in [place]. She will be taken over by other bingo manager. Oly Major MD [facility] # [id number]
[2017-04-04] MEDS ORDERED: levoFLOXacin 500 MG TAB PO SCH (10:00)
== END 2017-04-03 18:27 | DRG 3 ==
LOC: ED 10:07 → ERH 11:45 → CCU 12:17
PROVIDERS: ADMIT Internal Medicine; ATTEND Internal Medicine
PROC: 5A1955Z Respiratory Ventilation, Greater than 96 Consecutive Hours (ICD-10-PCS; 2017-03-17)
PROC: 0BH17EZ Insertion of Endotracheal Airway into Trachea, Via Natural or Artificial Opening (ICD-10-PCS; 2017-03-17)
PROC: 3E0G76Z Introduction of Nutritional Substance into Upper GI, Via Natural or Artificial Opening (ICD-10-PCS; 2017-03-18)
PROC: 0DH67UZ Insertion of Feeding Device into Stomach, Via Natural or Artificial Opening (ICD-10-PCS; 2017-03-18)
PROC: 009600Z Drainage of Cerebral Ventricle with Drainage Device, Open Approach (ICD-10-PCS; 2017-03-21)
PROC: 3E0F7GC Introduction of Other Therapeutic Substance into Respiratory Tract, Via Natural or Artificial Opening (ICD-10-PCS; 2017-03-21)
PROC: 0B110F4 Bypass Trachea to Cutaneous with Tracheostomy Device, Open Approach (ICD-10-PCS; principal; 2017-03-25 16:00)
PROC: 0DH63UZ Insertion of Feeding Device into Stomach, Percutaneous Approach (ICD-10-PCS; 2017-03-27)
DX: I61.3 Nontraumatic intracerebral hemorrhage in brain stem (principal); I61.5 Nontraumatic intracerebral hemorrhage, intraventricular; G93.40 Encephalopathy, unspecified; G91.9 Hydrocephalus, unspecified; J96.90 Respiratory failure, unspecified, unspecified whether with hypoxia or hypercapnia; A04.72 Enterocolitis due to Clostridium difficile, not specified as recurrent; E87.0 Hyperosmolality and hypernatremia; G81.94 Hemiplegia, unspecified affecting left nondominant side; R65.10 Systemic inflammatory response syndrome (SIRS) of non-infectious origin without acute organ dysfunction; I48.0 Paroxysmal atrial fibrillation; N13.30 Unspecified hydronephrosis; Z99.11 Dependence on respirator [ventilator] status; I16.1 Hypertensive emergency; R47.01 Aphasia; R29.810 Facial weakness; E83.42 Hypomagnesemia; I48.2 Chronic atrial fibrillation; E87.6 Hypokalemia; I10 Essential (primary) hypertension; J44.9 Chronic obstructive pulmonary disease, unspecified; E78.5 Hyperlipidemia, unspecified; D64.9 Anemia, unspecified; K59.00 Constipation, unspecified; R79.1 Abnormal coagulation profile; Z79.01 Long term (current) use of anticoagulants; Z87.891 Personal history of nicotine dependence